=== PATIENT | female | born 1950 | race Hispanic/Latino ===

== ENCOUNTER 2016-08-22 22:38 | Emergency (ER) | payer MEDICAID ==
[2016-08-23] MEDS ORDERED: DILAUDID IM ONE (00:13)
--- NOTE | 2016-08-23 00:14 | Emergency Department Report ---
ED Fall HPI - General Chief Complaint: Fall Stated Complaint: RIGHT SIDE PAIN Time Seen by Provider: 08/23/16 00:08 Source: patient, EMS Mode of arrival: Stretcher - History of Present Illness Initial Comments: This is a 65-year-old female who indicates that she fell on Tuesday while trying to get up from a chair. She states that she tumbled over onto her right side and struck the right side against the arm of the chair quite hard. She did have immediate pain. She was able to get through the day okay. She states throughout Tuesday however her pain is become more on intolerable. She ultimately called ambulance for assistance and further evaluation and pain management. She did take Tylenol at home with minimal improvement of the pain. She she endorses smoking. She does not use oxygen at home. She denies any underlying history of COPD that she is aware of. She denies any other trauma with the fall. No neck pain no headache. No other injuries are reported. Pain in the right chest is worse with movement or deep inspiration or cough. Improved with staying still. - Related Data Home Medications Medication Instructions Recorded Confirmed Last Taken Gabapentin [Neurontin] 100 mg PO TID 04/28/15 04/28/15 Unknown Previous Rx's Medication Instructions Recorded Last Taken Type ALPRAZolam [Xanax TAB] 0.25 mg PO TID PRN #30 tab 05/30/14 Unknown Rx Escitalopram [Lexapro] 20 mg PO DAILY #15 tablet 05/30/14 Unknown Rx Cyclobenzaprine HCl [Flexeril 5 MG 5 mg PO Q6HR #20 tablet 11/27/14 Unknown Rx TAB] traMADol [Ultram 50 MG tab] 50 mg PO Q6HR PRN #20 tablet 11/27/14 Unknown Rx Cefuroxime [Ceftin] 500 mg PO Q12HR #6 tablet 05/01/15 Unknown Rx Albuterol *Only Ed* [Proventil 2.5 mg IH Q3HRT PRN #1 box 09/16/15 Unknown Rx 0.5% NEBS] Amoxicillin/K Clav Tab [Augmentin 1 tab PO Q12HR #20 tab 09/16/15 Unknown Rx 875 mg] Loratadine [Claritin] 10 mg PO DAILY #30 tablet 09/16/15 Unknown Rx Prednisone [predniSONE 10 mg 10 mg PO .TAPER #1 tab.ds.pk 09/16/15 Unknown Rx (6-Day Pack, 21 Tabs)] traMADol [Ultram] 50 mg PO Q6HR PRN #15 tablet 09/16/15 Unknown Rx oxyCODONE /ACETAMINOPHEN [Percocet 1 tab PO Q6HR PRN #30 tablet 08/23/16 Unknown Rx 5/325] Allergies Allergy/AdvReac Type Severity Reaction Status Date / Time codeine Allergy Hives Verified 11/27/14 12:23 prednisone Allergy Rash Verified 08/22/16 22:50 ED Review of Systems ROS: Stated complaint: RIGHT SIDE PAIN Other details as noted in HPI Comment: All other systems reviewed and negative Constitutional: denies: chills, fever Eyes: denies: eye pain, eye discharge, vision change ENT: denies: ear pain, throat pain Respiratory: denies: cough, shortness of breath, wheezing Cardiovascular: denies: chest pain, palpitations Endocrine: no symptoms reported Gastrointestinal: denies: abdominal pain, nausea, diarrhea Genitourinary: denies: urgency, dysuria, discharge Musculoskeletal: other. denies: back pain, joint swelling, arthralgia Skin: denies: rash, lesions Neurological: denies: headache, weakness, paresthesias Psychiatric: denies: anxiety, depression Hematological/Lymphatic: denies: easy bleeding, easy bruising ED Past Medical Hx - Past Medical History Previous Medical History?: Yes Hx Hypertension: Yes (lasix) Hx Congestive Heart Failure: No Hx Diabetes: No Hx Pulmonary Embolism: No Hx Renal Disease: No Hx Arthritis: No Hx Kidney Stones: No Hx Psychiatric Treatment: Yes (Apparently has previous overdose; on Lexapro and Xanax) Hx Asthma: No Hx COPD: Yes Hx Tuberculosis: No Hx HIV: No Additional medical history: a-fib, home O2. CARPAL TUNNEL. Back pain - Surgical History Past Surgical History?: Yes Hx Cholecystectomy: No Hx Appendectomy: No Hx Breast Surgery: No Additional Surgical History: BILATERAL CATARACTS REMOVED; LENS SURGERY. BALLOON IN BACK - Social History Smoking Status: Current Every Day Smoker Substance Use Type: None - Medications Home Medications: Home Medications Medication Instructions Recorded Confirmed Last Taken Type ALPRAZolam [Xanax TAB] 0.25 mg PO TID PRN #30 tab 05/30/14 04/28/15 Unknown Rx Escitalopram [Lexapro] 20 mg PO DAILY #15 tablet 05/30/14 04/28/15 Unknown Rx Cyclobenzaprine HCl [Flexeril 5 MG 5 mg PO Q6HR #20 tablet 11/27/14 04/28/15 Unknown Rx TAB] traMADol [Ultram 50 MG tab] 50 mg PO Q6HR PRN #20 tablet 11/27/14 04/28/15 Unknown Rx Gabapentin [Neurontin] 100 mg PO TID 04/28/15 04/28/15 Unknown History Cefuroxime [Ceftin] 500 mg PO Q12HR #6 tablet 05/01/15 Unknown Rx Albuterol *Only Ed* [Proventil 2.5 mg IH Q3HRT PRN #1 box 09/16/15 Unknown Rx 0.5% NEBS] Amoxicillin/K Clav Tab [Augmentin 1 tab PO Q12HR #20 tab 09/16/15 Unknown Rx 875 mg] Loratadine [Claritin] 10 mg PO DAILY #30 tablet 09/16/15 Unknown Rx Prednisone [predniSONE 10 mg 10 mg PO .TAPER #1 tab.ds.pk 09/16/15 Unknown Rx (6-Day Pack, 21 Tabs)] traMADol [Ultram] 50 mg PO Q6HR PRN #15 tablet 09/16/15 Unknown Rx oxyCODONE /ACETAMINOPHEN [Percocet 1 tab PO Q6HR PRN #30 tablet 08/23/16 Unknown Rx 5/325] ED Physical Exam - General Limitations: Physical Limitation General appearance: alert, in distress (due to pain) - Head Head exam: Present: atraumatic, normocephalic - Eye Eye exam: Present: normal appearance, EOMI. Absent: scleral icterus - ENT ENT exam: Present: normal exam, normal orophraynx - Neck Neck exam: Present: normal inspection, full ROM. Absent: lymphadenopathy - Respiratory Respiratory exam: Present: normal lung sounds bilaterally, other (shallow breathing. Chest wall examination with right side mid portion and anterior axillary line with ecchymoses and some edema. No crepitance or bony step-off is appreciated.). Absent: wheezes, rales, rhonchi - Cardiovascular Cardiovascular Exam: Present: regular rate, normal rhythm, normal heart sounds. Absent: systolic murmur, diastolic murmur - GI/Abdominal GI/Abdominal exam: Present: soft. Absent: tenderness, guarding, rebound - Extremities Exam Extremities exam: Present: normal inspection. Absent: tenderness, pedal edema, calf tenderness - Back Exam Back exam: Absent: CVA tenderness (R), CVA tenderness (L), vertebral tenderness - Neurological Exam Neurological exam: Present: alert, oriented X3, other (moving all 4 extremities spontaneously.) - Psychiatric Psychiatric exam: Present: normal affect, depressed - Skin Skin exam: Present: warm, dry, intact ED Course Vital Signs 08/22/16 08/22/16 08/22/16 22:56 22:57 23:00 Temperature 97.6 F Pulse Rate 72 73 Respiratory 22 22 Rate Blood Pressure Blood Pressure 121/72 [Left] O2 Sat by Pulse 99 93 100 Oximetry 08/22/16 08/22/16 08/22/16 23:11 23:21 23:30 Temperature Pulse Rate 71 83 71 Respiratory 23 40 H 24 Rate Blood Pressure 141/86 134/77 128/79 Blood Pressure [Left] O2 Sat by Pulse 100 99 Oximetry 08/22/16 08/22/16 08/23/16 23:41 23:50 00:00 Temperature Pulse Rate 72 71 73 Respiratory 17 22 22 Rate Blood Pressure 128/79 125/77 Blood Pressure [Left] O2 Sat by Pulse 100 100 100 Oximetry 08/23/16 08/23/16 08/23/16 00:11 00:21 00:30 Temperature Pulse Rate 71 Respiratory 21 30 H 43 H Rate Blood Pressure 125/77 112/63 112/63 Blood Pressure [Left] O2 Sat by Pulse 100 96 98 Oximetry 08/23/16 08/23/16 08/23/16 02:02 02:11 02:21 Temperature Pulse Rate Respiratory Rate Blood Pressure 92/52 92/52 90/66 Blood Pressure [Left] O2 Sat by Pulse 93 94 96 Oximetry 08/23/16 08/23/16 08/23/16 02:30 02:41 02:51 Temperature Pulse Rate Respiratory Rate Blood Pressure 99/59 112/63 81/59 Blood Pressure [Left] O2 Sat by Pulse 96 97 97 Oximetry 08/23/16 08/23/16 08/23/16 03:00 03:11 03:21 Temperature Pulse Rate Respiratory Rate Blood Pressure 94/64 94/64 100/59 Blood Pressure [Left] O2 Sat by Pulse 96 97 97 Oximetry 08/23/16 08/23/1617 03:30 03:41 03:51 Temperature Pulse Rate Respiratory Rate Blood Pressure 104/62 104/62 104/50 Blood Pressure [Left] O2 Sat by Pulse 96 97 96 Oximetry 08/23/16 04:00 Temperature Pulse Rate Respiratory Rate Blood Pressure 101/59 Blood Pressure [Left] O2 Sat by Pulse 96 Oximetry - Reevaluation(s) Reevaluation #1: 08/23/16 05:54 Patient given IM injection of Dilaudid here. This was a bit much for her. She was quite somnolent after this. She was observed here for approximately 90 minutes after the injection and did become much more appropriate. She did feel more comfortable with supplemental oxygen on but did have an appropriate O2 saturation without oxygen as well. She is breathing more comfortably after I Dilaudid. Chest x-ray does demonstrate what appears to be a nondisplaced fracture of one of her ribs. This is very consistent with her exam findings as well. I did give her routine instructions regarding rib fracture. She does agree to return if any acute worsening. She does have some concerns as she is at home alone. I did encourage her to talk to family and friends to check on her. I did caution her regarding the possibility of constipation with pain medications as well. She is not narcotic cristiana but clearly was hit pretty hard with the Dilaudid. I did caution her with the Percocet to cut them in half. She agrees to be responsible with these. ED Medical Decision Making - Radiology Data interpreted by me: Right-sided nondisplaced seventh rib fracture. No pneumothorax. Otherwise negative. Critical care attestation.: If time is entered above; I have spent that time in minutes in the direct care of this critically ill patient, excluding procedure time. ED Disposition Clinical Impression: Closed rib fracture Qualifiers: Encounter type: initial encounter Rib fracture type: single rib Laterality: right Qualified Code(s): S22.31XA - Fracture of one rib, right side, initial encounter for closed fracture Disposition: DISCHARGED TO HOME OR SELFCARE Is pt being admited?: No Does the pt Need Aspirin: No Condition: Stable Instructions: Rib Fracture (ED) Additional Instructions: Use a pillow or your arm when deep breathing or switching positions or coughing as a way of splinting the chest. Practice deep breathing exercises several times daily to prevent pneumonia. Stop smoking. Take a stool softener daily as pain medications may be very constipating. Prescriptions: oxyCODONE /ACETAMINOPHEN [Percocet 5/325] 1 tab PO Q6HR PRN #30 tablet PRN Reason: Pain Referrals: PRIMARY CARE, [Primary Care Provider] - 3-5 Days Time of Disposition: 01:29
[2016-08-23 04:17] VITALS: BP 101/59
--- NOTE | 2016-08-23 08:37 | XRay Report ---
CHEST 2 VIEWS INDICATION: Rib pain. Fell 2 days ago. COMPARISON: 05/30/2015 FINDINGS: Frontal and lateral chest radiographs demonstrate stable cardiomediastinal silhouette, azygous lobe, right more than left apical scarring/pleural thickening and some prominent lung markings centrally. No pleural effusions or CHF. Mild left upper lobe scarring may extend from the hilum and may also again demonstrate a Y shaped hilar density/calcification, possibly vascular. Subtle branching vascular type calcifications also noted towards both lung bases on the frontal view. Grossly intact bones with mild thoracic dextroscoliosis apex about T6 and stable lower thoracic vertebroplasties. CONCLUSION: No acute chest process or significant interval change with various incidental findings, as above. Thank you for the opportunity to participate in this patient's care.
== END 2016-08-23 04:25 | disposition home or self-care (01) ==
LOC: ED 22:38
DX: S22.31XA Fracture of one rib, right side, initial encounter for closed fracture (principal); I10 Essential (primary) hypertension; J44.9 Chronic obstructive pulmonary disease, unspecified; I48.91 Unspecified atrial fibrillation; F17.200 Nicotine dependence, unspecified, uncomplicated; Z88.5 Allergy status to narcotic agent; Z88.8 Allergy status to other drugs, medicaments and biological substances; W08.XXXA Fall from other furniture, initial encounter; Y93.89 Activity, other specified; Y99.9 Unspecified external cause status; Y92.89 Other specified places as the place of occurrence of the external cause
CPT/HCPCS: 71020; 96372; 99284; J1170

== ENCOUNTER 2017-05-11 10:08 | Emergency (ER) | payer MEDICAID ==
[2017-05-11 10:42] VITALS: BP 116/68
== END 2017-05-11 10:35 | disposition left against medical advice (07) ==
LOC: ED 10:08
DX: R51 Headache (principal); Z53.21 Procedure and treatment not carried out due to patient leaving prior to being seen by health care provider

== ENCOUNTER 2018-09-30 00:17 | Emergency (ER) | payer MEDICARE ==
[2018-09-30] MEDS ORDERED: TORADOL IM ONE (00:34)
--- NOTE | 2018-09-30 02:50 | XRay Report ---
PROCEDURE: XR SHOULDER 2+V RT TECHNIQUE: Right shoulder radiographs, three views. HISTORY: pain after a fall COMPARISONS: None . FINDINGS: Fracture (s) and/or Dislocation(s): None . Joint space(s): Normal . Soft tissues: Normal . Bone mineralization: Normal . Foreign bodies: None . IMPRESSION: Normal Examination . This document is electronically signed by Rubin Smiley MD., September 30 2018 02:48:16 AM ET
--- NOTE | 2018-09-30 03:02 | XRay Report ---
PROCEDURE: XR RIBS UNI W PA CHEST 3+V LT TECHNIQUE: Left rib radiographs, 3 views of the ribs, including PA chest. HISTORY: pain after fall COMPARISONS: None . FINDINGS: Heart: Normal . Mediastinum/Vessels: Normal . Lungs: Normal . Pleural space: Normal . Pneumothorax: None . Bony thorax/ribs: There is a nondisplaced fracture of left rib #6. IMPRESSION: Fracture of left rib #6. There is no pulmonary contusion, effusion or pneumothorax. This document is electronically signed by Rubin Smiley MD., September 30 2018 03:00:36 AM ET
--- NOTE | 2018-09-30 03:20 | Emergency Department Report ---
ED General Adult HPI - General Chief complaint: Abdominal Pain Stated complaint: LEFT FLANK PAIN Time Seen by Provider: 09/30/18 00:30 Source: patient, EMS Mode of arrival: Stretcher Limitations: Physical Limitation - History of Present Illness Initial comments: Patient is a 67-year-old female who is presenting with left-sided side pain secondary to fall. Patient states that she tripped and fell approximately 24 hours ago and has had pain in her left ribs and right shoulder. Patient states worse with movement. His stay she has some difficulty breathing secondary to pain. Patient is on 2 L of oxygen at home for COPD. She denies any cough. Severity scale (0 -10): 10 - Related Data Home Medications Medication Instructions Recorded Confirmed Last Taken ALPRAZolam [Xanax TAB] 0.5 mg PO TID PRN 07/08/17 07/08/17 Unknown Citalopram [Celexa] 20 mg PO QDAY 07/08/17 07/08/17 Unknown Ipratropium/Albuterol Sulfate 1 ampul IH Q6HR 07/08/17 07/08/17 Unknown [DUONEB *Not for PRN Use*] traMADol [Ultram 50 MG tab] 50 mg PO Q12HR PRN 07/08/17 07/08/17 Unknown Previous Rx's Medication Instructions Recorded Last Taken Type Docusate Sodium [Colace CAP] 100 mg PO BID #60 capsule 07/13/17 Unknown Rx methOCARBAMOL [Robaxin TAB] 500 mg PO Q6H PRN #14 tablet 09/30/18 Unknown Rx traMADol [Ultram] 50 mg PO Q6HR PRN #12 tablet 09/30/18 Unknown Rx Allergies Allergy/AdvReac Type Severity Reaction Status Date / Time codeine Allergy Hives Verified 09/30/18 00:33 prednisone Allergy Rash Verified 09/30/18 00:33 ED Review of Systems ROS: Stated complaint: LEFT FLANK PAIN Other details as noted in HPI Comment: All other systems reviewed and negative ED Past Medical Hx - Past Medical History Previous Medical History?: Yes Hx Hypertension: Yes (lasix) Hx Congestive Heart Failure: No Hx Diabetes: No Hx Pulmonary Embolism: No Hx Liver Disease: Yes (hepatitis A) Hx Renal Disease: No Hx Arthritis: No Hx Kidney Stones: No Hx Psychiatric Treatment: Yes (Apparently has previous overdose; on Lexapro and Xanax) Hx Asthma: No Hx COPD: Yes Hx Tuberculosis: No Hx HIV: No Additional medical history: a-fib. CARPAL TUNNEL. Back pain - Surgical History Past Surgical History?: Yes Hx Cholecystectomy: No Hx Appendectomy: No Hx Breast Surgery: No Additional Surgical History: BILATERAL CATARACTS REMOVED; LENS SURGERY. BALLOON IN BACK - Social History Smoking Status: Current Every Day Smoker Substance Use Type: None - Medications Home Medications: Home Medications Medication Instructions Recorded Confirmed Last Taken Type ALPRAZolam [Xanax TAB] 0.5 mg PO TID PRN 07/08/17 07/08/17 Unknown History Citalopram [Celexa] 20 mg PO QDAY 07/08/17 07/08/17 Unknown History Ipratropium/Albuterol Sulfate 1 ampul IH Q6HR 07/08/17 07/08/17 Unknown History [DUONEB *Not for PRN Use*] traMADol [Ultram 50 MG tab] 50 mg PO Q12HR PRN 07/08/17 07/08/17 Unknown History Docusate Sodium [Colace CAP] 100 mg PO BID #60 capsule 07/13/17 Unknown Rx methOCARBAMOL [Robaxin TAB] 500 mg PO Q6H PRN #14 tablet 09/30/18 Unknown Rx traMADol [Ultram] 50 mg PO Q6HR PRN #12 tablet 09/30/18 Unknown Rx ED Physical Exam - General Limitations: Physical Limitation General appearance: alert, in no apparent distress - Head Head exam: Present: atraumatic, normocephalic - Eye Eye exam: Present: normal appearance, PERRL, EOMI - ENT ENT exam: Present: mucous membranes moist - Neck Neck exam: Present: normal inspection - Respiratory Respiratory exam: Present: normal lung sounds bilaterally, chest wall tenderness. Absent: respiratory distress, wheezes, rales (left sided) - Cardiovascular Cardiovascular Exam: Present: regular rate, normal rhythm. Absent: systolic murmur, diastolic murmur, rubs, gallop - GI/Abdominal GI/Abdominal exam: Present: soft, normal bowel sounds. Absent: distended, tenderness, guarding, rebound - Extremities Exam Extremities exam: Present: normal inspection, tenderness (denies tenderness to the right shoulder there is no deformity she does have full range of motion) - Back Exam Back exam: Present: normal inspection - Neurological Exam Neurological exam: Present: alert, oriented X3 - Psychiatric Psychiatric exam: Present: normal affect, normal mood - Skin Skin exam: Present: warm, dry, intact, normal color. Absent: rash ED Course Vital Signs 09/30/18 09/30/18 00:29 01:37 Temperature 97.7 F Pulse Rate 69 Respiratory 23 16 Rate Blood Pressure 128/66 O2 Sat by Pulse 97 Oximetry ED Medical Decision Making - Radiology Data Rib x-ray with AP chest shows no pneumothorax however the patient does have a sixth rib fracture. X-ray of the right shoulder shows no acute process. - Medical Decision Making Patient is a 67-year-old status post fall. Patient is a sixth rib fracture. Patient given incentive spirometer will be discharged home with pain medications. Critical care attestation.: If time is entered above; I have spent that time in minutes in the direct care of this critically ill patient, excluding procedure time. ED Disposition Clinical Impression: Rib fracture Qualifiers: Encounter type: initial encounter Rib fracture type: single rib Fracture type: closed Laterality: left Qualified Code(s): S22.32XA - Fracture of one rib, left side, initial encounter for closed fracture Shoulder strain Qualifiers: Encounter type: initial encounter Laterality: right Qualified Code(s): S46.911A - Strain of unspecified muscle, fascia and tendon at shoulder and upper arm level, right arm, initial encounter Fall with injury Qualifiers: Encounter type: initial encounter Qualified Code(s): W19.XXXA - Unspecified fall, initial encounter Disposition: - TO HOME OR SELFCARE Is pt being admited?: No Does the pt Need Aspirin: No Condition: Stable Instructions: Rib Fracture (ED), Fall Prevention for Older Adults (ED) Referrals: NELLA ROCA MD [Primary Care Provider] - 3-5 Days Time of Disposition: 03:19
[2018-09-30 05:37] VITALS: BP 122/72
== END 2018-09-30 07:29 | disposition home or self-care (01) ==
LOC: ED 00:17
DX: S22.32XA Fracture of one rib, left side, initial encounter for closed fracture (principal); S46.911A Strain of unspecified muscle, fascia and tendon at shoulder and upper arm level, right arm, initial encounter; I10 Essential (primary) hypertension; J44.9 Chronic obstructive pulmonary disease, unspecified; I48.91 Unspecified atrial fibrillation; F17.200 Nicotine dependence, unspecified, uncomplicated; W01.0XXA Fall on same level from slipping, tripping and stumbling without subsequent striking against object, initial encounter; Y93.89 Activity, other specified; Y92.89 Other specified places as the place of occurrence of the external cause; Y99.8 Other external cause status
CPT/HCPCS: 71101; 73030; 96372; 99283; J1885

== ENCOUNTER 2019-04-08 20:22 | Inpatient (IN) | payer MEDICARE, MEDICAID ==
[2019-04-08] MEDS ORDERED: IPRATROPIUM 0.02% NEBU 2.5 ML IH ONE (20:51)
[2019-04-08] MEDS ORDERED: MAGNESIUM SULFATE 1 GM in SODIUM CHLORIDE 0.9% 50 ML IV ONE (20:51)
[2019-04-08] MEDS ORDERED: ALBUTEROL 2.5 MG/3 ML NEBU IH ONE ×2 (20:51→23:46)
--- NOTE | 2019-04-08 21:18 | XRay Report ---
CHEST 1 VIEW INDICATION: SOB. COMPARISON: 07/09/2017. FINDINGS: Support devices: None. Heart: Within normal limits. Lungs/Pleura: No acute air space or interstitial disease. Additional findings: None. IMPRESSION: No acute abnormality. Signer Name: Rex Calvert MD Signed: 04/08/2019 9:13 PM Workstation Name: [id number]
[2019-04-08] MEDS ORDERED: SODIUM CHLORIDE 0.9% 1000 ML 1,000 ML ONE (21:25)
[2019-04-08 21:29] LABS: Basophils % (Auto) 0.3 % (0.0-1.8); Eosinophils # (Auto) 0.1 K/mm3 (0.0-0.4); Eosinophils % (Auto) 2.2 % (0.0-4.3); Hematocrit 35.4 % (30.3-42.9); Hemoglobin 11.6 gm/dl (10.1-14.3); Lymphocytes # (Auto) 2.4 K/mm3 (1.2-5.4); Lymphocytes % (Auto) 46.7 % (13.4-35.0); Mean Corpuscular HGB Conc 33 % (30-34); Mean Corpuscular Volume 116 fl (79-97); Monocytes # (Auto) 0.3 K/mm3 (0.0-0.8); Monocytes % (Auto) 6.5 % (0.0-7.3); Platelet Count 165 K/mm3 (140-440); Red Blood Count 3.06 M/mm3 (3.65-5.03); Red Cell Distribution Width 13.5 % (13.2-15.2)
[2019-04-08 21:49] LABS: Alanine Aminotransferase 28 units/L (7-56); Albumin 4.2 g/dL (3.9-5); BUN/Creatinine Ratio 14; Blood Urea Nitrogen 17 mg/dL (7-17); Calcium 9.3 mg/dL (8.4-10.2); Hemolysis Index 5
[2019-04-08] MEDS ORDERED: SODIUM CHLORIDE 0.9% 1000 ML IV SOLN IV ONE (21:50)
--- NOTE | 2019-04-08 21:58 | Emergency Department Report ---
HPI - General Chief Complaint: Dyspnea/Respdistress Time Seen by Provider: 04/08/19 20:36 - HPI HPI: 68-year-old female presents to the emergency department via EMS from home with complaint of a three-day history of shortness of breath, coughing, wheezing and the patient feels like her throat is tight. The patient also says that she passed out on her front porch yesterday. I asked why the patient did not call 911 or come in at that time and she says "my PROPULSION GENERATOR REPAIRER happened to be there." She is a tobacco smoker but denies any illicit drug use. She has a past medical history of COPD, hypertension, hepatitis A, proximal atrial fibrillation and chronic back pain. Primary care physician is Dr. Cheek. She does not have a non morse intercept technician. ED Past Medical Hx - Past Medical History Previous Medical History?: Yes Hx Hypertension: Yes (lasix) Hx Congestive Heart Failure: No Hx Diabetes: No Hx Pulmonary Embolism: No Hx Liver Disease: Yes (hepatitis A) Hx Renal Disease: No Hx Arthritis: No Hx Kidney Stones: No Hx Psychiatric Treatment: Yes (Apparently has previous overdose; on Lexapro and Xanax) Hx Asthma: No Hx COPD: Yes Hx Tuberculosis: No Hx HIV: No Additional medical history: a-fib. CARPAL TUNNEL. Back pain - Surgical History Past Surgical History?: Yes Hx Cholecystectomy: No Hx Appendectomy: No Hx Breast Surgery: No Additional Surgical History: BILATERAL CATARACTS REMOVED; LENS SURGERY. BALLOON IN BACK - Social History Smoking Status: Current Every Day Smoker Substance Use Type: None - Medications Home Medications: Home Medications Medication Instructions Recorded Confirmed Last Taken Type ALPRAZolam [Xanax TAB] 0.5 mg PO TID PRN 07/08/17 04/08/19 Unknown History Ipratropium/Albuterol Sulfate 1 ampul IH Q6HR 07/08/17 04/08/19 Unknown History [DUONEB *Not for PRN Use*] ED Review of Systems ROS: Stated complaint: SOB Other details as noted in HPI Comment: All other systems reviewed and negative Constitutional: denies: chills Eyes: denies: eye pain, vision change ENT: throat pain. denies: ear pain Respiratory: cough, shortness of breath, wheezing Cardiovascular: syncope. denies: chest pain, edema Gastrointestinal: denies: abdominal pain, vomiting Genitourinary: denies: dysuria, discharge Musculoskeletal: back pain (chronic). denies: joint swelling Skin: denies: rash, lesions Neurological: denies: headache, weakness Physical Exam - Physical Exam Vital Signs: Vital Signs 04/08/19 20:35 Temperature 98 F Pulse Rate 95 H Respiratory 16 Rate Blood Pressure 107/55 O2 Sat by Pulse 95 Oximetry Physical Exam: GENERAL: The patient is well-developed well-nourished. HEENT: Normocephalic. Atraumatic. Patient has moist mucous membranes. EYES: Extraocular motions are intact. NECK: Supple. Trachea is midline. CHEST/LUNGS: Moderate wheezing throughout the chest. There is some tachypnea but no excessive muscle use. A bronchospastic cough with coughing fits this or during examination. There is no respiratory distress noted. HEART/CARDIOVASCULAR: Regular. There is no tachycardia. There is no gallop rub or murmur. ABDOMEN: Abdomen is soft, nontender. Patient has normal bowel sounds. There is no abdominal distention. SKIN: Skin is warm and dry. NEURO: The patient is awake, alert, and oriented. The patient is cooperative. The patient has normal speech. MUSCULOSKELETAL: There is no tenderness or deformity. There is no evidence of acute injury. ED Course Vital Signs 04/08/19 20:35 Temperature 98 F Pulse Rate 95 H Respiratory 16 Rate Blood Pressure 107/55 O2 Sat by Pulse 95 Oximetry - ABG Interpretation Ph: 7.289 PCO2: 50 PO2: 115 Bicarbonate: 24 Interpretation: respiratory acidosis ED Medical Decision Making - Lab Data Result diagrams: 04/08/19 Unknown 04/08/19 Unknown - EKG Data -: EKG Interpreted by Me EKG shows normal: sinus rhythm (PACs), axis, intervals, QRS complexes (low voltage), ST-T waves Rate: normal - EKG Data When compared to previous EKG there are: previous EKG unavailable Interpretation: other (Sinus, PACs, low voltage, No STEMI) - Radiology Data Radiology results: report reviewed, image reviewed interpreted by me: Chest x-ray shows some hyperinflation of the lungs and flattening of the diaphragms. No pneumonia, pleural effusions, focal consolidation or any other acute process. CT angiography of the chest does not show any pulmonary embolism, dissection, or any other acute process. - Medical Decision Making This patient presents with a few days of shortness breath, wheezing, coughing. She also complained of a syncopal episode from yesterday. The patient is awake and alert but she does have moderate wheezing, some tachypnea and a bronchospastic cough with coughing fits. Chest x-ray does not show any acute process but it does appear consistent with COPD / emphysema. EKG does not show any signs of ST elevation OR, ischemia or dysrhythmia. The patient is allergic to steroids, so she was treated with magnesium and multiple rounds of breathing treatments. Her ABG shows some respiratory acidosis. The rest of her labs are mostly unremarkable except for a slightly elevated at equivocal d-dimer. CT angiography of the chest was done that showed a pulmonary embolism or any other acute process. The patient continues to have some shortness of breath, audible wheezing and bronchospasm, even without any exertion. She will be admitted to the hospital for further evaluation and treatment was accepted for admission by the hospitalist, Dr. Phipps. - Differential Diagnosis COPD, pneumonia, PE, CHF Critical Care Time: No Critical care attestation.: If time is entered above; I have spent that time in minutes in the direct care of this critically ill patient, excluding procedure time. ED Disposition Clinical Impression: COPD exacerbation, Renal insufficiency Disposition: OP ADMIT IP TO THIS HOSP Is pt being admited?: Yes Condition: Fair Time of Disposition: 03:23
[2019-04-08] MEDS ORDERED: BENZONATATE 100 MG CAP PO ONE (22:11)
[2019-04-08] MEDS ORDERED: CYCLOBENZAPRINE 10 MG TAB PO ONE (22:18)
--- NOTE | 2019-04-08 23:42 | Cat Scan Report ---
CTA CHEST WITH IV CONTRAST INDICATION / CLINICAL INFORMATION: SOB, elevated dimer. TECHNIQUE: Axial CT images were obtained through the chest after injection of IV contrast. 3 plane MIP and/or 3D reconstructions were produced. All CT scans at this location are performed using CT dose reduction f or ALARA by means of automated exposure control. COMPARISON: None available. FINDINGS: PULMONARY ARTERIES: No pulmonary emboli. THORACIC AORTA: No significant abnormality. HEART: No significant abnormality. CORONARY ARTERIES: No significant calcification. PLEURA: No pleural effusion. No pneumothorax. LYMPH NODES: No significant adenopathy. LUNGS: No acute air space or interstitial disease. ADDITIONAL FINDINGS: None. UPPER ABDOMEN: No acute findings. SKELETAL STRUCTURES: No significant osseous abnormality. IMPRESSION: 1. No CT evidence for pulmonary embolism. 2. No acute findings. Signer Name: Abner Crane MD Signed: 04/08/2019 11:38 PM Workstation Name: [id number]
[2019-04-09] MEDS ORDERED: LORazepam 2 MG/ML VIAL IV ONE
[2019-04-09] MEDS ORDERED: ALBUTEROL 2.5 MG/3 ML NEBU IH PRN (00:03)
[2019-04-09] MEDS ORDERED: ONDANSETRON 4 MG/2 ML INJ IV PRN (00:03)
--- NOTE | 2019-04-09 00:19 | History and Physical Report ---
<FERNANDA MIN - Last Filed: 04/09/19 00:37> History of Present Illness Date of examination: 04/08/19 Date of admission: 04/08/2019 Chief complaint: SOB History of present illness: 68-year-old female who is an ongoing smoker with history of atrial fibrillation not on anticoagulation, hypertension, hepatitis A, COPD, carpal tu nnel, chronic back pain, prescription drug overdose (Lexapro and Xanax) who presents to [facility] ED via EMS with complaints of worsening shortness of breath, cough with discolored sputum production, and witnessed syncopal episode x1. Patient states that she has been experiencing progressively worsening shortness of breath at rest and with activity, increased cough with green/yellow sputum production for the past 3 days. Patient denies having rescue inhaler more home nebulizer. Patient states that she did not take any medicine to treat her symptoms. Additionally pt c/o witnessed syncopal episode on Tuesday (04/07). She states that she did not call EMS or seek medical treatment, because she JIRA ADMINISTRATOR there and took care of her. She denies loss of consciousness or head injury/trauma. Her PCP is Dr. Cheek. Denies fever, nausea, vomiting, diarrhea, hemoptysis, or hematemesis. Past History Past Medical History: atrial fib, COPD, hypertension, liver disease (Hepatitis A), other (Carpal tunnel, chronic back pain, prescription drug overdose (Lexapro and Xanax)) Past Surgical History: Other (BILATERAL CATARACTS REMOVED; LENS SURGERY. BALLOON IN BACK) Social history: smoking (Current everyday smoker) Family history: no significant family history Medications and Allergies Allergies Allergy/AdvReac Type Severity Reaction Status Date / Time codeine Allergy Hives Verified 09/30/18 00:33 prednisone Allergy Rash Verified 09/30/18 00:33 Home Medications Medication Instructions Recorded Confirmed Last Taken Type ALPRAZolam [Xanax TAB] 0.5 mg PO TID PRN 07/08/17 04/08/19 Unknown History Ipratropium/Albuterol Sulfate 1 ampul IH Q6HR 07/08/17 04/08/19 Unknown History [DUONEB *Not for PRN Use*] Active Meds: Active Medications Acetaminophen (Tylenol) 650 mg PO Q4H PRN PRN Reason: Pain MILD(1-3)/Fever >100.5/ARVIZU Albuterol (Proventil) 2.5 mg IH Q3HRT PRN PRN Reason: Shortness Of Breath Albuterol/Ipratropium (Duoneb *Not For Prn Use*) 1 ampul IH Q6HRT [facility] Alprazolam (Xanax) 0.5 mg PO TID PRN PRN Reason: Anxiety Budesonide (Pulmicort) 0.5 mg IH Q12HRT [facility] Docusate Sodium (Colace) 100 mg PO BID [facility]EL Guaifenesin (Mucinex Er) 600 mg PO BID [facility] Heparin Sodium (Porcine) (Heparin) 5,000 unit SUB-Q Q12HR [facility] Methylprednisolone Sodium Succinate (Solu-Medrol) 80 mg IV Q8HR [facility]HAEL Nicotine (Habitrol) 14 mg TD QDAY [facility] Ondansetron HCl (Zofran) 4 mg IV Q8H PRN PRN Reason: Nausea And Vomiting Sodium Chloride (Sodium Chloride Flush Syringe 10 Ml) 10 ml IV BID MICHAEL Sodium Chloride (Sodium Chloride Flush Syringe 10 Ml) 10 ml IV PRN PRN PRN Reason: LINE FLUSH Review of Systems All systems: negative Cardiovascular: syncope (X1), shortness of breath Respiratory: cough with sputum (Yellow/green), shortness of breath, dyspnea on exertion, wheezing Exam - Physical Exam Narrative exam: Physical exam General appearance: Present: No acute distress, alert and oriented 3, looks older than stated age, adult female - EENT Eyes: Present: PERRL, EOM intact ENT: hearing intact, missing teeth - Neck Neck: Present: supple, normal ROM - Respiratory Respiratory effort: Non-labored Respiratory: Wheezing - Cardiovascular Heart rate: 191 (bpm) Rhythm: Sinus rhythm Heart Sounds: Present: S1 & S2. Absent: rub, click - Extremities Extremities: no ischemia, pulses intact, - Peripheral Assessment Peripheral Pulses: within normal limits - Abdominal General gastrointestinal: soft, non-tender, normal bowel sounds - Integumentary Integumentary: Present: warm, dry - Musculoskeletal Musculoskeletal: Able to move all extremities -Neurological Neurological: CN II-XII intact - Psychiatric Psychiatric: cooperative - Constitutional Vitals: Temp Pulse Resp BP Pulse Ox 98 F 80 16 113/59 99 04/08/19 20:35 04/08/19 22:45 04/08/19 22:45 04/08/19 22:45 04/08/19 22:56 Results - Labs CBC & Chem 7: 04/08/19 Unknown 04/08/19 Unknown Labs: Laboratory Last Values WBC 5.2 K/mm3 (4.5-11.0) 04/08/19 Unknown RBC 3.06 M/mm3 (3.65-5.03) L 04/08/19 Unknown Hgb 11.6 gm/dl (10.1-14.3) 04/08/19 Unknown Hct 35.4 % (30.3-42.9) 04/08/19 Unknown MCV 116 fl (79-97) H 04/08/19 Unknown MCH 38 pg (28-32) H 04/08/19 Unknown MCHC 33 % (30-34) 04/08/19 Unknown RDW 13.5 % (13.2-15.2) 04/08/19 Unknown Plt Count 165 K/mm3 (140-440) 04/08/19 Unknown Lymph % (Auto) 46.7 % (13.4-35.0) H 04/08/19 Unknown Wilcox % (Auto) 6.5 % (0.0-7.3) 04/08/19 Unknown Eos % (Auto) 2.2 % (0.0-4.3) 04/08/19 Unknown Baso % (Auto) 0.3 % (0.0-1.8) 04/08/19 Unknown Lymph # 2.4 K/mm3 (1.2-5.4) 04/08/19 Unknown Wilcox # 0.3 K/mm3 (0.0-0.8) 04/08/19 Unknown Eos # 0.1 K/mm3 (0.0-0.4) 04/08/19 Unknown Baso # 0.0 K/mm3 (0.0-0.1) 04/08/19 Unknown Seg Neutrophils % 44.3 % (40.0-70.0) 04/08/19 Unknown Seg Neutrophils # 2.3 K/mm3 (1.8-7.7) 04/08/19 Unknown D-Dimer 342.88 ng/mlDDU (0-234) H 04/08/19 21:30 POC ABG pH 7.289 (7.35-7.45) L 04/08/19 23:02 POC ABG pCO2 50.3 (35-45) H 04/08/19 23:02 POC ABG pO2 115 (80-105) H 04/08/19 23:02 POC ABG HCO3 24.1 (22-26 mml/L) 04/08/19 23:02 POC ABG Total CO2 26 (23-27mmol/L) 04/08/19 23:02 POC ABG O2 Sat 98 04/08/19 23:02 POC ABG Base Excess -3 ((-2) - (+3)mmol/L) 04/08/19 23:02 FiO2 36 % 04/08/19 23:02 Sodium 142 mmol/L (137-145) 04/08/19 Unknown Potassium 3.8 mmol/L (3.6-5.0) 04/08/19 Unknown Chloride 107.1 mmol/L (98-107) H 04/08/19 Unknown Carbon Dioxide 22 mmol/L (22-30) 04/08/19 Unknown Anion Gap 17 mmol/L 04/08/19 Unknown BUN 17 mg/dL (7-17) 04/08/19 Unknown Creatinine 1.2 mg/dL (0.7-1.2) 04/08/19 Unknown Estimated GFR 45 ml/min 04/08/19 Unknown BUN/Creatinine Ratio 14 % 04/08/19 Unknown Glucose 111 mg/dL (65-100) H 04/08/19 Unknown Calcium 9.3 mg/dL (8.4-10.2) 04/08/19 Unknown Total Bilirubin < 0.20 mg/dL (0.1-1.2) 04/08/19 Unknown AST 34 units/L (5-40) 04/08/19 Unknown ALT 28 units/L (7-56) 04/08/19 Unknown Alkaline Phosphatase 188 units/L (35-129) H 04/08/19 Unknown Troponin T < 0.010 ng/mL (0.00-0.029) 04/08/19 Unknown NT-Pro-B Natriuret Pep 436.2 pg/mL (0-900) 04/08/19 Unknown Total Protein 7.5 g/dL (6.3-8.2) 04/08/19 Unknown Albumin 4.2 g/dL (3.9-5) 04/08/19 Unknown Albumin/Globulin Ratio 1.3 % 04/08/19 Unknown - Imaging and Cardiology Imaging and Cardiology: CXR: Lungs/pleura: No acute airspace or interstitial disease. Impression: No acute abnormality CT Angio Chest: Impressions: 1. No CT evidence for pulmonary embolism. 2. Space no acute findings. Assessment and Plan Assessment and plan: 68-year-old female who is an ongoing smoker with history of atrial fibrillation not on anticoagulation, hypertension, hepatitis A, COPD, carpal tunnel, chronic back pain, prescription drug overdose (Lexapro and Xanax) who presents to [facility] ED via EMS with complaints of worsening shortness of breath, cough with discolored sputum production, and witnessed syncopal episode x1. Patient states that she has been experiencing progressively worsening shortness of breath at rest and with activity, increased cough with green/yellow sputum production for the past 3 days. Patient denies having rescue inhaler more home nebulizer. Patient states that she did not take any medicine to treat her symptoms. Additionally pt c/o witnessed syncopal episode on Tuesday (04/07). She states that she did not call EMS or seek medical treatment, because she JIRA ADMINISTRATOR there and took care of her. She denies loss of consciousness or head injury/trauma. Her PCP is Dr. Cheek. Denies fever, nausea, vomiting, diarrhea, hemoptysis, or hematemesis. Acute exacerbation COPD -CXR unrevealing -Increased shortness of breath -Cough with yellow/green sputum production -Scheduled to DuoNebs and Pulmicort, albuterol when necessary -IV systemic steroids -Start Mucinex -Supplemental O2 prn; wean as tolerated Syncope -witnessed episode x1 -Echo and Bilateral Carotid Doppler pending -Neuro Checks -PT/OT eval pending -Lipid panel pending -Start ASA and Statin -Neurology consulted Elevated D-dimeer -at 342.88 -CT angio negative for PE Hx HTN -Monitor BP -Currently normotensive -Resume home hypertensive meds once medication reconciliation has been updated Hx Atrial fibrillation -Not on anticoagulation -Currently rate controlled -Today EKG shows SR at 91bpm Chronic renal insufficiency -BUN/ Cr 17/1.2 with GFR 45 (on this admission) -GFR >60 (on 07/09/17) -Avoid nephrotoxic agents -Renal dose all meds Tobacco abuse -Current every day smoker -Counseled for cessation -Nicotine patch when necessary DVT PPX -On Heparin Advance Directives: No VTE prophylaxis?: Chemical Plan of care discussed with patient/family: Yes <DOUG HENDERSON - Last Filed: 04/09/19 07:04> History of Present Illness Date of admission: 04/08/19 23:55 Medications and Allergies Active Meds: Active Medications Acetaminophen (Tylenol) 650 mg PO Q4H PRN PRN Reason: Pain MILD(1-3)/Fever >100.5/ARVIZU Albuterol (Proventil) 2.5 mg IH Q3HRT PRN PRN Reason: Shortness Of Breath Albuterol/Ipratropium (Duoneb *Not For Prn Use*) 1 ampul IH Q6HRT [facility] Last Admin: 04/09/19 04:20 Dose: Not Given Documented by: Alprazolam (Xanax) 0.5 mg PO TID PRN PRN Reason: Anxiety Aspirin (Baby Aspirin) 81 mg PO QDAY [facility] Atorvastatin Calcium (Lipitor) 20 mg PO QHS [facility] Budesonide (Pulmicort) 0.5 mg IH Q12HRT [facility] Docusate Sodium (Colace) 100 mg PO BID [facility] Guaifenesin (Mucinex Er) 600 mg PO BID [facility] Heparin Sodium (Porcine) (Heparin) 5,000 unit SUB-Q Q12HR [facility] Levofloxacin/Dextrose (Levaquin 500mg/100ml) 500 mg in 100 mls @ 100 mls/hr IV ONCE ONE; Protocol Stop: 04/09/19 10:59 Levofloxacin/Dextrose (Levaquin 250mg/50ml) 250 mg in 50 mls @ 50 mls/hr IV Q24HR [facility]; Protocol Methylprednisolone Sodium Succinate (Solu-Medrol) 80 mg IV Q8HR [facility] Last Admin: 04/09/19 05:31 Dose: 80 mg Documented by: Nicotine (Habitrol) 14 mg TD QDAY [facility] Ondansetron HCl (Zofran) 4 mg IV Q8H PRN PRN Reason: Nausea And Vomiting Sodium Chloride (Sodium Chloride Flush Syringe 10 Ml) 10 ml IV BID [facility] Sodium Chloride (Sodium Chloride Flush Syringe 10 Ml) 10 ml IV PRN PRN PRN Reason: LINE FLUSH Exam - Constitutional Vitals: Temp Pulse Resp BP Pulse Ox 98.2 F 89 20 101/58 100 04/09/19 03:17 04/09/19 03:17 04/09/19 03:17 04/09/19 03:17 04/09/19 03:17 Results - Labs CBC & Chem 7: 04/08/19 Unknown 04/08/19 Unknown Labs: Laboratory Last Values WBC 5.2 K/mm3 (4.5-11.0) 04/08/19 Unknown RBC 3.06 M/mm3 (3.65-5.03) L 04/08/19 Unknown Hgb 11.6 gm/dl (10.1-14.3) 04/08/19 Unknown Hct 35.4 % (30.3-42.9) 04/08/19 Unknown MCV 116 fl (79-97) H 04/08/19 Unknown MCH 38 pg (28-32) H 04/08/19 Unknown MCHC 33 % (30-34) 04/08/19 Unknown RDW 13.5 % (13.2-15.2) 04/08/19 Unknown Plt Count 165 K/mm3 (140-440) 04/08/19 Unknown Lymph % (Auto) 46.7 % (13.4-35.0) H 04/08/19 Unknown Wilcox % (Auto) 6.5 % (0.0-7.3) 04/08/19 Unknown Eos % (Auto) 2.2 % (0.0-4.3) 04/08/19 Unknown Baso % (Auto) 0.3 % (0.0-1.8) 04/08/19 Unknown Lymph # 2.4 K/mm3 (1.2-5.4) 04/08/19 Unknown Wilcox # 0.3 K/mm3 (0.0-0.8) 04/08/19 Unknown Eos # 0.1 K/mm3 (0.0-0.4) 04/08/19 Unknown Baso # 0.0 K/mm3 (0.0-0.1) 04/08/19 Unknown Seg Neutrophils % 44.3 % (40.0-70.0) 04/08/19 Unknown Seg Neutrophils # 2.3 K/mm3 (1.8-7.7) 04/08/19 Unknown D-Dimer 342.88 ng/mlDDU (0-234) H 04/08/19 21:30 POC ABG pH 7.289 (7.35-7.45) L 04/08/19 23:02 POC ABG pCO2 50.3 (35-45) H 04/08/19 23:02 POC ABG pO2 115 (80-105) H 04/08/19 23:02 POC ABG HCO3 24.1 (22-26 mml/L) 04/08/19 23:02 POC ABG Total CO2 26 (23-27mmol/L) 04/08/19 23:02 POC ABG O2 Sat 98 04/08/19 23:02 POC ABG Base Excess -3 ((-2) - (+3)mmol/L) 04/08/19 23:02 FiO2 36 % 04/08/19 23:02 Sodium 142 mmol/L (137-145) 04/08/19 Unknown Potassium 3.8 mmol/L (3.6-5.0) 04/08/19 Unknown Chloride 107.1 mmol/L (98-107) H 04/08/19 Unknown Carbon Dioxide 22 mmol/L (22-30) 04/08/19 Unknown Anion Gap 17 mmol/L 04/08/19 Unknown BUN 17 mg/dL (7-17) 04/08/19 Unknown Creatinine 1.2 mg/dL (0.7-1.2) 04/08/19 Unknown Estimated GFR 45 ml/min 04/08/19 Unknown BUN/Creatinine Ratio 14 % 04/08/19 Unknown Glucose 111 mg/dL (65-100) H 04/08/19 Unknown Calcium 9.3 mg/dL (8.4-10.2) 04/08/19 Unknown Total Bilirubin < 0.20 mg/dL (0.1-1.2) 04/08/19 Unknown AST 34 units/L (5-40) 04/08/19 Unknown ALT 28 units/L (7-56) 04/08/19 Unknown Alkaline Phosphatase 188 units/L (35-129) H 04/08/19 Unknown Troponin T < 0.010 ng/mL (0.00-0.029) 04/08/19 Unknown NT-Pro-B Natriuret Pep 436.2 pg/mL (0-900) 04/08/19 Unknown Total Protein 7.5 g/dL (6.3-8.2) 04/08/19 Unknown Albumin 4.2 g/dL (3.9-5) 04/08/19 Unknown Albumin/Globulin Ratio 1.3 % 04/08/19 Unknown Assessment and Plan Assessment and plan: Patient seen and examined, discussed with nurse practitioner, agree with plan as stated above
[2019-04-09] MEDS: IPRATROPIUM/ALBUTEROL SULFATE 3 ML AMPUL.NEB IH SCH ×4 (04:20→22:01)
[2019-04-09] MEDS: methylPREDNISolone Sod Succinate 125 MG/2 ML INJ IV SCH ×2 (05:31→16:00)
[2019-04-09] MEDS: ACETAMINOPHEN 325 MG TAB PO PRN ×2 (07:16→22:48)
[2019-04-09] MEDS: ALPRAZolam 0.5 MG TAB PO PRN ×3 (07:16→22:49)
[2019-04-09] MEDS: BUDESONIDE 0.5 MG/2 ML NEBU IH SCH ×2 (08:41→22:01)
[2019-04-09 09:32] LABS: Chol/HDL Ratio 2.28 %
--- NOTE | 2019-04-09 10:21 | Consultation ---
History of Present Illness Consult date: 04/09/19 Requesting physician: FERNANDA MIN Reason for Consult: syncope Chief complaint: i passed out History of present illness: 68 yo F w hx of brian not on anticoag (no clear reason documented, but may be d/t falls) has passed out ' LOC x 3 events over lifetime, first was 3 years ago, 2nd was 2 w ago, 3rd was last tuesday/?tuesday. no provocation or inciting event prior to passing out: 'my knees buckle and i get Light headed' no stiffness noted by witnesses or report between episodes pt denies s/sx of interictal activity or stereotypical movements no mention of sz by witnesses, pt denies ever having a gtc like event or movements to sugg sz no prolonged postictal period per pt, 'i am about for about 4-5 min, then I am right back to myself' no tongue biting, some bladder incont. currently no N/v, ARVIZU, or focal brain complaints +resp distress, cough and SOB O2 sats above 90 at bedside no new spine pain or radic. sx no change of vision or speech no prior strokes no progressive dementia no fever no neck stiff no dv pt feels unsteady on her feet no recent Head imaging pt denies any injury to head or spine at bedside SOB and trouble breathing, vitals stable but show low BP at sitting 108 sys , and with standing 91 sys , w expected HR response pt was unable to marv even 2-3 min of standing, 'feels like i am going to pass out' on asa ans xanax pt denies missing any xanax meds hx of xanax overdose CT chest no PE i pass out when i think about my twin sister, i want to join her' no SI/HI no hallucinations pt denies any new n/t or stroke like deficits sedentary lifestyle pt is going for ECHO fhx: no fhx of neuro dis sh: no etoh drugs, but does 1 pack day tob allergies codeine prednisone ROS: all other systems neg tele: NSR Past History Past Medical History: atrial fib, COPD, hypertension, liver disease (Hepatitis A), other (Carpal tunnel, chronic back pain, prescription drug overdose (Lexapro and Xanax)) Past Surgical History: Other (BILATERAL CATARACTS REMOVED; LENS SURGERY. BALLOON IN BACK) Social history: smoking (Current everyday smoker) Family history: no significant family history Medications and Allergies Allergies Allergy/AdvReac Type Severity Reaction Status Date / Time codeine Allergy Hives Verified 09/30/18 00:33 prednisone Allergy Rash Verified 09/30/18 00:33 Home Medications Medication Instructions Recorded Confirmed Last Taken Type ALPRAZolam [Xanax TAB] 0.5 mg PO TID PRN 07/08/17 04/08/19 Unknown History Ipratropium/Albuterol Sulfate 1 ampul IH Q6HR 07/08/17 04/08/19 Unknown History [DUONEB *Not for PRN Use*] Active Meds: Active Medications Acetaminophen (Tylenol) 650 mg PO Q4H PRN PRN Reason: Pain MILD(1-3)/Fever >100.5/ARVIZU Last Admin: 04/09/19 07:16 Dose: 650 mg Documented by: Albuterol (Proventil) 2.5 mg IH Q3HRT PRN PRN Reason: Shortness Of Breath Albuterol/Ipratropium (Duoneb *Not For Prn Use*) 1 ampul IH Q6HRT [facility] Last Admin: 04/09/19 08:41 Dose: 1 ampul Documented by: Alprazolam (Xanax) 0.5 mg PO TID PRN PRN Reason: Anxiety Last Admin: 04/09/19 07:16 Dose: 0.5 mg Documented by: Aspirin (Baby Aspirin) 81 mg PO QDAY [facility] Atorvastatin Calcium (Lipitor) 20 mg PO QHS [facility] Budesonide (Pulmicort) 0.5 mg IH Q12HRT [facility] Last Admin: 04/09/19 08:41 Dose: 0.5 mg Documented by: Docusate Sodium (Colace) 100 mg PO BID [facility] Guaifenesin (Mucinex Er) 600 mg PO BID [facility] Heparin Sodium (Porcine) (Heparin) 5,000 unit SUB-Q Q12HR [facility] Levofloxacin/Dextrose (Levaquin 500mg/100ml) 500 mg in 100 mls @ 100 mls/hr IV ONCE ONE; Protocol Stop: 04/09/19 10:59 Levofloxacin/Dextrose (Levaquin 250mg/50ml) 250 mg in 50 mls @ 50 mls/hr IV Q2 4HR MICHAEL; Protocol Methylprednisolone Sodium Succinate (Solu-Medrol) 80 mg IV Q8HR [facility] Last Admin: 04/09/19 05:31 Dose: 80 mg Documented by: Nicotine (Habitrol) 14 mg TD QDAY [facility] Ondansetron HCl (Zofran) 4 mg IV Q8H PRN PRN Reason: Nausea And Vomiting Sodium Chloride (Sodium Chloride Flush Syringe 10 Ml) 10 ml IV BID [facility] Sodium Chloride (Sodium Chloride Flush Syringe 10 Ml) 10 ml IV PRN PRN PRN Reason: LINE FLUSH Physical Examination - Vital Signs Vital Signs: Vital Signs Temp Pulse Resp BP Pulse Ox 98 F 95 H 16 107/55 95 04/08/19 20:35 04/08/19 20:35 04/08/19 20:35 04/08/19 20:35 04/08/19 20:35 - Physical Exam Narrative exam: aox4 no aphasia CN 2-12 intact eomi perrla no dysarthia 5/5 strength to all limbs sensory intact to all limbs to LT no cerebellar signs decreased bulk to all limbs neck supple no d/c nose ears no asymm edema COPD skin/distal ext. appearance coughing in resp distress wheezing mood appropriate no dv no interictal sz like activity or extra movements light headed w standing Results - Laboratory Findings CBC and BMP: 04/08/19 Unknown 04/08/19 Unknown Abnormal Lab Findings: Abnormal Labs 04/08/19 04/08/19 04/08/19 21:30 23:02 Unknown RBC MCV MCH Lymph % (Auto) D-Dimer 342.88 H POC ABG pH 7.289 L POC ABG pCO2 50.3 H POC ABG pO2 115 H Chloride 107.1 H Glucose 111 H Alkaline Phosphatase 188 H HDL Cholesterol 04/08/19 04/09/19 Unknown 08:25 RBC 3.06 L MCV 116 H MCH 38 H Lymph % (Auto) 46.7 H D-Dimer POC ABG pH POC ABG pCO2 POC ABG pO2 Chloride Glucose Alkaline Phosphatase HDL Cholesterol 69 H Assessment and Plan syncope, multifactorial, unstable hx of a.fib, copd, hypoxia, deconditioning; all could be contributing orthostatic hypotension uncovered today on bedside sit to stand bp, pt couldnt marv. 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
[2019-04-09] MEDS: guaiFENesin ER 600 MG TAB PO SCH ×2 (11:12→22:49)
[2019-04-09] MEDS: NICOTINE 14 MG/24 HR PATCH TD SCH (11:12)
[2019-04-09] MEDS: DOCUSATE SODIUM 100 MG CAP PO SCH ×2 (11:13→22:49)
[2019-04-09] MEDS: HEPARIN 5,000 UNIT/1 ML VIAL SUB-Q SCH ×3 (11:13→22:50)
[2019-04-09] MEDS: ASPIRIN 81 MG TAB CHEW PO SCH (11:13)
--- NOTE | 2019-04-09 14:42 | Electroencephalogram Report ---
Electroencephalogram EEG Date of exam: 04/09/19 History: 68-year-old female arriving with syncope without seizure like activity or post ictal period. Patient arrives without stroke like deficits has a history of A. fib COPD hypoxia Xanax hypertension and orthostatic hypotension. Exam is nonfocal. Patient's is not on any antiepileptic medications during this EEG. 20 min bedside EEG. Impression: This EEG is consistent with mild nonspecific diffuse brain dysfunction Description: This EEG was acquired with electrodes placed according to International 10-20 electrode placement system. EMG artifact was seen throughout this EEG. The waking background shows an appropriate organization with well-defined anterior posterior voltage and frequency gradients. Posteriorly, there is a well- developed alpha rhythm of [ 8] Hz which is symmetrical and bilaterally reactive. Present in the anterior head region is beta activity. Photic stimulation and hyperventilation was not applied. Deeper stages of sleep were not appreciated. Throughout the recording there are no epileptiform abnormalities, focal or lateralizing features, or significant interhemispheric findings. Interpretation: This is a abnormal awake EEG due to mild background slowing EMG artifact was seen throughout this EEG
--- NOTE | 2019-04-09 17:51 | Vascular Lab Report ---
"DUPLEX DOPPLER ULTRASOUND CAROTID, BILATERAL INDICATION: syncope. FINDINGS: RIGHT CAROTID: Small amount of atherosclerotic plaque. Right ICA peak systolic velocity: 108 cm/sec. Right Vertebral Artery: Antegrade flow. LEFT CAROTID: Small amount of atherosclerotic plaque. Left ICA peak systolic velocity: 88 cm/sec. Left Vertebral Artery: Antegrade flow. IMPRESSION: 1. Right Internal Carotid Artery: Less than 50% diameter stenosis. 2. Left Internal Carotid Artery: Less than 50% diameter stenosis. Velocity criteria are extrapolated from diameter data as defined by the Society of Radiologists in Ul trasound Consensus Conference, Radiology 2003; 229;340-346. Degree of Stenosis (%) || ICA PSV (cm/sec) || Plaque estimate (%) || ICA/CCA PSV Ratio Normal <125 None <2.0 <50 <125 <50 <2.0 50-69 125-230 50 2.0-4.0 70 but less than 100 >230 50 >4.0 Near occlusion High, low, or none visible variable Total occlusion None visible; no lumen N/A Signer Name: Benji Ugalde MD Signed: 04/09/2019 5:46 PM Workstation Name: [id number]"
--- NOTE | 2019-04-09 18:46 | Progress Note ---
Assessment and Plan Assessment and plan: --Acute exacerbation of COPD Oxygen titrate O2 sats to more than 90% Nebulizers, IV steroids and supportive care --Syncope: No new episodes of syncope since admission Fall precautions, Syncope workup in progress Neurology evaluation noted and appreciated Physical therapy occupational therapy Possible home with home health if needed --Elevated D dimers; negative for PE Check lower extremity venous Doppler --History of atrial fibrillation/paroxysmal Patient is not on chronic anticoagulation Cardiology consult if needed Continue beta blockers and supportive care --Hypertension; moderate control Continue current antihypertensives and when necessary medications Check orthostatics --Chronic renal insufficiency; Closely monitor renal function and avoid nephrotoxins Nephrology evaluation if needed --Ongoing tobacco use; smoking cessation Nicotine patch as needed --DVT PPX: Heparin Closely monitor the patient and adjust management as needed Conservator and recommendations noted and appreciated Disposition; follow syncope workup Discharge home with home health when medically stable History Interval history: Patient seen and examined this morning medical records reviewed Patient was admitted with syncopal episode No new Episodes of syncope since admission, patient feels slightly better Complaints of mild dizziness Vital signs reviewed Hospitalist Physical - Constitutional Vitals: Temp Pulse Resp BP Pulse Ox 98.8 F 90 18 95/56 98 04/09/19 16:15 04/09/19 16:15 04/09/19 16:15 04/09/19 16:15 04/09/19 16:15 General appearance: Present: no acute distress, well-nourished, obese - EENT Eyes: Present: PERRL, EOM intact - Neck Neck: Present: supple, normal ROM - Respiratory Respiratory effort: normal Respiratory: bilateral: diminished, negative: rales, rhonchi, wheezing - Cardiovascular Rhythm: regular Heart Sounds: Present: S1 & S2 - Extremities Extremities: no ischemia, No edema - Abdominal General gastrointestinal: soft, non-tender, non-distended, normal bowel sounds - Integumentary Integumentary: Present: clear, warm - Psychiatric Psychiatric: appropriate mood/affect, cooperative - Neurologic Neurologic: CNII-XII intact, moves all extremities Results - Labs CBC & Chem 7: 04/08/19 Unknown 04/08/19 Unknown Labs: Laboratory Last Values WBC 5.2 K/mm3 (4.5-11.0) 04/08/19 Unknown RBC 3.06 M/mm3 (3.65-5.03) L 04/08/19 Unknown Hgb 11.6 gm/dl (10.1-14.3) 04/08/19 Unknown Hct 35.4 % (30.3-42.9) 04/08/19 Unknown MCV 116 fl (79-97) H 04/08/19 Unknown MCH 38 pg (28-32) H 04/08/19 Unknown MCHC 33 % (30-34) 04/08/19 Unknown RDW 13.5 % (13.2-15.2) 04/08/19 Unknown Plt Count 165 K/mm3 (140-440) 04/08/19 Unknown Lymph % (Auto) 46.7 % (13.4-35.0) H 04/08/19 Unknown [place] % (Auto) 6.5 % (0.0-7.3) 04/08/19 Unknown Eos % (Auto) 2.2 % (0.0-4.3) 04/08/19 Unknown Baso % (Auto) 0.3 % (0.0-1.8) 04/08/19 Unknown Lymph # 2.4 K/mm3 (1.2-5.4) 04/08/19 Unknown [place] # 0.3 K/mm3 (0.0-0.8) 04/08/19 Unknown Eos # 0.1 K/mm3 (0.0-0.4) 04/08/19 Unknown Baso # 0.0 K/mm3 (0.0-0.1) 04/08/19 Unknown Seg Neutrophils % 44.3 % (40.0-70.0) 04/08/19 Unknown Seg Neutrophils # 2.3 K/mm3 (1.8-7.7) 04/08/19 Unknown D-Dimer 342.88 ng/mlDDU (0-234) H 04/08/19 21:30 POC ABG pH 7.289 (7.35-7.45) L 04/08/19 23:02 POC ABG pCO2 50.3 (35-45) H 04/08/19 23:02 POC ABG pO2 115 (80-105) H 04/08/19 23:02 POC ABG HCO3 24.1 (22-26 mml/L) 04/08/19 23:02 POC ABG Total CO2 26 (23-27mmol/L) 04/08/19 23:02 POC ABG O2 Sat 98 04/08/19 23:02 POC ABG Base Excess -3 ((-2) - (+3)mmol/L) 04/08/19 23:02 FiO2 36 % 04/08/19 23:02 Sodium 142 mmol/L (137-145) 04/08/19 Unknown Potassium 3.8 mmol/L (3.6-5.0) 04/08/19 Unknown Chloride 107.1 mmol/L (98-107) H 04/08/19 Unknown Carbon Dioxide 22 mmol/L (22-30) 04/08/19 Unknown Anion Gap 17 mmol/L 04/08/19 Unknown BUN 17 mg/dL (7-17) 04/08/19 Unknown Creatinine 1.2 mg/dL (0.7-1.2) 04/08/19 Unknown Estimated GFR 45 ml/min 04/08/19 Unknown BUN/Creatinine Ratio 14 % 04/08/19 Unknown Glucose 111 mg/dL (65-100) H 04/08/19 Unknown Calcium 9.3 mg/dL (8.4-10.2) 04/08/19 Unknown Total Bilirubin < 0.20 mg/dL (0.1-1.2) 04/08/19 Unknown AST 34 units/L (5-40) 04/08/19 Unknown ALT 28 units/L (7-56) 04/08/19 Unknown Alkaline Phosphatase 188 units/L (35-129) H 04/08/19 Unknown Troponin T < 0.010 ng/mL (0.00-0.029) 04/08/19 Unknown NT-Pro-B Natriuret Pep 436.2 pg/mL (0-900) 04/08/19 Unknown Total Protein 7.5 g/dL (6.3-8.2) 04/08/19 Unknown Albumin 4.2 g/dL (3.9-5) 04/08/19 Unknown Albumin/Globulin Ratio 1.3 % 04/08/19 Unknown Triglycerides 50 mg/dL (2-149) 04/09/19 08:25 Cholesterol 158 mg/dL (50-199) 04/09/19 08:25 LDL Cholesterol Direct 78 mg/dL (50-130) 04/09/19 08:25 HDL Cholesterol 69 mg/dL (40-59) H 04/09/19 08:25 Cholesterol/HDL Ratio 2.28 % 04/09/19 08:25 Active Medications - Current Medications Current Medications: Generic Name Dose Route Start Last Admin Trade Name Freq PRN Reason Stop Dose Admin Acetaminophen 650 mg 04/09/19 00:03 04/09/19 07:16 Tylenol PO 650 mg Q4H PRN Administration Pain MILD(1-3)/Fever >100.5/ARVIZU Albuterol 2.5 mg 04/09/19 00:03 Proventil IH Q3HRT PRN Shortness Of Breath Albuterol/Ipratropium 1 ampul 04/09/19 02:00 04/09/19 14:18 Duoneb *Not For Prn Use* IH 1 ampul Q6HRT MICHAEL Administration Alprazolam 0.5 mg 04/09/19 00:10 04/09/19 16:02 Xanax PO 0.5 mg TID PRN Administration Anxiety Aspirin 81 mg 04/09/19 10:00 04/09/19 11:13 Baby Aspirin PO 81 mg QDAY [facility] Administration Atorvastatin Calcium 20 mg 04/09/19 22:00 Lipitor PO QHS MICHAEL Budesonide 0.5 mg 04/09/19 08:00 04/09/19 08:41 Pulmicort IH 0.5 mg Q12HRT [facility] Administration Docusate Sodium 100 mg 04/09/19 10:00 04/09/19 11:13 Colace PO 100 mg BID MICHAEL Administration Guaifenesin 600 mg 04/09/19 10:00 04/09/19 11:12 Mucinex Er PO 600 mg BID [facility] Administration Heparin Sodium (Porcine) 5,000 unit 04/09/19 10:00 04/09/19 11:26 Heparin SUB-Q Not Given Q12HR [facility] Levofloxacin/Dextrose 250 mg in 50 mls @ 50 mls/hr 04/10/19 10:00 Levaquin 250mg/50ml IV Q24HR [facility] Protocol Methylprednisolone Sodium Succinate 80 mg 04/09/19 06:00 04/09/19 16:00 Solu-Medrol IV 80 mg Q8HR [facility] Administration Nicotine 14 mg 04/09/19 10:00 04/09/19 11:12 Habitrol TD 14 mg QDAY [facility] Administration Ondansetron HCl 4 mg 04/09/19 00:03 Zofran IV Q8H PRN Nausea And Vomiting Sodium Chloride 10 ml 04/09/19 10:00 04/09/19 11:14 Sodium Chloride Flush Syringe 10 Ml IV 10 ml BID [facility] Administration Sodium Chloride 10 ml 04/09/19 00:03 Sodium Chloride Flush Syringe 10 Ml IV PRN PRN LINE FLUSH
--- NOTE | 2019-04-09 20:03 | Cat Scan Report ---
. CT head/brain wo con INDICATION: syncope. TECHNIQUE: All CT scans at this location are performed using CT dose reduction for ALARA by means of automated e xposure control. COMPARISON: None available. FINDINGS: Visualized paranasal and mastoid sinuses are clear. Minimal, age-appropriate cortical atrophy and chr onic white matter ischemic change. No mass, hemorrhage or other acute abnormality. IMPRESSION: 1. No acute abnormality. Signer Name: Duane Root MD Signed: 04/09/2019 7:58 PM Workstation Name: [id number]
--- NOTE | 2019-04-09 20:24 | Cat Scan Report ---
CT angio neck INDICATION / CLINICAL INFORMATION: 68 years Female; extra cranial stenosis syncope. TECHNIQUE: Thin cut axial images obtained through the head during IV bolus contrast administration. S agittal, coronal, and 3 plane MIP reconstructions performed by the technologist. NASCET type criteria used evaluate stenoses. All CT scans at this location are performed using CT dose reduction for ALAR A by means of automated exposure control. COMPARISON: None available. FINDINGS: ARCH: Bovine arch configuration noted. CAROTID ARTERIES: The visualized common and internal carotid arteries are widely patent. VERTEBRAL ARTERIES: Codominant vertebral system seen. No significant stenosis appreciated. ADDITIONAL FINDINGS: Small nodule seen in the thyroid lobes bilaterally. Small, well-circumscribed cyst seen in the left tonsillar region, measuring 9 mm in maximum dimension . Parapharyngeal space is grossly normal and the wall of the cyst is very thin-this may be remnant fr om previous abscess. Azygous lobe fissure seen on the right-normal variant. Degenerative changes seen in the cervical spine. Osseous foraminal narrowing seen on the right at C4- 5, C5-6, C6-7 from uncinate and facet hypertrophy. Similar findings seen on the left at C5-6. Stippled appearance seen in the parotid glands bilaterally-Sjogren's syndrome might be consideration. IMPRESSION: No significant stenosis appreciated on this CTA of the neck. Signer Name: Trung Meza MD, III Signed: 04/09/2019 8:19 PM Workstation Name: [id number]
--- NOTE | 2019-04-09 22:28 | Cat Scan Report ---
CTA HEAD WITH CONTRAST HISTORY: Stroke COMPARISON: None. TECHNIQUE: Routine non-contrast CT Head, CTA of the head and post-contrast CT Head are performed. 3-D /MIP reformats postprocessed. All CT scans at this location are performed using CT dose reduction for ALARA by means of automated exposure control CONTRAST: 100 ml of Omnipaque 350 FINDINGS: CTA Head: Intracranial vertebral arteries: No significant abnormality. Basilar artery: No significant abnormality. Origins of both PICA are normal. Posterior cerebral arteries: No significant abnormality. Right posterior communicating artery contrib uting to right posterior cerebral artery. Intracranial internal carotid arteries: No significant abnormality. Anterior cerebral arteries: No significant abnormality. Middle cerebral arteries: No significant abnormality. Dural venous sinuses:Not optimally opacified. No significant abnormality. Additional findings: None. IMPRESSION: 1. Normal CTA of the brain Signer Name: Kathleen Carter MD Signed: 04/09/2019 10:23 PM Workstation Name: [id number]
[2019-04-09] MEDS: methylPREDNISolone Sod Succinate 40 MG/1 ML INJ IV SCH (22:50)
[2019-04-10] MEDS: IPRATROPIUM/ALBUTEROL SULFATE 3 ML AMPUL.NEB IH SCH ×5 (02:00→21:22)
[2019-04-10 05:19] LABS: Basophils % (Auto) 0.1 % (0.0-1.8); Hematocrit 33.1 % (30.3-42.9); Lymphocytes # (Auto) 0.9 K/mm3 (1.2-5.4); Lymphocytes % (Auto) 13.6 % (13.4-35.0); Mean Corpuscular HGB Conc 33 % (30-34); Mean Corpuscular Volume 116 fl (79-97); Monocytes # (Auto) 0.1 K/mm3 (0.0-0.8); Monocytes % (Auto) 1.7 % (0.0-7.3); Platelet Count 166 K/mm3 (140-440); Red Blood Count 2.87 M/mm3 (3.65-5.03); Red Cell Distribution Width 13.2 % (13.2-15.2)
[2019-04-10 05:39] LABS: Calcium 9.3 mg/dL (8.4-10.2)
[2019-04-10] MEDS: methylPREDNISolone Sod Succinate 40 MG/1 ML INJ IV SCH ×3 (06:17→21:35)
[2019-04-10] MEDS: ALPRAZolam 0.5 MG TAB PO PRN ×3 (06:17→21:35)
[2019-04-10] MEDS: ACETAMINOPHEN 325 MG TAB PO PRN ×2 (06:20→14:48)
[2019-04-10] MEDS: BUDESONIDE 0.5 MG/2 ML NEBU IH SCH ×2 (08:25→21:21)
--- NOTE | 2019-04-10 08:33 | Progress Note ---
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 insuff. hosp course reassuring asa statin tele: NSR cardiology to address a.fib and a/c smoking cessation fall risk PT for gait stability avoid rapid position change, dehydration and hypotension (BP meds) ARVIZU: frontal , likely 2nd to sys illness, vs rebound , no migraine features, or trigeminal features pt is requesting pain meds stronger than tylenol for ARVIZU pt is requesting xanax limit over use of NSAIDs - Patient Problems (1) Syncope and collapse Current Visit: Yes Status: Acute Subjective Date of service: 04/10/19 Principal diagnosis: syncope Interval history: no further LOC or syncope still gets Light H. w standing still c/o mild sob and mild diff w strength of breathing, today breathing non labored CTA h/n both reviewed, no evid of large vessel stenosis EEG was neg for sz no new neuro complaints no focal brain complaints cardiology to weigh in on a/c for a.fib sinus on Tele ARVIZU global non migraine this am, no new features, 09/25, analgesic given, frontal non radiating, constant no n/v vertigo dv no new n/t no change of vision or speech elevated alk phos Objective - Exam Narrative Exam: aox4 no aphasia or dysarthria Cn 2-12 intact no d/c nose ears 5/5 strength to all limbs sensory intact to LT to all limbs no cerebellar signs LH w sitting up tone symm throughout neck supple eomi perrl - Vital Sign Vital Signs - 12hr 04/09/19 04/09/19 04/10/19 22:01 22:32 01:00 Temperature 98.8 F Pulse Rate 88 Pulse Rate [ 87 Anterior Throughout] Respiratory 20 Rate Respiratory 16 Rate [Anterior Throughout] Blood Pressure 94/50 O2 Sat by Pulse 95 100 Oximetry 04/10/19 04/10/19 04/10/19 02:50 03:35 08:26 Temperature 98.2 F Pulse Rate 85 Pulse Rate [ 96 H 98 H Anterior Throughout] Respiratory 19 Rate Respiratory 20 16 Rate [Anterior Throughout] Blood Pressure 101/59 O2 Sat by Pulse 99 Oximetry - Laboratory Findings CBC and BMP: 04/10/19 04:10 04/10/19 04:10 Abnormal Lab Findings: Abnormal Labs 04/08/19 04/08/19 04/08/19 21:30 23:02 Unknown RBC MCV MCH Lymph % (Auto) Lymph # Seg Neutrophils % D-Dimer 342.88 H POC ABG pH 7.289 L POC ABG pCO2 50.3 H POC ABG pO2 115 H Chloride 107.1 H Carbon Dioxide BUN Glucose 111 H Alkaline Phosphatase 188 H HDL Cholesterol 04/08/19 04/09/19 04/10/19 Unknown 08:25 04:10 RBC 3.06 L 2.87 L MCV 116 H 116 H MCH 38 H 38 H Lymph % (Auto) 46.7 H Lymph # 0.9 L Seg Neutrophils % 84.6 H D-Dimer POC ABG pH POC ABG pCO2 POC ABG pO2 Chloride Carbon Dioxide BUN Glucose Alkaline Phosphatase HDL Cholesterol 69 H 04/10/19 04:10 RBC MCV MCH Lymph % (Auto) Lymph # Seg Neutrophils % D-Dimer POC ABG pH POC ABG pCO2 POC ABG pO2 Chloride Carbon Dioxide 21 L BUN 23 H Glucose 149 H Alkaline Phosphatase HDL Cholesterol
[2019-04-10] MEDS: NICOTINE 14 MG/24 HR PATCH TD SCH (10:36)
[2019-04-10] MEDS: ASPIRIN 81 MG TAB CHEW PO SCH (10:36)
[2019-04-10] MEDS: guaiFENesin ER 600 MG TAB PO SCH ×2 (10:36→21:34)
[2019-04-10] MEDS: DOCUSATE SODIUM 100 MG CAP PO SCH ×2 (10:36→21:45)
[2019-04-10] MEDS: HEPARIN 5,000 UNIT/1 ML VIAL SUB-Q SCH ×2 (10:37→21:35)
--- NOTE | 2019-04-10 12:49 | Vascular Lab Report ---
DUPLEX DOPPLER LOWER EXTREMITY VEINS, BILATERAL INDICATION: elevated D dimers to rule out DVT. TECHNIQUE: Duplex doppler imaging was performed through the veins of both lower extremities using venous sukhi bibi and other maneuvers. COMPARISON: None available. FINDINGS: Right Common femoral vein: Negative. Right Superficial femoral vein: Negative. Right Popliteal vein: Negative. Right Calf veins: Negative. Left Common femoral vein: Negative. Left Superficial femoral vein: Negative. Left Popliteal vein: Negative. Left Calf veins: Negative. Additional findings: None. IMPRESSION: Negative for DVT. Signer Name: Rex Calvert MD Signed: 04/10/2019 12:44 PM Workstation Name: [id number]
--- NOTE | 2019-04-10 14:55 | Progress Note ---
Assessment and Plan /-Acute exacerbation of COPD cont Oxygen titrate O2 sats to more than 90% Nebulizers, IV steroids and supportive care will assess for home O2 evaluation before discharge /-Syncope: No new episodes of syncope since admission Fall precautions, Syncope workup negative so far Neurology evaluation noted and appreciated Physical therapy occupational therapy ordered Possible home with home health /-Elevated D dimers; negative for PE Check lower extremity venous Doppler - negative /-History of atrial fibrillation/paroxysmal Patient is not on chronic anticoagulation, with h/o fall Continue beta blockers and supportive care /-Hypertension; moderate control Continue current antihypertensives and when necessary medications Check orthostatics /-Chronic renal insufficiency; Closely monitor renal function and avoid nephrotoxins Nephrology evaluation if needed /-Ongoing tobacco use; smoking cessation Nicotine patch as needed /-DVT PPX: Heparin Closely monitor the patient and adjust management as needed Disposition; Discharge home with home health when medically stable Subjective Date of service: 04/10/19 Principal diagnosis: syncope Interval history: Patient seen and examined. Medical records and medication list reviewed. No acute event overnight noted by the RN. Patient has significant difficulty breathing even on resting. Patient is tolerating diet. She is having difficulty even to go to the restroom Discussed plan of care at bedside with patient. Objective - Exam Narrative Exam: General appearance: Present: mild distress, obese - EENT Eyes: Present: PERRL, EOM intact - Neck Neck: Present: supple, normal ROM - Respiratory Respiratory effort: normal Respiratory: bilateral: diminished, + diffuse wheezing - Cardiovascular Rhythm: regular Heart Sounds: Present: S1 & S2 - Extremities Extremities: no ischemia, No edema - Abdominal General gastrointestinal: soft, non-tender, non-distended, normal bowel sounds - Integumentary Integumentary: Present: clear, warm - Psychiatric Psychiatric: appropriate mood/affect, cooperative - Neurologic Neurologic: CNII-XII intact, moves all extremities - Constitutional Vitals: Vital Signs - 12hr 04/10/19 04/10/19 04/10/19 03:35 08:26 08:28 Pulse Rate [ 96 H 98 H Anterior Throughout] Respiratory 20 16 Rate [Anterior Throughout] O2 Sat by Pulse 99 Oximetry - Labs CBC & Chem 7: 04/10/19 04:10 04/10/19 04:10 Labs: Abnormal lab results 04/10/19 04/10/19 Range/Units 04:10 04:10 RBC 2.87 L (3.65-5.03) M/mm3 MCV 116 H (79-97) fl MCH 38 H (28-32) pg Lymph # 0.9 L (1.2-5.4) K/mm3 Seg Neutrophils % 84.6 H (40.0-70.0) % Carbon Dioxide 21 L (22-30) mmol/L BUN 23 H (7-17) mg/dL Glucose 149 H (65-100) mg/dL
[2019-04-11] MEDS: IPRATROPIUM/ALBUTEROL SULFATE 3 ML AMPUL.NEB IH SCH ×4 (02:15→21:11)
[2019-04-11] MEDS: methylPREDNISolone Sod Succinate 40 MG/1 ML INJ IV SCH ×3 (05:17→22:19)
[2019-04-11] MEDS: BUDESONIDE 0.5 MG/2 ML NEBU IH SCH ×2 (07:23→21:11)
[2019-04-11] MEDS: guaiFENesin ER 600 MG TAB PO SCH ×2 (09:24→22:12)
[2019-04-11] MEDS: ALPRAZolam 0.5 MG TAB PO PRN ×2 (09:24→18:54)
[2019-04-11] MEDS: NICOTINE 14 MG/24 HR PATCH TD SCH (09:25)
[2019-04-11] MEDS: HEPARIN 5,000 UNIT/1 ML VIAL SUB-Q SCH ×2 (09:25→22:13)
[2019-04-11] MEDS: ASPIRIN 81 MG TAB CHEW PO SCH (09:26)
[2019-04-11] MEDS: DOCUSATE SODIUM 100 MG CAP PO SCH ×2 (09:27→22:12)
--- NOTE | 2019-04-11 16:08 | Progress Note ---
Assessment and Plan /-Acute exacerbation of COPD with acute hypoxic respiratory failure, POA cont Oxygen titrate O2 sats to more than 90% Nebulizers, IV steroids and supportive care will assess for home O2 evaluation before discharge /-Syncope: No new episodes of syncope since admission Fall precautions, Syncope workup negative so far Neurology evaluation noted and appreciated Physical therapy occupational therapy ordered Possible home with home health /-Elevated D dimers; negative for PE Check lower extremity venous Doppler - negative /-History of atrial fibrillation/paroxysmal Patient is not on chronic anticoagulation, with h/o fall Continue beta blockers and supportive care /-Hypertension; moderate control Continue current antihypertensives and when necessary medications Check orthostatics /-Chronic renal insufficiency; Closely monitor renal function and avoid nephrotoxins Nephrology evaluation if needed /-Ongoing tobacco use; smoking cessation Nicotine patch as needed /-DVT PPX: Heparin Closely monitor the patient and adjust management as needed Disposition; Discharge home with home health when medically stable Subjective Date of service: 04/11/19 Principal diagnosis: syncope Interval history: Patient seen and examined. Medical records and medication list reviewed. No acute event overnight noted by the RN. Patient has significant difficulty breathing on minimal exertion. Patient is tolerating diet. Discussed plan of care at bedside with patient. Objective - Exam Narrative Exam: General appearance: Present: mild distress, obese - EENT Eyes: Present: PERRL, EOM intact - Neck Neck: Present: supple, normal ROM - Respiratory Respiratory effort: normal Respiratory: bilateral: diminished, + diffuse wheezing - Cardiovascular Rhythm: regular Heart Sounds: Present: S1 & S2 - Extremities Extremities: no ischemia, No edema - Abdominal General gastrointestinal: soft, non-tender, non-distended, normal bowel sounds - Integumentary Integumentary: Present: clear, warm - Psychiatric Psychiatric: appropriate mood/affect, cooperative - Neurologic Neurologic: CNII-XII intact, moves all extremities - Constitutional Vitals: Vital Signs - 12hr 04/11/19 04/11/19 04/11/19 04:38 07:24 07:25 Temperature 98.7 F Pulse Rate 100 H Pulse Rate [ 94 H Anterior Throughout] Respiratory 18 Rate Respiratory 20 Rate [Anterior Throughout] Blood Pressure 103/55 O2 Sat by Pulse 99 99 Oximetry 04/11/19 04/11/19 04/11/19 07:55 10:31 11:00 Temperature 97.9 F Pulse Rate 106 H 106 H Pulse Rate [ Anterior Throughout] Respiratory 18 18 Rate Respiratory Rate [Anterior Throughout] Blood Pressure 125/46 O2 Sat by Pulse 95 97 Oximetry 04/11/19 04/11/19 12:42 13:06 Temperature 99.2 F Pulse Rate 102 H Pulse Rate [ 94 H Anterior Throughout] Respiratory 18 Rate Respiratory 20 Rate [Anterior Throughout] Blood Pressure 136/68 O2 Sat by Pulse 96 Oximetry - Labs CBC & Chem 7: 04/10/19 04:10 04/10/19 04:10 Labs: Abnormal lab results 04/10/19 Range/Units 20:44 POC Glucose 149 H (70-105)
[2019-04-11] MEDS: oxyCODONE /ACETAMINOPHEN 5-325MG TAB PO PRN ×2 (16:28→22:13)
[2019-04-12] MEDS: IPRATROPIUM/ALBUTEROL SULFATE 3 ML AMPUL.NEB IH SCH ×4 (02:10→21:00)
[2019-04-12] MEDS: ALPRAZolam 0.5 MG TAB PO PRN ×3 (05:25→20:43)
[2019-04-12] MEDS: oxyCODONE /ACETAMINOPHEN 5-325MG TAB PO PRN ×3 (05:25→20:43)
[2019-04-12] MEDS: methylPREDNISolone Sod Succinate 40 MG/1 ML INJ IV SCH ×3 (05:25→22:47)
[2019-04-12] MEDS: BUDESONIDE 0.5 MG/2 ML NEBU IH SCH ×2 (07:44→21:00)
[2019-04-12] MEDS: guaiFENesin ER 600 MG TAB PO SCH ×2 (09:41→22:47)
[2019-04-12] MEDS: NICOTINE 14 MG/24 HR PATCH TD SCH (09:41)
[2019-04-12] MEDS: HEPARIN 5,000 UNIT/1 ML VIAL SUB-Q SCH ×2 (09:41→22:48)
[2019-04-12] MEDS: DOCUSATE SODIUM 100 MG CAP PO SCH ×2 (09:42→22:47)
[2019-04-12] MEDS: ASPIRIN 81 MG TAB CHEW PO SCH (09:42)
[2019-04-12] MEDS: levoFLOXacin 750 MG TAB PO SCH (09:47)
--- NOTE | 2019-04-12 16:17 | Progress Note ---
Assessment and Plan /-Acute exacerbation of COPD with acute hypoxic respiratory failure, POA cont Oxygen titrate O2 sats to more than 90% Nebulizers, IV steroids and supportive care will assess for home O2 evaluation before discharge /-Syncope: No new episodes of syncope since admission Fall precautions, Syncope workup negative so far Neurology evaluation noted and appreciated Physical therapy occupational therapy ordered Possible home with home health /-Elevated D dimers; negative for PE Check lower extremity venous Doppler - negative /-History of atrial fibrillation/paroxysmal Patient is not on chronic anticoagulation, with h/o fall Continue beta blockers and supportive care /-Hypertension; moderate control Continue current antihypertensives and when necessary medications Check orthostatics /-Chronic renal insufficiency; Closely monitor renal function and avoid nephrotoxins Nephrology evaluation if needed /-Ongoing tobacco use; smoking cessation counseled Nicotine patch as needed /-DVT PPX: Heparin Closely monitor the patient and adjust management as needed Disposition; Discharge home with home health when medically stable Subjective Date of service: 04/12/19 Principal diagnosis: syncope Interval history: Patient seen and examined. Medical records and medication list reviewed. No acute event overnight noted by the RN. Patient states that difficulty breathing has improved but still not her baseline. Patient is tolerating diet. was able to get up from bed to restroom w/o much difficulty Discussed plan of care at bedside with patient. Objective - Exam Narrative Exam: General appearance: Present: no distress, obese, looks older than her age - EENT Eyes: Present: PERRL, EOM intact - Neck Neck: Present: supple, normal ROM - Respiratory Respiratory effort: normal Respiratory: bilateral: diminished, + diffuse wheezing - Cardiovascular Rhythm: regular Heart Sounds: Present: S1 & S2 - Extremities Extremities: no ischemia, No edema - Abdominal General gastrointestinal: soft, non-tender, non-distended, normal bowel sounds - Integumentary Integumentary: Present: clear, warm - Psychiatric Psychiatric: appropriate mood/affect, cooperative - Neurologic Neurologic: CNII-XII intact, moves all extremities - Constitutional Vitals: Vital Signs - 12hr 04/12/19 04/12/19 04/12/19 05:25 07:45 08:03 Temperature Pulse Rate Respiratory 18 18 Rate Blood Pressure O2 Sat by Pulse 97 95 Oximetry 04/12/19 04/12/19 08:50 11:00 Temperature 98.3 F Pulse Rate 99 H 83 Respiratory 18 Rate Blood Pressure 124/64 O2 Sat by Pulse 94 Oximetry - Labs CBC & Chem 7: 04/10/19 04:10 04/10/19 04:10 Labs: Abnormal lab results 04/11/19 Range/Units 21:04 POC Glucose 120 H (70-105)
[2019-04-12] MEDS: FLUTICASONE PROPIONATE NASAL SPRAY 16 GM NS SCH (22:50)
[2019-04-13] MEDS: IPRATROPIUM/ALBUTEROL SULFATE 3 ML AMPUL.NEB IH SCH ×4 (03:11→16:51)
[2019-04-13] MEDS: oxyCODONE /ACETAMINOPHEN 5-325MG TAB PO PRN ×2 (04:33→12:27)
[2019-04-13] MEDS: ALPRAZolam 0.5 MG TAB PO PRN ×2 (04:34→12:38)
[2019-04-13] MEDS: methylPREDNISolone Sod Succinate 40 MG/1 ML INJ IV SCH ×2 (06:14→15:24)
[2019-04-13] MEDS: ASPIRIN 81 MG TAB CHEW PO SCH (09:28)
[2019-04-13] MEDS: HEPARIN 5,000 UNIT/1 ML VIAL SUB-Q SCH (09:28)
[2019-04-13] MEDS: levoFLOXacin 750 MG TAB PO SCH (09:28)
[2019-04-13] MEDS: guaiFENesin ER 600 MG TAB PO SCH (09:28)
[2019-04-13] MEDS: FLUTICASONE PROPIONATE NASAL SPRAY 16 GM NS SCH (09:29)
[2019-04-13] MEDS: DOCUSATE SODIUM 100 MG CAP PO SCH (09:29)
[2019-04-13] MEDS: NICOTINE 14 MG/24 HR PATCH TD SCH (09:29)
[2019-04-13] MEDS: BUDESONIDE 0.5 MG/2 ML NEBU IH SCH (10:45)
[2019-04-13 12:52] VITALS: BP 107/53
--- NOTE | 2019-04-13 15:49 | Discharge Summary ---
Providers - Providers Date of Admission: 04/09/19 13:49 Date of discharge: 04/13/19 Attending physician: BLAKE MOHAMUD 04/09/19 00:10 Occupational Therapy Evaluate and Treat [CONS] Routine Comment: Reason For Exam: neuro deficits Physical Therapy Evaluation and Treat [CONS] Routine Comment: Reason For Exam: neuro deficits 04/09/19 00:12 Consult to Physician [CONS] Routine Comment: Consulting Provider: STEVE PATRICK Physician Instructions: Reason For Exam: steve 04/13/19 12:24 Consult to Case Management [CONS] Routine Services Needed at Discharge: Home O2 Notified:: 02 at 3 lpm stationary concentrator/portable via nasal cannula continuous Phone number called:: COPD-[id number]- 3 liters of oxygen Primary care physician: THEATRICAL TROUPER Hospitalization Condition: Fair Hospital course: Discharge diagnosis and mx: /-Acute exacerbation of COPD with acute hypoxic respiratory failure, POA cont Oxygen titrate O2 sats to more than 90% Nebulizers, IV steroids and supportive care Assessed for home O2 evaluation before discharge /-Syncope: likley vasovagal No new episodes of syncope since admission Fall precautions, Syncope workup negative so far Neurology evaluation noted and appreciated Physical therapy occupational therapy ordered Possible home with home health /-Elevated D dimers; negative for PE Check lower extremity venous Doppler - negative /-History of atrial fibrillation/paroxysmal Patient is not on chronic anticoagulation, with h/o fall Continue beta blockers and supportive care /-Hypertension; moderate control Continue current antihypertensives and when necessary medications Check orthostatics /-Chronic renal insufficiency; Closely monitor renal function and avoid nephrotoxins Nephrology evaluation if needed /-Ongoing tobacco use; smoking cessation counseled Nicotine patch as needed /-DVT PPX: Heparin Closely monitor the patient and adjust management as needed Disposition; Discharge home with home health when medically stable Physical exam General appearance: Present: no distress, obese, looks older than her age - EENT Eyes: Present: PERRL, EOM intact - Neck Neck: Present: supple, normal ROM - Respiratory Respiratory effort: normal Respiratory: bilateral: diminished, + diffuse wheezing - Cardiovascular Rhythm: regular Heart Sounds: Present: S1 & S2 - Extremities Extremities: no ischemia, No edema - Abdominal General gastrointestinal: soft, non-tender, non-distended, normal bowel sounds - Integumentary Integumentary: Present: clear, warm - Psychiatric Psychiatric: appropriate mood/affect, cooperative - Neurologic Neurologic: CNII-XII intact, moves all extremities Disposition: DC-01 TO HOME OR SELFCARE Time spent for discharge: 34 minutes Core Measure Documentation - Palliative Care Palliative Care/ Comfort Measures: Not Applicable - Core Measures Any of the following diagnoses?: none Exam - Physical Exam Narrative exam: General appearance: Present: no distress, obese, looks older than her age - EENT Eyes: Present: PERRL, EOM intact - Neck Neck: Present: supple, normal ROM - Respiratory Respiratory effort: normal Respiratory: bilateral: diminished, + diffuse wheezing - Cardiovascular Rhythm: regular Heart Sounds: Present: S1 & S2 - Extremities Extremities: no ischemia, No edema - Abdominal General gastrointestinal: soft, non-tender, non-distended, normal bowel sounds - Integumentary Integumentary: Present: clear, warm - Psychiatric Psychiatric: appropriate mood/affect, cooperative - Neurologic Neurologic: CNII-XII intact, moves all extremities - Constitutional Vitals: Temp Pulse Resp BP Pulse Ox 100.1 F H 94 H 22 107/53 85 04/13/19 12:51 04/13/19 12:51 04/13/19 12:51 04/13/19 12:51 04/13/19 12:51 Plan Activity: fall precautions Weight Bearing Status: Non-Weight Bearing Diet: low fat Special Instructions: smoking cessation, home oxygen via (n/c ), home health RN Follow up with: PRIMARY CARE, [Primary Care Provider] - 3-5 Days CONCEPCION CARPENTER MD [Staff Physician] - 7 Days Prescriptions: AtorvaSTATin [Lipitor] 20 mg PO QHS #30 tablet Aspirin [Aspirin BABY CHEW TAB] 81 mg PO QDAY #30 tab.chew Ipratropium/Albuterol Sulfate [DUONEB *Not for PRN Use*] 1 ampul IH Q6HR #30 Fluticasone [Flonase] 100 mcg NS BID #1 bottle guaiFENesin ER [Mucinex ER] 600 mg PO BID #60 tablet oxyCODONE /ACETAMINOPHEN [Percocet 5/325 mg] 1 tab PO Q6H PRN #7 tablet PRN Reason: Pain, Moderate (4-6) Budesonide/Formoterol Fumarate [Symbicort 160-4.5 Mcg Inhaler] 10.2 gm IH BID #1 [email or web address]
== END 2019-04-13 19:56 | disposition home health service (06) | DRG 189 ==
LOC: ED 20:22 → 4A 23:55 → OBSVTOIN 04-09 13:49
PROVIDERS: ADMIT Internal Medicine; ATTEND Internal Medicine
PROC: 4A033R1 Measurement of Arterial Saturation, Peripheral, Percutaneous Approach (ICD-10-PCS; principal; 2019-04-08)
DX: J96.01 Acute respiratory failure with hypoxia (principal); J44.1 Chronic obstructive pulmonary disease with (acute) exacerbation; R55 Syncope and collapse; I48.91 Unspecified atrial fibrillation; B19.20 Unspecified viral hepatitis C without hepatic coma; G89.29 Other chronic pain; N18.9 Chronic kidney disease, unspecified; I12.9 Hypertensive chronic kidney disease with stage 1 through stage 4 chronic kidney disease, or unspecified chronic kidney disease; M54.9 Dorsalgia, unspecified; F17.200 Nicotine dependence, unspecified, uncomplicated; Z88.5 Allergy status to narcotic agent; Z79.899 Other long term (current) drug therapy; Z71.6 Tobacco abuse counseling
CPT/HCPCS: 36415; 70450; 70496; 70498; 71045; 71275; 80048; 80053; 80061; 82803; 82962; 83880; 84484; 85025; 85379; 93005; 93010; 93306; 93880; 93970; 94640; 94760; 95819; 96374; 96375; G0378; A9270-GY; J1644; J1956; J2060; J2920; J2930; J3475; J7030; Q9967

== ENCOUNTER 2019-04-26 00:26 | Inpatient (IN) | payer MEDICAID, MEDICARE ==
--- NOTE | 2019-04-26 00:47 | Emergency Department Report ---
ED Shortness of Breath HPI - General Chief Complaint: Dyspnea/Respdistress Stated Complaint: JING Time Seen by Provider: 04/26/19 00:40 Source: patient, EMS Mode of arrival: Stretcher Limitations: No Limitations - History of Present Illness Initial Comments: Patient is a 68-year-old female that presents emergency room with complaints of shortness of breath, cough and difficulty breathing. Patient states her symptoms started today at noon. Patient states that she is breathing faster than normal. Patient states she is on hormone 2 L. Patient states her symptoms are worsening. Patient states her symptoms are better with rest and worse with exertion. Patient states she is taking multiple nebulizer treatments today. Patient states she has a history of COPD. Patient denies chest pain. Patient denies fever and chills. Patient states she has a recent URI. Patient denies a history of CHF. Patient states she has chronic back pain and needs something for her back pain. MD Complaint: shortness of breath, cough -: Sudden Severity: severe Consistency: constant Improves With: rest Worsens With: exertion Known History Of: COPD Context: recent URI Associated Symptoms: cough, sputum production Treatments Prior to Arrival: oxygen, bronchodilator - Related Data Home Oxygen Therapy: Yes Home Oxygen Amount: 2 Liters Home Medications Medication Instructions Recorded Confirmed Last Taken ALPRAZolam [Xanax TAB] 0.5 mg PO TID PRN 07/08/17 04/08/19 Unknown Previous Rx's Medication Instructions Recorded Last Taken Type Aspirin [Aspirin BABY CHEW TAB] 81 mg PO QDAY #30 tab.chew 04/13/19 Unknown Rx AtorvaSTATin [Lipitor] 20 mg PO QHS #30 tablet 04/13/19 Unknown Rx Budesonide/Formoterol Fumarate 10.2 gm IH BID #1 [email or web address] 04/13/19 Unknown Rx [Symbicort 160-4.5 Mcg Inhaler] Fluticasone [Flonase] 100 mcg NS BID #1 bottle 04/13/19 Unknown Rx Ipratropium/Albuterol Sulfate 1 ampul IH Q6HR #30 04/13/19 Unknown Rx [DUONEB *Not for PRN Use*] guaiFENesin ER [Mucinex ER] 600 mg PO BID #60 tablet 04/13/19 Unknown Rx oxyCODONE /ACETAMINOPHEN [Percocet 1 tab PO Q6H PRN #7 tablet 04/13/19 Unknown Rx 5/325 mg] Allergies Allergy/AdvReac Type Severity Reaction Status Date / Time codeine Allergy Hives Verified 09/30/18 00:33 prednisone Allergy Rash Verified 09/30/18 00:33 ED Review of Systems ROS: Stated complaint: JING Other details as noted in HPI Constitutional: denies: chills, fever Eyes: denies: eye pain, eye discharge, vision change ENT: denies: ear pain, throat pain Respiratory: cough, shortness of breath, SOB with exertion, SOB at rest, wheezing Cardiovascular: denies: chest pain, palpitations Endocrine: no symptoms reported Gastrointestinal: denies: abdominal pain, nausea, diarrhea Genitourinary: denies: urgency, dysuria, discharge Musculoskeletal: denies: back pain, joint swelling, arthralgia Skin: denies: rash, lesions Neurological: denies: headache, weakness, paresthesias Psychiatric: denies: anxiety, depression Hematological/Lymphatic: denies: easy bleeding, easy bruising ED Past Medical Hx - Past Medical History Previous Medical History?: Yes Hx Hypertension: Yes (lasix) Hx Congestive Heart Failure: No Hx Diabetes: No Hx Pulmonary Embolism: No Hx Liver Disease: Yes (hepatitis A) Hx Renal Disease: No Hx Arthritis: No Hx Kidney Stones: No Hx Psychiatric Treatment: Yes (Apparently has previous overdose; on Lexapro and Xanax) Hx Asthma: No Hx COPD: Yes Hx Tuberculosis: No Hx HIV: No Additional medical history: a-fib. CARPAL TUNNEL. Back pain - Surgical History Past Surgical History?: Yes Hx Cholecystectomy: No Hx Appendectomy: No Hx Breast Surgery: No Additional Surgical History: BILATERAL CATARACTS REMOVED; LENS SURGERY. BALLOON IN BACK - Family History Family history: no significant - Social History Smoking Status: Current Every Day Smoker Substance Use Type: None - Medications Home Medications: Home Medications Medication Instructions Recorded Confirmed Last Taken Type ALPRAZolam [Xanax TAB] 0.5 mg PO TID PRN 07/08/17 04/08/19 Unknown History Aspirin [Aspirin BABY CHEW TAB] 81 mg PO QDAY #30 tab.chew 04/13/19 Unknown Rx AtorvaSTATin [Lipitor] 20 mg PO QHS #30 tablet 04/13/19 Unknown Rx Budesonide/Formoterol Fumarate 10.2 gm IH BID #1 [email or web address] 04/13/19 Unknown Rx [Symbicort 160-4.5 Mcg Inhaler] Fluticasone [Flonase] 100 mcg NS BID #1 bottle 04/13/19 Unknown Rx Ipratropium/Albuterol Sulfate 1 ampul IH Q6HR #30 04/13/19 Unknown Rx [DUONEB *Not for PRN Use*] guaiFENesin ER [Mucinex ER] 600 mg PO BID #60 tablet 04/13/19 Unknown Rx oxyCODONE /ACETAMINOPHEN [Percocet 1 tab PO Q6H PRN #7 tablet 04/13/19 Unknown Rx 5/325 mg] ED Physical Exam - General Limitations: No Limitations General appearance: alert, in distress - Head Head exam: Present: atraumatic, normocephalic - Eye Eye exam: Present: normal appearance, PERRL Pupils: Present: normal accommodation - ENT ENT exam: Present: mucous membranes dry - Neck Neck exam: Present: normal inspection - Respiratory Respiratory exam: Present: respiratory distress, wheezes, accessory muscle use, decreased breath sounds, prolonged expiratory - Cardiovascular Cardiovascular Exam: Present: regular rate, normal rhythm. Absent: systolic murmur, diastolic murmur, rubs, gallop - GI/Abdominal GI/Abdominal exam: Present: soft, normal bowel sounds. Absent: distended, tenderness, guarding - Rectal Rectal exam: Present: deferred - Extremities Exam Extremities exam: Present: normal inspection - Back Exam Back exam: Present: normal inspection - Neurological Exam Neurological exam: Present: alert, oriented X3 - Psychiatric Psychiatric exam: Present: normal affect, normal mood - Skin Skin exam: Present: warm, dry, intact, normal color. Absent: rash ED Course Vital Signs 04/26/19 02:17 Pulse Rate [ 90 Posterior] Respiratory 22 Rate [Posterior ] - Reevaluation(s) Reevaluation #1: Initial evaluation done. Face consistent with a COPD exacerbation. Patient has prednisone on her allergy list but the patient states she is able to take Solu- Medrol. Patient also has codeine on her allergy list but is able to tolerate Dilaudid. Patient will be given magnesium, DuoNeb, Solu-Medrol, Dilaudid. And patient will be placed on oxygen 04/26/19 00:40 Reevaluation #2: Patient's of increased work to breathe. 04/26/19 02:21 Reevaluation #3: I discussed all results of patient. Discussed plan of care outpatient. Patient agrees with plan of care and admission. Patient will be admitted to the hospitalist service. Patient's symptoms have improved. Patient's oxygen has improved. Patient still having slight increased work of breathing. 04/26/19 02:46 - Consultations Consultation #1: Hospitalist consult for admission. Hospitalist admit patient. 04/26/19 02:38 ED Medical Decision Making - Lab Data Result diagrams: 04/26/19 01:12 04/26/19 01:12 - EKG Data -: EKG Interpreted by Me EKG shows normal: sinus rhythm, axis, intervals, QRS complexes, ST-T waves Rate: normal - Radiology Data Radiology results: image reviewed interpreted by me: No acute findings on chest x-ray. - Medical Decision Making Patient is a 68-year-old female with known history of COPD presents emergency room complaints shortness of breath. Patient has history of home O2. Patient found to be hypoxic. Patient found to be in COPD exacerbation. Patient admitted to the hospitalist service for further evaluation treatment. Patient's labs unremarkable. Patient's x-rays negative for acute findings. Patient given multiple medications in the ER and her symptoms and signs did improve. Patient's worked breathing improved. Patient's oxygenation improved. - Differential Diagnosis COPD exacerbation, hypoxia, shortness of breath, dyspnea. JING Critical Care Time: Yes Critical care time in (mins) excluding proc time.: 35 Critical care attestation.: If time is entered above; I have spent that time in minutes in the direct care of this critically ill patient, excluding procedure time. Critical Care Time: 35 minutes ED Disposition Clinical Impression: COPD exacerbation, Hypoxia, SOB (shortness of breath) COPD (chronic obstructive pulmonary disease) Qualifiers: COPD type: unspecified COPD Qualified Code(s): J44.9 - Chronic obstructive pulmonary disease, unspecified Disposition: 09 OP ADMIT IP TO THIS HOSP Is pt being admited?: Yes Does the pt Need Aspirin: No Condition: Critical Time of Disposition: 02:38
[2019-04-26] MEDS ORDERED: MAGNESIUM SULFATE 2 GM/50 ML BAG IV ONE (01:03)
[2019-04-26] MEDS ORDERED: methylPREDNISolone Sod Succinate 125 MG/2 ML INJ IV ONE (01:03)
[2019-04-26] MEDS ORDERED: IPRATROPIUM/ALBUTEROL SULFATE 3 ML AMPUL.NEB IH ONE ×2 (01:05→10:04)
[2019-04-26] MEDS ORDERED: CEFEPIME/NS 2 GM/100 ML 2 GM/100 ML BAG IV ONE (01:05)
[2019-04-26] MEDS ORDERED: HYDROmorphone 1 MG/1 ML INJ IV ONE (01:09)
[2019-04-26 01:25] LABS: Basophils % (Auto) 0.4 % (0.0-1.8); Eosinophils % (Auto) 0.4 % (0.0-4.3); Hematocrit 31.1 % (30.3-42.9); Hemoglobin 10.1 gm/dl (10.1-14.3); Lymphocytes # (Auto) 0.6 K/mm3 (1.2-5.4); Lymphocytes % (Auto) 12.7 % (13.4-35.0); Mean Corpuscular HGB Conc 33 % (30-34); Mean Corpuscular Volume 115 fl (79-97); Monocytes # (Auto) 0.3 K/mm3 (0.0-0.8); Monocytes % (Auto) 5.4 % (0.0-7.3); Platelet Count 175 K/mm3 (140-440); Red Blood Count 2.71 M/mm3 (3.65-5.03); Red Cell Distribution Width 13.1 % (13.2-15.2)
--- NOTE | 2019-04-26 01:37 | XRay Report ---
CHEST 1 VIEW, 04/26/2019 1:01 AM CLINICAL INFORMATION/INDICATION: Shortness of breath COMPARISON: Chest radiograph, 04/08/2019 FINDINGS: SUPPORT DEVICES: None. HEART: Cardiac silhouette is normal in size. LUNGS/PLEURA: The lungs are clear of focal airspace disease or significant pleural effusion. ADDITIONAL FINDINGS: No additional acute findings. IMPRESSION: 1. No evidence of acute cardiopulmonary process. Signer Name: Elizabeth Peoples MD Signed: 04/26/2019 1:32 AM Workstation Name: [email or web address]
[2019-04-26 02:08] LABS: Creatine Kinase MB 10.7 ng/mL (0.0-4.0)
[2019-04-26 02:09] LABS: Alanine Aminotransferase 13 units/L (7-56); Albumin 3.9 g/dL (3.9-5); BUN/Creatinine Ratio 12; Blood Urea Nitrogen 15 mg/dL (7-17); Calcium 8.6 mg/dL (8.4-10.2); Hemolysis Index 14
--- NOTE | 2019-04-26 04:27 | History and Physical Report ---
History of Present Illness Date of examination: 04/26/19 Date of admission: 04/26/19 02:39 Chief complaint: Shortness of breath History of present illness: [place] -year-old female with known history of COPD presenting to the emergency room today complaining of shortness of breath. Shortness of breath is said to be worse on exertion. She denies any chest pain. She has had some cough which has been productive of some yellowish sputum. She also admits that she had an upper respiratory infection recently. She denies any sick contacts and denies any recent travel. Patient has had multiple rounds of nebulizing treatments today at home without any significant improvement. Upon arrival in the emergency room patient was hypoxic. She was given nebulizing treatment, IV steroids with some improvement. She is a current everyday smoker. Past History Past Medical History: atrial fib, COPD, hypertension, other (History of hepatitis A) Past Surgical History: cataract removal, Other (History of carpal tunnel surgery) Social history: smoking (Smokes less than a pack of cigarette daily) Family history: no significant family history Medications and Allergies Allergies Allergy/AdvReac Type Severity Reaction Status Date / Time codeine Allergy Hives Verified 09/30/18 00:33 prednisone Allergy Rash Verified 09/30/18 00:33 Home Medications Medication Instructions Recorded Confirmed Last Taken Type ALPRAZolam [Xanax TAB] 0.5 mg PO TID PRN 07/08/17 04/08/19 Unknown History Aspirin [Aspirin BABY CHEW TAB] 81 mg PO QDAY #30 tab.chew 04/13/19 Unknown Rx AtorvaSTATin [Lipitor] 20 mg PO QHS #30 tablet 04/13/19 Unknown Rx Budesonide/Formoterol Fumarate 10.2 gm IH BID #1 hfa.aer.ad 04/13/19 Unknown Rx [Symbicort 160-4.5 Mcg Inhaler] Fluticasone [Flonase] 100 mcg NS BID #1 bottle 04/13/19 Unknown Rx Ipratropium/Albuterol Sulfate 1 ampul IH Q6HR #30 04/13/19 Unknown Rx [DUONEB *Not for PRN Use*] guaiFENesin ER [Mucinex ER] 600 mg PO BID #60 tablet 04/13/19 Unknown Rx oxyCODONE /ACETAMINOPHEN [Percocet 1 tab PO Q6H PRN #7 tablet 04/13/19 Unknown Rx 5/325 mg] Active Meds: Active Medications Acetaminophen (Tylenol) 650 mg PO Q4H PRN PRN Reason: Pain MILD(1-3)/Fever >100.5/ARVIZU Albuterol/Ipratropium (Duoneb *Not For Prn Use*) 1 ampul IH Q6HRT MICHAEL Magnesium Hydroxide (Milk Of Magnesia) 30 ml PO Q4H PRN PRN Reason: Constipation Methylprednisolone Sodium Succinate (Solu-Medrol) 40 mg IV Q8H MICHAEL Ondansetron HCl (Zofran) 4 mg IV Q8H PRN PRN Reason: Nausea And Vomiting Sodium Chloride (Sodium Chloride Flush Syringe 10 Ml) 10 ml IV BID MICHAEL Sodium Chloride (Sodium Chloride Flush Syringe 10 Ml) 10 ml IV PRN PRN PRN Reason: LINE FLUSH Review of Systems Respiratory: cough with sputum, shortness of breath Exam - Constitutional Vitals: Temp Pulse Resp BP Pulse Ox 90 22 04/26/19 02:17 04/26/19 02:17 General appearance: Present: no acute distress, well-nourished - EENT Eyes: Present: PERRL, EOM intact ENT: hearing intact, clear oral mucosa - Neck Neck: Present: supple, normal ROM - Respiratory Respiratory effort: normal Respiratory: bilateral: wheezing - Cardiovascular Rhythm: regular Heart Sounds: Present: S1 & S2 - Extremities Extremities: no ischemia, pulses intact, No edema, Full ROM Peripheral Pulses: within normal limits - Abdominal General gastrointestinal: Present: soft, non-tender, non-distended - Integumentary Integumentary: Present: clear, warm, dry - Musculoskeletal Musculoskeletal: strength equal bilaterally - Psychiatric Psychiatric: appropriate mood/affect, intact judgment & insight, cooperative - Neurologic Neurologic: CNII-XII intact, moves all extremities Results - Labs CBC & Chem 7: 04/26/19 01:12 04/26/19 01:12 Labs: Abnormal lab results 04/26/19 04/26/19 Range/Units 01:12 01:12 RBC 2.71 L (3.65-5.03) M/mm3 MCV 115 H (79-97) fl MCH 37 H (28-32) pg RDW 13.1 L (13.2-15.2) % Lymph % (Auto) 12.7 L (13.4-35.0) % Lymph # 0.6 L (1.2-5.4) K/mm3 Seg Neutrophils % 81.1 H (40.0-70.0) % Creatinine 1.3 H (0.7-1.2) mg/dL Glucose 101 H (65-100) mg/dL Total Creatine Kinase 235 H (30-135) units/L CK-MB (CK-2) 10.7 H (0.0-4.0) ng/mL CK-MB (CK-2) Rel Index 4.5 H (0-4) Total Protein 6.2 L (6.3-8.2) g/dL Assessment and Plan - Patient Problems (1) COPD exacerbation Current Visit: Yes Status: Acute Plan to address problem: Patient placed on nebulizer treatments and IV steroids. Is also placed empirically on IV antibiotics for possible underlying bronchitis. (2) Paroxysmal atrial fibrillation Current Visit: No Status: Acute Plan to address problem: Rate is currently controlled . (3) Hypoxia Current Visit: Yes Status: Acute Plan to address problem: Patient placed on oxygen and will keep O2 saturation greater or equal to 92%. (4) Tobacco use disorder Current Visit: No Status: Acute Plan to address problem: Patient counseled on quitting tobacco use. Will offer nicotine patch as needed. (5) DVT prophylaxis Current Visit: No Status: Acute Plan to address problem: Patient placed on Heparin subcutaneously. (6) Full code status Current Visit: Yes Status: Acute
[2019-04-26] MEDS: HEPARIN 5,000 UNIT/1 ML VIAL SUB-Q SCH ×3 (06:00→22:43)
[2019-04-26] MEDS ORDERED: IPRATROPIUM/ALBUTEROL SULFATE 3 ML AMPUL.NEB IH SCH (08:00)
[2019-04-26] MEDS: methylPREDNISolone Sod Succinate 40 MG/1 ML INJ IV SCH ×2 (10:35→17:51)
[2019-04-26] MEDS ORDERED: ALPRAZolam 0.5 MG TAB PO PRN (10:42)
[2019-04-26] MEDS: ALPRAZolam 0.5 MG TAB PO PRN ×2 (10:50→15:11)
[2019-04-26] MEDS ORDERED: methylPREDNISolone Sod Succinate 40 MG/1 ML INJ ONE (11:06)
[2019-04-26] MEDS ORDERED: ALBUTEROL 2.5 MG/3 ML NEBU IH PRN (11:25)
[2019-04-26] MEDS ORDERED: oxyCODONE /ACETAMINOPHEN 5-325MG TAB ONE (11:44)
[2019-04-26] MEDS: oxyCODONE /ACETAMINOPHEN 5-325MG TAB PO PRN ×2 (11:50→22:41)
[2019-04-26] MEDS: ASPIRIN 81 MG TAB CHEW PO SCH (15:07)
[2019-04-26] MEDS: IPRATROPIUM/ALBUTEROL SULFATE 3 ML AMPUL.NEB IH SCH ×2 (15:10→21:09)
[2019-04-26] MEDS: BUDESONIDE 0.5 MG/2 ML NEBU IH SCH (21:09)
[2019-04-26] MEDS ORDERED: NON-FORMULARY EACH (Budesonide/Formoterol Fumarate [Symbicort 160-4.5 Mcg Inhaler] 10.2 GM IH SCH (22:00)
[2019-04-26] MEDS: guaiFENesin ER 600 MG TAB PO SCH (22:43)
[2019-04-26] MEDS: FLUTICASONE PROPIONATE NASAL SPRAY 16 GM NS SCH (22:44)
[2019-04-27] MEDS: ALPRAZolam 0.5 MG TAB PO PRN ×3 (01:44→15:09)
[2019-04-27] MEDS: IPRATROPIUM/ALBUTEROL SULFATE 3 ML AMPUL.NEB IH SCH ×4 (02:48→20:25)
[2019-04-27 04:37] LABS: Basophils % (Auto) 0.1 % (0.0-1.8); Hematocrit 29.8 % (30.3-42.9); Hemoglobin 9.6 gm/dl (10.1-14.3); Lymphocytes # (Auto) 0.7 K/mm3 (1.2-5.4); Mean Corpuscular HGB Conc 32 % (30-34); Mean Corpuscular Volume 115 fl (79-97); Monocytes # (Auto) 0.2 K/mm3 (0.0-0.8); Monocytes % (Auto) 5.1 % (0.0-7.3); Platelet Count 170 K/mm3 (140-440); Red Blood Count 2.58 M/mm3 (3.65-5.03); Red Cell Distribution Width 13.1 % (13.2-15.2)
[2019-04-27 04:47] LABS: INR 0.96 (0.87-1.13)
[2019-04-27 04:48] LABS: Partial Thromboplastin Time 34.3 Sec. (24.2-36.6)
[2019-04-27] MEDS: oxyCODONE /ACETAMINOPHEN 5-325MG TAB PO PRN ×3 (06:11→21:27)
[2019-04-27] MEDS: methylPREDNISolone Sod Succinate 40 MG/1 ML INJ IV SCH ×3 (06:11→17:26)
[2019-04-27] MEDS: BUDESONIDE 0.5 MG/2 ML NEBU IH SCH ×2 (06:59→20:25)
--- NOTE | 2019-04-27 09:30 | Event Note ---
Date: 04/26/19 patient seen and examined placed on Bipap for respiratory acidosis and hypercapnea cont current mx and plan
[2019-04-27] MEDS: HEPARIN 5,000 UNIT/1 ML VIAL SUB-Q SCH ×3 (09:35→21:27)
[2019-04-27] MEDS: FLUTICASONE PROPIONATE NASAL SPRAY 16 GM NS SCH ×2 (09:36→21:26)
[2019-04-27] MEDS: guaiFENesin ER 600 MG TAB PO SCH ×2 (09:40→21:27)
[2019-04-27] MEDS: ASPIRIN 81 MG TAB CHEW PO SCH (10:06)
[2019-04-27] MEDS: ONDANSETRON 4 MG/2 ML INJ IV PRN (10:46)
--- NOTE | 2019-04-27 12:55 | Progress Note ---
Assessment and Plan /-Acute exacerbation of COPD cont Oxygen titrate O2 sats to more than 90% Nebulizers, IV steroids and supportive care Continue BiPAP and wean off as tolerated /-Acute hypercapnic respiratory failure on BiPAP, consult pulmonary /-History of atrial fibrillation/paroxysmal Patient is not on chronic anticoagulation, with h/o fall Continue beta blockers and supportive care /-Hypertension; moderate control Continue current antihypertensives and when necessary medications Check orthostatics /-Chronic renal insufficiency; Closely monitor renal function and avoid nephrotoxins Nephrology evaluation if needed /-Ongoing tobacco use; smoking cessation Nicotine patch as needed /-DVT PPX: Heparin Closely monitor the patient and adjust management as needed Disposition; Discharge home with home health when medically stable Subjective Date of service: 04/27/19 Interval history: Patient seen and examined. Medical records and medication list reviewed. No acute event overnight noted by the RN. Patient continued to have difficulty breathing even with minimal exertion and rest. Patient is tolerating diet. Discussed plan of care at bedside with patient. Objective - Constitutional Vitals: Vital Signs - 12hr 04/27/19 04/27/19 04/27/19 02:49 05:17 07:34 Temperature 98.1 F 97.7 F Pulse Rate 75 89 91 H Respiratory 22 22 22 Rate Blood Pressure 119/74 113/52 O2 Sat by Pulse 96 97 94 Oximetry 04/27/19 10:00 Temperature Pulse Rate Respiratory 22 Rate Blood Pressure O2 Sat by Pulse 94 Oximetry General appearance: Present: mild distress, well-nourished - EENT Eyes: PERRL, EOM intact ENT: hearing intact, clear oral mucosa Ears: bilateral: normal - Neck Neck: supple, normal ROM - Respiratory Respiratory effort: labored Respiratory: bilateral: diminished, rales - Cardiovascular Rhythm: regular Heart Sounds: Present: S1 & S2. Absent: gallop, rub Extremities: pulses intact, No edema, normal color, Full ROM - Gastrointestinal General gastrointestinal: Present: soft, non-tender, non-distended, normal bowel sounds - Integumentary Integumentary: clear, warm, dry - Musculoskeletal Musculoskeletal: 1, strength equal bilaterally - Neurologic Neurologic: moves all extremities - Psychiatric Psychiatric: intact judgment & insight, memory intact - Labs CBC & Chem 7: 04/27/19 03:46 04/28/19 16:04 Labs: Abnormal lab results 04/27/19 04/27/19 Range/Units 03:46 03:46 RBC 2.58 L (3.65-5.03) M/mm3 Hgb 9.6 L (10.1-14.3) gm/dl Hct 29.8 L (30.3-42.9) % MCV 115 H (79-97) fl MCH 37 H (28-32) pg RDW 13.1 L (13.2-15.2) % Lymph # 0.7 L (1.2-5.4) K/mm3 Seg Neutrophils % 78.8 H (40.0-70.0) % Potassium 5.5 H (3.6-5.0) mmol/L BUN 37 H (7-17) mg/dL Glucose 106 H (65-100) mg/dL - Imaging and cardiology Chest x-ray: report reviewed
[2019-04-28] MEDS: ALPRAZolam 0.5 MG TAB PO PRN ×3 (00:37→20:11)
[2019-04-28] MEDS: methylPREDNISolone Sod Succinate 40 MG/1 ML INJ IV SCH ×3 (01:05→17:17)
[2019-04-28] MEDS: IPRATROPIUM/ALBUTEROL SULFATE 3 ML AMPUL.NEB IH SCH ×4 (03:18→21:44)
[2019-04-28] MEDS: HEPARIN 5,000 UNIT/1 ML VIAL SUB-Q SCH ×4 (05:53→22:20)
[2019-04-28] MEDS: oxyCODONE /ACETAMINOPHEN 5-325MG TAB PO PRN ×3 (05:53→20:18)
[2019-04-28] MEDS: NICOTINE 21 MG/24 HR PATCH TD SCH ×2 (05:54→09:06)
[2019-04-28] MEDS: ONDANSETRON 4 MG/2 ML INJ IV PRN (06:49)
[2019-04-28] MEDS: ASPIRIN 81 MG TAB CHEW PO SCH (09:00)
[2019-04-28] MEDS: guaiFENesin ER 600 MG TAB PO SCH ×3 (09:00→22:21)
[2019-04-28] MEDS: FLUTICASONE PROPIONATE NASAL SPRAY 16 GM NS SCH ×3 (09:00→22:20)
[2019-04-28] MEDS: BUDESONIDE 0.5 MG/2 ML NEBU IH SCH ×2 (09:11→21:45)
[2019-04-28] MEDS ORDERED: NICOTINE 21 MG/24 HR PATCH TD SCH (10:00)
--- NOTE | 2019-04-28 11:13 | Consultation ---
History of Present Illness Consult date: 04/28/19 Requesting physician: BLAKE MOHAMUD Reason for consult: COPD, other (acute hypercapnic respiratory failure) History of present illness: A 68 year-old woman with known history of COPD presented to the emerg ency room today complaining of shortness of breath. Shortness of breath is said to be worse on exertion. She denied any chest pain. She has had some cough which has been productive of some yellowish sputum. She also admits that she had an upper respiratory infection recently. She denies any sick contacts and denies any recent travel. Patient has had multiple rounds of nebulizing treatments today at home without any significant improvement. Upon arrival in the emergency room patient was hypoxic. She was given nebulizing treatment, IV steroids with some improvement. She is a current everyday smoker. ABG was significant for hypoxia and hypercapnia. She was placed on BIPAP and I was consulted for acute and chronic hypoxic- hypercapnic respiratory failure; AE-COPD Patient was seen and examined. She is currently on 3L NC. Vitals, labs, medications, chart and imaging were reviewed. She states her shortness of breath is improving, asking for "pain medicine" for her chronic back pain. ROS: Stated complaint: JING Other details as noted in HPI Constitutional: denies: chills, fever Eyes: denies: eye pain, eye discharge, vision change ENT: denies: ear pain, throat pain Respiratory: cough, shortness of breath, SOB with exertion, SOB at rest, wheezing Cardiovascular: denies: chest pain, palpitations Endocrine: no symptoms reported Gastrointestinal: denies: abdominal pain, nausea, diarrhea Genitourinary: denies: urgency, dysuria, discharge Musculoskeletal:back pain, no joint swelling, no arthralgia Skin: denies: rash, lesions Neurological: denies: headache, weakness, paresthesias Psychiatric: denies: anxiety, depression Hematological/Lymphatic: denies: easy bleeding, easy bruising - Past Medical History Previous Medical History?: Yes Hx Hypertension: Yes Hx Liver Disease: Yes (hepatitis A) Hx Psychiatric Treatment: Yes (Apparently has previous overdose; on Lexapro and Xanax) Additional medical history: a-fib. CARPAL TUNNEL. Back pain - Surgical History Past Surgical History?: Yes Additional Surgical History: BILATERAL CATARACTS REMOVED; LENS SURGERY. BALLOON IN BACK - Family History Family history: no significant - Social History Smoking Status: Current Every Day Smoker Substance Use Type: None Past History Past Medical History: atrial fib, COPD, hypertension, other (History of hepatitis A) Past Surgical History: cataract removal, Other (History of carpal tunnel surgery) Social history: smoking (Smokes less than a pack of cigarette daily) Family history: no significant family history Medications and Allergies Allergies Allergy/AdvReac Type Severity Reaction Status Date / Time codeine Allergy Hives Verified 09/30/18 00:33 prednisone Allergy Rash Verified 09/30/18 00:33 Home Medications Medication Instructions Recorded Confirmed Last Taken Type ALPRAZolam [Xanax TAB] 0.5 mg PO TID PRN 07/08/17 04/26/19 04/25/19 History Aspirin [Aspirin BABY CHEW TAB] 81 mg PO QDAY #30 tab.chew 04/13/19 04/26/19 04/25/19 Rx AtorvaSTATin [Lipitor] 20 mg PO QHS #30 tablet 04/13/19 04/26/19 04/25/19 Rx Budesonide/Formoterol Fumarate 10.2 gm IH BID #1 hfa.aer.ad 04/13/19 04/26/19 04/25/19 Rx [Symbicort 160-4.5 Mcg Inhaler] Fluticasone [Flonase] 100 mcg NS BID #1 bottle 04/13/19 04/26/19 04/25/19 Rx Ipratropium/Albuterol Sulfate 1 ampul IH Q6HR #30 04/13/19 04/26/19 04/25/19 Rx [DUONEB *Not for PRN Use*] guaiFENesin ER [Mucinex ER] 600 mg PO BID #60 tablet 04/13/19 04/26/19 04/25/19 Rx oxyCODONE /ACETAMINOPHEN [Percocet 1 tab PO Q6H PRN #7 tablet 04/13/19 04/26/19 04/25/19 Rx 5/325 mg] ALPRAZolam [Xanax TAB] 0.5 mg PO TID PRN 04/26/19 04/26/19 04/25/19 History Active Meds: Active Medications Acetaminophen (Tylenol) 650 mg PO Q4H PRN PRN Reason: Pain MILD(1-3)/Fever >100.5/ARVIZU Albuterol (Proventil) 2.5 mg IH Q4HRT PRN PRN Reason: Shortness Of Breath Albuterol/Ipratropium (Duoneb *Not For Prn Use*) 1 ampul IH Q6HRT [facility] Last Admin: 04/28/19 09:11 Dose: 1 ampul Documented by: Alprazolam (Xanax) 0.5 mg PO TID PRN PRN Reason: Anxiety/Agitation Last Admin: 04/28/19 09:00 Dose: 0.5 mg Documented by: Aspirin (Baby Aspirin) 81 mg PO QDAY [facility] Last Admin: 04/28/19 09:00 Dose: 81 mg Documented by: Atorvastatin Calcium (Lipitor) 20 mg PO QHS [facility] Last Admin: 04/27/19 21:27 Dose: 20 mg Documented by: Budesonide (Pulmicort) 0.5 mg IH Q12HRT [facility] Last Admin: 04/28/19 09:11 Dose: 0.5 mg Documented by: Fluticasone Propionate (Flonase) 100 mcg NS BID [facility] Last Admin: 04/28/19 09:00 Dose: 100 mcg Documented by: Guaifenesin (Mucinex Er) 600 mg PO BID [facility] Last Admin: 04/28/19 09:00 Dose: 600 mg Documented by: Heparin Sodium (Porcine) (Heparin) 5,000 unit SUB-Q Q8HR [facility] Last Admin: 04/28/19 05:53 Dose: 5,000 unit Documented by: Levofloxacin/Dextrose (Levaquin 250mg/50ml) 250 mg in 50 mls @ 50 mls/hr IV Q24HR [facility]; Protocol Stop: 04/30/19 10:59 Last Admin: 04/28/19 09:00 Dose: 50 mls/hr Documented by: Magnesium Hydroxide (Milk Of Magnesia) 30 ml PO Q4H PRN PRN Reason: Constipation Methylprednisolone Sodium Succinate (Solu-Medrol) 40 mg IV Q8H [facility] Last Admin: 04/28/19 09:09 Dose: 40 mg Documented by: Nicotine (Habitrol) 21 mg TD QDAY [facility] Last Admin: 04/28/19 09:06 Dose: Not Given Documented by: Ondansetron HCl (Zofran) 4 mg IV Q8H PRN PRN Reason: Nausea And Vomiting Last Admin: 04/28/19 06:49 Dose: 4 mg Documented by: Oxycodone/Acetaminophen (Percocet 5/325) 1 tab PO Q6H PRN PRN Reason: Pain, Moderate (4-6) Last Admin: 04/28/19 05:53 Dose: 1 tab Documented by: Sodium Chloride (Sodium Chloride Flush Syringe 10 Ml) 10 ml IV BID MICHAEL Last Admin: 04/28/19 09:01 Dose: 10 ml Documented by: Sodium Chloride (Sodium Chloride Flush Syringe 10 Ml) 10 ml IV PRN PRN PRN Reason: LINE FLUSH Physical Examination Vital signs: Vital Signs Pulse Resp 90 22 04/26/19 02:17 04/26/19 02:17 Vitals reviewed General appearance: alert, other (mild respiratory distress) Eyes: non-icteric ENT: oropharynx moist Neck: supple, no lymphadenopathy, no JVD Effort: mildly labored Ascultation: Bilateral: diminished breath sounds, wheezes (RUL expiratory wheeze) Cardiovascular: regular rate and rhythm, other (S1,S2, no murmurs, gallops or rubs) Gastrointestinal: normoactive bowel sounds, soft, non-tender, non-distended Integumentary: normal Extremities: no cyanosis, no edema, pulses normal, no ischemia or petechiae, other (nicotine staining of fingers) normal mental status, non-focal exam, pupils equal and round, motor strength normal and mood appropriate, affect normal Results - Laboratory Findings CBC and BMP: 04/27/19 03:46 04/28/19 16:04 ABG POC ABG pH 7.286 (7.35-7.45) L 04/26/19 09:48 POC ABG pCO2 60.5 (35-45) H 04/26/19 09:48 POC ABG pO2 110 (80-105) H 04/26/19 09:48 POC ABG HCO3 28.8 (22-26 mml/L) 04/26/19 09:48 POC ABG Total CO2 31 (23-27mmol/L) 04/26/19 09:48 POC ABG O2 Sat 97 04/26/19 09:48 PT/INR, D-dimer PT 12.9 Sec. (12.2-14.9) 04/27/19 03:46 INR 0.96 (0.87-1.13) 04/27/19 03:46 Abnormal lab findings: Abnormal Labs 04/26/19 04/26/19 04/26/19 01:12 01:12 09:48 RBC 2.71 L Hgb Hct MCV 115 H MCH 37 H RDW 13.1 L Lymph % (Auto) 12.7 L Lymph # 0.6 L Seg Neutrophils % 81.1 H POC ABG pH 7.286 L POC ABG pCO2 60.5 H POC ABG pO2 110 H Potassium BUN Creatinine 1.3 H Glucose 101 H Total Creatine Kinase 235 H CK-MB (CK-2) 10.7 H CK-MB (CK-2) Rel Index 4.5 H Total Protein 6.2 L 04/27/19 04/27/19 03:46 03:46 RBC 2.58 L Hgb 9.6 L Hct 29.8 L MCV 115 H MCH 37 H RDW 13.1 L Lymph % (Auto) Lymph # 0.7 L Seg Neutrophils % 78.8 H POC ABG pH POC ABG pCO2 POC ABG pO2 Potassium 5.5 H BUN 37 H Creatinine Glucose 106 H Total Creatine Kinase CK-MB (CK-2) CK-MB (CK-2) Rel Index Total Protein - Diagnostic Findings Chest x-ray: image reviewed Additional studies: Echocardiogram 04/09/19 -LVEF 55-60%, RVSP 35mmHg, Moderate AR, trace MR Assessment and Plan Acute and chronic hypoxic-hypercapnic respiratory failure Acute exacerbation of COPD Tobacco use disorder/Nicotine dependence History of atrial fibrillation/paroxysmal Hypertension; moderate control Chronic renal insufficiency; -Supplemental oxygen to keep O2 sats 88-90% -Oxygen restrictive strategies -Steroids with quick taper -Bronchodilators -VTE prophylaxis -Nicotine withdrawal precautions -Smoking cessation counselling done at the bedside for 7 minutes, encouraged to quit -Pain management, limit narcotic analgesia -Stress ulcer prophylaxis while on steroids -Accucheck with glycemic control -Mobility, off loading to prevent pressure ulcers -PT/OT to evaluate and treat -Chronic home medications -Avoid nephrotoxins, dose all medications fro GFR and CRCL -Blood pressure control Thank you for the consult will follow. Discussed care plan with the patient and answered all her questions. Please do not hesitate to call with questions Patient in the event of cardiopulmonary arrest is to be resuscitated.
[2019-04-28] MEDS ORDERED: MAGNESIUM OXIDE 400 MG TAB PO ONE (13:00)
[2019-04-28] MEDS: PANTOPRAZOLE 40 MG TAB PO SCH (13:01)
--- NOTE | 2019-04-28 14:30 | Progress Note ---
Assessment and Plan /-Acute exacerbation of COPD cont Oxygen titrate O2 sats to more than 90% Nebulizers, IV steroids and supportive care Continue BiPAP as needed and bedtime /-Acute hypercapnic respiratory failure on BiPAP as needed, consultED pulmonary /-History of atrial fibrillation/paroxysmal Patient is not on chronic anticoagulation, with h/o fall Continue beta blockers and supportive care /-Hypertension; moderate control Continue current antihypertensives and when necessary medications Check orthostatics /-Chronic renal insufficiency; Closely monitor renal function and avoid nephrotoxins Nephrology evaluation if needed /-Ongoing tobacco use; smoking cessation Nicotine patch as needed /-DVT PPX: Heparin Closely monitor the patient and adjust management as needed Disposition; Discharge home with home health when medically stable Subjective Date of service: 04/28/19 Interval history: Patient seen and examined. Medical records and medication list reviewed. No acute event overnight noted by the RN. Patient continued to have difficulty breathing even with minimal exertion. Patient is tolerating diet. On BiPAP this morning and placed on high flow O2 Discussed plan of care at bedside with patient. Objective - Exam Narrative Exam: General appearance: Present: mild distress, well-nourished - EENT Eyes: PERRL, EOM intact ENT: hearing intact, clear oral mucosa Ears: bilateral: normal - Neck Neck: supple, normal ROM - Respiratory Respiratory effort: labored Respiratory: bilateral: diminished, rales - Cardiovascular Rhythm: regular Heart Sounds: Present: S1 & S2. Absent: gallop, rub Extremities: pulses intact, No edema, normal color, Full ROM - Gastrointestinal General gastrointestinal: Present: soft, non-tender, non-distended, normal bowel sounds - Integumentary Integumentary: clear, warm, dry - Musculoskeletal Musculoskeletal: 1, strength equal bilaterally - Neurologic Neurologic: moves all extremities - Psychiatric Psychiatric: intact judgment & insight, memory intact - Constitutional Vitals: Vital Signs - 12hr 04/28/19 04/28/19 04/28/19 02:31 03:19 06:01 Temperature 97.4 F L Pulse Rate 81 75 84 Pulse Rate [ 75 Anterior Bilateral Throughout] Respiratory 18 18 23 Rate Respiratory 18 Rate [Anterior Bilateral Throughout] Respiratory Rate [Bilateral Leg] Blood Pressure 102/54 Blood Pressure [Right] O2 Sat by Pulse 98 97 98 Oximetry 04/28/19 04/28/19 04/28/19 07:39 09:09 09:11 Temperature 98.2 F Pulse Rate 86 Pulse Rate [ 84 Anterior Bilateral Throughout] Respiratory 20 Rate Respiratory 18 Rate [Anterior Bilateral Throughout] Respiratory Rate [Bilateral Leg] Blood Pressure 102/54 Blood Pressure [Right] O2 Sat by Pulse 97 97 Oximetry 04/28/19 04/28/19 04/28/19 10:00 13:00 13:57 Temperature Pulse Rate Pulse Rate [ 80 Anterior Bilateral Throughout] Respiratory 18 Rate Respiratory 19 Rate [Anterior Bilateral Throughout] Respiratory 20 Rate [Bilateral Leg] Blood Pressure Blood Pressure [Right] O2 Sat by Pulse 97 Oximetry 04/28/19 14:00 Temperature 97.6 F Pulse Rate 78 Pulse Rate [ Anterior Bilateral Throughout] Respiratory 18 Rate Respiratory Rate [Anterior Bilateral Throughout] Respiratory Rate [Bilateral Leg] Blood Pressure Blood Pressure 136/71 [Right] O2 Sat by Pulse Oximetry - Labs CBC & Chem 7: 04/27/19 03:46 04/28/19 16:04
[2019-04-28] MEDS: ALUM-MAG HYDROXIDE-SIMETHICONE 200-200-20MG/5ML ORAL LIQD 30 ML PO PRN ×2 (15:19→20:12)
[2019-04-29] MEDS: ALUM-MAG HYDROXIDE-SIMETHICONE 200-200-20MG/5ML ORAL LIQD 30 ML PO PRN ×2 (01:14→05:15)
[2019-04-29] MEDS: MAGNESIUM HYDROXIDE (MOM) ORAL LIQD UDC PO PRN ×2 (01:14→14:13)
[2019-04-29] MEDS: ONDANSETRON 4 MG/2 ML INJ IV PRN (01:14)
[2019-04-29] MEDS: methylPREDNISolone Sod Succinate 40 MG/1 ML INJ IV SCH ×3 (01:15→17:42)
[2019-04-29] MEDS: ACETAMINOPHEN 325 MG TAB PO PRN ×2 (01:15→20:35)
[2019-04-29] MEDS: ALPRAZolam 0.5 MG TAB PO PRN ×2 (01:19→09:11)
[2019-04-29] MEDS: IPRATROPIUM/ALBUTEROL SULFATE 3 ML AMPUL.NEB IH SCH ×4 (02:37→20:03)
[2019-04-29] MEDS: oxyCODONE /ACETAMINOPHEN 5-325MG TAB PO PRN ×2 (05:14→14:10)
[2019-04-29] MEDS: HEPARIN 5,000 UNIT/1 ML VIAL SUB-Q SCH ×3 (05:15→21:27)
[2019-04-29] MEDS: BUDESONIDE 0.5 MG/2 ML NEBU IH SCH ×2 (07:11→20:03)
[2019-04-29] MEDS: guaiFENesin ER 600 MG TAB PO SCH ×2 (09:11→21:26)
[2019-04-29] MEDS: NICOTINE 21 MG/24 HR PATCH TD SCH (09:11)
[2019-04-29] MEDS: ASPIRIN 81 MG TAB CHEW PO SCH (09:11)
[2019-04-29] MEDS: PANTOPRAZOLE 40 MG TAB PO SCH (09:11)
[2019-04-29] MEDS: FLUTICASONE PROPIONATE NASAL SPRAY 16 GM NS SCH ×2 (09:12→21:25)
--- NOTE | 2019-04-29 09:24 | Progress Note ---
Assessment and Plan Acute and chronic hypoxic-hypercapnic respiratory failure Acute exacerbation of COPD Tobacco use disorder/Nicotine dependence History of atrial fibrillation/paroxysmal Hypertension; moderate control Chronic renal insufficiency; -Supplemental oxygen to keep O2 sats 88-90% -Oxygen restrictive strategies -Steroids with quick taper -Bronchodilators -VTE prophylaxis -Nicotine withdrawal precautions -Smoking cessation counselling done at the bedside for 7 minutes, encouraged to quit -Pain management, limit narcotic analgesia -Stress ulcer prophylaxis while on steroids -Accucheck with glycemic control -Mobility, off loading to prevent pressure ulcers -PT/OT to evaluate and treat -Chronic home medications -Avoid nephrotoxins, dose all medications fro GFR and CRCL -Blood pressure control Thank you for the consult will follow. Discussed care plan with the patient and answered all her questions. Please do not hesitate to call with questions Patient in the event of cardiopulmonary arrest is to be resuscitated. Subjective Date of service: 04/29/19 Interval history: Patient is seen today for: Seen and examined at bedside; 24hour events reviewed; nursing and respiratory care staff consulted; no adverse overnight events reported to me; Objective Vital Signs - 12hr 04/28/19 04/28/19 04/29/19 21:45 22:00 01:15 Temperature Pulse Rate Pulse Rate [ 81 Anterior Bilateral Throughout] Respiratory 20 Rate Respiratory 18 Rate [Anterior Bilateral Throughout] Blood Pressure O2 Sat by Pulse 96 97 Oximetry 04/29/19 04/29/19 04/29/19 02:15 02:33 05:14 Temperature 97.6 F Pulse Rate 79 Pulse Rate [ Anterior Bilateral Throughout] Respiratory 20 18 20 Rate Respiratory Rate [Anterior Bilateral Throughout] Blood Pressure 110/67 O2 Sat by Pulse 98 Oximetry 04/29/19 04/29/19 04/29/19 05:50 06:14 07:10 Temperature Pulse Rate Pulse Rate [ 75 Anterior Bilateral Throughout] Respiratory 20 Rate Respiratory 18 Rate [Anterior Bilateral Throughout] Blood Pressure O2 Sat by Pulse 97 Oximetry 04/29/19 04/29/19 04/29/19 07:12 07:30 08:42 Temperature 98.6 F Pulse Rate 85 Pulse Rate [ 90 Anterior Bilateral Throughout] Respiratory 20 20 Rate Respiratory 18 Rate [Anterior Bilateral Throughout] Blood Pressure 105/53 O2 Sat by Pulse 94 94 Oximetry Constitutional: alert, other (mild respiratory distress) Eyes: non-icteric ENT: oropharynx moist Neck: supple, no lymphadenopathy, no JVD Effort: mildly labored Ascultation: Bilateral: diminished breath sounds, wheezes (RUL expiratory wheeze) Cardiovascular: regular rate and rhythm, other (S1,S2, no murmurs, gallops or rubs) Gastrointestinal: normoactive bowel sounds, soft, non-tender, non-distended Integumentary: normal Extremities: no cyanosis, no edema, pulses normal, no ischemia or petechiae, other (nicotine staining of fingers) Neurologic: normal mental status, non-focal exam, pupils equal and round, motor strength normal and Psychiatric: mood appropriate, affect normal CBC and BMP: 04/27/19 03:46 04/28/19 16:04 ABG, PT/INR, D-dimer: ABG POC ABG pH 7.286 (7.35-7.45) L 04/26/19 09:48 POC ABG pCO2 60.5 (35-45) H 04/26/19 09:48 POC ABG pO2 110 (80-105) H 04/26/19 09:48 POC ABG HCO3 28.8 (22-26 mml/L) 04/26/19 09:48 POC ABG Total CO2 31 (23-27mmol/L) 04/26/19 09:48 POC ABG O2 Sat 97 04/26/19 09:48 PT/INR, D-dimer PT 12.9 Sec. (12.2-14.9) 04/27/19 03:46 INR 0.96 (0.87-1.13) 04/27/19 03:46 Abnormal lab findings: Abnormal Labs 04/26/19 04/26/19 04/26/19 01:12 01:12 09:48 RBC 2.71 L Hgb Hct MCV 115 H MCH 37 H RDW 13.1 L Lymph % (Auto) 12.7 L Lymph # 0.6 L Seg Neutrophils % 81.1 H POC ABG pH 7.286 L POC ABG pCO2 60.5 H POC ABG pO2 110 H Potassium BUN Creatinine 1.3 H Glucose 101 H Total Creatine Kinase 235 H CK-MB (CK-2) 10.7 H CK-MB (CK-2) Rel Index 4.5 H Total Protein 6.2 L 04/27/19 04/27/19 04/28/19 03:46 03:46 16:04 RBC 2.58 L Hgb 9.6 L Hct 29.8 L MCV 115 H MCH 37 H RDW 13.1 L Lymph % (Auto) Lymph # 0.7 L Seg Neutrophils % 78.8 H POC ABG pH POC ABG pCO2 POC ABG pO2 Potassium 5.5 H BUN 37 H 49 H Creatinine Glucose 106 H 153 H Total Creatine Kinase CK-MB (CK-2) CK-MB (CK-2) Rel Index Total Protein
--- NOTE | 2019-04-29 13:41 | Progress Note ---
Assessment and Plan /-Acute exacerbation of COPD cont Oxygen titrate O2 sats to more than 90% Nebulizers, IV steroids and supportive care Continue BiPAP as needed and bedtime /-Acute hypercapnic respiratory failure on BiPAP as needed, consultED pulmonary /-History of atrial fibrillation/paroxysmal Patient is not on chronic anticoagulation, with h/o fall Continue beta blockers and supportive care /-Hypertension; moderate control Continue current antihypertensives and when necessary medications Check orthostatics /Hyperkalemia, continue to monitor potassium level -Kayexalate as needed, K level normal now /AURA, likely vasomotor nephropathy - resolved -We will monitor renal function, gentle IV fluid hydration /-Ongoing tobacco use; smoking cessation Nicotine patch as needed /-DVT PPX: Heparin Closely monitor the patient and adjust management as needed Disposition; Discharge home with home health when medically stable Subjective Date of service: 04/29/19 Interval history: Patient seen and examined. Medical records and medication list reviewed. No acute event overnight noted by the RN. Patient continued to have difficulty breathing with ambulation. Patient is marv erating diet. Off BiPAP this morning and placed on n/c O2 Discussed plan of care at bedside with patient. Objective - Exam Narrative Exam: General appearance: Present: mild distress, well-nourished - EENT Eyes: PERRL, EOM intact ENT: hearing intact, clear oral mucosa Ears: bilateral: normal - Neck Neck: supple, normal ROM - Respiratory Respiratory effort: labored Respiratory: bilateral: diminished, + rales - Cardiovascular Rhythm: regular Heart Sounds: Present: S1 & S2. Absent: gallop, rub Extremities: pulses intact, No edema, normal color, Full ROM - Gastrointestinal General gastrointestinal: Present: soft, non-tender, non-distended, normal bowel sounds - Integumentary Integumentary: clear, warm, dry - Musculoskeletal Musculoskeletal: 1, strength equal bilaterally - Neurologic Neurologic: moves all extremities - Psychiatric Psychiatric: intact judgment & insight, memory intact - Constitutional Vitals: Vital Signs - 12hr 04/29/19 04/29/19 04/29/19 02:15 02:33 05:14 Temperature 97.6 F Pulse Rate 79 Pulse Rate [ Anterior Bilateral Throughout] Respiratory 20 18 20 Rate Respiratory Rate [Anterior Bilateral Throughout] Blood Pressure 110/67 O2 Sat by Pulse 98 Oximetry 04/29/19 04/29/19 04/29/19 05:50 06:14 07:10 Temperature Pulse Rate Pulse Rate [ 75 Anterior Bilateral Throughout] Respiratory 20 Rate Respiratory 18 Rate [Anterior Bilateral Throughout] Blood Pressure O2 Sat by Pulse 97 Oximetry 04/29/19 04/29/19 04/29/19 07:12 07:30 08:42 Temperature 98.6 F Pulse Rate 85 Pulse Rate [ 90 Anterior Bilateral Throughout] Respiratory 20 20 Rate Respiratory 18 Rate [Anterior Bilateral Throughout] Blood Pressure 105/53 O2 Sat by Pulse 94 94 Oximetry - Labs CBC & Chem 7: 04/27/19 03:46 04/28/19 16:04 Labs: Abnormal lab results 04/28/19 04/29/19 Range/Units 16:04 09:46 POC ABG pCO2 61.4 H (35-45) BUN 49 H (7-17) mg/dL Glucose 153 H (65-100) mg/dL
[2019-04-30] MEDS: ACETAMINOPHEN 325 MG TAB PO PRN (00:37)
[2019-04-30] MEDS: IPRATROPIUM/ALBUTEROL SULFATE 3 ML AMPUL.NEB IH SCH ×3 (01:29→13:26)
[2019-04-30] MEDS: methylPREDNISolone Sod Succinate 40 MG/1 ML INJ IV SCH ×2 (02:17→09:16)
[2019-04-30] MEDS: HEPARIN 5,000 UNIT/1 ML VIAL SUB-Q SCH ×2 (05:15→13:35)
[2019-04-30] MEDS: oxyCODONE /ACETAMINOPHEN 5-325MG TAB PO PRN ×2 (05:15→11:13)
[2019-04-30] MEDS: ALPRAZolam 0.5 MG TAB PO PRN ×2 (07:32→13:35)
[2019-04-30] MEDS: ONDANSETRON 4 MG/2 ML INJ IV PRN (07:37)
[2019-04-30] MEDS: BUDESONIDE 0.5 MG/2 ML NEBU IH SCH (09:00)
[2019-04-30] MEDS: NICOTINE 21 MG/24 HR PATCH TD SCH (09:12)
[2019-04-30] MEDS: FLUTICASONE PROPIONATE NASAL SPRAY 16 GM NS SCH (09:15)
[2019-04-30] MEDS: guaiFENesin ER 600 MG TAB PO SCH (09:16)
[2019-04-30] MEDS: PANTOPRAZOLE 40 MG TAB PO SCH (09:16)
[2019-04-30] MEDS: ASPIRIN 81 MG TAB CHEW PO SCH (09:16)
[2019-04-30] MEDS: ALUM-MAG HYDROXIDE-SIMETHICONE 200-200-20MG/5ML ORAL LIQD 30 ML PO PRN (11:16)
--- NOTE | 2019-04-30 13:09 | Discharge Summary ---
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 Hospitalization Condition: Critical Pertinent studies: CXR Hospital course: Discharge diagnosis and Mx: /-Acute exacerbation of COPD cont Oxygen titrate O2 sats to more than 90% Nebulizers, IV steroids and supportive care Continue BiPAP as needed and bedtime /-Acute hypercapnic respiratory failure on BiPAP as needed, consultED pulmonary /-History of atrial fibrillation/paroxysmal Patient is not on chronic anticoagulation, with h/o fall Continue beta blockers and supportive care /-Hypertension; moderate control Continue current antihypertensives and when necessary medications /Hyperkalemia, continue to monitor potassium level -Kayexalate as needed, K level normal now /AURA, likely vasomotor nephropathy - resolved -We will monitor renal function, gentle IV fluid hydration /-Ongoing tobacco use; smoking cessation Nicotine patch as needed /-DVT PPX: Heparin Closely monitor the patient and adjust management as needed Disposition; Discharge home with home health Physical exam General appearance: Present: mild distress, well-nourished - EENT Eyes: PERRL, EOM intact ENT: hearing intact, clear oral mucosa Ears: bilateral: normal - Neck Neck: supple, normal ROM - Respiratory Respiratory effort: labored Respiratory: bilateral: diminished, + rales - Cardiovascular Rhythm: regular Heart Sounds: Present: S1 & S2. Absent: gallop, rub Extremities: pulses intact, No edema, normal color, Full ROM - Gastrointestinal General gastrointestinal: Present: soft, non-tender, non-distended, normal bowel sounds - Integumentary Integumentary: clear, warm, dry - Musculoskeletal Musculoskeletal: 1, strength equal bilaterally - Neurologic Neurologic: moves all extremities - Psychiatric Psychiatric: intact judgment & insight, memory intact Disposition: DC-30 STILL A PATIENT Time spent for discharge: 34 minutes Core Measure Documentation - Palliative Care Palliative Care/ Comfort Measures: Not Applicable - Core Measures Any of the following diagnoses?: history only Exam - Physical Exam Narrative exam: General appearance: Present: mild distress, well-nourished - EENT Eyes: PERRL, EOM intact ENT: hearing intact, clear oral mucosa Ears: bilateral: normal - Neck Neck: supple, normal ROM - Respiratory Respiratory effort: labored Respiratory: bilateral: diminished, no rales - Cardiovascular Rhythm: regular Heart Sounds: Present: S1 & S2. Absent: gallop, rub Extremities: pulses intact, No edema, normal color, Full ROM - Gastrointestinal General gastrointestinal: Present: soft, non-tender, non-distended, normal bowel sounds - Integumentary Integumentary: clear, warm, dry - Musculoskeletal Musculoskeletal: 1, strength equal bilaterally - Neurologic Neurologic: moves all extremities - Psychiatric Psychiatric: intact judgment & insight, memory intact - Constitutional Vitals: Temp Pulse Resp BP Pulse Ox 98.7 F 89 20 103/61 95 04/30/19 07:24 04/30/19 10:00 04/30/19 10:00 04/30/19 07:24 04/30/19 10:00 Plan Activity: advance as tolerated Weight Bearing Status: Non-Weight Bearing Diet: low fat, low salt Special Instructions: home oxygen via Follow up with: PRIMARY CARE,MD [Primary Care Provider] - 3-5 Days Prescriptions: oxyCODONE /ACETAMINOPHEN [Percocet 5/325 mg] 1 tab PO Q6H PRN #7 tablet PRN Reason: Pain, Moderate (4-6) Prednisone [predniSONE 5 mg (6-Day Pack, 21 Tabs)] 5 mg PO .TAPER #1 tab.ds.pk Pantoprazole [Protonix TAB] 40 mg PO QDAY #30 tablet Azithromycin [Zithromax TAB] 500 mg PO QDAY #4 tablet
[2019-04-30] MEDS ORDERED: AZITHROMYCIN 250 MG TAB PO SCH (14:00)
[2019-04-30 14:47] VITALS: BP 103/49
--- NOTE | 2019-04-30 15:09 | Progress Note ---
Assessment and Plan Patient alert, awake. Resting on nasal canula. Patient is on 3 litres O2. O2 saturation 95%. No acute respiratory distress. Patient afebrile. No Leukocytosis. - Patient Problems (1) Acute respiratory failure with hypoxia Status: Acute Plan to address problem: O2 3 litres via nasal canula. Albuterol/atrovent aerosol treatments q 6 hours. Continue I/V Solumedrol. Continue S/C Heparin' Continue Protonix. Continue zithromax. (2) COPD exacerbation Status: Acute Plan to address problem: O2 3 litres via nasal canula. Albuterol/atrovent aerosol treatments q 6 hours. Continue I/V Solumedrol. Continue S/C Heparin' Continue Protonix. Continue zithromax. (3) Acute bronchitis Status: Acute Plan to address problem: Patient is on zithromax and Levaquin. (4) Atrial fibrillation Status: Acute Qualifiers: Atrial fibrillation type: persistent Plan to address problem: Management as per primary care and cardiology. (5) Tobacco use disorder Status: Acute Plan to address problem: Counselled to stop smoking. (6) HTN (hypertension) Status: Chronic Plan to address problem: Management as per primary care. Subjective Date of service: 04/30/19 Interval history: Patient alert, awake. Resting on nasal canula. Patient is on 3 litres O2. O2 saturation 95%. No acute respiratory distress. Patient afebrile. No Leukocyto sis. Objective Vital Signs - 12hr 04/30/19 04/30/19 04/30/19 07:24 09:00 09:49 Temperature 98.7 F Pulse Rate 81 Pulse Rate [ 89 Anterior Bilateral Throughout] Pulse Rate [ From Monitor] Respiratory 20 Rate Respiratory 20 Rate [Anterior Bilateral Throughout] Blood Pressure 103/61 O2 Sat by Pulse 97 95 Oximetry 04/30/19 04/30/19 10:00 13:18 Temperature 98.0 F Pulse Rate 89 Pulse Rate [ Anterior Bilateral Throughout] Pulse Rate [ 89 From Monitor] Respiratory 20 20 Rate Respiratory Rate [Anterior Bilateral Throughout] Blood Pressure 103/49 O2 Sat by Pulse 95 98 Oximetry Constitutional: no acute distress, alert Eyes: non-icteric ENT: oropharynx moist Neck: supple, no lymphadenopathy, no JVD Effort: mildly labored Ascultation: Bilateral: diminished breath sounds, wheezes (RUL expiratory wheeze) Cardiovascular: regular rate and rhythm, other (S1,S2, no murmurs, gallops or rubs) Gastrointestinal: normoactive bowel sounds, soft, non-tender, non-distended Integumentary: normal Extremities: no cyanosis, no edema, pulses normal, no ischemia or petechiae, other (nicotine staining of fingers) Neurologic: normal mental status, non-focal exam, pupils equal and round, motor strength normal and Psychiatric: mood appropriate, affect normal CBC and BMP: 04/27/19 03:46 04/28/19 16:04 ABG, PT/INR, D-dimer: ABG POC ABG pH 7.374 (7.35-7.45) 04/29/19 09:46 POC ABG pCO2 61.4 (35-45) H 04/29/19 09:46 POC ABG pO2 94 (80-105) 04/29/19 09:46 POC ABG HCO3 35.8 (22-26 mml/L) 04/29/19 09:46 POC ABG Total CO2 38 (23-27mmol/L) 04/29/19 09:46 POC ABG O2 Sat 97 04/29/19 09:46 PT/INR, D-dimer PT 12.9 Sec. (12.2-14.9) 04/27/19 03:46 INR 0.96 (0.87-1.13) 04/27/19 03:46 Abnormal lab findings: Abnormal Labs 04/26/19 04/26/19 04/26/19 01:12 01:12 09:48 RBC 2.71 L Hgb Hct MCV 115 H MCH 37 H RDW 13.1 L Lymph % (Auto) 12.7 L Lymph # 0.6 L Seg Neutrophils % 81.1 H POC ABG pH 7.286 L POC ABG pCO2 60.5 H POC ABG pO2 110 H Potassium BUN Creatinine 1.3 H Glucose 101 H Total Creatine Kinase 235 H CK-MB (CK-2) 10.7 H CK-MB (CK-2) Rel Index 4.5 H Total Protein 6.2 L 04/27/19 04/27/19 04/28/19 03:46 03:46 16:04 RBC 2.58 L Hgb 9.6 L Hct 29.8 L MCV 115 H MCH 37 H RDW 13.1 L Lymph % (Auto) Lymph # 0.7 L Seg Neutrophils % 78.8 H POC ABG pH POC ABG pCO2 POC ABG pO2 Potassium 5.5 H BUN 37 H 49 H Creatinine Glucose 106 H 153 H Total Creatine Kinase CK-MB (CK-2) CK-MB (CK-2) Rel Index Total Protein 04/29/19 09:46 RBC Hgb Hct MCV MCH RDW Lymph % (Auto) Lymph # Seg Neutrophils % POC ABG pH POC ABG pCO2 61.4 H POC ABG pO2 Potassium BUN Creatinine Glucose Total Creatine Kinase CK-MB (CK-2) CK-MB (CK-2) Rel Index Total Protein Chest x-ray: report reviewed (Reported no evidence of acute cardiopulmonary process.), image reviewed
== END 2019-04-30 16:20 | disposition home or self-care (01) | DRG 189 ==
LOC: ED 00:26 → 2B-ACE 02:39
PROVIDERS: ADMIT Internal Medicine Geriatric Medicine; ATTEND Internal Medicine
PROC: 4A033R1 Measurement of Arterial Saturation, Peripheral, Percutaneous Approach (ICD-10-PCS; principal; 2019-04-26)
PROC: 5A09357 Assistance with Respiratory Ventilation, Less than 24 Consecutive Hours, Continuous Positive Airway Pressure (ICD-10-PCS; 2019-04-26)
PROC: 5A09357 Assistance with Respiratory Ventilation, Less than 24 Consecutive Hours, Continuous Positive Airway Pressure (ICD-10-PCS; 2019-04-27)
PROC: 5A09357 Assistance with Respiratory Ventilation, Less than 24 Consecutive Hours, Continuous Positive Airway Pressure (ICD-10-PCS; 2019-04-28)
PROC: 5A09357 Assistance with Respiratory Ventilation, Less than 24 Consecutive Hours, Continuous Positive Airway Pressure (ICD-10-PCS; 2019-04-30)
DX: J96.22 Acute and chronic respiratory failure with hypercapnia (principal); J44.1 Chronic obstructive pulmonary disease with (acute) exacerbation; J96.21 Acute and chronic respiratory failure with hypoxia; N17.0 Acute kidney failure with tubular necrosis; I48.0 Paroxysmal atrial fibrillation; N18.9 Chronic kidney disease, unspecified; B15.9 Hepatitis A without hepatic coma; F17.210 Nicotine dependence, cigarettes, uncomplicated; E87.2 Acidosis; E87.5 Hyperkalemia; I12.9 Hypertensive chronic kidney disease with stage 1 through stage 4 chronic kidney disease, or unspecified chronic kidney disease; Z98.41 Cataract extraction status, right eye; Z98.42 Cataract extraction status, left eye; Z79.01 Long term (current) use of anticoagulants; Z79.82 Long term (current) use of aspirin
CPT/HCPCS: 36415; 36600; 71045; 80048; 80053; 82550; 82553; 82803; 84484; 85025; 85610; 85730; 87116; 93005; 93010; 94640; 94644; 94660; 94760; G0378; A9270-GY; J0692; J1170; J1644; J1956; J2405; J2920; J2930; J3475

== ENCOUNTER 2020-03-21 12:15 | Inpatient (IN) | payer MEDICARE, MEDICAID ==
[2020-03-21] MEDS ORDERED: ROCURONIUM 50 MG/5 ML INJ IV ONE ×2 (12:27→12:43)
[2020-03-21] MEDS ORDERED: LIP THERAPY VASELINE TP PRN (12:41)
[2020-03-21] MEDS ORDERED: MINERAL OIL/PETROLATUM, WHITE OPHTH OINT 3.5 GM OU PRN (12:41)
[2020-03-21] MEDS ORDERED: LACTATED RINGERS 2,000 ML IV ONE (12:43)
[2020-03-21] MEDS ORDERED: KETAMINE 500 MG/5 ML VIAL MDV IV ONE (12:43)
--- NOTE | 2020-03-21 12:44 | Emergency Department Report ---
ED General Adult HPI - General Chief complaint: Altered Mental Status Stated complaint: ALTERED MENTAL STATUS PUI?: No Time Seen by Provider: 03/21/20 12:18 Source: EMS (Verbal report received from emergency medical services. EMS documentation not available at time of chart dictation ), RN notes reviewed, old records reviewed Mode of arrival: Stretcher Limitations: Altered Mental Status, Physical Limitation - History of Present Illness Initial comments: The patient was evaluated in the emergency department for symptoms described in the history of present illness. He/she was evaluated in the context of the global COVID-19 pandemic, which necessitated consideration that the patient might be at risk for infection with the virus that causes COVID-19. Institutional protocols and algorithms that pertain to the evaluation of patients at risk for COVID-19 are in a state of rapid change based on information released by regulatory bodies including the CDC and federal and state organizations. These policies and algorithms were followed during the patient's care in the emergency department. Please note that these policies, procedures and recommendations changed on a rapid basis. Patient is a 69-year-old female. Her past medical history includes A. fib, not on anticoagulation, hypertension, COPD, renal insufficiency, and overdose. She is brought to the hospital by emergency medical services with a complaint of overdose and altered mental status. The patient herself is very confused and minimally verbal. History entirely obtained from EMS. They state that the patient was found in bed, and last known well time was approximately 3 days ago. A friend or family called 911 because they were concerned. EMS reports that patient was hypoglycemic in the field, they gave her dextrose, patient normoglycemic here in the ER, and still confused. Upon arrival to this emergency room, the patient was breathing sonographically, with copious secretions in her airway. She was not able to protect her airway. She was intubated for airway protection. She is not accompanied by friends or family at this time for additional information or collateral information. -: unknown Quality: other Consistency: other Improves with: other Worsens with: other Associated Symptoms: other Treatments Prior to Arrival: other - Related Data Home Medications Medication Instructions Recorded Confirmed Last Taken ALPRAZolam [Xanax TAB] 0.5 mg PO TID PRN 07/08/17 04/26/19 04/25/19 ALPRAZolam [Xanax TAB] 0.5 mg PO TID PRN 04/26/19 04/26/19 04/25/19 Previous Rx's Medication Instructions Recorded Last Taken Type Aspirin [Aspirin BABY CHEW TAB] 81 mg PO QDAY #30 tab.chew 04/13/19 04/25/19 Rx AtorvaSTATin [Lipitor] 20 mg PO QHS #30 tablet 04/13/19 04/25/19 Rx Budesonide/Formoterol Fumarate 10.2 gm IH BID #1 hfa.aer.ad 04/13/19 04/25/19 Rx [Symbicort 160-4.5 Mcg Inhaler] Fluticasone [Flonase] 100 mcg NS BID #1 bottle 04/13/19 04/25/19 Rx Ipratropium/Albuterol Sulfate 1 ampul IH Q6HR #30 04/13/19 04/25/19 Rx [DUONEB *Not for PRN Use*] guaiFENesin ER [Mucinex ER] 600 mg PO BID #60 tablet 04/13/19 04/25/19 Rx Azithromycin [Zithromax TAB] 500 mg PO QDAY #4 tablet 04/30/19 Unknown Rx Pantoprazole [Protonix TAB] 40 mg PO QDAY #30 tablet 04/30/19 Unknown Rx Prednisone [predniSONE 5 mg (6-Day 5 mg PO .TAPER #1 tab.ds.pk 04/30/19 Unknown Rx Pack, 21 Tabs)] oxyCODONE /ACETAMINOPHEN [Percocet 1 tab PO Q6H PRN #7 tablet 04/30/19 Unknown Rx 5/325 mg] Allergies Allergy/AdvReac Type Severity Reaction Status Date / Time codeine Allergy Hives Verified 09/30/18 00:33 prednisone Allergy Rash Verified 09/30/18 00:33 ED Review of Systems ROS: Stated complaint: ALTERED MENTAL STATUS Other details as noted in HPI Comment: Unobtainable due to pts medical conditions ED Past Medical Hx - Past Medical History Hx Hypertension: Yes (lasix) Hx Congestive Heart Failure: No Hx Diabetes: No Hx Pulmonary Embolism: No Hx Liver Disease: Yes (hepatitis A) Hx Renal Disease: No Hx Arthritis: No Hx Kidney Stones: No Hx Psychiatric Treatment: Yes (Apparently has previous overdose; on Lexapro and Xanax) Hx Asthma: No Hx COPD: Yes Hx Tuberculosis: No Hx HIV: No Additional medical history: a-fib. CARPAL TUNNEL. Back pain - Surgical History Hx Cholecystectomy: No Hx Appendectomy: No Hx Breast Surgery: No Additional Surgical History: BILATERAL CATARACTS REMOVED; LENS SURGERY. BALLOON IN BACK - Social History Smoking Status: Former Smoker - Medications Home Medications: Home Medications Medication Instructions Recorded Confirmed Last Taken Type ALPRAZolam [Xanax TAB] 0.5 mg PO TID PRN 07/08/17 04/26/19 04/25/19 History Aspirin [Aspirin BABY CHEW TAB] 81 mg PO QDAY #30 tab.chew 04/13/19 04/26/19 04/25/19 Rx AtorvaSTATin [Lipitor] 20 mg PO QHS #30 tablet 04/13/19 04/26/19 04/25/19 Rx Budesonide/Formoterol Fumarate 10.2 gm IH BID #1 hfa.aer.ad 04/13/19 04/26/19 04/25/19 Rx [Symbicort 160-4.5 Mcg Inhaler] Fluticasone [Flonase] 100 mcg NS BID #1 bottle 04/13/19 04/26/19 04/25/19 Rx Ipratropium/Albuterol Sulfate 1 ampul IH Q6HR #30 04/13/19 04/26/19 04/25/19 Rx [DUONEB *Not for PRN Use*] guaiFENesin ER [Mucinex ER] 600 mg PO BID #60 tablet 04/13/19 04/26/19 04/25/19 Rx ALPRAZolam [Xanax TAB] 0.5 mg PO TID PRN 04/26/19 04/26/19 04/25/19 History Azithromycin [Zithromax TAB] 500 mg PO QDAY #4 tablet 04/30/19 Unknown Rx Pantoprazole [Protonix TAB] 40 mg PO QDAY #30 tablet 04/30/19 Unknown Rx Prednisone [predniSONE 5 mg (6-Day 5 mg PO .TAPER #1 tab.ds.pk 04/30/19 Unknown Rx Pack, 21 Tabs)] oxyCODONE /ACETAMINOPHEN [Percocet 1 tab PO Q6H PRN #7 tablet 04/30/19 Unknown Rx 5/325 mg] ED Physical Exam - General Limitations: Altered Mental Status General appearance: obtunded - Head Head exam: Present: atraumatic, normocephalic - Eye Eye exam: Present: normal appearance, PERRL - ENT ENT exam: Present: normal orophraynx, mucous membranes moist, normal external ear exam, other (Copious secretions noted in the oropharynx) - Neck Neck exam: Present: normal inspection. Absent: tenderness, meningismus - Respiratory Respiratory exam: Present: respiratory distress, accessory muscle use, other (Coarse rhonchorous breath sounds noted). Absent: wheezes, rales, rhonchi, stridor - Cardiovascular Cardiovascular Exam: Present: regular rate, normal rhythm, normal heart sounds. Absent: bradycardia, tachycardia, irregular rhythm, systolic murmur, diastolic murmur, rubs, gallop - GI/Abdominal GI/Abdominal exam: Present: soft. Absent: distended, tenderness, guarding, rebound, rigid, pulsatile mass - Rectal Rectal exam: Present: normal inspection - External exam: Present: normal external exam - Extremities Exam Extremities exam: Present: normal inspection, other (2+ pulses noted in the bilateral upper and lower extremities. There is no palpable cord. negative Homans sign. Muscular compartments are soft. The pelvis is stable.) - Back Exam Back exam: Present: normal inspection. Absent: tenderness, CVA tenderness (R), CVA tenderness (L), paraspinal tenderness, vertebral tenderness - Neurological Exam Neurological exam: Present: altered, other (Prior to induction and paralysis, moving 4 extremities. Breathing sonorously) - Skin Skin exam: Present: warm, dry, intact, normal color. Absent: rash ED Course Vital Signs 03/21/20 03/21/20 03/21/20 12:15 12:43 12:57 Temperature 97.8 F Pulse Rate 74 74 80 Respiratory 16 Rate Blood Pressure 84/43 Blood Pressure 76/52 [Left] O2 Sat by Pulse 97 100 Oximetry 03/21/20 03/21/20 03/21/20 13:00 13:15 14:15 Temperature 97.8 F Pulse Rate 60 76 82 Respiratory 16 18 18 Rate Blood Pressure 80/50 Blood Pressure 86/72 104/68 [Left] O2 Sat by Pulse 92 100 100 Oximetry 03/21/20 03/21/20 03/21/20 15:15 16:30 16:45 Temperature Pulse Rate 80 75 74 Respiratory 18 20 20 Rate Blood Pressure 101/51 96/46 Blood Pressure 86/70 [Left] O2 Sat by Pulse 100 100 100 Oximetry 03/21/20 03/21/20 03/21/20 16:56 17:00 17:15 Temperature Pulse Rate 85 71 71 Respiratory 20 20 Rate Blood Pressure 138/61 104/53 108/54 Blood Pressure [Left] O2 Sat by Pulse 100 100 100 Oximetry 03/21/20 03/21/20 03/21/20 17:30 17:45 18:00 Temperature Pulse Rate 72 72 72 Respiratory 20 19 20 Rate Blood Pressure 105/56 100/47 97/61 Blood Pressure [Left] O2 Sat by Pulse 100 100 100 Oximetry 03/21/20 03/21/20 03/21/20 18:15 18:30 18:45 Temperature Pulse Rate 86 78 77 Respiratory 20 21 19 Rate Blood Pressure 138/61 112/63 115/54 Blood Pressure [Left] O2 Sat by Pulse 100 100 100 Oximetry 03/21/20 03/21/20 03/21/20 19:00 19:15 19:30 Temperature Pulse Rate 78 79 82 Respiratory 17 19 20 Rate Blood Pressure 114/53 118/54 126/49 Blood Pressure [Left] O2 Sat by Pulse 100 100 100 Oximetry 03/21/20 03/21/20 03/21/20 19:45 20:00 20:15 Temperature Pulse Rate 78 79 79 Respiratory 19 20 19 Rate Blood Pressure 103/40 113/57 113/40 Blood Pressure [Left] O2 Sat by Pulse 100 100 100 Oximetry 03/21/20 03/21/20 03/21/20 20:30 20:45 21:00 Temperature Pulse Rate 77 77 79 Respiratory 20 19 20 Rate Blood Pressure 101/51 112/44 108/40 Blood Pressure [Left] O2 Sat by Pulse 100 100 100 Oximetry 03/21/20 03/21/20 03/21/20 21:15 21:31 21:45 Temperature Pulse Rate 79 85 78 Respiratory 18 19 19 Rate Blood Pressure 106/52 135/47 98/43 Blood Pressure [Left] O2 Sat by Pulse 100 100 100 Oximetry 03/21/20 22:00 Temperature Pulse Rate 79 Respiratory 20 Rate Blood Pressure 103/46 Blood Pressure [Left] O2 Sat by Pulse 100 Oximetry - Reevaluation(s) Reevaluation #1: 03/21/20 14:40 Differential diagnosis, including but not limited to: Toxic encephalopathy, metabolic encephalopathy, hypercapnic encephalopathy, respiratory failure, overdose Assessment and plan: 69-year-old female last known well time is over 3 days ago as per EMS, presenting with altered mental status, inability to protect airway and control secretions, requires intubation for airway protection. Not accompanied by friends or family at this time for additional information/collateral information. Obtain appropriate laboratory studies, lung protective ventilation strategy, CT scan of the brain to exclude intracranial hemorrhage. Contacted critical care physician on-call, Dr. Duque, discussed existing history, physical, and available data. His group will follow in consultation in the intensive care unit. He is amenable to as needed fentanyl pushes, but request that we withhold drip. 03/21/20 14:52 Laboratory studies suggest lactic acidosis, chronic anemia, and metabolic acidosis. No obvious blood from on rectum. Antibiotics, blood cultures ordered. Additional IV fluids ordered. Suspect that lactic acidosis is secondary to respiratory distress. 03/21/20 14:56 Patient found to have renal insufficiency. Elevated troponin is likely secondary to renal insufficiency. Metabolic acidosis likely secondary to renal insufficiency, as well as dehydration. Lactic acidosis likely secondary to both. Hospital physician is paged to arrange admission. 03/21/20 15:12 Laboratory studies show transaminitis. Patient also found to have elevated acetaminophen level. Concern for Tylenol overdose. We do not know where patient is on the Tylenol ingestion nomogram. I will therefore initiate an acetylcysteine therapy empirically. I have also contacted [facility], who agrees with the aforementioned. I am waiting for their bulk truck driver to call me back. They recommend INR less than 1.5, AST/ALT less than 100, and undetectable Tylenol level as part of their goals of care. We will defer to the inpatient team to further follow this up. 03/21/20 16:28 Discussed with medical bulk truck driver, Dr. Ybarra He agrees with the plan of care as outlined above, however, he does recommend that we discussed with a liver transplant center, as patient may be a candidate for transplant consideration. I have placed a page out to [facility] to discuss with their greenhouse transplanter. Blood pressure in the 80s after 3 L of crystalloid. Patient critically ill, we will initiate vasopressor therapy. Patient is emergently and administratively consented by myself for sterile central line placement. Using maximum barrier precautions, a triple-lumen central line is placed in the right sided internal jugular vein, with ultrasound guidance. No obvious complications are noted. Norepinephrine is initiated. We are waiting to hear back from [facility]. 03/21/20 16:54 Discussed case with medical nurse healthcare manager at [facility], Dr. Rodas We discussed the patient's history, physical, pertinent laboratory studies and imaging findings. She advises that they would typically accept this patient as a transfer, however, they do not have available beds. They do advise that they would place the patient on a waiting list. She also advises that we discussed with [facility] to discuss if they have bed availability. After the aforementioned hospitals, she advises that nearest transplant center is 2-1/2 hours away. Patient hemodynamically unstable, and requires vasopressors, not stable for transport/transfer at this time She also advises that if no ICU beds available at [facility], it would be acceptable to admit the patient to this hospital, continue treatment and resuscitation, and transfer to [facility] once a bed becomes available. We have called out to [facility], and they advised that their ICU beds are completely full, they have multiple holes when to go to their ICUs, and they cannot accept any critically ill patients or transfers at this time. I have placed additional laboratory orders for CBC, comprehensive metabolic panel, PT/INR. This plan of care will also be discussed exhaustively with the admitting hospital physician, and the supervisor sewer maintenance Dr. Duque recommends laboratory studies to be obtained every 6 hours. I have relayed this to the hospital physician. In addition, the case was discussed with [facility], Dr. Piña, patient is excepted pending ICU availability. In addition, patient found to have hyperammonemia, we will order lactulose to be given through the feeding tube. 03/21/20 17:12 03/21/20 17:14 X-ray the chest is reviewed and appreciated. Respiratory therapy to retract endotracheal tube 2 cm - Central Line Placement Right IJ Consent Obtained: emergent situation Time Out Performed: Yes Patient Placed on Monitor/Pulse Ox: Yes MD Prep: mask, gown, gloves Central Line Prep: Chlorhexidine scrub Local Anesthesia Used: Lidocaine 1% Amount of Anesthesia Used (mls): 5 Ultrasound Used for Placement: Yes Central Line Lumen Inserted: triple Bloods Obtained for Lab: No Central Line Position: good blood return, all ports aspirated, flus, sutured in place with 2-0 Dressing Applied: Tegaderm Post Procedure X-Ray: tip of catheter in good p Patient Tolerated Procedure: well Complications: none - Intubation Time Out Performed: No (Emergency situation) Sedative: Ketamine Mg Given: 150 Paralytic: Rocuronium Mg Given: 100 Laryngoscope: fiberoptic video scope Size: 3 Assist Device Used: Bougie ET Tube Size: 7.5 Tube Secured Depth (cm): 23 Tube Secured Location: teeth Tube Placement Confirmation: visualized tube passing t, equal breath sounds bilat, no breath sounds over epi, confirmation by capnometr Patient Tolerated Procedure: well Intubation Complications: difficult intubation ED Medical Decision Making - Lab Data Result diagrams: 03/21/20 18:50 03/21/20 18:50 Vital Signs 03/21/20 12:43 Pulse Rate 74 Blood Pressure 84/43 O2 Sat by Pulse 100 Oximetry - EKG Data -: EKG Interpreted by [facility] EKG shows normal: sinus rhythm Rate: normal - EKG Data 03/21/20 16:26 Sinus rhythm, 77 bpm, normal axis, QTC prolonged, low voltage, and motion artifact. The EKG is abnormal. The EKG is not a STEMI. - Radiology Data Radiology results: report reviewed, image reviewed Print Report Referring Physician: MARY AMAYA Patient Name: MAHESH TURNER Date of : 1950 Sex: Female Report Date: 2020-03-21 Report Status: Finalized Findings [facility] [address] [place] [address] XRay Report Signed Patient: MAHESH TURNER MR#: [id number] : 1950 Acct:[id number] Age/Sex: 69 / F ADM Date: 03/21/20 Loc: ED Attending Dr: Ordering Physician: MARY AMAYA MD Date of Service: 03/21/20 Procedure(s): XR chest 1V ap Accession Number(s): [id number] cc: MARY AMAYA MD Fluoro Time In Minutes: CHEST 1 VIEW INDICATION / CLINICAL INFORMATION: Altered Mental Status. COMPARISON: 04/26/2019 FINDINGS: SUPPORT DEVICES: Endotracheal tube, n asogastric tube HEART / MEDIASTINUM: No significant abnormality. LUNGS / PLEURA: No significant pulmonary or pleural abnormality. No pneumothorax. ADDITIONAL FINDINGS: No significant additional findings. IMPRESSION: Endotracheal tube has been placed and appears to be in good position. Signer Name: Dk Miller MD FACR Signed: 03/21/2020 1:10 PM Workstation Name: [id number] Transcribed By: MS Dictated By: Dk Miller MD Electronically Authenticated By: Dk Miller MD Signed Date/Time: 03/21/20 1310 DD/ 1309 TD/TT: Print Report Referring Physician: MARY AMAYA Patient Name: MAHESH TURNER Date of : 1950 Sex: Female Report Date: 2020-03-21 Report Status: Finalized Findings [address] [address] XRay Report Signed Patient: MAHESH TURNER MR#: [id number] : 1950 Acct:[id number] Age/Sex: 69 / F ADM Date: 03/21/20 Loc: CC1 [id number]: CONCEPCION CARPENTER MD Ordering Physician: MARY AMAYA MD Date of Service: 03/21/20 Procedure(s): XR chest 1V ap Accession Number(s): [id number] cc: MARY AMAYA MD Fluoro Time In Minutes: CHEST 1 VIEW INDICATION / CLINICAL INFORMATION: s/p central line placement. COMPARISON: 03/21/2020 FINDINGS: SUPPORT DEVICES: Interval placement of right internal jugular venous catheter with tip in the proximal SVC. Endotracheal tube tip is approximately 2 cm from the rafael. Satisfactory positioning of the gastric tube. HEART / MEDIASTINUM: Stable. LUNGS / PLEURA: No significant pleural or parenchymal abnormality. No pneumothorax. ADDITIONAL FINDINGS: No significant additional findings. IMPRESSION: 1. Endotracheal tube tip is approximately 2 cm from the rafael. Consider retracting 2-3 cm. Right-sided internal jugular venous catheter with tip at the proximal SVC. Signer Name: Magui Morataya MD Signed: 03/21/2020 4:52 PM Workstation Name: [id number] Transcribed By: Dictated By: MAGUI MORATAYA III Electronically Authenticated By: MAGUI MORATAYA III Signed Date/Time: 03/21/20 1652 DD/ 1648 TD/TT: Print Report Referring Physician: MARY AMAYA Patient Name: MAHESH TURNER Date of : 1950 Sex: Female Report Date: 2020-03-21 Report Status: Finalized Findings [facility] [address] [id number] Cat Scan Report Signed Patient: MAHESH TURNER MR#: [id number] : 1950 Acct:[id number] Age/Sex: 69 / F ADM Date: 03/21/20 Loc: ED Attending Dr: Ordering Physician: MARY AMAYA MD Date of Service: 03/21/20 Procedure(s): CT head/brain wo con Accession Number(s): [id number] cc: MARY AMAYA MD CT HEAD WITHOUT CONTRAST INDICATION / CLINICAL INFORMATION: Altered mental status. Respiratory failure requiring orotracheal intubation. TECHNIQUE: All CT scans at this location are performed using CT dose reduction for ALARA by means of automated exposure control. COMPARISON: Head CT 04/09/2019 FINDINGS: Limitations: Beam hardening artifact from external wires is a limiting factor on this examination. HEMORRHAGE: No evidence of intracranial hemorrhage or extra- axial fluid collection. EXTRA-AXIAL SPACES: Cortical sulci, sylvian fissures and basilar cisterns have an unremarkable appearance. VENTRICULAR SYSTEM: The third and lateral ventricles are of normal size and configuration. CEREBRAL PARENCHYMA: No areas of abnormal brain parenchymal attenuation are identified. There is no indication of recent infarction. MIDLINE SHIFT OR HERNIATION: There is no mass effect. CEREBELLUM / BRAINSTEM: Brainstem and cerebellum have an unremarkable appearance. MIDLINE STRUCTURES:No abnormalities of the pituitary gland or pineal region are identified. INTRACRANIAL VESSELS: Calcified atherosclerotic plaque is seen along the course of the cavernous segments of both internal carotid arteries. ORBITS: visualized portions of the orbits have an unremarkable appearance. SOFT TISSUES of HEAD: No significant abnormality. CALVARIUM: Evaluation of bone windows reveals no abnormalities. PARANASAL SI NUSES / MASTOID AIR CELLS: Visualized portions of the paranasal sinuses are free from inflammatory mucosal disease. Mastoid air cells are normally pneumatized. IMPRESSION: 1. Negative head CT without contrast. No significant interval change comparison to head CT 04/09/2019. Signer Name: Matias Cantrell MD Signed: 03/21/2020 2:57 PM Workstation Name: [id number] Transcribed By: Dictated By: Matias Cantrell MD Electronically Authenticated By: Matias Cantrell MD Signed Date/Time: 03/21/201456 DD/ 54 TD/TT: Critical Care Time: Yes Critical care time in (mins) excluding proc time.: 180 Critical care attestation.: If time is entered above; I have spent that time in minutes in the direct care of this critically ill patient, excluding procedure time. ED Disposition Clinical Impression: Acute respiratory failure, Acute encephalopathy, Overdose, Lactic acidosis, Metabolic acidosis, Elevated INR, Renal insufficiency, Transaminitis, Acetaminophen overdose, Hyperammonemia Disposition: DC/TX-70 ANOTHER TYPE HLTHCARE Is pt being admited?: Yes Does the pt Need Aspirin: No Condition: Critical
[2020-03-21] MEDS ORDERED: fentaNYL DRIP Premix 2,000 MCG/100 ML BAG IV SCH (13:00)
--- NOTE | 2020-03-21 13:14 | XRay Report ---
CHEST 1 VIEW INDICATION / CLINICAL INFORMATION: Altered Mental Status. COMPARISON: 04/26/2019 FINDINGS: SUPPORT DEVICES: Endotracheal tube, nasogastric tube HEART / MEDIASTINUM: No significant abnormality. LUNGS / PLEURA: No significant pulmonary or pleural abnormality. No pneumothorax. ADDITIONAL FINDINGS: No significant additional findings. IMPRESSION: Endotracheal tube has been placed and appears to be in good position. Signer Name: Dk Miller MD FACCrystal Signed: 03/21/2020 1:10 PM Workstation Name: [id number]
[2020-03-21 13:15] LABS: Amphetamine Screen,Urine Negative; Cannabinoid Screen,Urine Negative; Cocaine Screen,Urine Negative; Methadone Screen,Urine Negative; Opiate Screen,Urine Negative
[2020-03-21] MEDS: fentaNYL 100 MCG/2 ML INJ IV PRN ×3 (13:20→14:48)
[2020-03-21 13:38] LABS: Bilirubin,Urine NEG (Negative); Blood,Urine NEG (Negative); Color,Urine Amber (Yellow); Mucus,Urine FEW /HPF
[2020-03-21] MEDS ORDERED: SODIUM CHLORIDE 0.9% 1000 ML 1,000 ML ONE ×3 (13:59→19:49)
[2020-03-21 14:26] LABS: INR 3.75 (0.87-1.13)
[2020-03-21 14:37] LABS: Albumin 3.1 g/dL (3.9-5); Calcium 7.8 mg/dL (8.4-10.2)
[2020-03-21 14:39] LABS: Basophils % (Auto) 0.2 % (0.0-1.8); Eosinophils # (Auto) 0.1 K/mm3 (0.0-0.4); Eosinophils % (Auto) 1.3 % (0.0-4.3); Hematocrit 27.6 % (30.3-42.9); Hemoglobin 9.2 gm/dl (10.1-14.3); Lymphocytes # (Auto) 0.5 K/mm3 (1.2-5.4); Lymphocytes % (Auto) 8.6 % (13.4-35.0); Mean Corpuscular HGB Conc 33 % (30-34); Mean Corpuscular Volume 101 fl (79-97); Monocytes # (Auto) 0.2 K/mm3 (0.0-0.8); Monocytes % (Auto) 3.4 % (0.0-7.3); Platelet Count 159 K/mm3 (140-440); Red Blood Count 2.75 M/mm3 (3.65-5.03); Red Cell Distribution Width 17.3 % (13.2-15.2)
[2020-03-21] MEDS ORDERED: cefTRIAXone/NS 2 GM/100 ML 2 GM/100 ML BAG IV ONE ×2 (14:51→16:45)
[2020-03-21] MEDS ORDERED: SODIUM CHLORIDE 0.9% 500 ML 500 ML IV ONE (14:53)
[2020-03-21] MEDS ORDERED: DEXTROSE 50% IN WATER (25GM) 50 ML SYRINGE IV ONE ×2 (14:57→16:54)
[2020-03-21] MEDS ORDERED: SODIUM BICARB 8.4% 50 MEQ/50 ML SYRINGE IV ONE ×2 (14:57→16:44)
[2020-03-21] MEDS ORDERED: CALCIUM GLUCONATE 2,000 MG in SODIUM CHLORIDE 0.9% 100 ML IV ONE (14:57)
[2020-03-21] MEDS ORDERED: SODIUM POLYSTYRENE 15 GM/60 ML ORAL LIQD PO ONE (14:57)
[2020-03-21] MEDS ORDERED: INSULIN REGULAR, HUMAN 100 UNIT/ML 3ML VIAL IV ONE (14:57)
--- NOTE | 2020-03-21 15:02 | Cat Scan Report ---
CT HEAD WITHOUT CONTRAST INDICATION / CLINICAL INFORMATION: Altered mental status. Respiratory failure requiring orotracheal intubation. TECHNIQUE: All CT scans at this location are performed using CT dose reduction for ALARA by means of automated e xposure control. COMPARISON: Head CT 04/09/2019 FINDINGS: Limitations: Beam hardening artifact from external wires is a limiting factor on this examination. HEMORRHAGE: No evidence of intracranial hemorrhage or extra-axial fluid collection. EXTRA-AXIAL SPACES: Cortical sulci, sylvian fissures and basilar cisterns have an unremarkable appear ance. VENTRICULAR SYSTEM: The third and lateral ventricles are of normal size and configuration. CEREBRAL PARENCHYMA: No areas of abnormal brain parenchymal attenuation are identified. There is no i ndication of recent infarction. MIDLINE SHIFT OR HERNIATION: There is no mass effect. CEREBELLUM / BRAINSTEM: Brainstem and cerebellum have an unremarkable appearance. MIDLINE STRUCTURES:No abnormalities of the pituitary gland or pineal region are identified. INTRACRANIAL VESSELS: Calcified atherosclerotic plaque is seen along the course of the cavernous segm ents of both internal carotid arteries. ORBITS: visualized portions of the orbits have an unremarkable appearance. SOFT TISSUES of HEAD: No significant abnormality. CALVARIUM: Evaluation of bone windows reveals no abnormalities. PARANASAL SINUSES / MASTOID AIR CELLS: Visualized portions of the paranasal sinuses are free from inf lammatory mucosal disease. Mastoid air cells are normally pneumatized. IMPRESSION: 1. Negative head CT without contrast. No significant interval change comparison to head CT 04/09/2019 . Signer Name: Matias Cantrell MD Signed: 03/21/2020 2:57 PM Workstation Name: [id number]
[2020-03-21] MEDS ORDERED: WATER IV ONE ×3 (15:30→21:00)
[2020-03-21] MEDS ORDERED: DEXTROSE 5% IV ONE ×3 (15:30→21:00)
[2020-03-21] MEDS ORDERED: ACETADOTE IV ONE ×3 (15:30→21:00)
[2020-03-21 15:32] LABS: Benzodiazepines Screen,Urine Positive
[2020-03-21 16:51] LABS: Chol/HDL Ratio 1.76 %
--- NOTE | 2020-03-21 16:56 | XRay Report ---
CHEST 1 VIEW INDICATION / CLINICAL INFORMATION: s/p central line placement. COMPARISON: 03/21/2020 FINDINGS: SUPPORT DEVICES: Interval placement of right internal jugular venous catheter with tip in the proxima l SVC. Endotracheal tube tip is approximately 2 cm from the rafael. Satisfactory positioning of the g astric tube. HEART / MEDIASTINUM: Stable. LUNGS / PLEURA: No significant pleural or parenchymal abnormality. No pneumothorax. ADDITIONAL FINDINGS: No significant additional findings. IMPRESSION: 1. Endotracheal tube tip is approximately 2 cm from the rafael. Consider retracting 2-3 cm. Right-eduard ed internal jugular venous catheter with tip at the proximal SVC. Signer Name: Malik Morataya MD Signed: 03/21/2020 4:52 PM Workstation Name: [id number]
[2020-03-21] MEDS ORDERED: NORepinephrine/NS 4 MG-250 ML 4 MG/250 ML BAG IV SCH (17:00)
[2020-03-21] MEDS ORDERED: LACTULOSE 20 GM/30 ML ORAL LIQD FEEDTUBE STA (17:11)
[2020-03-21 19:02] LABS: Hematocrit 24.3 % (30.3-42.9); Hemoglobin 7.8 gm/dl (10.1-14.3); Mean Corpuscular HGB Conc 32 % (30-34); Mean Corpuscular Volume 103 fl (79-97); Platelet Count 117 K/mm3 (140-440); Red Blood Count 2.37 M/mm3 (3.65-5.03); Red Cell Distribution Width 17.5 % (13.2-15.2)
[2020-03-21 19:16] LABS: INR 4.33 (0.87-1.13)
[2020-03-21 19:17] LABS: Partial Thromboplastin Time 39.9 Sec. (24.2-36.6)
[2020-03-21 19:26] LABS: Albumin 2.3 g/dL (3.9-5)
[2020-03-21] MEDS ORDERED: fentaNYL 100 MCG/2 ML INJ ONE (20:09)
--- NOTE | 2020-03-21 21:12 | History and Physical Report ---
History of Present Illness Date of examination: 03/21/20 Date of admission: 03/21/20 14:58 History of present illness: Patient is a 69-year-old female. Her past medical history includes A. fib, not on anticoagulation, hypertension, COPD, renal insufficiency, and overdose. She is brought to the hospital by emergency medical services with a complaint of overdose and altered mental status. The patient herself is very confused and minimally verbal. History entirely obtained from EMS. They state that the patient was found in bed, and last known well time was approximately 3 days ago. A friend or family called 911 because they were concerned. EMS reports that patient was hypoglycemic in the field, they gave her dextrose, patient normoglycemic here in the ER, and still confused. Upon arrival to this emergency room, the patient was breathing sonographically, with copious secretions in her airway. She was not able to protect her airway. She was intubated for airway protection. She is not accompanied by friends or family at this time for additional information or collateral information. -: unknown Quality: other Consistency: other Improves with: other Worsens with: other Associated Symptoms: other Treatments Prior to Arrival: other - Related Data Home Medications Medication Instructions Recorded Confirmed Last Taken ALPRAZolam [Xanax TAB] 0.5 mg PO TID PRN 07/08/17 04/26/19 04/25/19 ALPRAZolam [Xanax TAB] 0.5 mg PO TID PRN 04/26/19 04/26/19 04/25/19 Previous Rx's Medication Instructions Recorded Last Taken Type Aspirin [Aspirin BABY CHEW TAB] 81 mg PO QDAY #30 tab.chew 04/13/19 04/25/19 Rx AtorvaSTATin [Lipitor] 20 mg PO QHS #30 tablet 04/13/19 04/25/19 Rx Budesonide/Formoterol Fumarate 10.2 gm IH BID #1 hfa.aer.ad 04/13/19 04/25/19 Rx [Symbicort 160-4.5 Mcg Inhaler] Fluticasone [Flonase] 100 mcg NS BID #1 bottle 04/13/19 04/25/19 Rx Ipratropium/Albuterol Sulfate 1 ampul IH Q6HR #30 04/13/19 04/25/19 Rx [DUONEB *Not for PRN Use*] guaiFENesin ER [Mucinex ER] 600 mg PO BID #60 tablet 04/13/19 04/25/19 Rx Azithromycin [Zithromax TAB] 500 mg PO QDAY #4 tablet 04/30/19 Unknown Rx Pantoprazole [Protonix TAB] 40 mg PO QDAY #30 tablet 04/30/19 Unknown Rx Prednisone [predniSONE 5 mg (6-Day 5 mg PO .TAPER #1 tab.ds.pk 04/30/19 Unknown Rx Pack, 21 Tabs)] oxyCODONE /ACETAMINOPHEN [Percocet 1 tab PO Q6H PRN #7 tablet 04/30/19 Unknown Rx 5/325 mg] Allergies Allergy/AdvReac Type Severity Reaction Status Date / Time codeine Allergy Hives Verified 09/30/18 00:33 prednisone Allergy Rash Verified 09/30/18 00:33 - Past Medical History --Hypertension: Yes (lasix) --Liver Disease: Yes (hepatitis A) --Psychiatric Treatment: Yes (Apparently has previous overdose; on Lexapro and Xanax) --COPD: Yes Additional medical history: a-fib. CARPAL TUNNEL. Back pain - Surgical History -- BILATERAL CATARACTS REMOVED; LENS SURGERY. BALLOON IN BACK - Social History Smoking Status: Former Smoker - Medications Home Medications: Home Medications Medication Instructions Recorded Confirmed Last Taken Type ALPRAZolam [Xanax TAB] 0.5 mg PO TID PRN 07/08/17 04/26/19 04/25/19 History Aspirin [Aspirin BABY CHEW TAB] 81 mg PO QDAY #30 tab.chew 04/13/19 04/26/19 04/25/19 Rx AtorvaSTATin [Lipitor] 20 mg PO QHS #30 tablet 04/13/19 04/26/19 04/25/19 Rx Budesonide/Formoterol Fumarate 10.2 gm IH BID #1 hfa.aer.ad 04/13/19 04/26/19 04/25/19 Rx [Symbicort 160-4.5 Mcg Inhaler] Fluticasone [Flonase] 100 mcg NS BID #1 bottle 04/13/19 04/26/19 04/25/19 Rx Ipratropium/Albuterol Sulfate 1 ampul IH Q6HR #30 04/13/19 04/26/19 04/25/19 Rx [DUONEB *Not for PRN Use*] guaiFENesin ER [Mucinex ER] 600 mg PO BID #60 tablet 04/13/19 04/26/19 04/25/19 Rx ALPRAZolam [Xanax TAB] 0.5 mg PO TID PRN 04/26/19 04/26/19 04/25/19 History Azithromycin [Zithromax TAB] 500 mg PO QDAY #4 tablet 04/30/19 Unknown Rx Pantoprazole [Protonix TAB] 40 mg PO QDAY #30 tablet 04/30/19 Unknown Rx Prednisone [predniSONE 5 mg (6-Day 5 mg PO .TAPER #1 tab.ds.pk 04/30/19 Unknown Rx Pack, 21 Tabs)] oxyCODONE /ACETAMINOPHEN [Percocet 1 tab PO Q6H PRN #7 tablet 04/30/19 Unknown Rx 5/325 mg] Review of Systems ROS: Stated complaint: ALTERED MENTAL STATUS Other details as noted in HPI Comment: Unobtainable due to pts medical conditions Medications and Allergies Allergies Allergy/AdvReac Type Severity Reaction Status Date / Time codeine Allergy Hives Verified 09/30/18 00:33 prednisone Allergy Rash Verified 09/30/18 00:33 Home Medications Medication Instructions Recorded Confirmed Last Taken Type ALPRAZolam [Xanax TAB] 0.5 mg PO TID PRN 07/08/17 04/26/19 04/25/19 History Aspirin [Aspirin BABY CHEW TAB] 81 mg PO QDAY #30 tab.chew 04/13/19 04/26/19 04/25/19 Rx AtorvaSTATin [Lipitor] 20 mg PO QHS #30 tablet 04/13/19 04/26/19 04/25/19 Rx Budesonide/Formoterol Fumarate 10.2 gm IH BID #1 hfa.aer.ad 04/13/19 04/26/19 04/25/19 Rx [Symbicort 160-4.5 Mcg Inhaler] Fluticasone [Flonase] 100 mcg NS BID #1 bottle 04/13/19 04/26/19 04/25/19 Rx Ipratropium/Albuterol Sulfate 1 ampul IH Q6HR #30 04/13/19 04/26/19 04/25/19 Rx [DUONEB *Not for PRN Use*] guaiFENesin ER [Mucinex ER] 600 mg PO BID #60 tablet 04/13/19 04/26/19 04/25/19 Rx ALPRAZolam [Xanax TAB] 0.5 mg PO TID PRN 04/26/19 04/26/19 04/25/19 History Azithromycin [Zithromax TAB] 500 mg PO QDAY #4 tablet 04/30/19 Unknown Rx Pantoprazole [Protonix TAB] 40 mg PO QDAY #30 tablet 04/30/19 Unknown Rx Prednisone [predniSONE 5 mg (6-Day 5 mg PO .TAPER #1 tab.ds.pk 04/30/19 Unknown Rx Pack, 21 Tabs)] oxyCODONE /ACETAMINOPHEN [Percocet 1 tab PO Q6H PRN #7 tablet 04/30/19 Unknown Rx 5/325 mg] Active Meds: Active Medications Fentanyl (Sublimaze) 50 mcg IV Q10MIN PRN PRN Reason: ANALGESIA Last Admin: 03/21/20 13:20 Dose: 50 mcg Documented by: Hydrophilic Ointment (Vaseline Lip Therapy) 1 applic TP Q2HR PRN PRN Reason: Dry Lips Acetylcysteine 3,600 mg/ (Dextrose) 518 mls @ 125 mls/hr IV ONCE ONE Stop: 03/21/20 21:38 Last Admin: 03/21/20 18:33 Dose: 125 mls/hr Documented by: Acetylcysteine 7,200 mg/ (Dextrose) 1,036 mls @ 62.5 mls/hr IV ONCE ONE Stop: 03/22/20 13:34 Norepinephrine (Levophed Drip 4 Mg/Ns 250 Ml) 4 mg in 250 mls @ 7.5 mls/hr IV T ITR MICHAEL; Protocol Multi-Ingred Cream/Lotion/Oil/Oint (Artificial Tears Ophth Oint) 1 applic OU Q4HR PRN PRN Reason: Dry Eye(s) Exam - Constitutional Vitals: Temp Pulse Resp BP Pulse Ox 97.8 F 77 20 101/51 100 03/21/20 13:00 03/21/20 20:30 03/21/20 20:30 03/21/20 20:30 03/21/20 20:30 HEART Score - HEART Score Troponin: Troponin T 0.454 ng/mL (0.00-0.029) H* 03/21/20 13:55 Results - Labs CBC & Chem 7: 03/21/20 18:50 03/21/20 18:50 Labs: Laboratory Last Values WBC 4.4 K/mm3 (4.5-11.0) L 03/21/20 18:50 RBC 2.37 M/mm3 (3.65-5.03) L 03/21/20 18:50 Hgb 7.8 gm/dl (10.1-14.3) L 03/21/20 18:50 Hct 24.3 % (30.3-42.9) L 03/21/20 18:50 MCV 103 fl (79-97) H 03/21/20 18:50 MCH 33 pg (28-32) H 03/21/20 18:50 MCHC 32 % (30-34) 03/21/20 18:50 RDW 17.5 % (13.2-15.2) H 03/21/20 18:50 Plt Count 117 K/mm3 (140-440) L 03/21/20 18:50 Lymph % (Auto) 8.6 % (13.4-35.0) L 03/21/20 13:55 [place] % (Auto) 3.4 % (0.0-7.3) 03/21/20 13:55 Eos % (Auto) 1.3 % (0.0-4.3) 03/21/20 13:55 Baso % (Auto) 0.2 % (0.0-1.8) 03/21/20 13:55 Lymph # (Auto) 0.5 K/mm3 (1.2-5.4) L 03/21/20 13:55 [place] # (Auto) 0.2 K/mm3 (0.0-0.8) 03/21/20 13:55 Eos # (Auto) 0.1 K/mm3 (0.0-0.4) 03/21/20 13:55 Baso # (Auto) 0.0 K/mm3 (0.0-0.1) 03/21/20 13:55 Seg Neutrophils % 86.5 % (40.0-70.0) H 03/21/20 13:55 Seg Neutrophils # 4.7 K/mm3 (1.8-7.7) 03/21/20 13:55 PT 42.3 Sec. (12.2-14.9) H 03/21/20 18:50 INR 4.33 (0.87-1.13) H 03/21/20 18:50 APTT 39.9 Sec. (24.2-36.6) H 03/21/20 18:50 ABG pH 7.259 (7.320-7.450) L 03/21/20 13:30 POC ABG pCO2 45.3 mmHg (32.0-48.0) 03/21/20 13:30 POC ABG pO2 133.1 mmHg (83-108) H 03/21/20 13:30 POC ABG HCO3 19.8 03/21/20 13:30 POC ABG Base Excess -7.0 03/21/20 13:30 ABG Hemoglobin 11.0 (12.0-17.5) L 03/21/20 13:30 ABG Oxyhemoglobin 97.2 (94-98) 03/21/20 13:30 ABG Methemoglobin 0.3 (0.0-1.5) 03/21/20 13:30 ABG Sodium 133.9 mmol/L (136.0-145.0) L 03/21/20 13:30 ABG Potassium 4.1 mmol/L (3.40-4.50) 03/21/20 13:30 ABG Chloride 98.0 mmol/L (98-107) 03/21/20 13:30 ABG Glucose 145 mg/dL (65-95) H 03/21/20 13:30 Carboxyhemoglobin 1.1 (0.5-1.5) 03/21/20 13:30 FiO2 100.0 03/21/20 13:30 Sodium 138 mmol/L (137-145) 03/21/20 18:50 Potassium 3.4 mmol/L (3.6-5.0) L D 03/21/20 18:50 Chloride 105.2 mmol/L (98-107) 03/21/20 18:50 Carbon Dioxide 16 mmol/L (22-30) L 03/21/20 18:50 Anion Gap 20 mmol/L 03/21/20 18:50 BUN 48 mg/dL (7-17) H 03/21/20 18:50 Creatinine 3.3 mg/dL (0.6-1.2) H 03/21/20 18:50 Estimated GFR 14 ml/min 03/21/20 18:50 BUN/Creatinine Ratio 15 % 03/21/20 18:50 Glucose 235 mg/dL (65-100) H 03/21/20 18:50 POC Glucose 154 mg/dL (70-105) H 03/21/20 12:25 Lactic Acid 3.30 mmol/L (0.7-2.0) H* 03/21/20 18:50 Calcium 6.0 mg/dL (8.4-10.2) L D 03/21/20 18:50 Phosphorus 6.00 mg/dL (2.5-4.5) H 03/21/20 18:50 Magnesium 2.40 mg/dL (1.7-2.3) H 03/21/20 13:55 Total Bilirubin 2.20 mg/dL (0.1-1.2) H 03/21/20 18:50 AST 2069 units/L (5-40) H 03/21/20 18:50 ALT 2011 units/L (7-56) H 03/21/20 18:50 Alkaline Phosphatase 179 units/L (35-129) H 03/21/20 18:50 Ammonia 103.0 umol/L (25-60) H 03/21/20 16:25 Total Creatine Kinase 736 units/L (30-135) H 03/21/20 13:55 Troponin T 0.454 ng/mL (0.00-0.029) H* 03/21/20 13:55 Total Protein 4.8 g/dL (6.3-8.2) L D 03/21/20 18:50 Albumin 2.3 g/dL (3.9-5) L 03/21/20 18:50 Albumin/Globulin Ratio 0.9 % 03/21/20 18:50 Triglycerides 71 mg/dL (2-149) 03/21/20 13:55 Cholesterol 104 mg/dL (50-199) 03/21/20 13:55 LDL Cholesterol Direct 35 mg/dL (50-130) L 03/21/20 13:55 HDL Cholesterol 59 mg/dL (40-59) 03/21/20 13:55 Cholesterol/HDL Ratio 1.76 % 03/21/20 13:55 TSH 0.724 mlU/mL (0.270-4.200) 03/21/20 13:55 Arterial Blood Glucose 145 mg/dL (65-95) H 03/21/20 13:30 Arterial Blood Ionized Calcium 3.5 mg/dL (4.6-5.3) L 03/21/20 13:30 Urine Color [place] (Yellow) 03/21/20 Unknown Urine Turbidity Clear (Clear) 03/21/20 Unknown Urine pH 5.0 (5.0-7.0) 03/21/20 Unknown Ur Specific [place] 1.019 (1.003-1.030) 03/21/20 Unknown Urine Protein 30 mg/dl mg/dL (Negative) 03/21/20 Unknown Urine Glucose (UA) Neg mg/dL (Negative) 03/21/20 Unknown Urine Ketones Neg mg/dL (Negative) 03/21/20 Unknown Urine Blood Neg (Negative) 03/21/20 Unknown Urine Nitrite Neg (Negative) 03/21/20 Unknown Urine Bilirubin Neg (Negative) 03/21/20 Unknown Urine Urobilinogen 4.0 mg/dL (<2.0) 03/21/20 Unknown Ur Leukocyte Esterase Neg (Negative) 03/21/20 Unknown Urine WBC (Auto) 2.0 /HPF (0.0-6.0) 03/21/20 Unknown Urine RBC (Auto) 3.0 /HPF (0.0-6.0) 03/21/20 Unknown U Epithel Cells (Auto) < 1.0 /HPF (0-13.0) 03/21/20 Unknown Urine Mucus Few /HPF 03/21/20 Unknown Salicylates < 0.3 mg/dL (2.8-20.0) L 03/21/20 13:55 Urine Opiates Screen Negative 03/21/20 Unknown Urine Methadone Screen Negative 03/21/20 Unknown Acetaminophen 13.8 ug/mL (10.0-30.0) 03/21/20 13:55 Ur Barbiturates Screen Negative 03/21/20 Unknown Ur Phencyclidine Scrn Negative 03/21/20 Unknown Ur Amphetamines Screen Negative 03/21/20 Unknown U Benzodiazepines Scrn Positive 03/21/20 Unknown Urine Cocaine Screen Negative 03/21/20 Unknown U Marijuana (THC) Screen Negative 03/21/20 Unknown Drugs of Abuse Note Disclamer 03/21/20 Unknown Plasma/Serum Alcohol < 0.01 % (0-0.07) 03/21/20 13:55 Blood Type O POSITIVE 03/21/20 13:55 Antibody Screen Negative 03/21/20 13:55 Microbiology: Microbiology 03/21/20 15:15 Peripheral/Venous Blood Culture - Preliminary Culture in Progress 03/21/20 15:15 Peripheral/Venous Blood Culture - Preliminary Culture in Progress Richardson/IV: IV Catheter Type [Left INT / Saline Lock External Jugular] Assessment and Plan Advance Directives: Yes (Full code) Plan of care discussed with patient/family: Yes - Patient Problems (1) Acetaminophen overdose Current Visit: Yes Status: Acute (2) Acute encephalopathy Current Visit: Yes Status: Acute (3) Acute respiratory failure Current Visit: Yes Status: Acute Qualifiers: (4) Elevated INR Current Visit: Yes Status: Acute (5) Hyperammonemia Current Visit: Yes Status: Acute (6) Lactic acidosis Current Visit: Yes Status: Acute (7) Metabolic acidosis Current Visit: Yes Status: Acute
[2020-03-21] MEDS ORDERED: ONDANSETRON 4 MG/2 ML INJ IV PRN ×2 (21:17→21:29)
[2020-03-21] MEDS ORDERED: HYDROmorphone 1 MG/1 ML INJ IV PRN (21:17)
[2020-03-21] MEDS ORDERED: MORPHINE 2 MG/1 ML INJ IV PRN (21:17)
[2020-03-21] MEDS ORDERED: ACETAMINOPHEN 325 MG TAB PO PRN ×2 (21:17→21:29)
[2020-03-21] MEDS ORDERED: SODIUM BICARBONATE 325 MG TAB FEEDTUBE PRN (21:26)
[2020-03-21] MEDS ORDERED: SIMPLE SYRUP 15 ML FEEDTUBE PRN ×2 (21:26)
[2020-03-21] MEDS ORDERED: LIPASE 10,500/PROTEASE 25,000/AMYLASE 43,750 (UNITS) DR CAP FEEDTUBE PRN (21:26)
[2020-03-21] MEDS ORDERED: SODIUM CHLORIDE 0.9% 1000 ML 1,000 ML IV SCH (21:30)
[2020-03-21 22:09] VITALS: BP 103/46
== END 2020-03-21 22:09 | disposition short-term general hospital (02) | DRG 917 ==
LOC: ED 12:15 → CC1 14:58
PROVIDERS: ADMIT Internal Medicine; ATTEND Internal Medicine
PROC: 5A1935Z Respiratory Ventilation, Less than 24 Consecutive Hours (ICD-10-PCS; principal; 2020-03-21)
PROC: 0BH17EZ Insertion of Endotracheal Airway into Trachea, Via Natural or Artificial Opening (ICD-10-PCS; 2020-03-21)
PROC: 02HV33Z Insertion of Infusion Device into Superior Vena Cava, Percutaneous Approach (ICD-10-PCS; 2020-03-21)
PROC: B548ZZA Ultrasonography of Superior Vena Cava, Guidance (ICD-10-PCS; 2020-03-21)
DX: T39.1X1A Poisoning by 4-Aminophenol derivatives, accidental (unintentional), initial encounter (principal); J96.00 Acute respiratory failure, unspecified whether with hypoxia or hypercapnia; G93.40 Encephalopathy, unspecified; E87.2 Acidosis; E72.20 Disorder of urea cycle metabolism, unspecified; N28.9 Disorder of kidney and ureter, unspecified; I48.91 Unspecified atrial fibrillation; I10 Essential (primary) hypertension; J44.9 Chronic obstructive pulmonary disease, unspecified; Z88.5 Allergy status to narcotic agent; Z88.8 Allergy status to other drugs, medicaments and biological substances; Z98.42 Cataract extraction status, left eye; Z98.41 Cataract extraction status, right eye; Z87.891 Personal history of nicotine dependence; Y92.89 Other specified places as the place of occurrence of the external cause
CPT/HCPCS: 36415; 70450; 71045; 80053; 80061; 80307; 80320; 81001; 82140; 82550; 82805; 82962; 83735; 84100; 84443; 84484; 85025; 85027; 85610; 85730; 86850; 86900; 86901; 87040; 94002; 96365; 96367; 96375; 99292; G0378; G0480; J0132; J0610; J0696; J3010; J7030; J7040; J7060; J7070; J7120

== ENCOUNTER 2020-05-03 18:53 | Emergency (ER) | payer MEDICARE ==
--- NOTE | 2020-05-03 19:51 | Event Note ---
ED Screening Note Date of service: 05/03/20 Time: 19:49 ED Screening Note: 69-year-old female with a past medical history of COPD, paroxysmal A. fib on no anticoagulant and SVT. Patient was seen here on 04/29/2020 and admitted to the hospitalist with cardiology consult. Patient was on a Cardizem drip as well as labetalol drip. Patient was discharged on 05/02/2020. Patient comes in today stating she is having chest pain that started about 5 PM. Patient denies any nausea no vomiting no shortness of breath but is currently on 3 L nasal cannula at home. She denies any fever chills. This initial assessment/diagnostic orders/clinical plan/treatment(s) is/are subject to change based on patients health status, clinical progression and re- assessment by fellow clinical providers in the ED. Further treatment and workup at subsequent clinical providers discretion. Patient/guardian urged not to elope from the ED as their condition may be serious if not clinically assessed and managed. Initial orders include:
--- NOTE | 2020-05-03 20:17 | Emergency Department Report ---
ED General Adult HPI - General Chief complaint: Chest Pain Stated complaint: CHEST PAIN PUI?: No Time Seen by Provider: 05/03/20 20:07 Source: patient, EMS ( EMS documentation not available at time of chart dictation ), RN notes reviewed, old records reviewed Mode of arrival: Wheelchair Limitations: No Limitations - History of Present Illness Initial comments: The patient was evaluated in the emergency department for symptoms described in the history of present illness. He/she was evaluated in the context of the global COVID-19 pandemic, which necessitated consideration that the patient might be at risk for infection with the virus that causes COVID-19. Institutional protocols and algorithms that pertain to the evaluation of patients at risk for COVID-19 are in a state of rapid change based on information released by regulatory bodies including the CDC and federal and state organizations. These policies and algorithms were followed during the patient's care in the emergency department. Please note that these policies, procedures and recommendations changed on a rapid basis. This is a 69-year-old female. I have evaluated her in the past. The patient was recently admitted to this hospital for history of SVT, and complaint of chest pain. She has a history of chronic respiratory failure and is on chronic oxygen therapy. She also reportedly has a history of paroxysmal A. fib, and is currently on Eliquis, in addition to chronic anemia. She also has a history of hepatitis. The patient was discharged from the hospital yesterday. She was very closely followed by our local cardiology team. They recommended discharge with conservative cardiac management and outpatient follow-up. Recent objective diagnostic testing at this facility: CT angiogram chest for pulmonary embolism, 2019, Negative for pulmonary embolism. Nuclear medicine study 2018, this month. Low probability for pulmonary embolism The patient presents to the ER today with complaint of epigastric chest wall pain, which has been present since March, and was does not radiate anywhere. The chest wall pain increases with palpation. She denies vomiting diaphoresis. She has chronic shortness of breath. She denies vomiting, and hematemesis. She is not homicidal or suicidal. She has not tried to overdose on anything. She denies urinary symptoms. She lives at home with other friends/people. She has on chronic home oxygen. Of note, she was discharged home yesterday, without articulation of any acute complaint. She was evaluated multiple times by her hospitalist team, and cardiology team. She was also discharged with prescriptions yesterday, and she states that she still has these prescriptions and she does not need a refill. She also states that she does have home oxygen at home. -: Gradual, month(s) Location: chest Radiation: non-radiation Quality: aching Consistency: constant Improves with: rest Worsens with: other (Palpation) - Related Data Home Medications Medication Instructions Recorded Confirmed Last Taken ALPRAZolam [Xanax TAB] 0.5 mg PO TID PRN 04/26/19 05/01/20 04/25/19 Previous Rx's Medication Instructions Recorded Last Taken Type Aspirin [Aspirin BABY CHEW TAB] 81 mg PO QDAY #30 tab.chew 04/13/19 04/25/19 Rx AtorvaSTATin [Lipitor] 20 mg PO QHS #30 tablet 04/13/19 04/25/19 Rx Budesonide/Formoterol Fumarate 10.2 gm IH BID #1 hfa.aer.ad 04/13/19 04/25/19 Rx [Symbicort 160-4.5 Mcg Inhaler] Fluticasone [Flonase] 100 mcg NS BID #1 bottle 04/13/19 04/25/19 Rx Ipratropium/Albuterol Sulfate 1 ampul IH Q6HR #30 04/13/19 04/25/19 Rx [DUONEB *Not for PRN Use*] guaiFENesin ER [Mucinex ER] 600 mg PO BID #60 tablet 04/13/19 04/25/19 Rx Pantoprazole [Protonix TAB] 40 mg PO QDAY #30 tablet 04/30/19 Unknown Rx oxyCODONE /ACETAMINOPHEN [Percocet 1 tab PO Q6H PRN #7 tablet 04/30/19 Unknown Rx 5/325 mg] Apixaban [Eliquis] 2.5 mg PO Q12HR #60 tablet 05/02/20 Unknown Rx Metoprolol [Lopressor TAB] 25 mg PO Q8HR #90 tablet 05/02/20 Unknown Rx lisinopriL [Zestril TAB] 5 mg PO QDAY #30 tablet 05/02/20 Unknown Rx predniSONE [Deltasone] 40 mg PO QDAY #8 tablet 05/02/20 Unknown Rx sotaloL [Betapace] 80 mg PO Q12HR #60 tablet 05/02/20 Unknown Rx Allergies Allergy/AdvReac Type Severity Reaction Status Date / Time codeine Allergy Hives Verified 09/30/18 00:33 prednisone Allergy Rash Verified 09/30/18 00:33 ED Review of Systems ROS: Stated complaint: CHEST PAIN Other details as noted in HPI Constitutional: denies: fever Eyes: denies: eye discharge ENT: congestion (Chronic) Respiratory: shortness of breath (Chronic) Cardiovascular: chest pain (Chronic) Gastrointestinal: denies: abdominal pain, nausea, vomiting, hematemesis, melena, hematochezia Musculoskeletal: myalgia Neurological: weakness (Chronic) Psychiatric: denies: homicidal thoughts, suicidal thoughts Hematological/Lymphatic: denies: easy bleeding ED Past Medical Hx - Past Medical History Previous Medical History?: Yes Hx Hypertension: Yes (lasix) Hx Congestive Heart Failure: No Hx Diabetes: No Hx Pulmonary Embolism: No Hx Liver Disease: Yes (hepatitis A) Hx Renal Disease: No Hx Arthritis: No Hx Kidney Stones: No Hx Psychiatric Treatment: Yes (Apparently has previous overdose; on Lexapro and Xanax) Hx Asthma: No Hx COPD: Yes Hx Tuberculosis: No Hx HIV: No Additional medical history: a-fib. CARPAL TUNNEL. Back pain - Surgical History Hx Cholecystectomy: No Hx Appendectomy: No Hx Breast Surgery: No Additional Surgical History: BILATERAL CATARACTS REMOVED; LENS SURGERY. BALLOON IN BACK - Social History Smoking Status: Current Every Day Smoker - Medications Home Medications: Home Medications Medication Instructions Recorded Confirmed Last Taken Type Aspirin [Aspirin BABY CHEW TAB] 81 mg PO QDAY #30 tab.chew 04/13/19 05/01/20 04/25/19 Rx AtorvaSTATin [Lipitor] 20 mg PO QHS #30 tablet 04/13/19 05/01/20 04/25/19 Rx Budesonide/Formoterol Fumarate 10.2 gm IH BID #1 hfa.aer.ad 04/13/19 05/01/20 04/25/19 Rx [Symbicort 160-4.5 Mcg Inhaler] Fluticasone [Flonase] 100 mcg NS BID #1 bottle 04/13/19 05/01/20 04/25/19 Rx Ipratropium/Albuterol Sulfate 1 ampul IH Q6HR #30 04/13/19 05/01/20 04/25/19 Rx [DUONEB *Not for PRN Use*] guaiFENesin ER [Mucinex ER] 600 mg PO BID #60 tablet 04/13/19 05/01/20 04/25/19 Rx ALPRAZolam [Xanax TAB] 0.5 mg PO TID PRN 04/26/19 05/01/20 04/25/19 History Pantoprazole [Protonix TAB] 40 mg PO QDAY #30 tablet 04/30/19 05/01/20 Unknown Rx oxyCODONE /ACETAMINOPHEN [Percocet 1 tab PO Q6H PRN #7 tablet 04/30/19 05/01/20 Unknown Rx 5/325 mg] Apixaban [Eliquis] 2.5 mg PO Q12HR #60 tablet 05/02/20 Unknown Rx Metoprolol [Lopressor TAB] 25 mg PO Q8HR #90 tablet 05/02/20 Unknown Rx lisinopriL [Zestril TAB] 5 mg PO QDAY #30 tablet 05/02/20 Unknown Rx predniSONE [Deltasone] 40 mg PO QDAY #8 tablet 05/02/20 Unknown Rx sotaloL [Betapace] 80 mg PO Q12HR #60 tablet 05/02/20 Unknown Rx ED Physical Exam - General Limitations: No Limitations General appearance: alert, in no apparent distress - Head Head exam: Present: atraumatic, normocephalic - Eye Eye exam: Present: normal appearance, EOMI. Absent: nystagmus - ENT ENT exam: Present: normal exam, normal orophraynx, mucous membranes moist, norm al external ear exam - Neck Neck exam: Present: normal inspection, full ROM. Absent: tenderness, meningismus - Respiratory Respiratory exam: Present: normal lung sounds bilaterally, chest wall tenderness. Absent: respiratory distress, wheezes, rales, rhonchi, stridor - Cardiovascular Cardiovascular Exam: Present: regular rate, normal rhythm, normal heart sounds. Absent: bradycardia, tachycardia, irregular rhythm, systolic murmur, diastolic murmur, rubs, gallop - GI/Abdominal GI/Abdominal exam: Present: soft, normal bowel sounds. Absent: distended, tenderness, guarding, rebound, rigid, pulsatile mass - Extremities Exam Extremities exam: Present: normal inspection, full ROM, pedal edema (1+ edema in the bilateral lower extremity), other (2+ pulses noted in the bilateral upper and lower extremities. There is no palpable cord. negative Homans sign. Muscular compartments are soft. The pelvis is stable.). Absent: calf tenderness - Back Exam Back exam: Present: normal inspection. Absent: tenderness, CVA tenderness (R), CVA tenderness (L), paraspinal tenderness, vertebral tenderness - Neurological Exam Neurological exam: Present: alert, oriented X3, other (No facial droop. Tongue midline. Extraocular movements intact bilaterally. Facial sensation intact to light touch in V1, V2, V3 distribution bilaterally. 5 and a 5 strength in 4 extremities. Sensation intact to light touch in 4 extremities.). Absent: motor sensory deficit - Psychiatric Psychiatric exam: Present: normal affect, normal mood. Absent: homicidal ideation, suicidal ideation - Skin Skin exam: Present: warm, dry, intact, normal color. Absent: rash ED Course Vital Signs 05/03/20 05/03/20 05/03/20 19:26 20:36 20:46 Temperature 99.2 F Pulse Rate 61 121 H 63 Respiratory 18 22 18 Rate Blood Pressure 166/58 170/66 O2 Sat by Pulse 90 100 100 Oximetry 05/03/20 21:00 Temperature Pulse Rate 59 L Respiratory 21 Rate Blood Pressure 170/66 O2 Sat by Pulse 100 Oximetry - Pulse Oximetry Interpretation Digit-Finger Initial Pulse Oximetry Readin O2 Sat by Pulse Oximetry: 97 Actions Taken: none Additional Comments: patient on 3l 0xygen chronically ED Medical Decision Making - Lab Data Result diagrams: 05/03/20 19:55 05/03/20 19:55 Vital Signs 05/03/20 19:26 Temperature 99.2 F Pulse Rate 61 Respiratory 18 Rate Blood Pressure 166/58 O2 Sat by Pulse 90 Oximetry Lab Results 05/03/20 05/03/20 05/03/20 Range/Units 19:55 19:55 20:27 WBC 6.9 (4.5-11.0) K/mm3 RBC 2.79 L (3.65-5.03) M/mm3 Hgb 9.6 L (10.1-14.3) gm/dl Hct 29.9 L (30.3-42.9) % MCV 107 H (79-97) fl MCH 34 H (28-32) pg MCHC 32 (30-34) % RDW 17.5 H (13.2-15.2) % Plt Count 176 (140-440) K/mm3 Lymph % (Auto) 15.6 (13.4-35.0) % Gordon % (Auto) 2.3 (0.0-7.3) % Eos % (Auto) 0.0 (0.0-4.3) % Baso % (Auto) 0.1 (0.0-1.8) % Lymph # (Auto) 1.1 L (1.2-5.4) K/mm3 Gordon # (Auto) 0.2 (0.0-0.8) K/mm3 Eos # (Auto) 0.0 (0.0-0.4) K/mm3 Baso # (Auto) 0.0 (0.0-0.1) K/mm3 Seg Neutrophils % 82.0 H (40.0-70.0) % Seg Neutrophils # 5.7 (1.8-7.7) K/mm3 Estimated GFR 50 ml/min BUN/Creatinine Ratio 35 % Magnesium 2.30 (1.7-2.3) mg/dL Total Creatine Kinase 51 (30-135) units/L Troponin T < 0.010 (0.00-0.029) ng/mL Albumin/Globulin Ratio 1.2 % Plasma/Serum Alcohol (0-0.07) % 05/03/20 Range/Units 20:27 WBC (4.5-11.0) K/mm3 RBC (3.65-5.03) M/mm3 Hgb (10.1-14.3) gm/dl Hct (30.3-42.9) % MCV (79-97) fl MCH (28-32) pg MCHC (30-34) % RDW (13.2-15.2) % Plt Count (140-440) K/mm3 Lymph % (Auto) (13.4-35.0) % Gordon % (Auto) (0.0-7.3) % Eos % (Auto) (0.0-4.3) % Baso % (Auto) (0.0-1.8) % Lymph # (Auto) (1.2-5.4) K/mm3 Gordon # (Auto) (0.0-0.8) K/mm3 Eos # (Auto) (0.0-0.4) K/mm3 Baso # (Auto) (0.0-0.1) K/mm3 Seg Neutrophils % (40.0-70.0) % Seg Neutrophils # (1.8-7.7) K/mm3 Estimated GFR ml/min BUN/Creatinine Ratio % Magnesium (1.7-2.3) mg/dL Total Creatine Kinase (30-135) units/L Troponin T (0.00-0.029) ng/mL Albumin/Globulin Ratio % Plasma/Serum Alcohol < 0.01 (0-0.07) % - EKG Data -: EKG Interpreted by Ak EKG shows normal: sinus rhythm Rate: normal - EKG Data 05/03/20 21:18 EKG today shows a sinus rhythm, 65 bpm, normal axis, QTC 561 ms, motion artifact, abnormal EKG, not a STEMI. - Radiology Data Radiology results: pending, report reviewed, image reviewed Print Report Referring Physician: NORA OSWALD Patient Name: MAHESH TURNER Date of : 1950 Sex: Female Report Date: 2020-05-03 Report Status: Finalized Findings [facility] [address] [place] [address] XRay Report Signed Patient: MAHESH TURNER MR#: [id number] : 1950 Acct:[id number] Age/Sex: 69 / F ADM Date: 05/03/20 Loc: ED Attending Dr: Ordering Physician: LEAH LEMA Date of Service: 05/03/20 Procedure(s): XR chest 1V ap Accession Number(s): [id number] cc: LEAH LEMA Fluoro Time In Minutes: CHEST 1 VIEW INDICATION: Chest pain and back pain. COMPARISON: 2 days prior FINDINGS: Support devices: None. Heart: Stable. Lungs/Pleura: There are persistent mild diffuse interstitial opacities. These may be chronic given their persistence. No consolidation or effusion. IMPRESSION: 1. No acute findings. Signer Name: Johnie Darnell MD Signed: 05/03/2020 8:23 PM Workstation Name: [id number] Transcribed By: ASHLEY Dictated By: Johnie Darnell MD Electronically Authenticated By: Johnie Darnell MD Signed Date/Time: 05/03/202022 DD/ 21 TD/TT: Print Report Referring Physician: SHANA MCKEE Patient Name: MAHESH TURNER Date of : 1950 Sex: Female Report Date: 2020-05-01 Report Status: Finalized Findings [facility] [address] [place] [address] XRay Report Signed Patient: MAHESH TURNER MR#: [id number] : 1950 Acct:[id number] Age/Sex: 69 / F ADM Date: 04/29/20 Loc: CC1 [id number]: SHANA MCKEE Ordering Physician: SHANA MCKEE Date of Service: 05/01/20 Procedure(s): XR chest 1V ap Accession Number(s): [id number] cc: SHANA MCKEE Fluoro Time In Minutes: CHEST 1 VIEW 05/01/2020 8:55 AM INDICATION / CLINICAL INFORMATION: Hypoxia. COMPARISON: Chest one view from 04/28/2020. FINDINGS: The patient is rotated to the left. SUPPORT DEVICES: None. HEART / MEDIASTINUM: No significant abnormality. LUNGS / PLEURA: General is bilateral interstitial opacities have increased in the interval. No dense area of consolidation. No significant pleural effusion. No pneumothorax. ADDITIONAL FINDINGS: No significant additional findings. IMPRESSION: Slightly increased bilateral interstitial opacities may represent evolving edema superimposed on chronic changes. Signer Name: Madhu Gilliam MD Signed: 05/01/2020 9:14 AM Workstation Name: [id number] Transcribed By: MN Dictated By: Madhu Gilliam MD Electronically Authenticated By: Madhu Gilliam MD Signed Date /Time: 05/01/20913 DD/ 2 TD/TT: Print Report Referring Physician: WILL ROBERSON Patient Name: MAHESH TURNER Date of : 1950 Sex: Female Report Date: 2020-04-28 Report Status: Finalized Findings [facility] [address] [place] [address] Nuclear Medicine Report Signed Patient: MAHESH TURNER MR#: [id number] : 1950 Acct:[id number] Age/Sex: 69 / F ADM Date: 04/28/20 Loc: ED Attending Dr: Ordering Physician: WILL ROBERSON DO Date of Service: 04/28/20 Procedure(s): NM perfusion only lung scan Accession Number(s): [id number] cc: WILL ROBERSON DO NUCLEAR MEDICINE PERFUSION LUNG SCAN INDICATION / CLINICAL INFORMATION: CP, elevated dimer. TECHNIQUE: 5.0 mCi of Tc-99m MAA were given by IV. COMPARISON: Chest radiograph dated 04/28/2020. FINDINGS: PERFUSION: No sign ificant perfusion defects. ADDITIONAL FINDINGS: None. IMPRESSION: 1. Very low probability for pulmonary embolism. Signer Name: Lisha Souza MD Signed: 04/28/2020 10:29 PM Workstation Name: [email or web address] Transcribed By: JR Dictated By: Lisha Souza MD Electronically Authenticated By: Lisha Souza MD Signed Date/Time: 04/28/202228 DD/ 26 TD/TT: CTA CHEST WITH IV CONTRAST INDICATION / CLINICAL INFORMATION: SOB, elevated dimer. TECHNIQUE: Axial CT images were obtained through the chest after injection of IV contrast. 3 plane MIP and/or 3D reconstructions were produced. All CT scans at this location are performed using CT dose reduction for ALARA by means of automated exposure control. COMPARISON: None available. FINDINGS: PULMONARY ARTERIES: No pulmonary emboli. THORACIC AORTA: No significant abnormality. HEART: No significant abnormality. CORONARY ARTERIES: No significant calcification. PLEURA: No pleural effusion. No pneumothorax. LYMPH NODES: No significant adenopathy. LUNGS: No acute air space or interstitial disease. ADDITIONAL FINDINGS: None. UPPER ABDOMEN: No acute findings. SKELETAL STRUCTURES: No significant osseous abnormality. IMPRESSION: 1. No CT evidence for pulmonary embolism. 2. No acute findings. Signer Name: Abner Crane MD Signed: 04/08/2019 10:38 PM Workstation Name: [email or web address] - Medical Decision Making Differential diagnosis, including but not limited to: Costochondritis, chest wall pain Assessment and plan: 69-year-old female who was discharged yesterday, with a complaint of chest wall pain for over a month. She was discharged with Eliquis, and had a low probability nuclear medicine study a few days ago. She was also given prophylactic anticoagulation while here in the emergency room. Currently, she is saturating 99% on chronic supplemental oxygen, initial hypoxia reviewed and appreciated, this may be from patient's underlying COPD, instrument error, or variation. I evaluated this patient in March, where I intubated her, placed a central line, and she was transferred to a tertiary care center, out of concern for acetaminophen overdose, and transaminitis/shock liver/liver failure. Therefore, I sent serum toxicology studies which were negative for acute findings. In addition, the patient is alert and oriented to name, place and location, she is not homicidal, she is not suicidal, she is not having hallucinations, and she is able to tell me who she lives with. She was also discharged with prescriptions yesterday. Her laboratory studies appear to be at chronic baseline. She was also seen by cardiology yesterday, who recommended conservative cardiac management. They specifically did not recommend repeat cardiac risk ratification, we do appreciate the patient's age, and cardiovascular risk factor cohort, however, given duration of symptoms, objective unremarkable diagnostic testing, recent consultation by expert cardiology, it is my pain that the patient does not require hospitalization today, and she can follow-up with the outpatient cardiology team that saw her. Do not suspect acute pneumonia. X-ray of the chest today similar to prior x-rays of the chest. Suspect x-ray chest findings are likely secondary to chronic underlying lung disease. Troponin negative x1, chest pain present for weeks and months. Therefore, as per the [employer] clinical policy, acute myocardial infarction may be ruled out with 1 set of troponins/cardiac enzymes. Critical care attestation.: If time is entered above; I have spent that time in minutes in the direct care of this critically ill patient, excluding procedure time. ED Disposition Clinical Impression: COPD (chronic obstructive pulmonary disease), Paroxysmal atrial fibrillation, Chest wall pain, General medical exam Disposition: TO HOME OR SELFCARE Is pt being admited?: No Does the pt Need Aspirin: No Condition: Stable Instructions: Chronic Obstructive Pulmonary Disease (ED), Chest Pain (ED), COPD and Physical Activity, Chest Wall Pain Additional Instructions: Please continue home oxygen. Please continue home prescription medications which were prescribed for the patient yesterday. Please follow-up with your telecom field technician, Dr. Wesley, within the next week. Please follow-up with a primary care doctor within the next 2 weeks (Dr Jorge is a primary care doctor) . Please follow-up with a mine boss, such as Dr. Duque, within the next month. Please return to the emergency room right away with new pain, worsened pain, migration of pain, projectile vomiting, change in mental status, confusion, inability to tolerate liquid feeds, new, worsened or different symptoms not present on the initial emergency room evaluation. Patient may take [id number] ibuprofen, 200 mg by mouth, with food, as needed for chest wall pain, alternating with Tylenol, 325 mg by mouth, every 4-6 hours as needed for pain. Referrals: CAMILLE WESLEY MD [Staff Physician] - 7-10 days PATRICIA DUQUE MD [Staff Physician] - 3-5 Days NELLA JORGE MD [Staff Physician] - as needed (primary care)
--- NOTE | 2020-05-03 20:28 | XRay Report ---
CHEST 1 VIEW INDICATION: Chest pain and back pain. COMPARISON: 2 days prior FINDINGS: Support devices: None. Heart: Stable. Lungs/Pleura: There are persistent mild diffuse interstitial opacities. These may be chronic given th eir persistence. No consolidation or effusion. IMPRESSION: 1. No acute findings. Signer Name: Johnie Darnell MD Signed: 05/03/2020 8:23 PM Workstation Name: [email or web address]
[2020-05-03 20:30] LABS: Basophils % (Auto) 0.1 % (0.0-1.8); Hematocrit 29.9 % (30.3-42.9); Hemoglobin 9.6 gm/dl (10.1-14.3); Lymphocytes # (Auto) 1.1 K/mm3 (1.2-5.4); Lymphocytes % (Auto) 15.6 % (13.4-35.0); Mean Corpuscular HGB Conc 32 % (30-34); Mean Corpuscular Volume 107 fl (79-97); Monocytes # (Auto) 0.2 K/mm3 (0.0-0.8); Monocytes % (Auto) 2.3 % (0.0-7.3); Platelet Count 176 K/mm3 (140-440); Red Blood Count 2.79 M/mm3 (3.65-5.03); Red Cell Distribution Width 17.5 % (13.2-15.2)
[2020-05-03 20:48] LABS: Alanine Aminotransferase 13 units/L (7-56); Albumin 3.6 g/dL (3.9-5); BUN/Creatinine Ratio 35; Blood Urea Nitrogen 39 mg/dL (7-17); Calcium 8.6 mg/dL (8.4-10.2); Hemolysis Index 9
[2020-05-03 21:15] VITALS: BP 170/66
[2020-05-03 21:16] LABS: INR 1.19 (0.87-1.13)
[2020-05-03] MEDS ORDERED: FAMOTIDINE 20 MG TAB PO ONE (21:21)
[2020-05-03] MEDS ORDERED: ACETAMINOPHEN 325 MG TAB PO ONE (21:21)
== END 2020-05-04 02:11 | disposition home or self-care (01) ==
LOC: ED 18:53
DX: J44.9 Chronic obstructive pulmonary disease, unspecified (principal); I48.0 Paroxysmal atrial fibrillation; R07.89 Other chest pain; Z00.00 Encounter for general adult medical examination without abnormal findings; I10 Essential (primary) hypertension; Z98.890 Other specified postprocedural states; Z88.8 Allergy status to other drugs, medicaments and biological substances
CPT/HCPCS: 36415; 71045; 80053; 80320; 82550; 83735; 84484; 85025; 85610; 93005; G0480

== ENCOUNTER 2020-06-02 14:51 | Emergency (ER) | payer MEDICARE ==
[2020-06-02 15:13] VITALS: BP 131/54
[2020-06-02] MEDS ORDERED: IPRATROPIUM 0.02% NEBU 2.5 ML IH ONE (15:21)
[2020-06-02] MEDS ORDERED: ALBUTEROL 2.5 MG/3 ML NEBU IH ONE (15:21)
[2020-06-02] MEDS ORDERED: predniSONE 20 MG TAB PO ONE (15:21)
--- NOTE | 2020-06-02 15:23 | Emergency Department Report ---
ED General Adult HPI - General Chief complaint: Dyspnea/Respdistress Stated complaint: DIFFICULTY BREATHING PUI?: No Time Seen by Provider: 06/02/20 15:07 Source: patient, EMS ( EMS documentation not available at time of chart dictation ), RN notes reviewed, old records reviewed Mode of arrival: Ambulatory Limitations: Physical Limitation - History of Present Illness Initial comments: The patient was evaluated in the emergency department for symptoms described in the history of present illness. He/she was evaluated in the context of the global COVID-19 pandemic, which necessitated consideration that the patient might be at risk for infection with the virus that causes COVID-19. Institutional protocols and algorithms that pertain to the evaluation of patients at risk for COVID-19 are in a state of rapid change based on information released by regulatory bodies including the CDC and federal and state organizations. These policies and algorithms were followed during the patient's care in the emergency department. Please note that these policies, procedures and recommendations changed on a rapid basis. This is a 69-year-old female. I have evaluated this patient in the past. She has a history of COPD, chronic respiratory failure, on home oxygen, history of overdose. She presents to the ER today via EMS with complaints of shortness of breath, cough and wheezing. Symptoms present for the past 3 days. There is associated trapezius and muscular back pain. No fever. No loss of taste or smell. No vomiting. No diarrhea. No complaint of central chest pain. No urinary symptoms. Patient specifically denies intentional overdose. Patient states that she lives in a facility/home with at least one other individual who is there to help her out. She also reports that she typically gets around with a walker. She reports that her oxygen tanks are not empty. She denies travel, surgery, posterior leg pain or leg swelling. -: Gradual, days(s) Severity scale (0 -10): 2 Consistency: constant Improves with: rest Worsens with: movement - Related Data Home Medications Medication Instructions Recorded Confirmed Last Taken ALPRAZolam [Xanax TAB] 0.5 mg PO TID PRN 04/26/19 05/01/20 04/25/19 Previous Rx's Medication Instructions Recorded Last Taken Type Aspirin [Aspirin BABY CHEW TAB] 81 mg PO QDAY #30 tab.chew 04/13/19 04/25/19 Rx AtorvaSTATin [Lipitor] 20 mg PO QHS #30 tablet 04/13/19 04/25/19 Rx Budesonide/Formoterol Fumarate 10.2 gm IH BID #1 hfa.aer.ad 04/13/19 04/25/19 Rx [Symbicort 160-4.5 Mcg Inhaler] Fluticasone [Flonase] 100 mcg NS BID #1 bottle 04/13/19 04/25/19 Rx Ipratropium/Albuterol Sulfate 1 ampul IH Q6HR #30 04/13/19 04/25/19 Rx [DUONEB *Not for PRN Use*] guaiFENesin ER [Mucinex ER] 600 mg PO BID #60 tablet 04/13/19 04/25/19 Rx Pantoprazole [Protonix TAB] 40 mg PO QDAY #30 tablet 04/30/19 Unknown Rx Apixaban [Eliquis] 2.5 mg PO Q12HR #60 tablet 05/02/20 Unknown Rx Metoprolol [Lopressor TAB] 25 mg PO Q8HR #90 tablet 05/02/20 Unknown Rx lisinopriL [Zestril TAB] 5 mg PO QDAY #30 tablet 05/02/20 Unknown Rx predniSONE [Deltasone] 40 mg PO QDAY #8 tablet 05/02/20 Unknown Rx sotaloL [Betapace] 80 mg PO Q12HR #60 tablet 05/02/20 Unknown Rx Albuterol Sulfate [Proair 90 mcg IH Q4HR PRN #2 aer.pow.ba 06/02/20 Unknown Rx Respiclick] DOXYCYCLINE Hyclate [Vibramycin] 100 mg PO Q12HR #10 capsule 06/02/20 Unknown Rx Fluticasone [Flonase] 1 spray NS QDAY #1 bottle 06/02/20 Unknown Rx Ipratropium (Nf) [Atrovent] 2 puff IH Q6HR PRN #1 inha 06/02/20 Unknown Rx predniSONE [Deltasone] 40 mg PO QDAY #8 tab 06/02/20 Unknown Rx Allergies Allergy/AdvReac Type Severity Reaction Status Date / Time codeine Allergy Hives Verified 09/30/18 00:33 prednisone Allergy Rash Verified 09/30/18 00:33 ED Review of Systems ROS: Stated complaint: DIFFICULTY BREATHING Other details as noted in HPI Constitutional: denies: malaise ENT: congestion Respiratory: cough, shortness of breath, SOB with exertion, SOB at rest, wheezing Cardiovascular: denies: chest pain, syncope Gastrointestinal: denies: abdominal pain Genitourinary: denies: dysuria Musculoskeletal: myalgia Neurological: weakness (Chronic global weakness) Psychiatric: denies: homicidal thoughts, suicidal thoughts ED Past Medical Hx - Past Medical History Previous Medical History?: Yes Hx Hypertension: Yes (lasix) Hx Congestive Heart Failure: No Hx Diabetes: No Hx Pulmonary Embolism: No Hx Liver Disease: Yes (hepatitis A) Hx Renal Disease: No Hx Arthritis: No Hx Kidney Stones: No Hx Psychiatric Treatment: Yes (Apparently has previous overdose; on Lexapro and Xanax) Hx Asthma: No Hx COPD: Yes Hx Tuberculosis: No Hx HIV: No Additional medical history: a-fib. CARPAL TUNNEL. Back pain - Surgical History Past Surgical History?: Yes Hx Cholecystectomy: No Hx Appendectomy: No Hx Breast Surgery: No Additional Surgical History: BILATERAL CATARACTS REMOVED; LENS SURGERY. BALLOON IN BACK - Social History Smoking Status: Former Smoker - Medications Home Medications: Home Medications Medication Instructions Recorded Confirmed Last Taken Type Aspirin [Aspirin BABY CHEW TAB] 81 mg PO QDAY #30 tab.chew 04/13/19 05/01/20 04/25/19 Rx AtorvaSTATin [Lipitor] 20 mg PO QHS #30 tablet 04/13/19 05/01/20 04/25/19 Rx Budesonide/Formoterol Fumarate 10.2 gm IH BID #1 hfa.aer.ad 04/13/19 05/01/20 04/25/19 Rx [Symbicort 160-4.5 Mcg Inhaler] Fluticasone [Flonase] 100 mcg NS BID #1 bottle 04/13/19 05/01/20 04/25/19 Rx Ipratropium/Albuterol Sulfate 1 ampul IH Q6HR #30 04/13/19 05/01/20 04/25/19 Rx [DUONEB *Not for PRN Use*] guaiFENesin ER [Mucinex ER] 600 mg PO BID #60 tablet 04/13/19 05/01/20 04/25/19 Rx ALPRAZolam [Xanax TAB] 0.5 mg PO TID PRN 04/26/19 05/01/20 04/25/19 History Pantoprazole [Protonix TAB] 40 mg PO QDAY #30 tablet 04/30/19 05/01/20 Unknown Rx Apixaban [Eliquis] 2.5 mg PO Q12HR #60 tablet 05/02/20 Unknown Rx Metoprolol [Lopressor TAB] 25 mg PO Q8HR #90 tablet 05/02/20 Unknown Rx lisinopriL [Zestril TAB] 5 mg PO QDAY #30 tablet 05/02/20 Unknown Rx predniSONE [Deltasone] 40 mg PO QDAY #8 tablet 05/02/20 Unknown Rx sotaloL [Betapace] 80 mg PO Q12HR #60 tablet 05/02/20 Unknown Rx Albuterol Sulfate [Proair 90 mcg IH Q4HR PRN #2 aer.pow.ba 06/02/20 Unknown Rx Respiclick] DOXYCYCLINE Hyclate [Vibramycin] 100 mg PO Q12HR #10 capsule 06/02/20 Unknown Rx Fluticasone [Flonase] 1 spray NS QDAY #1 bottle 06/02/20 Unknown Rx Ipratropium (Nf) [Atrovent] 2 puff IH Q6HR PRN #1 inha 06/02/20 Unknown Rx predniSONE [Deltasone] 40 mg PO QDAY #8 tab 06/02/20 Unknown Rx ED Physical Exam - General Limitations: No Limitations General appearance: alert, in no apparent distress - Head Head exam: Present: atraumatic, normocephalic - Eye Eye exam: Present: normal appearance, EOMI. Absent: nystagmus - ENT ENT exam: Present: normal exam, normal orophraynx, mucous membranes moist, normal external ear exam - Neck Neck exam: Present: normal inspection, full ROM. Absent: tenderness, meningismus - Respiratory Respiratory exam: Present: rhonchi. Absent: respiratory distress, wheezes, rales, stridor, decreased breath sounds - Cardiovascular Cardiovascular Exam: Present: regular rate, normal rhythm, normal heart sounds. Absent: bradycardia, tachycardia, irregular rhythm, systolic murmur, diastolic murmur, rubs, gallop - GI/Abdominal GI/Abdominal exam: Present: soft. Absent: distended, tenderness, guarding, rebound, rigid, pulsatile mass - Extremities Exam Extremities exam: Present: normal inspection, full ROM, other (2+ pulses noted in the bilateral upper and lower extremities. There is no palpable cord. negative Homans sign. Muscular compartments are soft. The pelvis is stable.). Absent: pedal edema, calf tenderness - Back Exam Back exam: Present: normal inspection, full ROM. Absent: tenderness, CVA tenderness (L), paraspinal tenderness, vertebral tenderness - Neurological Exam Neurological exam: Present: alert, other (No facial droop. Tongue midline. Ex traocular movements intact bilaterally. Facial sensation intact to light touch in V1, V2, V3 distribution bilaterally. 5 and a 5 strength in 4 extremities. Sensation intact to light touch in 4 extremities.) - Psychiatric Psychiatric exam: Absent: homicidal ideation, suicidal ideation - Skin Skin exam: Present: warm, dry, intact, normal color. Absent: rash ED Course Vital Signs 06/02/20 06/02/20 06/02/20 15:07 15:26 15:51 Temperature 98.5 F Pulse Rate 97 H Pulse Rate [ 97 H Anterior Bilateral Throughout] Respiratory 18 18 Rate Respiratory 18 Rate [Anterior Bilateral Throughout] Blood Pressure 131/54 Blood Pressure 138/54 [Right] O2 Sat by Pulse 100 100 Oximetry ED Medical Decision Making - Lab Data Result diagrams: 06/02/20 16:14 06/02/20 16:14 Vital Signs 06/02/20 06/02/20 06/02/20 15:07 15:26 15:51 Temperature 98.5 F Pulse Rate 97 H Pulse Rate [ 97 H Anterior Bilateral Throughout] Respiratory 18 18 Rate Respiratory 18 Rate [Anterior Bilateral Throughout] Blood Pressure 131/54 Blood Pressure 138/54 [Right] O2 Sat by Pulse 100 100 Oximetry Lab Results 06/02/20 06/02/20 06/02/20 Range/Units 16:14 16:14 16:14 Hgb 8.9 L (10.1-14.3) gm/dl Hct 27.4 L (30.3-42.9) % Plt Count 151 (140-440) K/mm3 PT 13.9 (12.2-14.9) Sec. INR 1.09 (0.87-1.13) Sodium 142 (137-145) mmol/L Potassium 3.8 (3.6-5.0) mmol/L Chloride 104.3 (98-107) mmol/L Carbon Dioxide 33 H (22-30) mmol/L Anion Gap 9 mmol/L BUN 12 (7-17) mg/dL Creatinine 1.2 (0.6-1.2) mg/dL Estimated GFR 45 ml/min BUN/Creatinine Ratio 10 % Glucose 77 (65-100) mg/dL Calcium 9.2 (8.4-10.2) mg/dL Magnesium 2.10 (1.7-2.3) mg/dL Total Creatine Kinase (30-135) units/L Troponin T < 0.010 (0.00-0.029) ng/mL Salicylates (2.8-20.0) mg/dL Acetaminophen (10.0-30.0) ug/mL 06/02/20 06/02/20 06/02/20 Range/Units 16:14 16:14 16:14 Hgb (10.1-14.3) gm/dl Hct (30.3-42.9) % Plt Count (140-440) K/mm3 PT (12.2-14.9) Sec. INR (0.87-1.13) Sodium (137-145) mmol/L Potassium (3.6-5.0) mmol/L Chloride (98-107) mmol/L Carbon Dioxide (22-30) mmol/L Anion Gap mmol/L BUN (7-17) mg/dL Creatinine (0.6-1.2) mg/dL Estimated GFR ml/min BUN/Creatinine Ratio % Glucose (65-100) mg/dL Calcium (8.4-10.2) mg/dL Magnesium (1.7-2.3) mg/dL Total Creatine Kinase 34 (30-135) units/L Troponin T (0.00-0.029) ng/mL Salicylates < 0.3 L (2.8-20.0) mg/dL Acetaminophen 5.0 L (10.0-30.0) ug/mL - EKG Data -: EKG Interpreted by De EKG shows normal: sinus rhythm Rate: normal - EKG Data When compared to previous EKG there are: no significant change 06/02/20 17:18 Sinus rhythm, tachycardia, 103 bpm. Normal axis, QTC 465 ms, motion artifact. This EKG is not a STEMI. The EKG today appears to be unchanged when compared to prior EKG from March 2020. - Radiology Data Radiology results: pending, report reviewed, image reviewed CHEST 1 VIEW 06/02/2020 3:05 PM INDICATION / CLINICAL INFORMATION: Dyspnea. COMPARISON: 05/03/2020 FINDINGS: SUPPORT DEVICES: None. HEART / MEDIASTINUM: No significant abnormality. LUNGS / PLEURA: Chronic interstitial change in bilateral lungs, unchanged No pneumothorax. Signer Name: Oni Jimenez MD Signed: 06/02/2020 3:09 PM Workstation Name: [id number] - Medical Decision Making Differential diagnosis, including but not limited to: COPD, bronchitis Chronic respiratory failure Assessment and plan: 69-year-old female, whom I evaluated in the past, with resolved tachycardia, who is saturating at 99/100% on chronic supplemental oxygen, who does not appear to be in significant respiratory distress, speaking on a cell phone in complete sentences. Not homicidal, not suicidal, exhibits decision-making capacity at this time. Laboratory studies appear to be at baseline. X-ray of the chest appears to be at baseline. Suspect underlying COPD as primary etiologic component to patient's presentation. She declined an ABG. She felt improved and work of breathing improved after conservative therapy. Suitable for trial of outpatient management. Given this patient's history of overdose, I sent a serum toxicology study for both aspirin and Tylenol, which were unremarkable. Patient is not homicidal, not suicidal, calm and cooperative, pleasant, does not meet criteria for 1013, involuntary hold at this time. Critical care attestation.: If time is entered above; I have spent that time in minutes in the direct care of this critically ill patient, excluding procedure time. ED Disposition Clinical Impression: COPD (chronic obstructive pulmonary disease) Qualifiers: COPD type: unspecified COPD Qualified Code(s): J44.9 - Chronic obstructive pulmonary disease, unspecified Disposition: DC-01 TO HOME OR SELFCARE Is pt being admited?: No Does the pt Need Aspirin: No Condition: Good Instructions: Chronic Obstructive Pulmonary Disease (ED), Chronic Bronchitis, Adult Additional Instructions: Patient most likely experiencing natural history of underlying COPD. Continue home medications, as directed, use the albuterol, Atrovent, steroids and an tibiotics as directed. Continue home oxygen. Avoid consumption of alcohol, tobacco, smoke products. Follow-up with a primary care doctor or lung specialist/animal anatomist within the next 5 to 7 days. Please return to the emergency room right away with new pain, worsened pain, migration of pain, projectile vomiting, change in mental status, confusion, inability to tolerate liquid feeds, new, worsening or different symptoms not present on the initial emergency room evaluation. Referrals: NELLA ROCA MD [Staff Physician] - 3-5 Days PATRICIA HANNA MD [Staff Physician] - 3-5 Days
--- NOTE | 2020-06-02 16:14 | XRay Report ---
CHEST 1 VIEW 06/02/2020 3:05 PM INDICATION / CLINICAL INFORMATION: Dyspnea. COMPARISON: 05/03/2020 FINDINGS: SUPPORT DEVICES: None. HEART / MEDIASTINUM: No significant abnormality. LUNGS / PLEURA: Chronic interstitial change in bilateral lungs, unchanged No pneumothorax. Signer Name: Oni Jimenez MD Signed: 06/02/2020 4:09 PM Workstation Name: [id number]
[2020-06-02 16:33] LABS: Hematocrit 27.4 % (30.3-42.9); Hemoglobin 8.9 gm/dl (10.1-14.3)
[2020-06-02 16:45] LABS: INR 1.09 (0.87-1.13)
[2020-06-02 16:56] LABS: BUN/Creatinine Ratio 10; Blood Urea Nitrogen 12 mg/dL (7-17); Calcium 9.2 mg/dL (8.4-10.2); Hemolysis Index 4
== END 2020-06-02 21:54 | disposition home or self-care (01) ==
LOC: ED 14:51
DX: J44.9 Chronic obstructive pulmonary disease, unspecified (principal); I10 Essential (primary) hypertension; Z98.890 Other specified postprocedural states; Z79.82 Long term (current) use of aspirin; Z79.899 Other long term (current) drug therapy; Z88.6 Allergy status to analgesic agent; Z88.8 Allergy status to other drugs, medicaments and biological substances
CPT/HCPCS: 36415; 71045; 80048; 82550; 83735; 84484; 85014; 85018; 85049; 85610; 93005; 94640; 99284; J7512; 80320; 94644; G0480

== ENCOUNTER 2020-06-10 21:10 | Emergency (ER) | payer MEDICARE ==
[2020-06-10] MEDS ORDERED: ALBUTEROL 2.5 MG/3 ML NEBU IH ONE (21:41)
[2020-06-10] MEDS ORDERED: IPRATROPIUM 0.02% NEBU 2.5 ML IH ONE (21:41)
--- NOTE | 2020-06-10 21:43 | Emergency Department Report ---
ED General Adult HPI - General Chief complaint: Dyspnea/Respdistress Stated complaint: SOB PUI?: No Time Seen by Provider: 06/10/20 21:28 Source: patient, EMS ( EMS documentation not available at time of chart dictation ), RN notes reviewed, old records reviewed Mode of arrival: Stretcher Limitations: No Limitations - History of Present Illness Initial comments: The patient was evaluated in the emergency department for symptoms described in the history of present illness. He/she was evaluated in the context of the global COVID-19 pandemic, which necessitated consideration that the patient might be at risk for infection with the virus that causes COVID-19. Institutional protocols and algorithms that pertain to the evaluation of patients at risk for COVID-19 are in a state of rapid change based on information released by regulatory bodies including the CDC and federal and state organizations. These policies and algorithms were followed during the patient's care in the emergency department. Please note that these policies, procedures and recommendations changed on a rapid basis. This is a 69-year-old female. I am familiar with this patient. She is a frequent user and utilizer of this emergency room. Please see my most recent chart and documentation on this patient. The patient lives at home with a caregiver. She has a CPAP which she sporadically uses, and home oxygen which is working. She presents to the ER with a complaint of feeling like the tubing or wiring in her CPAP is not working, and her caregiver therefore called 911. The patient states that her home oxygen is working. The patient has chronic cough and chronic shortness of breath. The patient has chronic abdominal cramping. On review systems, positive for cough, chronic mucus production, chronic abdominal cramping, negative for fever, loss of taste or smell. Patient states she is not homicidal or suicidal. Patient states she is not attempted to overdose. The patient denies urinary symptoms. Patient endorses compliance with medications. -: This afternoon Consistency: constant Improves with: none Worsens with: none - Related Data Home Medications Medication Instructions Recorded Confirmed Last Taken ALPRAZolam [Xanax TAB] 0.5 mg PO TID PRN 04/26/19 05/01/20 04/25/19 Previous Rx's Medication Instructions Recorded Last Taken Type Aspirin [Aspirin BABY CHEW TAB] 81 mg PO QDAY #30 tab.chew 12/27/19 01/08/20 Rx AtorvaSTATin [Lipitor] 20 mg PO QHS #30 tablet 04/13/19 04/25/19 Rx Budesonide/Formoterol Fumarate 10.2 gm IH BID #1 hfa.aer.ad 04/13/19 04/25/19 Rx [Symbicort 160-4.5 Mcg Inhaler] Fluticasone [Flonase] 100 mcg NS BID #1 bottle 04/13/19 04/25/19 Rx Ipratropium/Albuterol Sulfate 1 ampul IH Q6HR #30 04/13/19 04/25/19 Rx [DUONEB *Not for PRN Use*] guaiFENesin ER [Mucinex ER] 600 mg PO BID #60 tablet 04/13/19 04/25/19 Rx Pantoprazole [Protonix TAB] 40 mg PO QDAY #30 tablet 04/30/19 Unknown Rx Apixaban [Eliquis] 2.5 mg PO Q12HR #60 tablet 05/02/20 Unknown Rx Metoprolol [Lopressor TAB] 25 mg PO Q8HR #90 tablet 05/02/20 Unknown Rx lisinopriL [Zestril TAB] 5 mg PO QDAY #30 tablet 05/02/20 Unknown Rx predniSONE [Deltasone] 40 mg PO QDAY #8 tablet 05/02/20 Unknown Rx sotaloL [Betapace] 80 mg PO Q12HR #60 tablet 05/02/20 Unknown Rx Albuterol Sulfate [Proair 90 mcg IH Q4HR PRN #2 aer.pow.ba 06/02/20 Unknown Rx Respiclick] DOXYCYCLINE Hyclate [Vibramycin] 100 mg PO Q12HR #10 capsule 06/02/20 Unknown Rx Fluticasone [Flonase] 1 spray NS QDAY #1 bottle 06/02/20 Unknown Rx Ipratropium (Nf) [Atrovent] 2 puff IH Q6HR PRN #1 inha 06/02/20 Unknown Rx predniSONE [Deltasone] 40 mg PO QDAY #8 tab 06/02/20 Unknown Rx Furosemide [Lasix] 20 mg PO QDAY #7 tablet 06/10/20 Unknown Rx Allergies Allergy/AdvReac Type Severity Reaction Status Date / Time codeine Allergy Hives Verified 09/30/18 00:33 prednisone Allergy Rash Verified 09/30/18 00:33 ED Review of Systems ROS: Stated complaint: SOB Other details as noted in HPI Constitutional: denies: fever Eyes: denies: eye discharge ENT: congestion Respiratory: cough (Chronic), shortness of breath (Chronic) Cardiovascular: edema (Chronic) Gastrointestinal: abdominal pain, other (Brown stool with red blood, 2 days ago, now resolved). denies: hematemesis, melena Genitourinary: denies: dysuria Neurological: weakness (Chronic level weakness) Psychiatric: denies: homicidal thoughts, suicidal thoughts ED Past Medical Hx - Past Medical History Previous Medical History?: Yes Hx Hypertension: Yes (lasix) Hx Congestive Heart Failure: No Hx Diabetes: No Hx Pulmonary Embolism: No Hx Liver Disease: Yes (hepatitis A) Hx Renal Disease: No Hx Arthritis: No Hx Kidney Stones: No Hx Psychiatric Treatment: Yes (Apparently has previous overdose; on Lexapro and Xanax) Hx Asthma: No Hx COPD: Yes Hx Tuberculosis: No Hx HIV: No Additional medical history: a-fib. CARPAL TUNNEL. Back pain - Surgical History Past Surgical History?: Yes Hx Cholecystectomy: No Hx Appendectomy: No Hx Breast Surgery: No Additional Surgical History: BILATERAL CATARACTS REMOVED; LENS SURGERY. BALLOON IN BACK - Social History Smoking Status: Former Smoker Substance Use Type: None - Medications Home Medications: Home Medications Medication Instructions Recorded Confirmed Last Taken Type Aspirin [Aspirin BABY CHEW TAB] 81 mg PO QDAY #30 tab.chew 04/13/19 05/01/20 04/25/19 Rx AtorvaSTATin [Lipitor] 20 mg PO QHS #30 tablet 04/13/19 05/01/20 04/25/19 Rx Budesonide/Formoterol Fumarate 10.2 gm IH BID #1 hfa.aer.ad 04/13/19 05/01/20 04/25/19 Rx [Symbicort 160-4.5 Mcg Inhaler] Fluticasone [Flonase] 100 mcg NS BID #1 bottle 04/13/19 05/01/20 04/25/19 Rx Ipratropium/Albuterol Sulfate 1 ampul IH Q6HR #30 04/13/19 05/01/20 04/25/19 Rx [DUONEB *Not for PRN Use*] guaiFENesin ER [Mucinex ER] 600 mg PO BID #60 tablet 04/13/19 05/01/20 04/25/19 Rx ALPRAZolam [Xanax TAB] 0.5 mg PO TID PRN 04/26/19 05/01/20 04/25/19 History Pantoprazole [Protonix TAB] 40 mg PO QDAY #30 tablet 04/30/19 05/01/20 Unknown Rx Apixaban [Eliquis] 2.5 mg PO Q12HR #60 tablet 05/02/20 Unknown Rx Metoprolol [Lopressor TAB] 25 mg PO Q8HR #90 tablet 05/02/20 Unknown Rx lisinopriL [Zestril TAB] 5 mg PO QDAY #30 tablet 05/02/20 Unknown Rx predniSONE [Deltasone] 40 mg PO QDAY #8 tablet 05/02/20 Unknown Rx sotaloL [Betapace] 80 mg PO Q12HR #60 tablet 05/02/20 Unknown Rx Albuterol Sulfate [Proair 90 mcg IH Q4HR PRN #2 aer.pow.ba 06/02/20 Unknown Rx Respiclick] DOXYCYCLINE Hyclate [Vibramycin] 100 mg PO Q12HR #10 capsule 06/02/20 Unknown Rx Fluticasone [Flonase] 1 spray NS QDAY #1 bottle 06/02/20 Unknown Rx Ipratropium (Nf) [Atrovent] 2 puff IH Q6HR PRN #1 inha 06/02/20 Unknown Rx predniSONE [Deltasone] 40 mg PO QDAY #8 tab 06/02/20 Unknown Rx Furosemide [Lasix] 20 mg PO QDAY #7 tablet 06/10/20 Unknown Rx ED Physical Exam - General Limitations: No Limitations General appearance: alert, in no apparent distress, obese - Head Head exam: Present: atraumatic, normocephalic - Eye Eye exam: Present: normal appearance, EOMI. Absent: nystagmus - ENT ENT exam: Present: normal exam, normal orophraynx, mucous membranes moist, normal external ear exam - Neck Neck exam: Present: normal inspection, full ROM. Absent: tenderness, meningismus - Respiratory Respiratory exam: Present: rhonchi (Faint rhonchi noted). Absent: respiratory distress, wheezes, rales, stridor, decreased breath sounds - Cardiovascular Cardiovascular Exam: Present: regular rate, normal rhythm, normal heart sounds. Absent: bradycardia, tachycardia, irregular rhythm, systolic murmur, diastolic murmur, rubs, gallop - GI/Abdominal GI/Abdominal exam: Present: soft, normal bowel sounds. Absent: distended, tenderness, guarding, rebound, rigid, pulsatile mass - Rectal Rectal exam: Present: normal inspection, normal rectal tone, heme (-) stool, other (Chaperoned by nurse Olivia Carrillo). Absent: heme (+) stool, black stool, bloody stool, tenderness - Extremities Exam Extremities exam: Present: normal inspection, full ROM, pedal edema (1+ edema in the bilateral lower extremity), other (2+ pulses noted in the bilateral upper and lower extremities. There is no palpable cord. negative Homans sign. Muscular compartments are soft. The pelvis is stable.). Absent: calf tenderness - Back Exam Back exam: Present: normal inspection, full ROM. Absent: tenderness, CVA tenderness (R), CVA tenderness (L), paraspinal tenderness, vertebral tenderness - Neurological Exam Neurological exam: Present: alert, other (No facial droop. Tongue midline. Extraocular movements intact bilaterally. Facial sensation intact to light touch in V1, V2, V3 distribution bilaterally. 5 and a 5 strength in 4 extremities. Sensation intact to light touch in 4 extremities.). Absent: motor sensory deficit - Psychiatric Psychiatric exam: Absent: homicidal ideation, suicidal ideation - Skin Skin exam: Present: warm, dry, intact, normal color. Absent: rash ED Course Vital Signs 06/10/20 06/10/20 06/10/20 21:25 21:30 21:46 Temperature 98.1 F Pulse Rate 97 H 93 H 89 Pulse Rate [ Bilateral] Respiratory 14 29 H 27 H Rate Respiratory Rate [Bilateral ] Blood Pressure 134/86 123/48 Blood Pressure 139/82 [Left] O2 Sat by Pulse 100 100 100 Oximetry 06/10/20 06/10/20 06/10/20 21:54 22:00 22:16 Temperature Pulse Rate 97 H 104 H Pulse Rate [ 75 Bilateral] Respiratory 25 H 16 Rate Respiratory 20 Rate [Bilateral ] Blood Pressure 138/76 125/62 Blood Pressure [Left] O2 Sat by Pulse 100 100 Oximetry 06/10/20 06/10/20 06/10/20 22:30 22:46 23:00 Temperature Pulse Rate 101 H 94 H 88 Pulse Rate [ Bilateral] Respiratory 15 23 22 Rate Respiratory Rate [Bilateral ] Blood Pressure 132/57 122/56 114/59 Blood Pressure [Left] O2 Sat by Pulse 100 100 100 Oximetry - Reevaluation(s) Reevaluation #1: 06/10/20 22:22 Differential diagnosis, including but not limited to: Case management patient, chronic COPD, general medical evaluation Assessment and plan: 69-year-old female, essentially presenting with chronic COPD which does not appear to be acutely decompensated, concerned that her CPAP at home is not working well, with chronic abdominal cramping. Her exam today appears to be consistent with prior examinations. She is afebrile with reassuring vital signs. Belly soft on my exam, with no peritoneal signs, brown stool, guaiac negative. She is alert and oriented, sober, not homicidal or suicidal. Check appropriate laboratory studies, serum toxicology study, x-ray the chest, urinalysis, give albuterol/Atrovent, as patient has chronic rhonchi, and reassess. Of note, I am sending a serum toxicology study on this patient, be cause she presented a few months ago and was cared for by myself, with an acetaminophen overdose of uncertain intent. However, at this point time, does not meet criteria for 1013 or involuntary hold. Reevaluation #2: 06/10/20 23:13 Patient reassessed. She is in no acute distress. Laboratory studies appear to be at baseline. proBNP likely secondary to underlying chronic COPD. She does not have crackles or rales. She does have lower extremity edema. Low-dose Lasix ordered. However, patient does not meet criteria for admission or hospitalization at this time. Patient reports that she is chronically maintained on Xanax, which I have identified and verified by looking at her medical record. We do not want to precipitate benzodiazepine withdrawal, therefore, she will be given her maintenance dose. Anemia appears to be chronic. No evidence of delivered toxicologic overdose at this time ED Medical Decision Making - Lab Data Result diagrams: 06/10/20 21:47 06/10/20 21:47 Vital Signs 06/10/20 06/10/20 21:25 21:54 Temperature 98.1 F Pulse Rate 97 H Pulse Rate [ 75 Bilateral] Respiratory 14 Rate Respiratory 20 Rate [Bilateral ] Blood Pressure 139/82 [Left] O2 Sat by Pulse 100 Oximetry Lab Results 06/10/20 06/10/20 06/10/20 Range/Units 21:47 21:47 21:47 Hgb 8.3 L (10.1-14.3) gm/dl Hct 25.2 L (30.3-42.9) % Plt Count 146 (140-440) K/mm3 Sodium 138 (137-145) mmol/L Potassium 4.0 (3.6-5.0) mmol/L Chloride 101.0 (98-107) mmol/L Carbon Dioxide 34 H (22-30) mmol/L Anion Gap 7 mmol/L BUN 21 H (7-17) mg/dL Creatinine 1.1 (0.6-1.2) mg/dL Estimated GFR 50 ml/min BUN/Creatinine Ratio 19 % Glucose 104 H (65-100) mg/dL Calcium 9.1 (8.4-10.2) mg/dL Magnesium 2.20 (1.7-2.3) mg/dL Total Creatine Kinase 47 (30-135) units/L Troponin T < 0.010 (0.00-0.029) ng/mL NT-Pro-B Natriuret Pep 2045 H (0-900) pg/mL Urine Color (Yellow) Urine Turbidity (Clear) Urine pH (5.0-7.0) Ur Specific [place] (1.003-1.030) Urine Protein (Negative) mg/dL Urine Glucose (UA) (Negative) mg/dL Urine Ketones (Negative) mg/dL Urine Blood (Negative) Urine Nitrite (Negative) Urine Bilirubin (Negative) Urine Urobilinogen (<2.0) mg/dL Ur Leukocyte Esterase (Negative) Urine WBC (Auto) (0.0-6.0) /HPF Urine RBC (Auto) (0.0-6.0) /HPF U Epithel Cells (Auto) (0-13.0) /HPF Salicylates < 0.3 L (2.8-20.0) mg/dL Acetaminophen (10.0-30.0) ug/mL 06/10/20 06/10/20 Range/Units 21:47 Unknown Hgb (10.1-14.3) gm/dl Hct (30.3-42.9) % Plt Count (140-440) K/mm3 Sodium (137-145) mmol/L Potassium (3.6-5.0) mmol/L Chloride (98-107) mmol/L Carbon Dioxide (22-30) mmol/L Anion Gap mmol/L BUN (7-17) mg/dL Creatinine (0.6-1.2) mg/dL Estimated GFR ml/min BUN/Creatinine Ratio % Glucose (65-100) mg/dL Calcium (8.4-10.2) mg/dL Magnesium (1.7-2.3) mg/dL Total Creatine Kinase (30-135) units/L Troponin T (0.00-0.029) ng/mL NT-Pro-B Natriuret Pep (0-900) pg/mL Urine Color Straw (Yellow) Urine Turbidity Clear (Clear) Urine pH 6.0 (5.0-7.0) Ur Specific [place] 1.006 (1.003-1.030) Urine Protein <15 mg/dl (Negative) mg/dL Urine Glucose (UA) Neg (Negative) mg/dL Urine Ketones Neg (Negative) mg/dL Urine Blood Neg (Negative) Urine Nitrite Neg (Negative) Urine Bilirubin Neg (Negative) Urine Urobilinogen < 2.0 (<2.0) mg/dL Ur Leukocyte Esterase Neg (Negative) Urine WBC (Auto) < 1.0 (0.0-6.0) /HPF Urine RBC (Auto) 1.0 (0.0-6.0) /HPF U Epithel Cells (Auto) 1.0 (0-13.0) /HPF Salicylates (2.8-20.0) mg/dL Acetaminophen 5.0 L (10.0-30.0) ug/mL Vital Signs 06/10/20 06/10/20 06/10/20 21:25 21:30 21:46 Temperature 98.1 F Pulse Rate 97 H 93 H 89 Pulse Rate [ Bilateral] Respiratory 14 29 H 27 H Rate Respiratory Rate [Bilateral ] Blood Pressure 134/86 123/48 Blood Pressure 139/82 [Left] O2 Sat by Pulse 100 100 100 Oximetry 06/10/20 06/10/20 06/10/20 21:54 22:00 22:16 Temperature Pulse Rate 97 H 104 H Pulse Rate [ 75 Bilateral] Respiratory 25 H 16 Rate Respiratory 20 Rate [Bilateral ] Blood Pressure 138/76 125/62 Blood Pressure [Left] O2 Sat by Pulse 100 100 Oximetry 06/10/20 06/10/20 06/10/20 22:30 22:46 23:00 Temperature Pulse Rate 101 H 94 H 88 Pulse Rate [ Bilateral] Respiratory 15 23 22 Rate Respiratory Rate [Bilateral ] Blood Pressure 132/57 122/56 114/59 Blood Pressure [Left] O2 Sat by Pulse 100 100 100 Oximetry - EKG Data -: EKG Interpreted by Pa EKG shows normal: sinus rhythm Rate: normal - EKG Data Interpretation: unchanged when compared t (May 2020) 06/10/20 22:21 Sinus rhythm, 97 bpm. Normal axis, QTC 464 ms. Motion artifact. Abnormal EKG. PACs. Not a STEMI. - Radiology Data Radiology results: pending, report reviewed, image reviewed ABDOMEN 3 VIEW(S) INDICATION / CLINICAL INFORMATION: dyspnea, abd pain. COMPARISON: Chest radiograph dated 06/02/2020. FINDINGS: TUBES / LINES: None. BOWEL GAS PATTERN: No significant abnormality. FREE AIR / EXTRALUMINAL GAS: None seen. ADDITIONAL FINDINGS: No significant additional findings. CHEST: Visualized chest shows no significant abnormality. Chronic interstitial changes are stable. IMPRESSION: 1. No significant abnormality. Signer Name: Rajat Miller MD Signed: 06/10/2020 9:05 PM Workstation Name: [id number] Critical care attestation.: If time is entered above; I have spent that time in minutes in the direct care of this critically ill patient, excluding procedure time. ED Disposition Clinical Impression: Lower extremity edema, History of abdominal pain, General medical exam, Anemia COPD (chronic obstructive pulmonary disease) Qualifiers: COPD type: emphysema Emphysema type: unspecified Qualified Code(s): J43.9 - Emphysema, unspecified Disposition: DC-01 TO HOME OR SELFCARE Is pt being admited?: No Does the pt Need Aspirin: No Condition: Good Instructions: Chronic Obstructive Pulmonary Disease (ED), Edema, Chronic Bronchitis, Adult Additional Instructions: Please continue current outpatient medications. Take the Lasix, water pill as directed. Purchase [id number] compression stockings to assist with lower extremity edema. Participate with physical activities as tolerated. Please follow-up with your primary care doctor, such as Dr. Jorge, Within the next week. Please follow-up with your lay out drafter, such as Dr. Melvin, Within the next 2 weeks. Case management consultation was ordered and placed to assist the patient with her home CPAP device. Please return to the emergency room right away with new pain, worsened pain, migration of pain, projectile vomiting, change in mental status, confusion, inability to tolerate liquid feeds, new, worsened or different symptoms not present on the initial emergency room evaluation. Referrals: NELLA JORGE MD [Staff Physician] - 3-5 Days PURA MELVIN MD [Staff Physician] - 3-5 Days
--- NOTE | 2020-06-10 22:09 | XRay Report ---
ABDOMEN 3 VIEW(S) INDICATION / CLINICAL INFORMATION: dyspnea, abd pain. COMPARISON: Chest radiograph dated 06/02/2020. FINDINGS: TUBES / LINES: None. BOWEL GAS PATTERN: No significant abnormality. FREE AIR / EXTRALUMINAL GAS: None seen. ADDITIONAL FINDINGS: No significant additional findings. CHEST: Visualized chest shows no significant abnormality. Chronic interstitial changes are stable. IMPRESSION: 1. No significant abnormality. Signer Name: Rajat Miller MD Signed: 06/10/2020 10:05 PM Workstation Name: [id number]
[2020-06-10 22:20] LABS: Bilirubin,Urine NEG (Negative); Blood,Urine NEG (Negative); Color,Urine Straw (Yellow); Protein,Urine <15 mg/dL mg/dL (Negative); Urobilinogen,Urine < 2.0 mg/dL (<2.0)
[2020-06-10 22:25] LABS: WBC,Urine < 1.0 /HPF (0.0-6.0)
[2020-06-10 22:29] LABS: Hematocrit 25.2 % (30.3-42.9); Hemoglobin 8.3 gm/dl (10.1-14.3)
[2020-06-10 22:43] LABS: BUN/Creatinine Ratio 19; Blood Urea Nitrogen 21 mg/dL (7-17); Calcium 9.1 mg/dL (8.4-10.2); Hemolysis Index 23
[2020-06-10] MEDS ORDERED: FUROSEMIDE 20 MG TAB PO ONE (23:13)
[2020-06-10] MEDS ORDERED: ALPRAZolam 0.25 MG TAB PO ONE (23:42)
[2020-06-10] MEDS ORDERED: ACETAMINOPHEN 325 MG TAB PO ONE (23:56)
[2020-06-11 08:00] VITALS: BP 111/50
== END 2020-06-11 08:43 | disposition home or self-care (01) ==
LOC: ED 21:10
DX: R60.0 Localized edema (principal); R10.9 Unspecified abdominal pain; D64.9 Anemia, unspecified; J44.9 Chronic obstructive pulmonary disease, unspecified; Z00.00 Encounter for general adult medical examination without abnormal findings; I10 Essential (primary) hypertension; Z87.891 Personal history of nicotine dependence; Z79.899 Other long term (current) drug therapy; Z88.8 Allergy status to other drugs, medicaments and biological substances
CPT/HCPCS: 36415; 74022; 80048; 80320; 81001; 82550; 83735; 83880; 84484; 85014; 85018; 85049; 93005; 94640; 94644; G0480

== ENCOUNTER 2020-06-11 15:42 | Observation (INO) | payer MEDICARE ==
[2020-06-11] MEDS ORDERED: LORazepam 1 MG TAB PO ONE (16:39)
[2020-06-11] MEDS ORDERED: ASPIRIN 325 MG TAB PO ONE (16:39)
--- NOTE | 2020-06-11 16:57 | Emergency Department Report ---
HPI - General Chief Complaint: Dyspnea/Respdistress Time Seen by Provider: 06/11/20 16:17 - HPI HPI: Room 38 The patient is a six 9-year-old female present with a chief complaint of chest pain. The patient states today she developed substernal chest pain that has been sharp and intermittent in nature. Patient states she has shortness of breath and diaphoresis associated with her pain. Patient denies nausea or vomiting. The patient was seen here yesterday for shortness of breath that was attributed to a nonfunctioning CPAP machine. The patient states she is uncertain if she has ever had a cardiac catheterization. Patient currently gives her chest pain a score of 8/10 ED Past Medical Hx - Past Medical History Hx Hypertension: Yes (lasix) Hx Liver Disease: Yes (hepatitis A) Hx Psychiatric Treatment: Yes (Apparently has previous overdose; on Lexapro and Xanax) Hx COPD: Yes Additional medical history: a-fib. CARPAL TUNNEL. Back pain - Surgical History Additional Surgical History: BILATERAL CATARACTS REMOVED; LENS SURGERY. BALLOON IN BACK - Family History Family history: no significant - Social History Smoking Status: Former Smoker Substance Use Type: None - Medications Home Medications: Home Medications Medication Instructions Recorded Confirmed Last Taken Type Aspirin [Aspirin BABY CHEW TAB] 81 mg PO QDAY #30 tab.chew 04/13/19 05/01/20 04/25/19 Rx AtorvaSTATin [Lipitor] 20 mg PO QHS #30 tablet 04/13/19 05/01/20 04/25/19 Rx Budesonide/Formoterol Fumarate 10.2 gm IH BID #1 hfa.aer.ad 04/13/19 05/01/20 04/25/19 Rx [Symbicort 160-4.5 Mcg Inhaler] Fluticasone [Flonase] 100 mcg NS BID #1 bottle 04/13/19 05/01/20 04/25/19 Rx Ipratropium/Albuterol Sulfate 1 ampul IH Q6HR #30 04/13/19 05/01/20 04/25/19 Rx [DUONEB *Not for PRN Use*] guaiFENesin ER [Mucinex ER] 600 mg PO BID #60 tablet 04/13/19 05/01/20 04/25/19 Rx ALPRAZolam [Xanax TAB] 0.5 mg PO TID PRN 04/26/19 05/01/20 04/25/19 History Pantoprazole [Protonix TAB] 40 mg PO QDAY #30 tablet 04/30/19 05/01/20 Unknown Rx Apixaban [Eliquis] 2.5 mg PO Q12HR #60 tablet 05/02/20 Unknown Rx Metoprolol [Lopressor TAB] 25 mg PO Q8HR #90 tablet 05/02/20 Unknown Rx lisinopriL [Zestril TAB] 5 mg PO QDAY #30 tablet 05/02/20 Unknown Rx predniSONE [Deltasone] 40 mg PO QDAY #8 tablet 05/02/20 Unknown Rx sotaloL [Betapace] 80 mg PO Q12HR #60 tablet 05/02/20 Unknown Rx Albuterol Sulfate [Proair 90 mcg IH Q4HR PRN #2 aer.pow.ba 06/02/20 Unknown Rx Respiclick] DOXYCYCLINE Hyclate [Vibramycin] 100 mg PO Q12HR #10 capsule 06/02/20 Unknown Rx Fluticasone [Flonase] 1 spray NS QDAY #1 bottle 06/02/20 Unknown Rx Ipratropium (Nf) [Atrovent] 2 puff IH Q6HR PRN #1 inha 06/02/20 Unknown Rx predniSONE [Deltasone] 40 mg PO QDAY #8 tab 06/02/20 Unknown Rx Furosemide [Lasix] 20 mg PO QDAY #7 tablet 06/10/20 Unknown Rx ED Review of Systems ROS: Stated complaint: JING Other details as noted in HPI Constitutional: diaphoresis Eyes: denies: eye pain ENT: denies: throat pain Respiratory: shortness of breath Cardiovascular: chest pain Endocrine: no symptoms reported Gastrointestinal: denies: nausea, vomiting Genitourinary: denies: dysuria Musculoskeletal: denies: back pain Neurological: denies: headache Physical Exam - Physical Exam Vital Signs: Vital Signs 06/11/20 06/11/20 16:11 16:15 Temperature 98.2 F Pulse Rate 101 H 93 H Respiratory 22 22 Rate Blood Pressure 127/55 O2 Sat by Pulse 100 Oximetry Physical Exam: GENERAL: The patient is well-developed well-nourished female lying on stretcher not appearing to be in acute distress. [] HEENT: Normocephalic. Atraumatic. Extraocular motions are intact. Patient has moist mucous membranes. NECK: Supple. Trachea midline CHEST/LUNGS: Clear to auscultation. There is no respiratory distress noted. HEART/CARDIOVASCULAR: Regular. There is no tachycardia. There is no gallop rub or murmur. ABDOMEN: Abdomen is soft, nontender. Patient has normal bowel sounds. There is no abdominal distention. SKIN: There is no rash. There is no diaphoresis. NEURO: The patient is awake, alert, and oriented. The patient is cooperative. The patient has normal speech MUSCULOSKELETAL: There is no evidence of acute injury. ED Course Vital Signs 06/11/20 06/11/20 16:11 16:15 Temperature 98.2 F Pulse Rate 101 H 93 H Respiratory 22 22 Rate Blood Pressure 127/55 O2 Sat by Pulse 100 Oximetry ED Medical Decision Making - Lab Data Result diagrams: 06/11/20 16:49 06/11/20 16:49 Laboratory Tests 06/11/20 06/11/20 16:49 16:49 WBC 5.2 RBC 2.49 L Hgb 8.2 L Hct 25.6 L MCV 103 H MCH 33 H MCHC 32 RDW 14.5 Plt Count 137 L Lymph % (Auto) 10.4 L [place] % (Auto) 5.2 Eos % (Auto) 0.2 Baso % (Auto) 0.1 Lymph # (Auto) 0.5 L [place] # (Auto) 0.3 Eos # (Auto) 0.0 Baso # (Auto) 0.0 Seg Neutrophils % 84.1 H Seg Neutrophils # 4.4 Sodium 139 Potassium 3.9 Chloride 101.2 Carbon Dioxide 37 H Anion Gap 5 BUN 19 H Creatinine 0.9 Estimated GFR > 60 BUN/Creatinine Ratio 21 Glucose 134 H Calcium 8.6 Total Creatine Kinase 50 CK-MB (CK-2) 3.3 CK-MB (CK-2) Rel Index 6.6 H Troponin T < 0.010 NT-Pro-B Natriuret Pep 2654 H - EKG Data -: EKG Interpreted by Me EKG shows normal: sinus rhythm Rate: normal - EKG Data When compared to previous EKG there are: previous EKG unavailable Interpretation: other (PACs. No ischemic changes seen) - Radiology Data Radiology results: report reviewed (Chest x-ray), image reviewed (Chest x-ray) interpreted by me: Chest x-ray-no definite focal infiltrate, no pneumothorax. No foreign body seen [facility] [address] [place] [address] XRay Report Signed Patient: MAHESH TURNER MR#: [id number] : 1950 Acct:[id number] Age/Sex: 69 / F ADM Date: 06/11/20 Loc: ED Attending Dr: Ordering Physician: AYLA CARR MD Date of Service: 06/11/20 Procedure(s): XR chest 1V ap Accession Number(s): [id number] cc: AYLA CARR MD Fluoro Time In Minutes: CHEST 1 VIEW INDICATION / CLINICAL INFORMATION: chest pain. COMPARISON: 06/02/2020 FINDINGS: SUPPORT DEVICES: None. HEART / MEDIASTINUM: No significant abnormality. LUNGS / PLEURA: Diffuse interstitial change No pneumothorax. ADDITIONAL FINDINGS: No significant additional findings. IMPRESSION: Diffuse interstitial change again seen. No interval change from prior examination dated 06/02/2020 Signer Name: Dk Miller MD FACR Signed: 06/11/2020 5:05 PM Workstation Name: [id number] Transcribed By: MS Dictated By: Dk Miller MD Electronically Authenticated By: Dk Miller MD Signed Date/Time: 06/11/201704 DD/ 03 TD/TT: - Differential Diagnosis ACS, pericarditis, GERD Critical care attestation.: If time is entered above; I have spent that time in minutes in the direct care of this critically ill patient, excluding procedure time. ED Disposition Clinical Impression: Chest pain Disposition: OP ADMIT IP TO THIS HOSP Is pt being admited?: Yes Does the pt Need Aspirin: Yes Condition: Fair Instructions: Chest Pain (ED) Referrals: PRIMARY CARE, [Primary Care Provider] - 3-5 Days Time of Disposition: 17:53 (Hospitalist paged (Dr. Pritchard)) Heart Score - HEART Score History: Moderately suspicious EKG: Normal Age: > 65 Risk factors: 1-2 risk factors Troponin: < normal limit HEART Score: 4
[2020-06-11 17:06] LABS: Basophils % (Auto) 0.1 % (0.0-1.8); Eosinophils % (Auto) 0.2 % (0.0-4.3); Hematocrit 25.6 % (30.3-42.9); Hemoglobin 8.2 gm/dl (10.1-14.3); Lymphocytes # (Auto) 0.5 K/mm3 (1.2-5.4); Lymphocytes % (Auto) 10.4 % (13.4-35.0); Mean Corpuscular HGB Conc 32 % (30-34); Mean Corpuscular Volume 103 fl (79-97); Monocytes # (Auto) 0.3 K/mm3 (0.0-0.8); Monocytes % (Auto) 5.2 % (0.0-7.3); Platelet Count 137 K/mm3 (140-440); Red Blood Count 2.49 M/mm3 (3.65-5.03); Red Cell Distribution Width 14.5 % (13.2-15.2)
--- NOTE | 2020-06-11 17:09 | XRay Report ---
CHEST 1 VIEW INDICATION / CLINICAL INFORMATION: chest pain. COMPARISON: 06/02/2020 FINDINGS: SUPPORT DEVICES: None. HEART / MEDIASTINUM: No significant abnormality. LUNGS / PLEURA: Diffuse interstitial change No pneumothorax. ADDITIONAL FINDINGS: No significant additional findings. IMPRESSION: Diffuse interstitial change again seen. No interval change from prior examination dated 06/02/2020 Signer Name: Dk Miller MD FACR Signed: 06/11/2020 5:05 PM Workstation Name: [id number]
[2020-06-11 17:44] LABS: BUN/Creatinine Ratio 21; Blood Urea Nitrogen 19 mg/dL (7-17); Calcium 8.6 mg/dL (8.4-10.2); Creatine Kinase MB 3.3 ng/mL (0.0-4.0); Hemolysis Index 5
[2020-06-11] MEDS ORDERED: SODIUM CHLORIDE 0.9% 1000 ML 1,000 ML IV ONE (19:20)
[2020-06-11] MEDS ORDERED: NON-FORMULARY EACH (Albuterol Sulfate [Proair Respiclick] 90 MCG Aer.Pow.Ba) IH PRN (22:12)
--- NOTE | 2020-06-11 22:17 | History and Physical Report ---
History of Present Illness Date of examination: 06/11/20 Date of admission: 06/11/20 17:54 Chief complaint: Chest pain since last night History of present illness: 69-year-old female with history of COPD mild CHF and hypertension comes in for chest pain since last night which has been sharp and intermittent in nature. Patient also has a shortness of breath and diaphoresis. No radiation. No nausea or vomiting. Patient was seen yesterday in the emergency room for shortness of breath and was activated. Nonfunctioning CPAP machine and was discharged. Patient did not have any cardiac cath in the past. Patient states he may have a stress test last couple of years. No exposure to coronavirus. No anosmia or loss of taste. No fevers or chills. - Past Medical History --Hypertension: Yes (lasix) --Liver Disease: Yes (hepatitis A) --Psychiatric Treatment: Yes (Apparently has previous overdose; on Lexapro and Xanax) --COPD: Yes Additional medical history: a-fib. CARPAL TUNNEL. Back pain - Surgical History Additional Surgical History: BILATERAL CATARACTS REMOVED; LENS SURGERY. BALLOON IN BACK - Family History Family history: no significant - Social History Smoking Status: Former Smoker Substance Use Type: None - Medications Home Medications: Home Medications Medication Instructions Recorded Confirmed Last Taken Type Aspirin [Aspirin BABY CHEW TAB] 81 mg PO QDAY #30 tab.chew 04/13/19 05/01/20 04/25/19 Rx AtorvaSTATin [Lipitor] 20 mg PO QHS #30 tablet 04/13/19 05/01/20 04/25/19 Rx Budesonide/Formoterol Fumarate 10.2 gm IH BID #1 hfa.aer.ad 04/13/19 05/01/20 04/25/19 Rx [Symbicort 160-4.5 Mcg Inhaler] Fluticasone [Flonase] 100 mcg NS BID #1 bottle 04/13/19 05/01/20 04/25/19 Rx Ipratropium/Albuterol Sulfate 1 ampul IH Q6HR #30 04/13/19 05/01/20 04/25/19 Rx [DUONEB *Not for PRN Use*] guaiFENesin ER [Mucinex ER] 600 mg PO BID #60 tablet 04/13/19 05/01/20 04/25/19 Rx ALPRAZolam [Xanax TAB] 0.5 mg PO TID PRN 04/26/19 05/01/20 04/25/19 History Pantoprazole [Protonix TAB] 40 mg PO QDAY #30 tablet 04/30/19 05/01/20 Unknown Rx Apixaban [Eliquis] 2.5 mg PO Q12HR #60 tablet 05/02/20 Unknown Rx Metoprolol [Lopressor TAB] 25 mg PO Q8HR #90 tablet 05/02/20 Unknown Rx lisinopriL [Zestril TAB] 5 mg PO QDAY #30 tablet 05/02/20 Unknown Rx predniSONE [Deltasone] 40 mg PO QDAY #8 tablet 05/02/20 Unknown Rx sotaloL [Betapace] 80 mg PO Q12HR #60 tablet 05/02/20 Unknown Rx Albuterol Sulfate [Proair 90 mcg IH Q4HR PRN #2 aer.pow.ba 06/02/20 Unknown Rx Respiclick] DOXYCYCLINE Hyclate [Vibramycin] 100 mg PO Q12HR #10 capsule 06/02/20 Unknown Rx Fluticasone [Flonase] 1 spray NS QDAY #1 bottle 06/02/20 Unknown Rx Ipratropium (Nf) [Atrovent] 2 puff IH Q6HR PRN #1 inha 06/02/20 Unknown Rx predniSONE [Deltasone] 40 mg PO QDAY #8 tab 06/02/20 Unknown Rx Furosemide [Lasix] 20 mg PO QDAY #7 tablet 06/10/20 Unknown Rx Review of Systems ROS: Stated complaint: JING Other details as noted in HPI Constitutional: diaphoresis Eyes: denies: eye pain ENT: denies: throat pain Respiratory: shortness of breath Cardiovascular: chest pain Endocrine: no symptoms reported Gastrointestinal: denies: nausea, vomiting Genitourinary: denies: dysuria Musculoskeletal: denies: back pain Neurological: denies: headache Medications and Allergies Allergies Allergy/AdvReac Type Severity Reaction Status Date / Time codeine Allergy Hives Verified 09/30/18 00:33 prednisone Allergy Rash Verified 09/30/18 00:33 Home Medications Medication Instructions Recorded Confirmed Last Taken Type Aspirin [Aspirin BABY CHEW TAB] 81 mg PO QDAY #30 tab.chew 04/13/19 06/11/20 04/25/19 Rx Ipratropium/Albuterol Sulfate 1 ampul IH Q6HR #30 04/13/19 06/11/20 04/25/19 Rx [DUONEB *Not for PRN Use*] guaiFENesin ER [Mucinex ER] 600 mg PO BID #60 tablet 04/13/19 06/11/20 04/25/19 Rx ALPRAZolam [Xanax TAB] 0.5 mg PO TID PRN 04/26/19 06/11/20 04/25/19 History Pantoprazole [Protonix TAB] 40 mg PO QDAY #30 tablet 04/30/19 06/11/20 Unknown Rx lisinopriL [Zestril TAB] 5 mg PO QDAY #30 tablet 05/02/20 06/11/20 Unknown Rx Albuterol Sulfate [Proair 90 mcg IH Q4HR PRN #2 aer.pow.ba 06/02/20 06/11/20 Unknown Rx Respiclick] Fluticasone [Flonase] 1 spray NS QDAY #1 bottle 06/02/20 06/11/20 Unknown Rx predniSONE [Deltasone] 40 mg PO QDAY #8 tab 06/02/20 06/11/20 Unknown Rx Exam - Constitutional Vitals: Temp Pulse Resp BP Pulse Ox 98.7 F 95 H 19 133/59 99 06/11/20 21:07 06/11/20 21:07 06/11/20 21:07 06/11/20 21:07 06/11/20 21:07 General appearance: Present: no acute distress, well-nourished - EENT Eyes: Present: PERRL ENT: hearing intact, clear oral mucosa - Neck Neck: Present: supple, normal ROM - Respiratory Respiratory effort: normal Respiratory: bilateral: CTA, rhonchi (Scattered) - Cardiovascular Heart rate: 86 Rhythm: regular Heart Sounds: Present: S1 & S2. Absent: rub, click - Extremities Extremities: no ischemia, pulses symmetrical, No edema Peripheral Pulses: within normal limits - Abdominal General gastrointestinal: Present: soft, non-tender, non-distended, normal bowel sounds Female genitourinary: Present: normal - Integumentary Integumentary: Present: clear, warm, dry - Musculoskeletal Musculoskeletal: gait normal, strength equal bilaterally - Psychiatric Psychiatric: appropriate mood/affect, intact judgment & insight - Neurologic Neurologic: CNII-XII intact, moves all extremities HEART Score - HEART Score History: Moderately suspicious EKG: Normal Age: > 65 Risk factors: 1-2 risk factors Troponin: Troponin T < 0.010 ng/mL (0.00-0.029) 06/11/20 16:49 Troponin: < normal limit HEART Score: 4 - Critical Actions Critical Actions: 4-6 pts:12-16.6% risk of adverse cardiac event. Should be admitted Results - Labs CBC & Chem 7: 06/12/20 04:41 06/12/20 04:41 Labs: Laboratory Last Values WBC 5.2 K/mm3 (4.5-11.0) 06/11/20 16:49 RBC 2.49 M/mm3 (3.65-5.03) L 06/11/20 16:49 Hgb 8.2 gm/dl (10.1-14.3) L 06/11/20 16:49 Hct 25.6 % (30.3-42.9) L 06/11/20 16:49 MCV 103 fl (79-97) H 06/11/20 16:49 MCH 33 pg (28-32) H 06/11/20 16:49 MCHC 32 % (30-34) 06/11/20 16:49 RDW 14.5 % (13.2-15.2) 06/11/20 16:49 Plt Count 137 K/mm3 (140-440) L 06/11/20 16:49 Lymph % (Auto) 10.4 % (13.4-35.0) L 06/11/20 16:49 [place] % (Auto) 5.2 % (0.0-7.3) 06/11/20 16:49 Eos % (Auto) 0.2 % (0.0-4.3) 06/11/20 16:49 Baso % (Auto) 0.1 % (0.0-1.8) 06/11/20 16:49 Lymph # (Auto) 0.5 K/mm3 (1.2-5.4) L 06/11/20 16:49 [place] # (Auto) 0.3 K/mm3 (0.0-0.8) 06/11/20 16:49 Eos # (Auto) 0.0 K/mm3 (0.0-0.4) 06/11/20 16:49 Baso # (Auto) 0.0 K/mm3 (0.0-0.1) 06/11/20 16:49 Seg Neutrophils % 84.1 % (40.0-70.0) H 06/11/20 16:49 Seg Neutrophils # 4.4 K/mm3 (1.8-7.7) 06/11/20 16:49 Sodium 139 mmol/L (137-145) 06/11/20 16:49 Potassium 3.9 mmol/L (3.6-5.0) 06/11/20 16:49 Chloride 101.2 mmol/L (98-107) 06/11/20 16:49 Carbon Dioxide 37 mmol/L (22-30) H 06/11/20 16:49 Anion Gap 5 mmol/L 06/11/20 16:49 BUN 19 mg/dL (7-17) H 06/11/20 16:49 Creatinine 0.9 mg/dL (0.6-1.2) 06/11/20 16:49 Estimated GFR > 60 ml/min 06/11/20 16:49 BUN/Creatinine Ratio 21 % 06/11/20 16:49 Glucose 134 mg/dL (65-100) H 06/11/20 16:49 Calcium 8.6 mg/dL (8.4-10.2) 06/11/20 16:49 Total Creatine Kinase 50 units/L (30-135) 06/11/20 16:49 CK-MB (CK-2) 3.3 ng/mL (0.0-4.0) 06/11/20 16:49 CK-MB (CK-2) Rel Index 6.6 (0-4) H 06/11/20 16:49 Troponin T < 0.010 ng/mL (0.00-0.029) 06/11/20 16:49 NT-Pro-B Natriuret Pep 2654 pg/mL (0-900) H 06/11/20 16:49 Short CBC 06/11/20 Range/Units 16:49 WBC 5.2 (4.5-11.0) K/mm3 Hgb 8.2 L (10.1-14.3) gm/dl Hct 25.6 L (30.3-42.9) % Plt Count 137 L (140-440) K/mm3 [facility] 06/11/20 16:49 Sodium 139 Potassium 3.9 Chloride 101.2 Carbon Dioxide 37 H BUN 19 H Creatinine 0.9 Glucose 134 H Calcium 8.6 Cardiac Enzymes 06/11/20 Range/Units 16:49 Total Creatine Kinase 50 (30-135) units/L CK-MB (CK-2) 3.3 (0.0-4.0) ng/mL Troponin T < 0.010 (0.00-0.029) ng/mL Short CBC 06/11/20 06/12/20 Range/Units 16:49 04:41 WBC 5.2 4.7 (4.5-11.0) K/mm3 Hgb 8.2 L 7.8 L (10.1-14.3) gm/dl Hct 25.6 L 24.4 L (30.3-42.9) % Plt Count 137 L 126 L (140-440) K/mm3 [facility] 06/11/20 06/12/20 16:49 04:41 Sodium 139 143 Potassium 3.9 3.8 Chloride 101.2 105.4 Carbon Dioxide 37 H 39 H BUN 19 H 17 Creatinine 0.9 0.9 Glucose 134 H 83 Calcium 8.6 8.8 Cardiac Enzymes 06/11/20 06/11/20 06/11/20 Range/Units 16:49 23:41 23:41 Total Creatine Kinase 50 30 (30-135) units/L CK-MB (CK-2) 3.3 2.8 (0.0-4.0) ng/mL Troponin T < 0.010 < 0.010 (0.00-0.029) ng/mL 06/12/20 06/12/20 Range/Units 04:41 04:41 Total Creatine Kinase 28 L (30-135) units/L CK-MB (CK-2) 2.5 (0.0-4.0) ng/mL Troponin T < 0.010 (0.00-0.029) ng/mL Liver Function 06/12/20 Range/Units 04:41 Total Bilirubin 0.20 (0.1-1.2) mg/dL AST 22 (5-40) units/L ALT 16 (7-56) units/L Alkaline Phosphatase 110 (35-129) units/L Albumin 3.2 L (3.9-5) g/dL - Imaging and Cardiology EKG: report reviewed (Normal sinus rhythm, no acute ST-T wave changes) Assessment and Plan Advance Directives: Yes (Full code) VTE prophylaxis?: Chemical Plan of care discussed with patient/family: Yes - Patient Problems (1) Acute coronary syndrome Current Visit: Yes Status: Acute Plan to address problem: Serial troponins and Lexiscan in the morning (2) Acute exacerbation of CHF (congestive heart failure) Current Visit: Yes Status: Acute Qualifiers: Heart failure type: combined systolic and diastolic Qualified Code(s): I50.43 - Acute on chronic combined systolic (congestive) and diastolic (congestive) heart failure Plan to address problem: Low-dose Lasix Echocardiogram for ejection fraction BNP is high (3) Symptomatic anemia Current Visit: Yes Status: Acute Plan to address problem: Anemia work-up initiated (4) COPD (chronic obstructive pulmonary disease) Current Visit: Yes Status: Chronic Qualifiers: COPD type: unspecified COPD Qualified Code(s): J44.9 - Chronic obstructive pulmonary disease, unspecified Plan to address problem: DuoNebs as needed (5) Hypertension Current Visit: Yes Status: Chronic Qualifiers: Hypertension type: essential hypertension Qualified Code(s): I10 - Essential (primary) hypertension Plan to address problem: Continue antihypertensives (6) LYNDA (generalized anxiety disorder) Current Visit: Yes Status: Chronic Plan to address problem: Xanax was initiated (7) GERD (gastroesophageal reflux disease) Current Visit: Yes Status: Chronic Qualifiers: Esophagitis presence: without esophagitis Qualified Code(s): K21.9 - Gastro-esophageal reflux disease without esophagitis Plan to address problem: On PPIs (8) DVT prophylaxis Current Visit: Yes Status: Acute Plan to address problem: On anticoagulation and GI prophylaxis
[2020-06-11] MEDS ORDERED: ACETAMINOPHEN 325 MG TAB PO PRN (22:21)
[2020-06-11] MEDS ORDERED: oxyCODONE /ACETAMINOPHEN 5-325MG TAB PO PRN (22:21)
[2020-06-11] MEDS ORDERED: HYDROmorphone 1 MG/1 ML INJ IV PRN (22:21)
[2020-06-11] MEDS ORDERED: ONDANSETRON 4 MG/2 ML INJ IV PRN (22:21)
[2020-06-11] MEDS ORDERED: ALBUTEROL 2.5 MG/3 ML NEBU IH PRN (22:26)
[2020-06-11] MEDS: IPRATROPIUM/ALBUTEROL SULFATE 3 ML AMPUL.NEB IH SCH (22:33)
[2020-06-11] MEDS: guaiFENesin ER 600 MG TAB PO SCH (22:37)
[2020-06-11] MEDS: ALPRAZolam 0.5 MG TAB PO SCH (22:38)
[2020-06-11] MEDS: FAMOTIDINE 20 MG TAB PO SCH (22:38)
[2020-06-12 00:49] LABS: Creatine Kinase MB 2.8 ng/mL (0.0-4.0)
[2020-06-12 01:41] LABS: % Iron Saturation 7.89 %
[2020-06-12] MEDS ORDERED: IPRATROPIUM/ALBUTEROL SULFATE 3 ML AMPUL.NEB IH SCH ×2 (02:00)
[2020-06-12] MEDS: IPRATROPIUM/ALBUTEROL SULFATE 3 ML AMPUL.NEB IH SCH ×3 (03:47→13:15)
[2020-06-12 05:09] LABS: Basophils % (Auto) 0.1 % (0.0-1.8); Eosinophils # (Auto) 0.1 K/mm3 (0.0-0.4); Eosinophils % (Auto) 1.3 % (0.0-4.3); Hematocrit 24.4 % (30.3-42.9); Hemoglobin 7.8 gm/dl (10.1-14.3); Lymphocytes # (Auto) 1.5 K/mm3 (1.2-5.4); Lymphocytes % (Auto) 32.9 % (13.4-35.0); Mean Corpuscular HGB Conc 32 % (30-34); Mean Corpuscular Volume 104 fl (79-97); Monocytes # (Auto) 0.5 K/mm3 (0.0-0.8); Monocytes % (Auto) 10.3 % (0.0-7.3); Platelet Count 126 K/mm3 (140-440); Red Blood Count 2.36 M/mm3 (3.65-5.03); Red Cell Distribution Width 14.5 % (13.2-15.2)
[2020-06-12 05:32] LABS: Creatine Kinase MB 2.5 ng/mL (0.0-4.0)
[2020-06-12 05:34] LABS: Alanine Aminotransferase 16 units/L (7-56); Albumin 3.2 g/dL (3.9-5); BUN/Creatinine Ratio 19; Blood Urea Nitrogen 17 mg/dL (7-17); Calcium 8.8 mg/dL (8.4-10.2); Hemolysis Index 1
[2020-06-12] MEDS: ALPRAZolam 0.5 MG TAB PO SCH ×3 (08:00→19:44)
[2020-06-12] MEDS ORDERED: ALPRAZolam 0.5 MG TAB PO SCH (08:00)
[2020-06-12] MEDS ORDERED: FLUTICASONE PROPIONATE NASAL SPRAY 16 GM NS SCH (10:00)
[2020-06-12] MEDS ORDERED: ASPIRIN 81 MG TAB CHEW PO SCH (10:00)
[2020-06-12] MEDS ORDERED: LISINOPRIL 5 MG TAB PO SCH (10:00)
[2020-06-12] MEDS ORDERED: PANTOPRAZOLE 40 MG TAB PO SCH (10:00)
[2020-06-12] MEDS ORDERED: predniSONE 10 MG TAB PO SCH (10:00)
[2020-06-12] MEDS: FAMOTIDINE 20 MG TAB PO SCH (10:12)
[2020-06-12] MEDS: guaiFENesin ER 600 MG TAB PO SCH (10:13)
[2020-06-12] MEDS: HEPARIN 5,000 UNIT/1 ML VIAL SUB-Q SCH ×2 (10:13→10:14)
--- NOTE | 2020-06-12 13:16 | Consultation ---
History of Present Illness Consult date: 06/12/20 Consult reason: chest pain History of present illness: The patient is a 69-year-old woman with severe COPD, on ambulatory oxygen. She also has paroxysmal atrial fibrillation, was previously on Eliquis for oral anticoagulation, suggested for judicious use due to her underlying chronic anemia. She is admitted to the hospital at this time with complaints of shortness of breath and exacerbation of her COPD. While hospitalized, she also complained of some chest pain which prompted a recommendation for cardiac consultation. Her chest pain is atypical, right-sided over the right breast. It is positional and she states the area was also tender to palpation. ECG is sinus rhythm with nonspecific early repolarization changes. Serial troponin levels x3 were negative. Echocardiogram done on this presentation shows normal left ventricular systolic function with ejection fraction 50 to 55%, mild pulmonary hypertension. A Lexiscan thallium stress test done in her doctor's office less than 6 months ago was normal. Past History Past Medical History: atrial fib, COPD, hypertension Medications and Allergies Allergies Allergy/AdvReac Type Severity Reaction Status Date / Time codeine Allergy Hives Verified 09/30/18 00:33 prednisone Allergy Rash Verified 09/30/18 00:33 Home Medications Medication Instructions Recorded Confirmed Last Taken Type Aspirin [Aspirin BABY CHEW TAB] 81 mg PO QDAY #30 tab.chew 04/13/19 06/11/20 04/25/19 Rx Ipratropium/Albuterol Sulfate 1 ampul IH Q6HR #30 04/13/19 06/11/20 04/25/19 Rx [DUONEB *Not for PRN Use*] guaiFENesin ER [Mucinex ER] 600 mg PO BID #60 tablet 04/13/19 06/11/20 04/25/19 Rx ALPRAZolam [Xanax TAB] 0.5 mg PO TID PRN 04/26/19 06/11/20 04/25/19 History Pantoprazole [Protonix TAB] 40 mg PO QDAY #30 tablet 04/30/19 06/11/20 Unknown Rx lisinopriL [Zestril TAB] 5 mg PO QDAY #30 tablet 05/02/20 06/11/20 Unknown Rx Albuterol Sulfate [Proair 90 mcg IH Q4HR PRN #2 aer.pow.ba 06/02/20 06/11/20 Unknown Rx Respiclick] Fluticasone [Flonase] 1 spray NS QDAY #1 bottle 06/02/20 06/11/20 Unknown Rx predniSONE [Deltasone] 40 mg PO QDAY #8 tab 06/02/20 06/11/20 Unknown Rx Active Meds: Active Medications Acetaminophen (Acetaminophen 325 Mg Tab) 650 mg PO Q4H PRN PRN Reason: Pain MILD(1-3)/Fever >100.5/ARVIZU Albuterol (Albuterol 2.5 Mg/3 Ml Nebu) 2.5 mg IH Q4HRT PRN PRN Reason: Shortness Of Breath Albuterol/Ipratropium (Ipratropium/Albuterol Sulfate 3 Ml Ampul.Neb) 1 ampul IH Q6HRT [facility] Last Admin: 06/12/20 13:15 Dose: 1 ampul Documented by: Alprazolam (Alprazolam 0.5 Mg Tab) 0.5 mg PO TID [facility] Last Admin: 06/12/20 08:00 Dose: 0.5 mg Documented by: Aspirin (Aspirin 81 Mg Tab Chew) 81 mg PO QDAY [facility] Last Admin: 06/12/20 10:12 Dose: 81 mg Documented by: Famotidine (Famotidine 20 Mg Tab) 20 mg PO BID [facility] Last Admin: 06/12/20 10:12 Dose: 20 mg Documented by: Fluticasone Propionate (Fluticasone Propionate Nasal [place] 16 Gm) 50 mcg NS QDAY [facility] Guaifenesin (Guaifenesin Er 600 Mg Tab) 600 mg PO BID [facility] Last Admin: 06/12/20 10:13 Dose: 600 mg Documented by: Heparin Sodium (Porcine) (Heparin 5,000 Unit/1 Ml Vial) 5,000 unit SUB-Q Q12HR [facility] Last Admin: 06/12/20 10:14 Dose: 5,000 unit Documented by: Hydromorphone HCl (Hydromorphone 1 Mg/1 Ml Inj) 0.5 mg IV Q3H PRN PRN Reason: Pain , Severe (7-10) Lisinopril (Lisinopril 5 Mg Tab) 5 mg PO QDAY [facility] Last Admin: 06/12/20 10:13 Dose: 5 mg Documented by: Ondansetron HCl (Ondansetron 4 Mg/2 Ml Inj) 4 mg IV Q8H PRN PRN Reason: Nausea And Vomiting Oxycodone/Acetaminophen (Oxycodone /Acetaminophen 5-325mg Tab) 1 tab PO Q6H PRN PRN Reason: Pain, Moderate (4-6) Prednisone (Prednisone 10 Mg Tab) 10 mg PO QDAY [facility] Last Admin: 06/12/20 10:13 Dose: 10 mg Documented by: Sodium Chloride (Sodium Chloride 0.9% 10 Ml Flush Syringe) 10 ml IV BID [facility] Last Admin: 06/12/20 10:25 Dose: 10 ml Documented by: Sodium Chloride (Sodium Chloride 0.9% 10 Ml Flush Syringe) 10 ml IV PRN PRN PRN Reason: LINE FLUSH Physical Examination Vital Signs Temp Pulse Resp BP 98.2 F 101 H 22 127/55 06/11/20 16:11 06/11/20 16:11 06/11/20 16:11 06/11/20 16:11 General appearance: no acute distress HEENT: Positive: PERRL Neck: Positive: neck supple Cardiac: Positive: Reg Rate and Rhythm Lungs: Positive: Decreased Breath Sounds Neuro: Positive: Grossly Intact Abdomen: Positive: Soft Female genitourinary: deferred Skin: Positive: Clear Extremities: Absent: edema Results 06/12/20 04:41 06/12/20 04:41 Cardiac Enzymes 06/11/20 06/11/20 06/12/20 Range/Units 16:49 23:41 04:41 AST 22 (5-40) units/L CK-MB (CK-2) 3.3 2.8 (0.0-4.0) ng/mL 06/12/20 Range/Units 04:41 AST (5-40) units/L CK-MB (CK-2) 2.5 (0.0-4.0) ng/mL CBC 06/11/20 06/12/20 Range/Units 16:49 04:41 WBC 5.2 4.7 (4.5-11.0) K/mm3 RBC 2.49 L 2.36 L (3.65-5.03) M/mm3 Hgb 8.2 L 7.8 L (10.1-14.3) gm/dl Hct 25.6 L 24.4 L (30.3-42.9) % Plt Count 137 L 126 L (140-440) K/mm3 Lymph # (Auto) 0.5 L 1.5 (1.2-5.4) K/mm3 [place] # (Auto) 0.3 0.5 (0.0-0.8) K/mm3 Eos # (Auto) 0.0 0.1 (0.0-0.4) K/mm3 Baso # (Auto) 0.0 0.0 (0.0-0.1) K/mm3 Comprehensive Metabolic Panel 06/11/20 06/12/20 Range/Units 16:49 04:41 Sodium 139 143 (137-145) mmol/L Potassium 3.9 3.8 (3.6-5.0) mmol/L Chloride 101.2 105.4 (98-107) mmol/L Carbon Dioxide 37 H 39 H (22-30) mmol/L BUN 19 H 17 (7-17) mg/dL Creatinine 0.9 0.9 (0.6-1.2) mg/dL Glucose 134 H 83 (65-100) mg/dL Calcium 8.6 8.8 (8.4-10.2) mg/dL AST 22 (5-40) units/L ALT 16 (7-56) units/L Alkaline Phosphatase 110 (35-129) units/L Total Protein 6.0 L (6.3-8.2) g/dL Albumin 3.2 L (3.9-5) g/dL EKG interpretations - Telemetry EKG Rhythm: Sinus Rhythm Assessment and Plan - Patient Problems (1) Atypical chest pain Current Visit: Yes Status: Acute Plan to address problem: Patient's chest pain is atypical, appears musculoskeletal in character, serial ECGs and troponin enzymes negative, and a Lexiscan thallium stress test done less than 6 months ago was normal. No further cardiac chest pain work-up is indicated. (2) Paroxysmal atrial fibrillation Current Visit: Yes Status: Acute Plan to address problem: Patient has a history of paroxysmal atrial fibrillation, was previously on Eliquis. On this presentation, she is no longer on Eliquis but has maintained a stable sinus rhythm. We note that she has persistent, chronic anemia with a hematocrit of 24. Further resumption of anticoagulation in the long-term will be deferred to her outpatient PCP and urology surgeon, with respect to inherent risks and benefits.
--- NOTE | 2020-06-12 14:52 | Discharge Summary ---
Providers - Providers Date of Admission: 06/11/20 17:54 Date of discharge: 06/12/20 Attending physician: BLAKE MOHAMUD 06/12/20 11:26 Consult to Physician [CONS] Routine Comment: Consulting Provider: CAMILLE WESLEY Physician Instructions: Reason For Exam: chest pain Primary care physician: CARMEN ANDERSEN Hospitalization Condition: Fair Hospital course: Discharge diagnosis: (1) Atypical chest pain Patient's chest pain is atypical, appears musculoskeletal in character, serial ECGs and troponin enzymes negative, and a Lexiscan thallium stress test done less than 6 months ago was normal. No further cardiac chest pain work-up is indicated. (2) Paroxysmal atrial fibrillation Patient has a history of paroxysmal atrial fibrillation, was previously on Eliquis. On this presentation, she is no longer on Eliquis but has maintained a stable sinus rhythm. she has persistent, chronic anemia with a hematocrit of 24. Further resumption of anticoagulation in the long-term will be deferred to her outpatient PCP and java development manager, with respect to inherent risks and benefits. Disposition: DC-01 TO HOME OR SELFCARE Time spent for discharge: 34 minutes Core Measure Documentation - Palliative Care Palliative Care/ Comfort Measures: Not Applicable - Core Measures Any of the following diagnoses?: none Exam - Constitutional Vitals: Temp Pulse Resp BP Pulse Ox 99.4 F 79 18 101/64 98 06/12/20 04:25 06/12/20 13:15 06/12/20 13:15 06/12/20 04:25 06/12/20 13:21 Plan Activity: advance as tolerated Weight Bearing Status: Weight Bear as Tolerated Diet: low fat, low salt Additional Instructions: Further resumption of anticoagulation in the long-term will be deferred to your outpatient PCP and java development manager, with respect to inherent risks and benefits. Follow-up with your java development manager in 1 week Follow up with: JAVON JACKSON MD [Referring] - 3-5 Days
[2020-06-12 18:51] VITALS: BP 111/51
== END 2020-06-12 20:09 | disposition home or self-care (01) ==
LOC: ED 15:42 → 4A 17:54
PROVIDERS: ADMIT Internal Medicine; ATTEND Internal Medicine
DX: I24.9 Acute ischemic heart disease, unspecified (principal); I11.0 Hypertensive heart disease with heart failure; I50.9 Heart failure, unspecified; D64.9 Anemia, unspecified; J44.9 Chronic obstructive pulmonary disease, unspecified; I48.0 Paroxysmal atrial fibrillation; K21.9 Gastro-esophageal reflux disease without esophagitis; F41.9 Anxiety disorder, unspecified; Z86.19 Personal history of other infectious and parasitic diseases; Z98.890 Other specified postprocedural states; Z87.891 Personal history of nicotine dependence; Z98.41 Cataract extraction status, right eye; Z98.42 Cataract extraction status, left eye; Z79.82 Long term (current) use of aspirin; Z79.899 Other long term (current) drug therapy
CPT/HCPCS: 36415; 71045; 80048; 80053; 82550; 82553; 82607; 82747; 82962; 83036; 83550; 83880; 84484; 85025; 93005; 93306; 94640; 94760; 96360; 96372; 99285; G0378; J1644; J7030; J7512

== ENCOUNTER 2021-06-22 12:42 | Emergency (ER) | payer MEDICARE ==
[2021-06-22] MEDS ORDERED: predniSONE 20 MG TAB PO ONE (13:00)
[2021-06-22] MEDS ORDERED: IPRATROPIUM/ALBUTEROL SULFATE 3 ML AMPUL.NEB IH ONE (13:00)
[2021-06-22] MEDS ORDERED: SODIUM CHLORIDE 0.9% 1000 ML 1,000 ML IV ONE (13:00)
--- NOTE | 2021-06-22 13:02 | Emergency Department Report ---
ED General Adult HPI - General Chief complaint: Chest Pain Stated complaint: chest pain Time Seen by Provider: 06/22/21 12:55 Source: EMS Mode of arrival: Stretcher Limitations: No Limitations - History of Present Illness Initial comments: Patient presents by EMS secondary to chest pain. She describing a left-sided chest pain that is what she states it feels like bees stinging her. She had told somebody else that it felt like a brick on her chest. She tells me that this feels more like a stinging pain. It is a left chest. Is worse when she takes a deep breath. She states that she feels short of breath as well. She has COPD. She continues to smoke. She has been using her inhalers. Regardless, for the last day or 2 she has been having this burning type of chest pain or stinging type of chest pain. There is no cough or congestion. She has no pain or swelling in the feet or ankles. She states she is never had pain like this before. There is no history of recent travel or trauma. Severity scale (0 -10): 10 - Related Data Home Medications Medication Instructions Recorded Confirmed Last Taken ALPRAZolam [Xanax TAB] 0.5 mg PO TID PRN 04/26/19 06/11/20 04/25/19 Previous Rx's Medication Instructions Recorded Last Taken Type Aspirin [Aspirin BABY CHEW TAB] 81 mg PO QDAY #30 tab.chew 04/13/19 04/25/19 Rx Ipratropium/Albuterol Sulfate 1 ampul IH Q6HR #30 04/13/19 04/25/19 Rx [DUONEB *Not for PRN Use*] guaiFENesin ER [Mucinex ER] 600 mg PO BID #60 tablet 04/13/19 04/25/19 Rx Pantoprazole [Protonix TAB] 40 mg PO QDAY #30 tablet 04/30/19 Unknown Rx lisinopriL [Zestril TAB] 5 mg PO QDAY #30 tablet 05/02/20 Unknown Rx Albuterol Sulfate [Proair 90 mcg IH Q4HR PRN #2 aer.pow.ba 06/02/20 Unknown Rx Respiclick] Fluticasone [Flonase] 1 spray NS QDAY #1 bottle 06/02/20 Unknown Rx predniSONE [Deltasone] 40 mg PO QDAY #8 tab 06/02/20 Unknown Rx oxyCODONE /ACETAMINOPHEN [Percocet 1 tab PO Q6H PRN #4 tablet 06/12/20 Unknown Rx 5/325 mg] Ibuprofen [Motrin] 200 mg PO Q6H PRN #10 tablet 06/22/21 Unknown Rx Allergies Allergy/AdvReac Type Severity Reaction Status Date / Time codeine Allergy Hives Verified 09/30/18 00:33 prednisone Allergy Rash Verified 09/30/18 00:33 ED Review of Systems ROS: Stated complaint: chest pain Other details as noted in HPI Comment: All other systems reviewed and negative Constitutional: denies: fever Eyes: denies: vision change ENT: denies: throat pain Respiratory: see HPI Cardiovascular: as per HPI Endocrine: denies: unexplained weight loss Gastrointestinal: denies: abdominal pain Genitourinary: denies: dysuria Musculoskeletal: denies: back pain Skin: denies: rash Neurological: denies: headache Hematological/Lymphatic: denies: easy bruising ED Past Medical Hx - Past Medical History Hx Hypertension: Yes (lasix) Hx Congestive Heart Failure: No Hx Diabetes: No Hx Pulmonary Embolism: No Hx Liver Disease: Yes (hepatitis A) Hx Renal Disease: No Hx Arthritis: No Hx Kidney Stones: No Hx Psychiatric Treatment: Yes (Apparently has previous overdose; on Lexapro and Xanax) Hx Asthma: No Hx COPD: Yes Hx Tuberculosis: No Hx HIV: No Additional medical history: a-fib. CARPAL TUNNEL. Back pain - Surgical History Hx Cholecystectomy: No Hx Appendectomy: No Hx Breast Surgery: No Additional Surgical History: BILATERAL CATARACTS REMOVED; LENS SURGERY. BALLOON IN BACK - Family History Family history: hypertension - Social History Smoking Status: Current Some Day Smoker (We discussed tobacco cessation x3 minutes) - Medications Home Medications: Home Medications Medication Instructions Recorded Confirmed Last Taken Type Aspirin [Aspirin BABY CHEW TAB] 81 mg PO QDAY #30 tab.chew 04/13/19 06/11/20 04/25/19 Rx Ipratropium/Albuterol Sulfate 1 ampul IH Q6HR #30 04/13/19 06/11/20 04/25/19 Rx [DUONEB *Not for PRN Use*] guaiFENesin ER [Mucinex ER] 600 mg PO BID #60 tablet 04/13/19 06/11/20 04/25/19 Rx ALPRAZolam [Xanax TAB] 0.5 mg PO TID PRN 04/26/19 06/11/20 04/25/19 History Pantoprazole [Protonix TAB] 40 mg PO QDAY #30 tablet 04/30/19 06/11/20 Unknown Rx lisinopriL [Zestril TAB] 5 mg PO QDAY #30 tablet 05/02/20 06/11/20 Unknown Rx Albuterol Sulfate [Proair 90 mcg IH Q4HR PRN #2 aer.pow.ba 06/02/20 06/11/20 Unknown Rx Respiclick] Fluticasone [Flonase] 1 spray NS QDAY #1 bottle 06/02/20 06/11/20 Unknown Rx predniSONE [Deltasone] 40 mg PO QDAY #8 tab 06/02/20 06/11/20 Unknown Rx oxyCODONE /ACETAMINOPHEN [Percocet 1 tab PO Q6H PRN #4 tablet 06/12/20 Unknown Rx 5/325 mg] Ibuprofen [Motrin] 200 mg PO Q6H PRN #10 tablet 06/22/21 Unknown Rx ED Physical Exam - General Limitations: Physical Limitation (Poor historian), Other (Pulse ox noted and normal) General appearance: alert, in distress (Mild), cachectic, other (Frail) - Head Head exam: Present: atraumatic, normocephalic - Eye Eye exam: Present: normal appearance, PERRL, EOMI. Absent: scleral icterus - ENT ENT exam: Present: mucous membranes dry, normal external ear exam - Neck Neck exam: Present: normal inspection. Absent: tenderness, meningismus - Respiratory Respiratory exam: Present: normal lung sounds bilaterally, respiratory distress (Mild), wheezes (Reason), decreased breath sounds, prolonged expiratory - Cardiovascular Cardiovascular Exam: Present: regular rate, normal rhythm - GI/Abdominal GI/Abdominal exam: Present: soft. Absent: tenderness - Extremities Exam Extremities exam: Present: normal capillary refill. Absent: pedal edema, calf tenderness - Back Exam Back exam: Absent: CVA tenderness (R), CVA tenderness (L) - Neurological Exam Neurological exam: Present: alert, oriented X3, CN II-XII intact. Absent: motor sensory deficit - Psychiatric Psychiatric exam: Present: normal affect, normal mood - Skin Skin exam: Present: warm, dry ED Course Vital Signs 06/22/21 06/22/21 06/22/21 12:46 13:06 13:16 Temperature 98.4 F Pulse Rate 73 69 Respiratory 16 18 Rate Blood Pressure 185/156 Blood Pressure 131/96 [Right] O2 Sat by Pulse 98 95 97 Oximetry 06/22/21 06/22/21 06/22/21 13:30 13:46 14:00 Temperature Pulse Rate 70 65 Respiratory 20 16 Rate Blood Pressure 100/56 98/55 104/64 Blood Pressure [Right] O2 Sat by Pulse 100 100 100 Oximetry 06/22/21 06/22/21 06/22/21 14:16 14:23 14:30 Temperature Pulse Rate 81 62 Respiratory 17 17 Rate Blood Pressure 108/67 111/68 Blood Pressure [Right] O2 Sat by Pulse 100 94 95 Oximetry 06/22/21 06/22/21 06/22/21 14:46 15:00 15:06 Temperature Pulse Rate 68 76 Respiratory 21 22 Rate Blood Pressure 103/55 111/66 Blood Pressure [Right] O2 Sat by Pulse 98 89 94 Oximetry - Reevaluation(s) Reevaluation #1: 06/22/21 13:01 Prehospital EKG was noted. IV labs ordered. Records reviewed. Reevaluation #2: 06/22/21 15:35 Work-up was complete. Patient was ultimately discharged. ED Medical Decision Making - Lab Data Result diagrams: 06/22/21 13:19 06/22/21 13:19 Rhythm strip: Normal sinus rhythm without ectopy per monitor observe 10 seconds. - EKG Data -: EKG Interpreted by Me - EKG Data 06/22/21 13:25 1302-EKG shows normal sinus rhythm at 78. Intervals are normal including a QRS of 59 and a QT corrected of 429. Patient has no ST elevation to suggest STEMI. There is no ST depression suggestive of ischemia. Patient has T wave flattening in aVL. Prehospital EKG shows similar findings. There was no ST elevation suggestive of STEMI despite the computer reading of AMI. When compared to old EKG, there does not appear to be any interval change. - Radiology Data Radiology results: report reviewed - Medical Decision Making Patient presented with left-sided chest pain and trouble breathing. She described this as a pins and needle sensation to me despite describing it as a brick to someone else. She is focused on pain medicine. She is asked repeatedly for pain medicine. Patient does not have evidence of STEMI based on EKG. There is no evidence of NSTEMI based on troponin. Based on review of her records she has had numerous visits with cardiac work-up without evidence of STEMI previously. She does not have radiographic evidence of pneumonia or pneumothorax. She does not appear to be septic or toxic. There is no pulse deficit or wide mediastinum to suggest aortic dissection. Patient continues to smoke. She did have some wheezing here consistent with COPD and this is been addressed. We have discussed outpatient evaluation and follow-up. She is asking when she can go home. Patient was referred to her PCP for recheck and invited to return for any problems or concerns. Critical Care Time: No Critical care attestation.: If time is entered above; I have spent that time in minutes in the direct care of this critically ill patient, excluding procedure time. ED Disposition Clinical Impression: Left-sided chest pain, COPD with exacerbation, Tobacco abuse Disposition: 01 HOME / SELF CARE / HOMELESS Is pt being admited?: No Condition: Stable Instructions: Nonspecific Chest Pain, Adult, Chronic Obstructive Pulmonary Disease (ED), Cough, Adult, [id number], Chronic Obstructive Pulmonary Disease, [id number] Additional Instructions: Drink plenty of water. Continue home medication. Stop smoking. Return for problems. Follow-up with your regular doctor for recheck. Prescriptions: Ibuprofen [Motrin] 200 mg PO Q6H PRN #10 tablet PRN Reason: Pain , Severe (7-10)
[2021-06-22 13:39] LABS: Hematocrit 32.1 % (30.3-42.9); Hemoglobin 10.9 gm/dl (10.1-14.3); Mean Corpuscular HGB Conc 34 % (30-34); Mean Corpuscular Volume 106 fl (79-97); Platelet Count 122 K/mm3 (140-440); Red Blood Count 3.02 M/mm3 (3.65-5.03); Red Cell Distribution Width 15.2 % (13.2-15.2)
[2021-06-22 13:55] LABS: BUN/Creatinine Ratio 11; Blood Urea Nitrogen 15 mg/dL (7-17); Calcium 8.8 mg/dL (8.4-10.2); Hemolysis Index 6
--- NOTE | 2021-06-22 13:55 | XRay Report ---
XR chest 1V ap INDICATION / CLINICAL INFORMATION: left cp. COMPARISON: 06/11/2020 FINDINGS: SUPPORT DEVICES: None. HEART /PULMONARY VASCULATURE: No significant abnormality. LUNGS / PLEURA: No acute pulmonary or pleural abnormality. No pneumothorax. IMPRESSION: 1. No acute findings. Signer Name: Isreal Thurman MD Signed: 06/22/2021 1:51 PM Workstation Name: [id number]
[2021-06-22] MEDS ORDERED: ONDANSETRON 4 MG/2 ML INJ ONE (14:26)
[2021-06-22] MEDS ORDERED: HALOPERIDOL LACTATE 5 MG/1 ML INJ IV ONE (15:14)
[2021-06-22 17:13] VITALS: BP 110/62
--- NOTE | 2021-06-23 10:25 | Electrocardiograph Report ---
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
--- NOTE | 2021-06-23 10:26 | Electrocardiograph Report ---
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
== END 2021-06-23 01:30 | disposition home or self-care (01) ==
LOC: ED 12:42
DX: R07.9 Chest pain, unspecified (principal); J44.1 Chronic obstructive pulmonary disease with (acute) exacerbation; Z72.0 Tobacco use; Z88.5 Allergy status to narcotic agent; I10 Essential (primary) hypertension
CPT/HCPCS: 36415; 71045; 80048; 83735; 84484; 85027; 93005; 94640; 96361; 96374; 99284; J1630; J2405; J7030; Q0162

== ENCOUNTER 2021-09-27 05:29 | Inpatient (IN) | payer MEDICAID, MEDICARE ==
[2021-09-27] MEDS ORDERED: ONDANSETRON 4 MG/2 ML INJ IV ONE (07:16)
[2021-09-27] MEDS ORDERED: MORPHINE 4 MG/1 ML INJ IV ONE (07:16)
[2021-09-27] MEDS ORDERED: diphenhydrAMINE 50 MG/ML VIAL IV ONE (07:17)
[2021-09-27] MEDS ORDERED: methylPREDNISolone Sod Succinate 125 MG/2 ML INJ IV ONE (07:17)
[2021-09-27] MEDS ORDERED: MAGNESIUM SULFATE 2 GM/50 ML BAG IV ONE (07:18)
--- NOTE | 2021-09-27 07:24 | Emergency Department Report ---
ED Shortness of Breath HPI - General Chief Complaint: Dyspnea/Respdistress Stated Complaint: JING Time Seen by Provider: 09/27/21 07:05 Source: patient, old records reviewed Mode of arrival: Stretcher Limitations: No Limitations - History of Present Illness Initial Comments: 70-year-old female with past medical history of hypertension, liver disease, COPD currently on 3L home O2, A. fib (not on anticoagulation) presents to the hospital complaining of chest pain and shortness of breath since last night. Patient complains of left-sided sharp chest pain that is worse with coughing and moderate in intensity. No alleviating factors reported. Patient reports increased cough productive of phlegm and wheezing. Patient received albuterol 5 mg in route with EMS with some improvement. She is chronically nonambulatory. Patient was recently here in August for COPD exacerbation requiring BiPAP support and reports that she was admitted 3 weeks ago at [facility] for chest pain work-up. Contrary to medical record review patient states she was vaccinated for COVID. - Related Data Previous Rx's Medication Instructions Recorded Last Taken Type Pantoprazole [Protonix TAB] 40 mg PO QDAY #30 tablet 04/30/19 Unknown Rx Albuterol Sulfate [Proair 90 mcg IH Q4HR PRN #2 aer.pow.ba 06/02/20 Unknown Rx Respiclick] predniSONE [Deltasone] 40 mg PO QDAY #8 tab 06/02/20 Unknown Rx oxyCODONE /ACETAMINOPHEN [Percocet 1 tab PO Q6H PRN #4 tablet 06/12/20 Unknown Rx 5/325 mg] Albuterol Mdi (or & Nicu Only) 2 puff IH QID PRN #8.5 gram 09/04/21 Unknown Rx [ProAir HFA Inhaler] Aspirin [Aspirin BABY CHEW TAB] 81 mg PO QDAY tab.chew 09/04/21 Unknown Rx Budesonide/Formoterol Fumarate 2 puff IH BID 30 Days #1 pump 09/04/21 Unknown Rx [Symbicort 160-4.5 Mcg Inhaler] Melatonin [Melatonin 10MG ER] 10 mg PO QHS 30 Days #30 tab 09/04/21 Unknown Rx Tiotropium [place] [Spiriva] 1 puff IH DAILY 30 Days #1 pump 09/04/21 Unknown Rx dexAMETHasone [Decadron] 4 mg PO DAILY 5 Days #13 tab 09/04/21 Unknown Rx Lactulose [Cephulac] 20 gm PO QDAY 30 Days #1 bottle 09/05/21 Unknown Rx Allergies Allergy/AdvReac Type Severity Reaction Status Date / Time codeine Allergy Hives Verified 09/30/18 00:33 prednisone Allergy Rash Verified 09/30/18 00:33 ED Review of Systems ROS: Stated complaint: JING Other details as noted in HPI Comment: All other systems reviewed and negative ED Past Medical Hx - Past Medical History Previous Medical History?: Yes Hx Hypertension: Yes (lasix) Hx Congestive Heart Failure: No Hx Diabetes: No Hx Pulmonary Embolism: No Hx Liver Disease: Yes (hepatitis A) Hx Renal Disease: No Hx Arthritis: No Hx Kidney Stones: No Hx Psychiatric Treatment: Yes (Apparently has previous overdose; on Lexapro and Xanax) Hx Asthma: No Hx COPD: Yes Hx Tuberculosis: No Hx HIV: No Additional medical history: a-fib. CARPAL TUNNEL. Back pain - Surgical History Past Surgical History?: Yes Hx Cholecystectomy: No Hx Appendectomy: No Hx Breast Surgery: No Additional Surgical History: BILATERAL CATARACTS REMOVED; LENS SURGERY. BALLOON IN BACK - Social History Smoking Status: Never Smoker Substance Use Type: None - Medications Home Medications: Home Medications Medication Instructions Recorded Confirmed Last Taken Type Pantoprazole [Protonix TAB] 40 mg PO QDAY #30 tablet 04/30/19 09/03/21 Unknown Rx Albuterol Sulfate [Proair 90 mcg IH Q4HR PRN #2 aer.pow.ba 06/02/20 09/03/21 Unknown Rx Respiclick] predniSONE [Deltasone] 40 mg PO QDAY #8 tab 06/02/20 09/03/21 Unknown Rx oxyCODONE /ACETAMINOPHEN [Percocet 1 tab PO Q6H PRN #4 tablet 06/12/20 09/03/21 Unknown Rx 5/325 mg] Albuterol Mdi (or & Nicu Only) 2 puff IH QID PRN #8.5 gram 09/04/21 Unknown Rx [ProAir HFA Inhaler] Aspirin [Aspirin BABY CHEW TAB] 81 mg PO QDAY tab.chew 09/04/21 Unknown Rx Budesonide/Formoterol Fumarate 2 puff IH BID 30 Days #1 pump 09/04/21 Unknown Rx [Symbicort 160-4.5 Mcg Inhaler] Melatonin [Melatonin 10MG ER] 10 mg PO QHS 30 Days #30 tab 09/04/21 Unknown Rx Tiotropium [place] [Spiriva] 1 puff IH DAILY 30 Days #1 pump 09/04/21 Unknown Rx dexAMETHasone [Decadron] 4 mg PO DAILY 5 Days #13 tab 09/04/21 Unknown Rx Lactulose [Cephulac] 20 gm PO QDAY 30 Days #1 bottle 09/05/21 Unknown Rx ED Physical Exam - General Limitations: No Limitations - Other Other exam information: General: No acute distress Head: Atraumatic Eyes: normal appearance ENT: Moist mucous membranes Neck: Normal appearance, no midline tenderness Chest: Mild expiratory wheeze bilaterally without tachypnea, or accessory muscle use. Mild reproducible left-sided chest wall tenderness CV: Regular rate and rhythm Abdomen: Soft, normal bowel sounds, nontender, nondistended, no rebound or guarding Back: Normal inspection Extremity: Normal inspection, full range of motion, no calf tenderness or leg edema Neuro: Alert O x 3, no facial asymmetry, speech clear, no gross motor sensory deficit Psych: Appropriate behavior Skin: No rash ED Course Vital Signs 09/27/21 09/27/21 09/27/21 06:14 07:00 08:20 Temperature 98 F Pulse Rate 88 88 Pulse Rate [ 90 Bilateral] Respiratory 18 22 Rate Respiratory 18 Rate [Bilateral ] Blood Pressure 143/90 Blood Pressure 119/58 [Left] O2 Sat by Pulse 96 96 Oximetry - Reevaluation(s) Reevaluation #1: 09/27/21 12:05 Patient still with persistent wheezing. States she already has steroids at home. Will admit for COPD exacerbation. Respiratory therapist attempted ABG but patient refused ED Medical Decision Making - Lab Data Result diagrams: 09/27/21 07:21 09/27/21 07:21 Lab Results 09/27/21 09/27/21 09/27/21 Range/Units 07:21 07:21 07:21 WBC 4.1 L (4.5-11.0) K/mm3 RBC 3.03 L (3.65-5.03) M/mm3 Hgb 9.9 L (10.1-14.3) gm/dl Hct 30.9 (30.3-42.9) % MCV 102 H (79-97) fl MCH 33 H (28-32) pg MCHC 32 (30-34) % RDW 15.1 (13.2-15.2) % Plt Count 101 L (140-440) K/mm3 Lymph % (Auto) 34.9 (13.4-35.0) % [place] % (Auto) 8.2 H (0.0-7.3) % Eos % (Auto) 1.3 (0.0-4.3) % Baso % (Auto) [place] Lymph # (Auto) 1.4 (1.2-5.4) K/mm3 [place] # (Auto) 0.3 (0.0-0.8) K/mm3 Eos # (Auto) 0.1 (0.0-0.4) K/mm3 Baso # (Auto) 0.0 (0.0-0.1) K/mm3 Seg Neutrophils % 55.1 (40.0-70.0) % Seg Neutrophils # 2.3 (1.8-7.7) K/mm3 PT 12.1 L (12.2-14.9) Sec. INR 0.82 L (0.87-1.13) APTT 28.7 (24.2-36.6) Sec. D-Dimer 358.71 H (0-234) ng/mlDDU Sodium 144 (137-145) mmol/L Potassium 4.9 (3.6-5.0) mmol/L Chloride 108.6 H (98-107) mmol/L Carbon Dioxide 30 (22-30) mmol/L Anion Gap 10 mmol/L BUN 15 (7-17) mg/dL Creatinine 1.1 (0.6-1.2) mg/dL Estimated GFR 49 ml/min BUN/Creatinine Ratio 14 % Glucose 93 (65-100) mg/dL Calcium 8.7 (8.4-10.2) mg/dL Total Bilirubin 0.20 (0.1-1.2) mg/dL AST 22 (5-40) units/L ALT 47 (7-56) units/L Alkaline Phosphatase 242 H (35-129) units/L Troponin T < 0.010 (0.00-0.029) ng/mL NT-Pro-B Natriuret Pep (0-900) pg/mL Total Protein 6.5 (6.3-8.2) g/dL Albumin 3.7 L (3.9-5) g/dL Albumin/Globulin Ratio 1.3 % 09/27/21 09/27/21 Range/Units 07:30 09:07 WBC (4.5-11.0) K/mm3 RBC (3.65-5.03) M/mm3 Hgb (10.1-14.3) gm/dl Hct (30.3-42.9) % MCV (79-97) fl MCH (28-32) pg MCHC (30-34) % RDW (13.2-15.2) % Plt Count (140-440) K/mm3 Lymph % (Auto) (13.4-35.0) % [place] % (Auto) (0.0-7.3) % Eos % (Auto) (0.0-4.3) % Baso % (Auto) Lymph # (Auto) (1.2-5.4) K/mm3 [place] # (Auto) (0.0-0.8) K/mm3 Eos # (Auto) (0.0-0.4) K/mm3 Baso # (Auto) (0.0-0.1) K/mm3 Seg Neutrophils % (40.0-70.0) % Seg Neutrophils # (1.8-7.7) K/mm3 PT (12.2-14.9) Sec. INR (0.87-1.13) APTT (24.2-36.6) Sec. D-Dimer (0-234) ng/mlDDU Sodium (137-145) mmol/L Potassium (3.6-5.0) mmol/L Chloride (98-107) mmol/L Carbon Dioxide (22-30) mmol/L Anion Gap mmol/L BUN (7-17) mg/dL Creatinine (0.6-1.2) mg/dL Estimated GFR ml/min BUN/Creatinine Ratio % Glucose (65-100) mg/dL Calcium (8.4-10.2) mg/dL Total Bilirubin (0.1-1.2) mg/dL AST (5-40) units/L ALT (7-56) units/L Alkaline Phosphatase (35-129) units/L Troponin T < 0.010 (0.00-0.029) ng/mL NT-Pro-B Natriuret Pep 497.4 (0-900) pg/mL Total Protein (6.3-8.2) g/dL Albumin (3.9-5) g/dL Albumin/Globulin Ratio % - EKG Data -: EKG Interpreted by Me EKG shows normal: sinus rhythm, ST-T waves (no stemi) Rate: normal - EKG Data When compared to previous EKG there are: no significant change - Radiology Data Radiology results: report reviewed CHEST 1 VIEW INDICATION / CLINICAL INFORMATION: Chest Pain. COMPARISON: Chest x-ray 09/04/2021 FINDINGS: SUPPORT DEVICES: None. HEART / MEDIASTINUM: Stable interval appearance of the cardiomediastinal silhouette. LUNGS / PLEURA: Bilateral lung opacities demonstrate no significant interval change. BONES: No significant osseous abnormality. ADDITIONAL FINDINGS: No significant additional findings. IMPRESSION: 1. No significant change. Nonspecific mild interstitial prominence is stable. CTA CHEST WITH CONTRAST INDICATION / CLINICAL INFORMATION: Pt complains of chest pain with S.O.B.. TECHNIQUE: Axial CT images were obtained through the chest after injection of 100 mL Omnipaque 350 IV contrast. 3 plane MIP and/or 3D reconstructions were produced. All CT scans at this location are performed using CT dose reduction for ALARA by means of automated exposure control. COMPARISON: Images from CT dated 04/08/19 are not available at the current time. Report was reviewed. FINDINGS: PULMONARY EMBOLUS: None. THORACIC AORTA: Mild atherosclerotic calcification without acute abnormality. HEART: Heart is normal size. Mild pericardial calcification along the right heart border. CORONARY ARTERY CALCIFICATION: Absent -- None. MEDIASTINUM / BLAKE: No significant abnormality. PLEURA: No pleural effusion. No pneumothorax. LUNGS: No acute air space or interstitial disease. Mild to moderate upper lobe predominant pulmonary emphysema. Fontenot granuloma in the right middle lobe. ADDITIONAL FINDINGS: None. UPPER ABDOMEN: Tiny calcified gallstones in the gallbladder without acute inflammation. SKELETAL STRUCTURES: No significant osseous abnormality. IMPRESSION: 1. No CT evidence for pulmonary embolism. 2. No acute pulmonary or pleural findings. Mild to moderate pulmonary emphysema. - Medical Decision Making 70-year-old female with COPD presents to the hospital with wheezing, shortness of breath, chest pain. Chest pain is atypical in nature. EKG unremarkable for acute changes and patient has negative troponin x2. She also reports recent work-up at [facility] for chest pain. Patient has a mild elevation in D- dimer with a negative CT angiogram chest for pulmonary embolism or pneumonia. CT significant only for emphysema. Patient treated in the ED with steroids, magnesium, and bronchodilators and have persistent wheezing. Patient has chronic hypoxic respiratory failure with 3 L home O2 dependence and home steroid use. ABG attempted by respiratory therapist but patient subsequently refused. Case discussed with the hospitalist for admission. Critical Care Time: No Critical care attestation.: If time is entered above; I have spent that time in minutes in the direct care of this critically ill patient, excluding procedure time. ED Disposition Clinical Impression: COPD with acute exacerbation, Chronic respiratory failure with hypoxia, Chest pain Disposition: ADMITTED INPATIENT Is pt being admited?: Yes Condition: Stable Instructions: Nonspecific Chest Pain, Adult, Chronic Obstructive Pulmonary Disease (ED) Time of Disposition: 12:07 (DR Ross/hospitalist)
--- NOTE | 2021-09-27 07:46 | XRay Report ---
CHEST 1 VIEW INDICATION / CLINICAL INFORMATION: Chest Pain. COMPARISON: Chest x-ray 09/04/2021 FINDINGS: SUPPORT DEVICES: None. HEART / MEDIASTINUM: Stable interval appearance of the cardiomediastinal silhouette. LUNGS / PLEURA: Bilateral lung opacities demonstrate no significant interval change. BONES: No significant osseous abnormality. ADDITIONAL FINDINGS: No significant additional findings. IMPRESSION: 1. No significant change. Nonspecific mild interstitial prominence is stable. Signer Name: Rustam Duggan II, MD Signed: 09/27/2021 7:41 AM Workstation Name: [id number]
[2021-09-27] MEDS ORDERED: IPRATROPIUM/ALBUTEROL SULFATE 3 ML AMPUL.NEB IH ONE (07:55)
[2021-09-27 08:19] LABS: INR 0.82 (0.87-1.13)
[2021-09-27 08:20] LABS: Partial Thromboplastin Time 28.7 Sec. (24.2-36.6)
[2021-09-27 08:24] LABS: Eosinophils # (Auto) 0.1 K/mm3 (0.0-0.4); Eosinophils % (Auto) 1.3 % (0.0-4.3); Hematocrit 30.9 % (30.3-42.9); Hemoglobin 9.9 gm/dl (10.1-14.3); Lymphocytes # (Auto) 1.4 K/mm3 (1.2-5.4); Lymphocytes % (Auto) 34.9 % (13.4-35.0); Mean Corpuscular HGB Conc 32 % (30-34); Mean Corpuscular Volume 102 fl (79-97); Monocytes # (Auto) 0.3 K/mm3 (0.0-0.8); Monocytes % (Auto) 8.2 % (0.0-7.3); Platelet Count 101 K/mm3 (140-440); Red Blood Count 3.03 M/mm3 (3.65-5.03); Red Cell Distribution Width 15.1 % (13.2-15.2)
[2021-09-27 08:28] LABS: Alanine Aminotransferase 47 units/L (7-56); Albumin 3.7 g/dL (3.9-5); BUN/Creatinine Ratio 14; Blood Urea Nitrogen 15 mg/dL (7-17); Calcium 8.7 mg/dL (8.4-10.2); Hemolysis Index 3
[2021-09-27] MEDS ORDERED: ALBUTEROL 2.5 MG/3 ML NEBU IH ONE ×2 (08:48→12:05)
--- NOTE | 2021-09-27 09:52 | Cat Scan Report ---
CTA CHEST WITH CONTRAST INDICATION / CLINICAL INFORMATION: Pt complains of chest pain with S.O.B.. TECHNIQUE: Axial CT images were obtained through the chest after injection of 100 mL Omnipaque 350 IV contrast. 3 plane MIP and/or 3D reconstructions were produced. All CT scans at this location are per formed using CT dose reduction for ALARA by means of automated exposure control. COMPARISON: Images from CT dated 04/08/19 are not available at the current time. Report was reviewed. FINDINGS: PULMONARY EMBOLUS: None. THORACIC AORTA: Mild atherosclerotic calcification without acute abnormality. HEART: Heart is normal size. Mild pericardial calcification along the right heart border. CORONARY ARTERY CALCIFICATION: Absent -- None. MEDIASTINUM / BLAKE: No significant abnormality. PLEURA: No pleural effusion. No pneumothorax. LUNGS: No acute air space or interstitial disease. Mild to moderate upper lobe predominant pulmonary emphysema. Fontenot granuloma in the right middle lobe. ADDITIONAL FINDINGS: None. UPPER ABDOMEN: Tiny calcified gallstones in the gallbladder without acute inflammation. SKELETAL STRUCTURES: No significant osseous abnormality. IMPRESSION: 1. No CT evidence for pulmonary embolism. 2. No acute pulmonary or pleural findings. Mild to moderate pulmonary emphysema. Signer Name: Jorge Williamson MD Signed: 09/27/2021 9:48 AM Workstation Name: [id number]
--- NOTE | 2021-09-27 12:09 | History and Physical Report ---
History of Present Illness Chief complaint: My chest feels tight and I cannot breathe History of present illness: 70 YO Female with End Stage COPD, Chronic Respiratory Failure on 3L Home Oxygen via [place], Nicotine Dependence, HTN, HAV, GERD, Paroxysmal Atrial Fib not currently on therapeutic Anticoagulation presents to ED for evaluation. Patient reports "my chest feels tight and I cannot breathe". Pt states that over the past week she has experienced increased shortness of breath, productive cough with increased production of yellow/brown sputum over the with worsening symptoms over the past 2 days. Pt also complains of chest discomfort which is associated with coughing episodes. Patient has treated symptoms with increased nebulizer therapy without relief. EMS was notified and upon arrival the patient was found to be in distress and subsequent transported to [facility] for further care and evaluation of the aforementioned symptoms. Pt seen and evaluated in ED. All lab and imaging studies reviewed. The patient was found to have a pulse oximetry of 84% on room air which is consistent with acute hypoxemic respiratory failure with symptoms suspected secondary to acute COPD exacerbation. Patient treated with supplemental oxygen with no significant improvement in symptoms. Pt treated with NIPPV and admitted to medical floor due to increased risk of worsening symptoms and for medical stabilization. Pt denies fever, chills, CP, Palpitations, NVD, Syncope, BRBPR, unintentional weight loss, night sweats, or known exposure to COVID-19. Prior admission on 09/03/2021 reviewed. All medication listed at time of admission has been reconciled. Advanced care planning conducted in ED. Past History Past Medical History: atrial fib, COPD, hypertension, other (See HPI) Past Surgical History: cataract removal, Other (Spine surgery) Social history: single, smoking Family history: hypertension Medications and Allergies Allergies Allergy/AdvReac Type Severity Reaction Status Date / Time codeine Allergy Hives Verified 09/30/18 00:33 prednisone Allergy Rash Verified 09/30/18 00:33 Home Medications Medication Instructions Recorded Confirmed Last Taken Type Pantoprazole [Protonix TAB] 40 mg PO QDAY #30 tablet 04/30/19 09/03/21 Unknown Rx Albuterol Sulfate [Proair 90 mcg IH Q4HR PRN #2 aer.pow.ba 06/02/20 09/03/21 Unknown Rx Respiclick] predniSONE [Deltasone] 40 mg PO QDAY #8 tab 06/02/20 09/03/21 Unknown Rx oxyCODONE /ACETAMINOPHEN [Percocet 1 tab PO Q6H PRN #4 tablet 06/12/20 09/03/21 Unknown Rx 5/325 mg] Albuterol Mdi (or & Nicu Only) 2 puff IH QID PRN #8.5 gram 09/04/21 Unknown Rx [ProAir HFA Inhaler] Aspirin [Aspirin BABY CHEW TAB] 81 mg PO QDAY tab.chew 09/04/21 Unknown Rx Budesonide/Formoterol Fumarate 2 puff IH BID 30 Days #1 pump 09/04/21 Unknown Rx [Symbicort 160-4.5 Mcg Inhaler] Melatonin [Melatonin 10MG ER] 10 mg PO QHS 30 Days #30 tab 09/04/21 Unknown Rx Tiotropium [place] [Spiriva] 1 puff IH DAILY 30 Days #1 pump 09/04/21 Unknown Rx dexAMETHasone [Decadron] 4 mg PO DAILY 5 Days #13 tab 09/04/21 Unknown Rx Lactulose [Cephulac] 20 gm PO QDAY 30 Days #1 bottle 09/05/21 Unknown Rx Review of Systems Constitutional: no weight loss, no weight gain, no fever, no chills Ears, nose, mouth and throat: no ear pain, no tinnitis, no nasal congestion Breasts: no change in shape, no swelling, no mass Cardiovascular: no chest pain, no palpitations Respiratory: cough, cough with sputum, excessive sputum, shortness of breath Gastrointestinal: no abdominal pain, no nausea, no diarrhea, no constipation, no change in bowel habits Genitourinary Female: no pelvic pain, no flank pain, no dysuria, no urinary frequency, no urgency Rectal: no pain, no incontinence, no bleeding Musculoskeletal: no neck stiffness, no neck pain, no arm numbness/tingling, no low back pain, no shooting leg pain Integumentary: no rash, no redness, no wounds, no jaundice, no boils, no bli sters Neurological: no head injury (Hospitalist), no weakness, no tingling, no seizures, no syncope (231 meantime I began) Exam - Constitutional Vitals: Temp Pulse Resp BP Pulse Ox 98 F 90 18 119/58 96 09/27/21 06:14 09/27/21 08:20 09/27/21 08:20 09/27/21 07:00 09/27/21 07:00 General appearance: Present: mild distress - EENT Eyes: Present: PERRL ENT: hearing intact, clear oral mucosa - Neck Neck: Present: supple - Respiratory Respiratory effort: labored, pursed lips, accessory muscle use Respiratory: bilateral: diminished, rhonchi - Cardiovascular Rhythm: irregularly irregular - Extremities Extremities: pulses symmetrical, No edema Peripheral Pulses: within normal limits - Abdominal General gastrointestinal: Present: soft, non-tender, non-distended, normal bowel sounds Female genitourinary: Present: normal - Integumentary Integumentary: Present: clear, dry - Musculoskeletal Musculoskeletal: generalized weakness - Psychiatric Psychiatric: cooperative - Neurologic Neurologic: CNII-XII intact, moves all extremities HEART Score - HEART Score Troponin: Troponin T < 0.010 ng/mL (0.00-0.029) 09/27/21 09:07 Results - Labs CBC & Chem 7: 09/27/21 07:21 09/27/21 07:21 Labs: Abnormal lab results 09/27/21 09/27/21 09/27/21 Range/Units 07:21 07:21 07:21 WBC 4.1 L (4.5-11.0) K/mm3 RBC 3.03 L (3.65-5.03) M/mm3 Hgb 9.9 L (10.1-14.3) gm/dl MCV 102 H (79-97) fl MCH 33 H (28-32) pg Plt Count 101 L (140-440) K/mm3 [place] % (Auto) 8.2 H (0.0-7.3) % PT 12.1 L (12.2-14.9) Sec. INR 0.82 L (0.87-1.13) D-Dimer 358.71 H (0-234) ng/mlDDU Chloride 108.6 H (98-107) mmol/L Alkaline Phosphatase 242 H (35-129) units/L Albumin 3.7 L (3.9-5) g/dL Assessment and Plan - Patient Problems (1) Acute respiratory failure with hypoxia Current Visit: No Status: Acute Plan to address problem: Chest x-ray, CT angio chest, supplemental oxygen, pulse oximetry, nebulizer therapy, noninvasive positive pressure ventilation, pulmonary toilet. (2) COPD with acute exacerbation Current Visit: No Status: Acute Plan to address problem: Supplemental oxygen, pulse oximetry, nebulizer therapy, IV steroid therapy, supportive care. (3) Paroxysmal atrial fibrillation Current Visit: No Status: Acute Plan to address problem: Supportive care, rate control, continue medical management. Risk benefits discussed. Patient elects to continue aspirin therapy and declines therapeutic anticoagulation. Patient knowledges understanding risks and benefits and elects to continue current care. Patient acknowledges understanding instructions. (4) LYNDA (generalized anxiety disorder) Current Visit: No Status: Chronic Plan to address problem: Benzodiazepine therapy as clinically indicated. (5) HTN (hypertension) Current Visit: No Status: Chronic Qualifiers: Hypertension type: primary hypertension Qualified Code(s): I10 - Essential (primary) hypertension Plan to address problem: Monitor blood pressure every shift, continue medical management. (6) GERD (gastroesophageal reflux disease) Current Visit: No Status: Chronic Qualifiers: Esophagitis presence: without esophagitis Plan to address problem: PPI therapy, supportive care. (7) DVT prophylaxis Current Visit: No Status: Acute Plan to address problem: SCD to bilateral extremities while in bed (8) Advance care planning Current Visit: Yes Status: Acute Plan to address problem: Disease education conducted, care plan discussed, diagnoses discussed, prognosis discussed, patient is full code. Patient knowledges understanding and agreement with care plan, +30 minutes. (9) Preventative health care Current Visit: Yes Status: Acute Plan to address problem: Patient counseled regarding medication compliance, risk factor reduction, home safety precautions. Patient instructed to follow-up with primary care physician for all age and risk factor appropriate screening tests. +30 minutes.
[2021-09-27] MEDS ORDERED: ACETAMINOPHEN 325 MG TAB PO PRN (12:11)
[2021-09-27] MEDS ORDERED: ALBUTEROL 2.5 MG/3 ML NEBU IH PRN (12:11)
[2021-09-27] MEDS ORDERED: HYDROmorphone 0.5 MG/0.5 ML INJ IV PRN (12:11)
[2021-09-27] MEDS ORDERED: HYDROmorphone 1 MG/1 ML INJ ONE (14:36)
[2021-09-27] MEDS: methylPREDNISolone Sod Succinate 40 MG/1 ML INJ IV SCH ×2 (17:49→21:40)
[2021-09-27] MEDS: ALPRAZolam 0.5 MG TAB PO PRN (17:56)
[2021-09-27] MEDS: oxyCODONE /ACETAMINOPHEN 5-325MG TAB PO PRN (20:10)
[2021-09-27] MEDS: HEPARIN 5,000 UNIT/1 ML VIAL SUB-Q SCH (21:40)
[2021-09-27] MEDS: MELATONIN 5 MG TAB PO PRN (21:42)
--- NOTE | 2021-09-27 21:43 | Electrocardiograph Report ---
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
[2021-09-27] MEDS: ONDANSETRON 4 MG/2 ML INJ IV PRN (21:59)
[2021-09-27] MEDS ORDERED: MELATONIN 5 MG TAB PO SCH (22:00)
[2021-09-27] MEDS ORDERED: MELATONIN 10 MG PO SCH (22:00)
[2021-09-28] MEDS: methylPREDNISolone Sod Succinate 40 MG/1 ML INJ IV SCH ×3 (05:57→22:33)
[2021-09-28] MEDS: oxyCODONE /ACETAMINOPHEN 5-325MG TAB PO PRN ×2 (06:13→22:30)
[2021-09-28] MEDS: ALPRAZolam 0.5 MG TAB PO PRN ×2 (06:13→17:23)
[2021-09-28 06:26] LABS: Calcium 8.7 mg/dL (8.4-10.2)
[2021-09-28] MEDS: ASPIRIN 81 MG TAB CHEW PO SCH (09:07)
[2021-09-28] MEDS: HEPARIN 5,000 UNIT/1 ML VIAL SUB-Q SCH ×2 (09:07→22:33)
[2021-09-28] MEDS: PANTOPRAZOLE 40 MG TAB PO SCH (09:07)
[2021-09-28] MEDS: LACTULOSE 20 GM/30 ML ORAL LIQD PO SCH (09:07)
[2021-09-28] MEDS: TIOTROPIUM 18 MCG CAP INHALATION IH SCH (10:05)
[2021-09-28] MEDS: ONDANSETRON 4 MG/2 ML INJ IV PRN (13:37)
--- NOTE | 2021-09-28 16:42 | Progress Note ---
Assessment and Plan 70 YO Female with End Stage COPD, Chronic Respiratory Failure on 3L Home Oxygen via NC, Nicotine Dependence, HTN, HAV, GERD, Paroxysmal Atrial Fib not currently on therapeutic Anticoagulation presents to ED for evaluation of worsening akilah rtness of breath. 09/28: Continue supportive care, supplemental O2, nebulizer breathing treatment, empiric steroid, antibiotics. Possible DC in 1 to 2 days if clinically stable. CTA chest without any PE and showed moderate emphysema. Assessment and plan: -- Acute respiratory failure with hypoxia Current Visit: No Status: Acute Plan to address problem: Likely due to underlying COPD exacerbation chest x-ray, CT angio chest, supplemental oxygen, pulse oximetry, nebulizer therapy, noninvasive positive pressure ventilation, pulmonary toilet. --COPD with acute exacerbation Current Visit: No Status: Acute Plan to address problem: Supplemental oxygen, pulse oximetry, nebulizer therapy, IV steroid therapy, supportive care. -- Paroxysmal atrial fibrillation Current Visit: No Status: Acute Plan to address problem: Supportive care, rate control, continue medical management. Risk benefits discussed. Patient elects to continue aspirin therapy and declines therapeutic anticoagulation. Patient knowledges understanding risks and benefits and elects to continue current care. Patient acknowledges understanding instructions. -- LYNDA (generalized anxiety disorder) Current Visit: No Status: Chronic Plan to address problem: Benzodiazepine therapy as clinically indicated. -- HTN (hypertension) Current Visit: No Status: Chronic Qualifiers: Hypertension type: primary hypertension Qualified Code(s): I10 - Essential (primary) hypertension Plan to address problem: Monitor blood pressure every shift, continue medical management. -- GERD (gastroesophageal reflux disease) Current Visit: No Status: Chronic Qualifiers: Esophagitis presence: without esophagitis Plan to address problem: PPI therapy, supportive care. -- Hyperkalemia, will repeat BMP -- DVT prophylaxis Current Visit: No Status: Acute Plan to address problem: SCD to bilateral extremities while in bed -- Advance care planning Current Visit: Yes Status: Acute Plan to address problem: Disease education conducted, care plan discussed, diagnoses discussed, prognosis discussed, patient is full code. Patient knowledges understanding and agreement with care plan, +30 minutes. -- Preventative health care Current Visit: Yes Status: Acute Plan to address problem: Patient counseled regarding medication compliance, risk factor reduction, home safety precautions. Patient instructed to follow-up with primary care physician for all age and risk factor appropriate screening tests. +30 minutes. Subjective Date of service: 09/28/21 Interval history: Patient seen and examined. Medical records and medication list reviewed. No acute event overnight noted by the RN. Patient continues to complains of difficulty breathing even on resting. Patient is tolerating diet. Discussed plan of care at bedside with patient. Objective - Exam Narrative Exam: GENERAL: Elderly white female lying on bed appeared to be in no discomfort. HEENT: Normocephalic. Atraumatic. No conjunctival congestion or icterus. Patient has moist mucous membranes. NECK: Supple. Trachea midline. CHEST/LUNGS: Diminished breath sound auscultated bilaterally, breathing n onlabored. No wheezes crackles or rhonchi. HEART/CARDIOVASCULAR: Regular in rate and rhythm. S1 and S2 positive. ABDOMEN: Abdomen is soft, nontender. Patient has normal bowel sounds. SKIN: There is no rash. Warm and dry. NEURO: No focal motor deficit. Follows command. MUSCULOSKELETAL: No joint effusion or tenderness. EXTRIMITY: No edema, no cyanosis or clubbing. PSYCH: Cooperative. - Constitutional Vitals: Vital Signs - 12hr 09/28/21 09/28/21 09/28/21 06:18 08:27 10:06 Temperature 97.3 F L 98.3 F Pulse Rate 75 80 Respiratory 16 Rate Blood Pressure 113/56 115/49 O2 Sat by Pulse 96 96 97 Oximetry 09/28/21 09/28/21 14:00 15:55 Temperature 98.3 F Pulse Rate 81 Respiratory 20 Rate Blood Pressure 130/52 O2 Sat by Pulse 94 97 Oximetry - Labs CBC & Chem 7: 09/27/21 07:21 09/28/21 05:45 Labs: Abnormal lab results 09/28/21 Range/Units 05:45 Potassium 5.3 H (3.6-5.0) mmol/L BUN 26 H (7-17) mg/dL Glucose 153 H (65-100) mg/dL HEART Score - HEART Score Troponin: Troponin T < 0.010 ng/mL (0.00-0.029) 09/27/21 13:00
[2021-09-28] MEDS: AZITHROMYCIN 250 MG TAB PO SCH (17:23)
[2021-09-28] MEDS: ALUM-MAG HYDROXIDE-SIMETHICONE 200-200-20MG/5ML ORAL LIQD 30 ML PO PRN (20:48)
[2021-09-28] MEDS: MELATONIN 5 MG TAB PO PRN (20:50)
[2021-09-28] MEDS: ALBUTEROL 2.5 MG/3 ML NEBU IH PRN (22:46)
[2021-09-29] MEDS: ALPRAZolam 0.5 MG TAB PO PRN ×3 (02:15→22:14)
[2021-09-29] MEDS: methylPREDNISolone Sod Succinate 40 MG/1 ML INJ IV SCH ×3 (05:03→22:15)
[2021-09-29 05:05] LABS: Calcium 8.3 mg/dL (8.4-10.2)
[2021-09-29] MEDS: ALBUTEROL 2.5 MG/3 ML NEBU IH PRN ×2 (08:09→20:16)
[2021-09-29] MEDS: ALUM-MAG HYDROXIDE-SIMETHICONE 200-200-20MG/5ML ORAL LIQD 30 ML PO PRN ×3 (08:30→17:56)
[2021-09-29] MEDS: TIOTROPIUM 18 MCG CAP INHALATION IH SCH (09:10)
[2021-09-29] MEDS: PANTOPRAZOLE 40 MG TAB PO SCH (09:35)
[2021-09-29] MEDS: HEPARIN 5,000 UNIT/1 ML VIAL SUB-Q SCH ×2 (09:35→22:16)
[2021-09-29] MEDS: AZITHROMYCIN 250 MG TAB PO SCH (09:35)
[2021-09-29] MEDS: ASPIRIN 81 MG TAB CHEW PO SCH (09:35)
[2021-09-29] MEDS: LACTULOSE 20 GM/30 ML ORAL LIQD PO SCH (09:36)
--- NOTE | 2021-09-29 09:58 | Progress Note ---
Assessment and Plan Assessment and plan: 70 YO Female with End Stage COPD, Chronic Respiratory Failure on 3L Home Oxygen via NC, Nicotine Dependence, HTN, HAV, GERD, Paroxysmal Atrial Fib not currently on therapeutic Anticoagulation presents to ED for evaluation of worsening shortness of breath. 09/28: Continue supportive care, supplemental O2, nebulizer breathing treatment, empiric steroid, antibiotics. Possible DC in 1 to 2 days if clinically stable. CTA chest without any PE and showed moderate emphysema. Assessment and plan: -- Acute respiratory failure with hypoxia Likely due to underlying COPD exacerbation chest x-ray, CT angio chest, supplemental oxygen, pulse oximetry, nebulizer therapy, noninvasive positive pressure ventilation, pulmonary toilet. --COPD with acute exacerbation Supplemental oxygen, pulse oximetry, nebulizer therapy, IV steroid therapy, supportive care. -- Paroxysmal atrial fibrillation Supportive care, rate control, continue medical management. Risk benefits discussed. Patient elects to continue aspirin therapy and declines therapeutic anticoagulation. Patient knowledges understanding risks and benefits and elects to continue current care. Patient acknowledges understanding instructions. -- LYNDA (generalized anxiety disorder) Benzodiazepine therapy as clinically indicated. -- HTN (hypertension) Monitor blood pressure every shift, continue medical management. -- GERD (gastroesophageal reflux disease) PPI therapy, supportive care. --hypokalemia ; K5.4 Kayexalate ,follow electrolytes -- DVT prophylaxis SCD to bilateral extremities while in bed -- Advance care planning Disease education conducted, care plan discussed, diagnoses discussed, prognosis discussed, patient is full code. Patient knowledges understanding and agreement with care plan, +30 minutes. -- Preventive health care Patient counseled regarding medication compliance, risk factor reduction, home safety precautions. Patient instructed to follow-up with primary care physician for all age and risk factor appropriate screening tests. +30 minutes. DC planning per case management Follow-up PT OT History Interval history: I have seen and examined the patient at the bedside Patient's chart and medications reviewed Vital signs noted No new complaints No new overnight events reported by nursing Hospitalist Physical - Constitutional Vitals: Temp Pulse Resp BP Pulse Ox 99.1 F 81 18 110/54 97 09/29/21 08:44 09/29/21 08:33 09/29/21 08:33 09/29/21 08:33 09/29/21 08:33 General appearance: Present: mild distress, well-nourished, cachectic - EENT Eyes: Present: PERRL, EOM intact - Neck Neck: Present: supple, normal ROM - Respiratory Respiratory effort: normal Respiratory: bilateral: diminished, negative: rales, rhonchi, wheezing - Cardiovascular Rhythm: regular Heart Sounds: Present: S1 & S2 - Extremities Extremities: no ischemia, No edema - Abdominal General gastrointestinal: soft, non-tender, non-distended, normal bowel sounds - Integumentary Integumentary: Present: clear, warm - Psychiatric Psychiatric: appropriate mood/affect, cooperative - Neurologic Neurologic: CNII-XII intact, moves all extremities HEART Score - HEART Score Troponin: Troponin T < 0.010 ng/mL (0.00-0.029) 09/27/21 13:00 Results - Labs CBC & Chem 7: 09/27/21 07:21 09/29/21 04:23 Labs: Laboratory Last Values WBC 4.1 K/mm3 (4.5-11.0) L 09/27/21 07:21 RBC 3.03 M/mm3 (3.65-5.03) L 09/27/21 07:21 Hgb 9.9 gm/dl (10.1-14.3) L 09/27/21 07:21 Hct 30.9 % (30.3-42.9) 09/27/21 07:21 MCV 102 fl (79-97) H 09/27/21 07:21 MCH 33 pg (28-32) H 09/27/21 07:21 MCHC 32 % (30-34) 09/27/21 07:21 RDW 15.1 % (13.2-15.2) 09/27/21 07:21 Plt Count 101 K/mm3 (140-440) L 09/27/21 07:21 Lymph % (Auto) 34.9 % (13.4-35.0) 09/27/21 07:21 [place] % (Auto) 8.2 % (0.0-7.3) H 09/27/21 07:21 Eos % (Auto) 1.3 % (0.0-4.3) 09/27/21 07:21 Baso % (Auto) [employer] 09/27/21 07:21 Lymph # (Auto) 1.4 K/mm3 (1.2-5.4) 09/27/21 07:21 [place] # (Auto) 0.3 K/mm3 (0.0-0.8) 09/27/21 07:21 Eos # (Auto) 0.1 K/mm3 (0.0-0.4) 09/27/21 07:21 Baso # (Auto) 0.0 K/mm3 (0.0-0.1) 09/27/21 07:21 Seg Neutrophils % 55.1 % (40.0-70.0) 09/27/21 07:21 Seg Neutrophils # 2.3 K/mm3 (1.8-7.7) 09/27/21 07:21 PT 12.1 Sec. (12.2-14.9) L 09/27/21 07:21 INR 0.82 (0.87-1.13) L 09/27/21 07:21 APTT 28.7 Sec. (24.2-36.6) 09/27/21 07:21 D-Dimer 358.71 ng/mlDDU (0-234) H 09/27/21 07:21 Sodium 140 mmol/L (137-145) 09/29/21 04:23 Potassium 5.4 mmol/L (3.6-5.0) H 09/29/21 04:23 Chloride 103.7 mmol/L (98-107) 09/29/21 04:23 Carbon Dioxide 26 mmol/L (22-30) 09/29/21 04:23 Anion Gap 16 mmol/L 09/29/21 04:23 BUN 34 mg/dL (7-17) H 09/29/21 04:23 Creatinine 1.2 mg/dL (0.6-1.2) 09/29/21 04:23 Estimated GFR 45 ml/min 09/29/21 04:23 BUN/Creatinine Ratio 28 % 09/29/21 04:23 Glucose 144 mg/dL (65-100) H 09/29/21 04:23 Calcium 8.3 mg/dL (8.4-10.2) L 09/29/21 04:23 Total Bilirubin 0.20 mg/dL (0.1-1.2) 09/27/21 07:21 AST 22 units/L (5-40) 09/27/21 07:21 ALT 47 units/L (7-56) 09/27/21 07:21 Alkaline Phosphatase 242 units/L (35-129) H 09/27/21 07:21 Troponin T < 0.010 ng/mL (0.00-0.029) 09/27/21 13:00 NT-Pro-B Natriuret Pep 497.4 pg/mL (0-900) 09/27/21 07:30 Total Protein 6.5 g/dL (6.3-8.2) 09/27/21 07:21 Albumin 3.7 g/dL (3.9-5) L 09/27/21 07:21 Albumin/Globulin Ratio 1.3 % 09/27/21 07:21 Richardson/IV: Voiding Method Toilet Active Medications - Current Medications Current Medications: Generic Name Dose Route Start Last Admin Trade Name Freq PRN Reason Stop Dose Admin Acetaminophen 650 mg 09/27/21 12:11 Acetaminophen 325 Mg Tab PO Q4H PRN Pain MILD(1-3)/Fever >100.5/ARVIZU Al Hydrox/Mg Hydrox/Simethicone 30 ml 09/28/21 19:58 09/29/21 08:30 Alum-Mag Hydroxide-Simethicone [phone]/5ml Oral Liqd 30 Ml PO 30 ml Q4H PRN Administration Indigestion Albuterol 2.5 mg 09/28/21 00:02 09/29/21 08:09 Albuterol 2.5 Mg/3 Ml Nebu IH 2.5 mg Q6HRT PRN Administration Shortness Of Breath Alprazolam 0.5 mg 09/27/21 17:24 09/29/21 02:15 Alprazolam 0.5 Mg Tab PO 0.5 mg Q8H PRN Administration Anxiety Aspirin 81 mg 09/28/21 10:00 09/29/21 09:35 Aspirin 81 Mg Tab Chew PO 81 mg QDAY MICHAEL Administration Azithromycin 500 mg 09/28/21 17:00 09/29/21 09:35 Azithromycin 250 Mg Tab PO 500 mg QDAY MICHAEL Administration Protocol Heparin Sodium (Porcine) 5,000 unit 09/27/21 22:00 09/29/21 09:35 Heparin 5,000 Unit/1 Ml Vial SUB-Q 5,000 unit Q12HR MICHAEL Administration Hydromorphone HCl 0.5 mg 09/27/21 12:11 09/27/21 14:53 Hydromorphone 0.5 Mg/0.5 Ml Inj IV 0.5 mg Q23H PRN Administration Pain , Severe (7-10) Lactulose 20 gm 09/28/21 10:00 09/29/21 09:36 Lactulose 20 Gm/30 Ml Oral Liqd PO 20 gm QDAY MICHAEL Administration Melatonin 10 mg 09/27/21 17:25 09/28/21 20:50 Melatonin 5 Mg Tab PO 10 mg QHS PRN Administration Sleep Methylprednisolone Sodium Succinate 40 mg 09/27/21 14:00 09/29/21 05:03 Methylprednisolone Sod Succinate 40 Mg/1 Ml Inj IV 40 mg Q8HR MICHAEL Administration Ondansetron HCl 4 mg 09/27/21 12:11 09/28/21 13:37 Ondansetron 4 Mg/2 Ml Inj IV 4 mg Q8H PRN Administration Nausea And Vomiting Oxycodone/Acetaminophen 1 tab 09/27/21 12:11 09/28/21 22:30 Oxycodone /Acetaminophen 5-325mg Tab PO 1 tab Q16H PRN Administration Pain, Moderate (4-6) Pantoprazole Sodium 40 mg 09/28/21 10:00 09/29/21 09:35 Pantoprazole 40 Mg Tab PO 40 mg QDAY MICHAEL Administration Sodium Chloride 10 ml 09/27/21 22:00 09/29/21 09:36 Sodium Chloride 0.9% 10 Ml Flush Syringe IV 10 ml BID MICHAEL Administration Sodium Chloride 10 ml 09/27/21 12:11 Sodium Chloride 0.9% 10 Ml Flush Syringe IV PRN PRN LINE FLUSH Sodium Polystyrene Sulfonate 15 gm 09/29/21 10:00 Sodium Polystyrene 15 Gm/60 Ml Oral Liqd PO 09/29/21 14:00 ONCE@1000 MICHAEL Tiotropium [place] 1 puff 09/28/21 10:00 09/29/21 09:10 Tiotropium 18 Mcg Cap Inhalation IH Not Given DAILY MICHAEL
[2021-09-29] MEDS ORDERED: SODIUM POLYSTYRENE 15 GM/60 ML ORAL LIQD PO SCH (10:00)
--- NOTE | 2021-09-29 10:02 | Electrocardiograph Report ---
[facility] Test Date: 2021-09-28 Test Time: 07:05:50 Pat Name: MAHESH TURNER Department: Room: A481 1 Gender: F Internal Medicine Specialist: SERENA : 1950 Requested By: LUCILA MCNALLY Order Number: [id number] Reading MD: Balbir Leahy Measurements Intervals [place] Rate: 71 P: 47 VT: 151 QRS: 23 QRSD: 61 T: 47 QT: 388 QTc: 423 Interpretive Statements Sinus rhythm Low voltage, precordial leads Compared to ECG 09/27/2021 08:22:10 Low QRS voltage now present Electronically Signed On 09-29-2021 10:01:52 EDT by Balbir Leahy
[2021-09-29] MEDS: oxyCODONE /ACETAMINOPHEN 5-325MG TAB PO PRN (16:38)
[2021-09-29] MEDS: MELATONIN 5 MG TAB PO PRN (22:23)
[2021-09-29] MEDS: ONDANSETRON 4 MG/2 ML INJ IV PRN (23:08)
[2021-09-30] MEDS: methylPREDNISolone Sod Succinate 40 MG/1 ML INJ IV SCH ×3 (05:46→21:35)
[2021-09-30] MEDS: ALBUTEROL 2.5 MG/3 ML NEBU IH PRN (08:55)
[2021-09-30] MEDS: ASPIRIN 81 MG TAB CHEW PO SCH (09:46)
[2021-09-30] MEDS: HEPARIN 5,000 UNIT/1 ML VIAL SUB-Q SCH ×2 (09:46→21:34)
[2021-09-30] MEDS: PANTOPRAZOLE 40 MG TAB PO SCH (09:46)
[2021-09-30] MEDS: TIOTROPIUM 18 MCG CAP INHALATION IH SCH (09:47)
[2021-09-30] MEDS: ALUM-MAG HYDROXIDE-SIMETHICONE 200-200-20MG/5ML ORAL LIQD 30 ML PO PRN ×2 (09:47→21:35)
[2021-09-30] MEDS: AZITHROMYCIN 250 MG TAB PO SCH (09:47)
[2021-09-30] MEDS: oxyCODONE /ACETAMINOPHEN 5-325MG TAB PO PRN (09:47)
[2021-09-30] MEDS: ALPRAZolam 0.5 MG TAB PO PRN ×3 (09:48→23:44)
[2021-09-30] MEDS ORDERED: MORPHINE 2 MG/1 ML INJ IV ONE (17:45)
[2021-09-30] MEDS ORDERED: DOCUSATE SODIUM 100 MG CAP PO PRN (17:49)
--- NOTE | 2021-09-30 17:55 | Progress Note ---
Assessment and Plan Assessment and plan: 70 YO Female with End Stage COPD, Chronic Respiratory Failure on 3L Home Oxygen via [place], Nicotine Dependence, HTN, HAV, GERD, Paroxysmal Atrial Fib not currently on therapeutic Anticoagulation presents to ED for evaluation of worsening shortness of breath. 09/28: Continue supportive care, supplemental O2, nebulizer breathing treatment, empiric steroid, antibiotics. Possible DC in 1 to 2 days if clinically stable. CTA chest without any PE and showed moderate emphysema. Assessment and plan: -- Acute respiratory failure with hypoxia Likely due to underlying COPD exacerbation chest x-ray, CT angio chest, supplemental oxygen, pulse oximetry, nebulizer therapy, noninvasive positive pressure ventilation, pulmonary toilet. --COPD with acute exacerbation Supplemental oxygen, pulse oximetry, nebulizer therapy, IV steroid therapy, supportive care. -- Paroxysmal atrial fibrillation Supportive care, rate control, continue medical management. Risk benefits discussed. Patient elects to continue aspirin therapy and declines therapeutic anticoagulation. Patient knowledges understanding risks and benefits and elects to continue current care. Patient acknowledges understanding instructions. -- LYNDA (generalized anxiety disorder) Benzodiazepine therapy as clinically indicated. -- HTN (hypertension) Monitor blood pressure every shift, continue medical management. -- GERD (gastroesophageal reflux disease) PPI therapy, supportive care. --hypokalemia ; K5.4 Kayexalate ,follow electrolytes -- DVT prophylaxis SCD to bilateral extremities while in bed -- Advance care planning Disease education conducted, care plan discussed, diagnoses discussed, prognosis discussed, patient is full code. Patient knowledges understanding and agreement with care plan, +30 minutes. -- Preventive health care Patient counseled regarding medication compliance, risk factor reduction, home safety precautions. Patient instructed to follow-up with primary care physician for all age and risk factor appropriate screening tests. +30 minutes. Patient's symptoms significantly improved still has intermittent pain and mild shortness of breath Patient has home oxygen 2 to 3 L Follow-up PT evaluation and recommendation Discharge home tomorrow with home health stable Plan patient was History Interval history: Seen and examined the patient at the bedside Patient's chart and medications reviewed No new complaints except for severe pain in the back Mild shortness of breath on oxygen Vital signs reviewed Hospitalist Physical - Constitutional Vitals: Temp Pulse Resp BP Pulse Ox 97.4 F L 86 20 105/65 96 09/30/21 04:48 09/30/21 08:57 09/30/21 08:57 09/30/21 04:48 09/30/21 14:00 General appearance: Present: mild distress, well-nourished, cachectic - EENT Eyes: Present: PERRL, EOM intact - Neck Neck: Present: supple, normal ROM - Respiratory Respiratory effort: normal Respiratory: bilateral: diminished, negative: rales, rhonchi, wheezing - Cardiovascular Rhythm: regular Heart Sounds: Present: S1 & S2 - Extremities Extremities: no ischemia, No edema - Abdominal General gastrointestinal: soft, non-tender, non-distended, normal bowel sounds - Integumentary Integumentary: Present: clear, warm - Psychiatric Psychiatric: appropriate mood/affect, cooperative - Neurologic Neurologic: CNII-XII intact, moves all extremities HEART Score - HEART Score Troponin: Troponin T < 0.010 ng/mL (0.00-0.029) 09/27/21 13:00 Results - Labs CBC & Chem 7: 09/27/21 07:21 09/29/21 04:23 Labs: Laboratory Last Values WBC 4.1 K/mm3 (4.5-11.0) L 09/27/21 07:21 RBC 3.03 M/mm3 (3.65-5.03) L 09/27/21 07:21 Hgb 9.9 gm/dl (10.1-14.3) L 09/27/21 07:21 Hct 30.9 % (30.3-42.9) 09/27/21 07:21 MCV 102 fl (79-97) H 09/27/21 07:21 MCH 33 pg (28-32) H 09/27/21 07:21 MCHC 32 % (30-34) 09/27/21 07:21 RDW 15.1 % (13.2-15.2) 09/27/21 07:21 Plt Count 101 K/mm3 (140-440) L 09/27/21 07:21 Lymph % (Auto) 34.9 % (13.4-35.0) 09/27/21 07:21 [place] % (Auto) 8.2 % (0.0-7.3) H 09/27/21 07:21 Eos % (Auto) 1.3 % (0.0-4.3) 09/27/21 07:21 Baso % (Auto) Tree Farmer 09/27/21 07:21 Lymph # (Auto) 1.4 K/mm3 (1.2-5.4) 09/27/21 07:21 [place] # (Auto) 0.3 K/mm3 (0.0-0.8) 09/27/21 07:21 Eos # (Auto) 0.1 K/mm3 (0.0-0.4) 09/27/21 07:21 Baso # (Auto) 0.0 K/mm3 (0.0-0.1) 09/27/21 07:21 Seg Neutrophils % 55.1 % (40.0-70.0) 09/27/21 07:21 Seg Neutrophils # 2.3 K/mm3 (1.8-7.7) 09/27/21 07:21 PT 12.1 Sec. (12.2-14.9) L 09/27/21 07:21 INR 0.82 (0.87-1.13) L 09/27/21 07:21 APTT 28.7 Sec. (24.2-36.6) 09/27/21 07:21 D-Dimer 358.71 ng/mlDDU (0-234) H 09/27/21 07:21 Sodium 140 mmol/L (137-145) 09/29/21 04:23 Potassium 5.4 mmol/L (3.6-5.0) H 09/29/21 04:23 Chloride 103.7 mmol/L (98-107) 09/29/21 04:23 Carbon Dioxide 26 mmol/L (22-30) 09/29/21 04:23 Anion Gap 16 mmol/L 09/29/21 04:23 BUN 34 mg/dL (7-17) H 09/29/21 04:23 Creatinine 1.2 mg/dL (0.6-1.2) 09/29/21 04:23 Estimated GFR 45 ml/min 09/29/21 04:23 BUN/Creatinine Ratio 28 % 09/29/21 04:23 Glucose 144 mg/dL (65-100) H 09/29/21 04:23 Calcium 8.3 mg/dL (8.4-10.2) L 09/29/21 04:23 Total Bilirubin 0.20 mg/dL (0.1-1.2) 09/27/21 07:21 AST 22 units/L (5-40) 09/27/21 07:21 ALT 47 units/L (7-56) 09/27/21 07:21 Alkaline Phosphatase 242 units/L (35-129) H 09/27/21 07:21 Troponin T < 0.010 ng/mL (0.00-0.029) 09/27/21 13:00 NT-Pro-B Natriuret Pep 497.4 pg/mL (0-900) 09/27/21 07:30 Total Protein 6.5 g/dL (6.3-8.2) 09/27/21 07:21 Albumin 3.7 g/dL (3.9-5) L 09/27/21 07:21 Albumin/Globulin Ratio 1.3 % 09/27/21 07:21 Richardson/IV: Voiding Method Bedpan Active Medications - Current Medications Current Medications: Generic Name Dose Route Start Last Admin Trade Name Freq PRN Reason Stop Dose Admin Acetaminophen 650 mg 09/27/21 12:11 09/30/21 02:58 Acetaminophen 325 Mg Tab PO 650 mg Q4H PRN Administration Pain MILD(1-3)/Fever >100.5/ARVIZU Al Hydrox/Mg Hydrox/Simethicone 30 ml 09/28/21 19:58 09/30/21 09:47 Alum-Mag Hydroxide-Simethicone [id number]/5ml Oral Liqd 30 Ml PO 30 ml Q4H PRN Administration Indigestion Albuterol 2.5 mg 09/28/21 00:02 09/30/21 08:55 Albuterol 2.5 Mg/3 Ml Nebu IH 2.5 mg Q6HRT PRN Administration Shortness Of Breath Alprazolam 0.5 mg 09/27/21 17:24 09/30/21 15:44 Alprazolam 0.5 Mg Tab PO 0.5 mg Q8H PRN Administration Anxiety Amiodarone HCl 200 mg 10/01/21 10:00 Amiodarone 200 Mg Tab PO QDAY MICHAEL Aspirin 81 mg 09/28/21 10:00 09/30/21 09:46 Aspirin 81 Mg Tab Chew PO 81 mg QDAY MICHAEL Administration Azithromycin 500 mg 09/28/21 17:00 09/30/21 09:47 Azithromycin 250 Mg Tab PO 10/02/21 10:01 500 mg QDAY MICHAEL Administration Protocol Docusate Sodium 100 mg 09/30/21 17:49 Docusate Sodium 100 Mg Cap PO QDAY PRN Constipation Fluticasone Propionate 50 mcg 10/01/21 10:00 Fluticasone Propionate Nasal [place] 16 Gm NS QDAY MICHAEL Heparin Sodium (Porcine) 5,000 unit 09/27/21 22:00 09/30/21 09:46 Heparin 5,000 Unit/1 Ml Vial SUB-Q 5,000 unit Q12HR MICHAEL Administration Hydromorphone HCl 0.5 mg 09/27/21 12:11 09/27/21 14:53 Hydromorphone 0.5 Mg/0.5 Ml Inj IV 0.5 mg Q23H PRN Administration Pain , Severe (7-10) Lisinopril 5 mg 10/01/21 10:00 Lisinopril 5 Mg Tab PO QDAY MICHAEL Melatonin 10 mg 09/27/21 17:25 09/29/21 22:23 Melatonin 5 Mg Tab PO 10 mg QHS PRN Administration Sleep Methylprednisolone Sodium Succinate 20 mg 09/30/21 17:49 Methylprednisolone Sod Succinate 40 Mg/1 Ml Inj IV Q8HR [facility] Morphine Sulfate 2 mg 09/30/21 17:45 Morphine 2 Mg/1 Ml Inj IV 09/30/21 17:46 ONCE ONE Morphine Sulfate 2 mg 09/30/21 17:45 Morphine 2 Mg/1 Ml Inj IV Q8H PRN Pain, Moderate (4-6) Ondansetron HCl 4 mg 09/27/21 12:11 09/29/21 23:08 Ondansetron 4 Mg/2 Ml Inj IV 4 mg Q8H PRN Administration Nausea And Vomiting Oxycodone/Acetaminophen 1 tab 09/30/21 17:48 Oxycodone /Acetaminophen 5-325mg Tab PO Q8H PRN Pain, Moderate (4-6) Pantoprazole Sodium 40 mg 09/28/21 10:00 09/30/21 09:46 Pantoprazole 40 Mg Tab PO 40 mg QDAY MICHAEL Administration Sodium Chloride 10 ml 09/27/21 22:00 09/30/21 09:46 Sodium Chloride 0.9% 10 Ml Flush Syringe IV 10 ml BID MICHAEL Administration Sodium Chloride 10 ml 09/27/21 12:11 Sodium Chloride 0.9% 10 Ml Flush Syringe IV PRN PRN LINE FLUSH Tiotropium [place] 1 puff 09/28/21 10:00 09/30/21 09:47 Tiotropium 18 Mcg Cap Inhalation IH 1 puff DAILY MICHAEL Administration
[2021-10-01] MEDS: oxyCODONE /ACETAMINOPHEN 5-325MG TAB PO PRN ×3 (01:16→15:25)
[2021-10-01] MEDS: methylPREDNISolone Sod Succinate 40 MG/1 ML INJ IV SCH ×3 (05:11→21:11)
[2021-10-01] MEDS: ALUM-MAG HYDROXIDE-SIMETHICONE 200-200-20MG/5ML ORAL LIQD 30 ML PO PRN ×2 (05:40→15:25)
[2021-10-01 06:21] LABS: Calcium 8.3 mg/dL (8.4-10.2)
[2021-10-01] MEDS: AMIODARONE 200 MG TAB PO SCH (09:22)
[2021-10-01] MEDS: AZITHROMYCIN 250 MG TAB PO SCH (09:23)
[2021-10-01] MEDS: ASPIRIN 81 MG TAB CHEW PO SCH (09:23)
[2021-10-01] MEDS: FLUTICASONE PROPIONATE NASAL SPRAY 16 GM NS SCH (09:23)
[2021-10-01] MEDS: PANTOPRAZOLE 40 MG TAB PO SCH (09:23)
[2021-10-01] MEDS: ALPRAZolam 0.5 MG TAB PO PRN ×2 (09:24→21:12)
[2021-10-01] MEDS: HEPARIN 5,000 UNIT/1 ML VIAL SUB-Q SCH ×2 (09:24→21:12)
[2021-10-01] MEDS: TIOTROPIUM 18 MCG CAP INHALATION IH SCH (09:43)
[2021-10-01] MEDS ORDERED: LISINOPRIL 5 MG TAB PO SCH (10:00)
[2021-10-01] MEDS ORDERED: CALCIUM GLUCONATE 1,000 MG in SODIUM CHLORIDE 0.9% 100 ML IV ONE (11:00)
--- NOTE | 2021-10-01 19:14 | Progress Note ---
Assessment and Plan Assessment and plan: 70 YO Female with End Stage COPD, Chronic Respiratory Failure on 3L Home Oxygen via NC, Nicotine Dependence, HTN, HAV, GERD, Paroxysmal Atrial Fib not currently on therapeutic Anticoagulation presents to ED for evaluation of worsening shortness of breath. 09/28: Continue supportive care, supplemental O2, nebulizer breathing treatment, empiric steroid, antibiotics. Possible DC in 1 to 2 days if clinically stable. CTA chest without any PE and showed moderate emphysema. 10/01/2021; possible discharge home tomorrow with home health if stable Assessment and plan: -- Acute respiratory failure with hypoxia Likely due to underlying COPD exacerbation chest x-ray, CT angio chest, supplemental oxygen, pulse oximetry, nebulizer therapy, noninvasive positive pressure ventilation, pulmonary toilet. --COPD with acute exacerbation Supplemental oxygen, pulse oximetry, nebulizer therapy, IV steroid therapy, supportive care. -- Paroxysmal atrial fibrillation Supportive care, rate control, continue medical management. Risk benefits discussed. Patient elects to continue aspirin therapy and declines therapeutic anticoagulation. Patient knowledges understanding risks and benefits and elects to continue current care. Patient acknowledges understanding instructions. -- LYNDA (generalized anxiety disorder) Benzodiazepine therapy as clinically indicated. -- HTN (hypertension) Monitor blood pressure every shift, continue medical management. -- GERD (gastroesophageal reflux disease) PPI therapy, supportive care. --hypokalemia ; K5.4 Kayexalate ,follow electrolytes -- DVT prophylaxis SCD to bilateral extremities while in bed -- Advance care planning Disease education conducted, care plan discussed, diagnoses discussed, prognosis discussed, patient is full code. Patient knowledges understanding and agreement with care plan, +30 minutes. -- Preventive health care Patient counseled regarding medication compliance, risk factor reduction, home safety precautions. Patient instructed to follow-up with primary care physician for all age and risk factor appropriate screening tests. +30 minutes. Patient's symptoms significantly improved still has intermittent pain and mild shortness of breath Patient has home oxygen 2 to 3 L Follow-up PT evaluation and recommendation Discharge home tomorrow with home health stable Plan patient was History Interval history: I have seen and examined the patient at the bedside Patient's chart and medications reviewed No new events reported by the nursing staff Patient has persistent mild elevation of potassium Patient complains of generalized body pains Vital signs noted Hospitalist Physical - Constitutional Vitals: Temp Pulse Resp BP Pulse Ox 98.0 F 67 18 100/58 96 06/16/22 15:04 10/01/21 07:34 10/01/21 15:04 10/01/21 15:04 10/01/21 14:00 General appearance: Present: mild distress, well-nourished, cachectic - EENT Eyes: Present: PERRL, EOM intact - Neck Neck: Present: supple, normal ROM - Respiratory Respiratory effort: normal Respiratory: bilateral: diminished, negative: rales, rhonchi, wheezing - Cardiovascular Rhythm: regular Heart Sounds: Present: S1 & S2 - Extremities Extremities: no ischemia, No edema - Abdominal General gastrointestinal: soft, non-tender, non-distended, normal bowel sounds - Integumentary Integumentary: Present: clear, warm - Psychiatric Psychiatric: appropriate mood/affect, cooperative - Neurologic Neurologic: moves all extremities HEART Score - HEART Score Troponin: Troponin T < 0.010 ng/mL (0.00-0.029) 09/27/21 13:00 Results - Labs CBC & Chem 7: 09/27/21 07:21 10/01/21 05:16 Labs: Laboratory Last Values WBC 4.1 K/mm3 (4.5-11.0) L 09/27/21 07:21 RBC 3.03 M/mm3 (3.65-5.03) L 09/27/21 07:21 Hgb 9.9 gm/dl (10.1-14.3) L 09/27/21 07:21 Hct 30.9 % (30.3-42.9) 09/27/21 07:21 MCV 102 fl (79-97) H 09/27/21 07:21 MCH 33 pg (28-32) H 09/27/21 07:21 MCHC 32 % (30-34) 09/27/21 07:21 RDW 15.1 % (13.2-15.2) 09/27/21 07:21 Plt Count 101 K/mm3 (140-440) L 09/27/21 07:21 Lymph % (Auto) 34.9 % (13.4-35.0) 09/27/21 07:21 [place] % (Auto) 8.2 % (0.0-7.3) H 09/27/21 07:21 Eos % (Auto) 1.3 % (0.0-4.3) 09/27/21 07:21 Baso % (Auto) Rheostat Assembler 09/27/21 07:21 Lymph # (Auto) 1.4 K/mm3 (1.2-5.4) 09/27/21 07:21 [place] # (Auto) 0.3 K/mm3 (0.0-0.8) 09/27/21 07:21 Eos # (Auto) 0.1 K/mm3 (0.0-0.4) 09/27/21 07:21 Baso # (Auto) 0.0 K/mm3 (0.0-0.1) 09/27/21 07:21 Seg Neutrophils % 55.1 % (40.0-70.0) 09/27/21 07:21 Seg Neutrophils # 2.3 K/mm3 (1.8-7.7) 09/27/21 07:21 PT 12.1 Sec. (12.2-14.9) L 09/27/21 07:21 INR 0.82 (0.87-1.13) L 09/27/21 07:21 APTT 28.7 Sec. (24.2-36.6) 09/27/21 07:21 D-Dimer 358.71 ng/mlDDU (0-234) H 09/27/21 07:21 Sodium 141 mmol/L (137-145) 10/01/21 05:16 Potassium 5.4 mmol/L (3.6-5.0) H 10/01/21 05:16 Chloride 104.5 mmol/L (98-107) 10/01/21 05:16 Carbon Dioxide 30 mmol/L (22-30) 10/01/21 05:16 Anion Gap 12 mmol/L 10/01/21 05:16 BUN 40 mg/dL (7-17) H 10/01/21 05:16 Creatinine 1.1 mg/dL (0.6-1.2) 10/01/21 05:16 Estimated GFR 49 ml/min 10/01/21 05:16 BUN/Creatinine Ratio 36 % 10/01/21 05:16 Glucose 144 mg/dL (65-100) H 10/01/21 05:16 Calcium 8.3 mg/dL (8.4-10.2) L 10/01/21 05:16 Total Bilirubin 0.20 mg/dL (0.1-1.2) 09/27/21 07:21 AST 22 units/L (5-40) 09/27/21 07:21 ALT 47 units/L (7-56) 09/27/21 07:21 Alkaline Phosphatase 242 units/L (35-129) H 09/27/21 07:21 Troponin T < 0.010 ng/mL (0.00-0.029) 09/27/21 13:00 NT-Pro-B Natriuret Pep 497.4 pg/mL (0-900) 09/27/21 07:30 Total Protein 6.5 g/dL (6.3-8.2) 09/27/21 07:21 Albumin 3.7 g/dL (3.9-5) L 09/27/21 07:21 Albumin/Globulin Ratio 1.3 % 09/27/21 07:21 Richardson/IV: Voiding Method Urinal Active Medications - Current Medications Current Medications: Generic Name Dose Route Start Last Admin Trade Name Freq PRN Reason Stop Dose Admin Acetaminophen 650 mg 09/27/21 12:11 09/30/21 02:58 Acetaminophen 325 Mg Tab PO 650 mg Q4H PRN Administration Pain MILD(1-3)/Fever >100.5/ARVIZU Al Hydrox/Mg Hydrox/Simethicone 30 ml 09/28/21 19:58 10/01/21 15:25 Alum-Mag Hydroxide-Simethicone 210-333-69oq/5ml Oral Liqd 30 Ml PO 30 ml Q4H PRN Administration Indigestion Albuterol 2.5 mg 09/28/21 00:02 09/30/21 08:55 Albuterol 2.5 Mg/3 Ml Nebu IH 2.5 mg Q6HRT PRN Administration Shortness Of Breath Alprazolam 0.5 mg 09/27/21 17:24 10/01/21 09:24 Alprazolam 0.5 Mg Tab PO 0.5 mg Q8H PRN Administration Anxiety Amiodarone HCl 200 mg 10/01/21 10:00 10/01/21 09:22 Amiodarone 200 Mg Tab PO 200 mg QDAY MICHAEL Administration Aspirin 81 mg 09/28/21 10:00 10/01/21 09:23 Aspirin 81 Mg Tab Chew PO 81 mg QDAY MICHAEL Administration Azithromycin 500 mg 09/28/21 17:00 10/01/21 09:23 Azithromycin 250 Mg Tab PO 10/02/21 10:01 500 mg QDAY MICHAEL Administration Protocol Docusate Sodium 100 mg 09/30/21 17:49 Docusate Sodium 100 Mg Cap PO QDAY PRN Constipation Fluticasone Propionate 50 mcg 10/01/21 10:00 10/01/21 09:23 Fluticasone Propionate Nasal [place] 16 Gm NS Not Given QDAY MICHAEL Heparin Sodium (Porcine) 5,000 unit 09/27/21 22:00 10/01/21 09:24 Heparin 5,000 Unit/1 Ml Vial SUB-Q 5,000 unit Q12HR MICHAEL Administration Hydromorphone HCl 0.5 mg 09/27/21 12:11 09/27/21 14:53 Hydromorphone 0.5 Mg/0.5 Ml Inj IV 0.5 mg Q23H PRN Administration Pain , Severe (7-10) Melatonin 10 mg 09/27/21 17:25 09/29/21 22:23 Melatonin 5 Mg Tab PO 10 mg QHS PRN Administration Sleep Methylprednisolone Sodium Succinate 20 mg 09/30/21 17:49 10/01/21 15:25 Methylprednisolone Sod Succinate 40 Mg/1 Ml Inj IV 20 mg Q8HR MICHAEL Administration Morphine Sulfate 2 mg 09/30/21 17:45 Morphine 2 Mg/1 Ml Inj IV Q8H PRN Pain, Moderate (4-6) Ondansetron HCl 4 mg 09/27/21 12:11 09/29/21 23:08 Ondansetron 4 Mg/2 Ml Inj IV 4 mg Q8H PRN Administration Nausea And Vomiting Oxycodone/Acetaminophen 1 tab 10/01/21 14:55 10/01/21 15:25 Oxycodone /Acetaminophen 5-325mg Tab PO 1 tab Q6H PRN Administration Pain, Moderate (4-6) Pantoprazole Sodium 40 mg 09/28/21 10:00 10/01/21 09:23 Pantoprazole 40 Mg Tab PO 40 mg QDAY MICHAEL Administration Sodium Chloride 10 ml 09/27/21 22:00 10/01/21 09:23 Sodium Chloride 0.9% 10 Ml Flush Syringe IV 10 ml BID MICHAEL Administration Sodium Chloride 10 ml 09/27/21 12:11 Sodium Chloride 0.9% 10 Ml Flush Syringe IV PRN PRN LINE FLUSH Tiotropium Hymera 1 puff 09/28/21 10:00 10/01/21 09:43 Tiotropium 18 Mcg Cap Inhalation IH 1 puff DAILY MICHAEL Administration
[2021-10-01] MEDS ORDERED: SODIUM POLYSTYRENE 15 GM/60 ML ORAL LIQD PO ONE (19:15)
[2021-10-01] MEDS: ONDANSETRON 4 MG/2 ML INJ IV PRN (20:17)
[2021-10-01] MEDS: MORPHINE 2 MG/1 ML INJ IV PRN (21:11)
[2021-10-02] MEDS: oxyCODONE /ACETAMINOPHEN 5-325MG TAB PO PRN ×3 (00:44→17:28)
[2021-10-02] MEDS: ALBUTEROL 2.5 MG/3 ML NEBU IH PRN (03:34)
[2021-10-02 03:42] VITALS: BP 111/58
[2021-10-02] MEDS: MORPHINE 2 MG/1 ML INJ IV PRN (04:38)
[2021-10-02] MEDS: methylPREDNISolone Sod Succinate 40 MG/1 ML INJ IV SCH ×2 (05:19→14:45)
[2021-10-02] MEDS: ALPRAZolam 0.5 MG TAB PO PRN ×2 (05:23→10:05)
[2021-10-02] MEDS: ASPIRIN 81 MG TAB CHEW PO SCH (10:03)
[2021-10-02] MEDS: HEPARIN 5,000 UNIT/1 ML VIAL SUB-Q SCH (10:04)
[2021-10-02] MEDS: TIOTROPIUM 18 MCG CAP INHALATION IH SCH (10:04)
[2021-10-02] MEDS: AMIODARONE 200 MG TAB PO SCH (10:04)
[2021-10-02] MEDS: PANTOPRAZOLE 40 MG TAB PO SCH (10:04)
[2021-10-02] MEDS: FLUTICASONE PROPIONATE NASAL SPRAY 16 GM NS SCH (10:04)
[2021-10-02] MEDS: AZITHROMYCIN 250 MG TAB PO SCH (10:05)
[2021-10-02] MEDS ORDERED: CALCIUM CHLORIDE 1,000 MG in SODIUM CHLORIDE 0.9% 100 ML IV SCH (11:13)
[2021-10-02] MEDS ORDERED: SODIUM POLYSTYRENE 15 GM/60 ML ORAL LIQD PO SCH (11:14)
--- NOTE | 2021-10-02 12:44 | Discharge Summary ---
Providers - Providers Date of Admission: 09/27/21 12:11 Date of discharge: 10/02/21 Attending physician: NADIA HESS 09/30/21 17:52 Physical Therapy Evaluation and Treat [CONS] Routine Comment: Reason For Exam: Evaluate and treat DC needs/ Primary care physician: TUGBOAT PILOT Hospitalization Reason for admission: Worsening shortness of breath/acute hypoxic respiratory failure Condition: Stable Pertinent studies: Chest x-ray CTA chest Hospital course: 70 YO Female with End Stage COPD, Chronic Respiratory Failure on 3L Home Oxygen via [place], Nicotine Dependence, HTN, HAV, GERD, Paroxysmal Atrial Fib not currently on therapeutic Anticoagulation presents to ED for evaluation of worsening shortness of breath. 09/28: Continue supportive care, supplemental O2, nebulizer breathing treatment, empiric steroid, antibiotics. Possible DC in 1 to 2 days if clinically stable. CTA chest without any PE and showed moderate emphysema. 10/01/2021; possible discharge home tomorrow with home health if stable Assessment and plan: -- Acute respiratory failure with hypoxia Likely due to underlying COPD exacerbation chest x-ray, CT angio chest, supplemental oxygen, pulse oximetry, nebulizer therapy, noninvasive positive pressure ventilation, pulmonary toilet. --COPD with acute exacerbation Supplemental oxygen, pulse oximetry, nebulizer therapy, IV steroid therapy, supportive care. -- Paroxysmal atrial fibrillation Supportive care, rate control, continue medical management. Risk benefits discussed. Patient elects to continue aspirin therapy and declines therapeutic anticoagulation. Patient knowledges understanding risks and benefits and elects to continue current care. Patient acknowledges understanding instructions. -- LYNDA (generalized anxiety disorder) Benzodiazepine therapy as clinically indicated. -- HTN (hypertension) Monitor blood pressure every shift, continue medical management. -- GERD (gastroesophageal reflux disease) PPI therapy, supportive care. --hyperkalemia ; K5.4 Kayexalate ,follow electrolytes --General debility; Patient is bedbound Supportive care - DVT prophylaxis SCD to bilateral extremities while in bed -- Advance care planning Disease education conducted, care plan discussed, diagnoses discussed, prognosis discussed, patient is full code. Patient knowledges understanding and agreement with care plan, +30 minutes. -- Preventive health care Patient counseled regarding medication compliance, risk factor reduction, home safety precautions. Patient instructed to follow-up with primary care physician for all age and risk factor appropriate screening tests. +30 minutes. Patient's symptoms significantly improved still has intermittent pain and mild shortness of breath Patient has home oxygen 2 to 3 L Follow-up PT evaluation and recommendation Discharge home tomorrow with home health stable Plan patient was Disposition: 01 HOME / SELF CARE / HOMELESS Final Discharge Diagnosis (Prints w/discharge instructions): Acute hypoxic respiratory failure. Acute exacerbation of COPD. Paroxysmal atrial fibrillation. Generalized anxiety disorder. Hypertension. Gastroesophageal reflux disease. Hyperkalemia. General debility Time spent for discharge: 35 min Exam - Constitutional Vitals: Temp Pulse Resp BP Pulse Ox 97.9 F 67 16 111/58 99 10/02/21 03:19 10/02/21 03:19 10/02/21 03:19 10/02/21 03:19 10/02/21 09:37 Plan Additional Instructions: If you have worsening symptoms contact MD or go to nearest emergency room as needed. Fall precautions. Take your insulin only if your blood sugars are high, avoid low blood sugars. Advised to see your primary care physician in 1 week, fire control technician g in 3 days. Check potassium in 3 days Follow up with: JAVON JACKSON MD [Primary Care Provider] - 7 Days BEENA CALLAWAY MD [Staff Physician] - 7 Days Prescriptions: oxyCODONE /ACETAMINOPHEN [Percocet 5/325 mg] 1 tab PO Q6H PRN #10 tablet PRN Reason: Pain, Moderate (4-6)
[2021-10-02] MEDS: ONDANSETRON 4 MG/2 ML INJ IV PRN (14:45)
== END 2021-10-02 20:49 | disposition home health service (06) | DRG 189 ==
LOC: ED 05:29 → 3A 12:11 → 4A 16:59
PROVIDERS: ADMIT Internal Medicine; ATTEND Internal Medicine
DX: J96.21 Acute and chronic respiratory failure with hypoxia (principal); J44.1 Chronic obstructive pulmonary disease with (acute) exacerbation; K21.9 Gastro-esophageal reflux disease without esophagitis; I10 Essential (primary) hypertension; I48.0 Paroxysmal atrial fibrillation; F41.1 Generalized anxiety disorder; E87.6 Hypokalemia; Z82.49 Family history of ischemic heart disease and other diseases of the circulatory system; Z88.5 Allergy status to narcotic agent; Z88.8 Allergy status to other drugs, medicaments and biological substances
CPT/HCPCS: 36415; 71045; 71275; 80048; 80053; 83880; 84132; 84484; 85025; 85379; 85610; 85730; 93005; 94640; 94644; 94760; G0378; J1170; J1200; J1644; J2270; J2405; J2920; J2930; J3475; Q9967

== ENCOUNTER 2021-10-24 07:54 | Inpatient (IN) | payer MEDICAID, MEDICARE ==
[2021-10-24] MEDS ORDERED: IPRATROPIUM/ALBUTEROL SULFATE 3 ML AMPUL.NEB IH ONE (08:50)
[2021-10-24] MEDS ORDERED: BUDESONIDE 0.25 MG/2 ML NEBU IH ONE (08:50)
--- NOTE | 2021-10-24 09:22 | XRay Report ---
CHEST 1 VIEW 10/24/2021 8:50 AM INDICATION / CLINICAL INFORMATION: copd, cough, sob. COMPARISON: One view of the chest and CTA chest from 09/27/2021. FINDINGS: SUPPORT DEVICES: None. HEART / MEDIASTINUM: No significant abnormality. LUNGS / PLEURA: There are similar bilateral emphysematous changes. No new significant pulmonary abnor mality. No significant pleural effusion. No pneumothorax. ADDITIONAL FINDINGS: No significant additional findings. IMPRESSION: 1. No acute abnormality of the chest. No significant interval changes. Signer Name: Madhu Gilliam MD Signed: 10/24/2021 9:18 AM Workstation Name: [id number]
[2021-10-24] MEDS ORDERED: LORazepam 2 MG/ML VIAL IV ONE (09:56)
[2021-10-24 10:07] LABS: Calcium 8.9 mg/dL (8.4-10.2)
[2021-10-24 10:10] LABS: Basophils % (Auto) 0.2 % (0.0-1.8); Eosinophils % (Auto) 0.3 % (0.0-4.3); Lymphocytes # (Auto) 0.9 K/mm3 (1.2-5.4); Lymphocytes % (Auto) 11.7 % (13.4-35.0); Mean Corpuscular HGB Conc 31 % (30-34); Mean Corpuscular Volume 97 fl (79-97); Monocytes # (Auto) 0.3 K/mm3 (0.0-0.8); Monocytes % (Auto) 3.9 % (0.0-7.3); Platelet Count 215 K/mm3 (140-440); Red Blood Count 3.29 M/mm3 (3.65-5.03); Red Cell Distribution Width 17.4 % (13.2-15.2)
[2021-10-24 10:46] LABS: ABG Base Excess 0.4 mmol/L (-2.0-3.0); ABG Methemoglobin 0.4 % (0.0-1.5); ABG Oxygen Saturation 98.8 % (95.0-99.0); ABG PCO2 46.6 mm Hg; ABG PH 7.364 pH Units (7.350-7.450); ABG PO2 151.8 mm Hg (80.0-90.0)
[2021-10-24] MEDS ORDERED: FUROSEMIDE 40 MG/4 ML INJ IV ONE (11:12)
--- NOTE | 2021-10-24 11:25 | Emergency Department Report ---
ED Shortness of Breath HPI - General Chief Complaint: Dyspnea/Respdistress Stated Complaint: JING Time Seen by Provider: 10/24/21 08:28 Source: patient, EMS Mode of arrival: Stretcher Limitations: No Limitations - History of Present Illness Initial Comments: This is a 71-year-old female with multiple medical comorbidities who was brought in by EMS for cough shortness of breath and wheezing. Patient states that her symptoms began 3 days ago. She states she is unvaccinated against COVID. She denies any sick contacts or travel history. She denies any pain or swelling in her lower extremities. Cough is dry, nonproductive. She used 2 of her albute rol nebulizer treatments prior to calling EMS. Per nursing report, the patient was given Solu-Medrol 125 mg IV push and 1 albuterol nebulizer treatment by EMS prior to ED arrival. MD Complaint: shortness of breath - Related Data Home Medications Medication Instructions Recorded Confirmed Last Taken ALPRAZolam [Xanax TAB] 0.5 mg PO TID PRN 09/29/21 09/29/21 Unknown Amiodarone [Cordarone 200 MG TAB] 200 mg PO QDAY 09/29/21 09/29/21 Unknown Citalopram [Celexa] 20 mg PO QDAY 09/29/21 09/29/21 Unknown Docusate Sodium [Colace CAP] 100 mg PO QDAY PRN 09/29/21 09/29/21 Unknown Fluticasone [Flonase] 1 spray NS QDAY 09/29/21 09/29/21 Unknown Fluticasone/Vilanterol [Breo 2 each IH BID 09/29/21 09/29/21 Unknown Ellipta 100-25 Mcg INH] Insulin NPH Hum/Reg Insulin Hm 20 unit SQ BID 09/29/21 09/29/21 Unknown [Novolin 70-30 Flexpen] Meclizine [Antivert] 25 mg PO TID PRN 09/29/21 09/29/21 Unknown Melatonin [Melatonin 3MG TAB] 3 mg PO QDAY 09/29/21 09/29/21 Unknown Naproxen [Naprosyn TAB] 375 mg PO Q12H 09/29/21 09/29/21 Unknown Pantoprazole [Protonix TAB] 20 mg QDAY 09/29/21 09/29/21 Unknown traMADoL [Ultram 50 MG tab] 50 mg PO Q12H PRN 09/29/21 09/29/21 Unknown Previous Rx's Medication Instructions Recorded Last Taken Type Albuterol Mdi (or & Nicu Only) 2 puff IH QID PRN #8.5 gram 09/04/21 Unknown Rx [ProAir HFA Inhaler] Budesonide/Formoterol Fumarate 2 puff IH BID 30 Days #1 pump 09/04/21 Unknown Rx [Symbicort 160-4.5 Mcg Inhaler] Tiotropium Cassatt [Spiriva] 1 puff IH DAILY 30 Days #1 pump 09/04/21 Unknown Rx Sodium Zirconium Cyclosilicate 10 gm PO DAILY #3 10/02/21 Unknown Rx [Lokelma] oxyCODONE /ACETAMINOPHEN [Percocet 1 tab PO Q6H PRN #10 tablet 10/02/21 Unknown Rx 5/325 mg] Allergies Allergy/AdvReac Type Severity Reaction Status Date / Time codeine Allergy Hives Verified 10/24/21 09:06 orange juice Allergy Hives Verified 10/24/21 09:06 prednisone Allergy Rash Verified 10/24/21 09:06 ED Review of Systems ROS: Stated complaint: JING Other details as noted in HPI ED Past Medical Hx - Past Medical History Hx Hypertension: Yes Hx Congestive Heart Failure: No Hx Diabetes: No Hx Pulmonary Embolism: No Hx Liver Disease: Yes (hepatitis A) Hx Renal Disease: No Hx Arthritis: No Hx Kidney Stones: No Hx Psychiatric Treatment: Yes (Apparently has previous overdose; on Lexapro and Xanax) Hx Asthma: No Hx COPD: Yes Hx Tuberculosis: No Hx HIV: No Additional medical history: a-fib. CARPAL TUNNEL. Back pain - Surgical History Hx Cholecystectomy: No Hx Appendectomy: No Hx Breast Surgery: No Additional Surgical History: BILATERAL CATARACTS REMOVED; LENS SURGERY. BALLOON IN BACK - Social History Smoking Status: Current Every Day Smoker - Medications Home Medications: Home Medications Medication Instructions Recorded Confirmed Last Taken Type Albuterol Mdi (or & Nicu Only) 2 puff IH QID PRN #8.5 gram 09/04/21 09/29/21 Unknown Rx [ProAir HFA Inhaler] Budesonide/Formoterol Fumarate 2 puff IH BID 30 Days #1 pump 09/04/21 09/29/21 Unknown Rx [Symbicort 160-4.5 Mcg Inhaler] Tiotropium [place] [Spiriva] 1 puff IH DAILY 30 Days #1 pump 09/04/21 09/29/21 Unknown Rx ALPRAZolam [Xanax TAB] 0.5 mg PO TID PRN 09/29/21 09/29/21 Unknown History Amiodarone [Cordarone 200 MG TAB] 200 mg PO QDAY 09/29/21 09/29/21 Unknown History Citalopram [Celexa] 20 mg PO QDAY 09/29/21 09/29/21 Unknown History Docusate Sodium [Colace CAP] 100 mg PO QDAY PRN 09/29/21 09/29/21 Unknown History Fluticasone [Flonase] 1 spray NS QDAY 09/29/21 09/29/21 Unknown History Fluticasone/Vilanterol [Breo 2 each IH BID 09/29/21 09/29/21 Unknown History Ellipta 100-25 Mcg INH] Insulin NPH Hum/Reg Insulin Hm 20 unit SQ BID 09/29/21 09/29/21 Unknown History [Novolin 70-30 Flexpen] Meclizine [Antivert] 25 mg PO TID PRN 09/29/21 09/29/21 Unknown History Melatonin [Melatonin 3MG TAB] 3 mg PO QDAY 09/29/21 09/29/21 Unknown History Naproxen [Naprosyn TAB] 375 mg PO Q12H 09/29/21 09/29/21 Unknown History Pantoprazole [Protonix TAB] 20 mg QDAY 09/29/21 09/29/21 Unknown History traMADoL [Ultram 50 MG tab] 50 mg PO Q12H PRN 09/29/21 09/29/21 Unknown History Sodium Zirconium Cyclosilicate 10 gm PO DAILY #3 10/02/21 Unknown Rx [Lokelma] oxyCODONE /ACETAMINOPHEN [Percocet 1 tab PO Q6H PRN #10 tablet 10/02/21 Unknown Rx 5/325 mg] ED Physical Exam - General Limitations: No Limitations ED Course Vital Signs 10/24/21 10/24/21 10/24/21 08:01 08:20 08:31 Temperature 97.8 F Pulse Rate 84 82 78 Pulse Rate [ Anterior] Respiratory 18 20 27 H Rate Respiratory Rate [Anterior] Blood Pressure 130/66 Blood Pressure 120/69 [Left] O2 Sat by Pulse 95 87 99 Oximetry 10/24/21 10/24/21 10/24/21 08:42 10:40 10:47 Temperature Pulse Rate 75 Pulse Rate [ 82 Anterior] Respiratory 20 Rate Respiratory 20 Rate [Anterior] Blood Pressure Blood Pressure [Left] O2 Sat by Pulse 98 100 Oximetry - Reevaluation(s) Reevaluation #1: 09: 50 6 AM: I was called to the patient's bedside by the charge nurse. Patient observed to be in severe respiratory distress with an oxygen saturation of approxiseventy 9 to 80% room air. Patient is requesting "anxiety medicine" 10/24/21 11:21 ED Medical Decision Making - Lab Data Result diagrams: 10/24/21 08:44 10/24/21 08:44 - EKG Data -: EKG Interpreted by Me EKG shows normal: sinus rhythm Rate: normal - EKG Data When compared to previous EKG there are: no significant change Interpretation: no acute changes - Medical Decision Making 71-year-old female presents for shortness of breath. Vital signs stable. Patient was mildly dyspneic upon initial examination but was comfortable. Patient however decompensated with a sat of approximately 80% room air and developed severe respiratory distress. She patient was placed on BiPAP by respiratory per my request if she tolerated this without incident. Labs reviewed and shows demonstrated BNP. Chest x-ray although demonstrates no overt effusions per my assessment it demonstrates vascular congestion consistent with CHF. Patient ordered for furosemide, budesonide, and albuterol Atrovent nebulizer treatment. Given patient's hypoxic respiratory failure in the setting of her underlying chronic respiratory and cardiac pathologies, the patient's care has been transferred to the admitting hospitalist, Dr. Ross, for further management and final disposition Critical Care Time: No Critical care attestation.: If time is entered above; I have spent that time in minutes in the direct care of this critically ill patient, excluding procedure time. ED Disposition Clinical Impression: Acute decompensated heart failure COPD (chronic obstructive pulmonary disease) Qualifiers: COPD type: unspecified COPD Qualified Code(s): J44.9 - Chronic obstructive pulmonary disease, unspecified Disposition: 09 ADMITTED INPATIENT Is pt being admited?: Yes Does the pt Need Aspirin: No Condition: Stable Instructions: Chronic Obstructive Pulmonary Disease (ED)
--- NOTE | 2021-10-24 11:27 | History and Physical Report ---
History of Present Illness Chief complaint: I cannot breathe History of present illness: 71 YO Female with End Stage COPD, Chronic Respiratory Failure on 3L Home Oxygen via NC, Nicotine Dependence, HTN, HAV, GERD, Paroxysmal Atrial Fib not currently on therapeutic Anticoagulation presents to ED for evaluation. Patient reports "I cannot breathe". Pt states that over the past week she has experienced increased shortness of breath, productive cough with increased production of yellow/brown sputum over the with worsening symptoms over the past 3 days. Pt also complains of chest discomfort which is associated with coughing episodes. Patient has treated symptoms with increased nebulizer/bronchodilator therapy w [facility]. EMS was notified and upon arrival the patient was found to be in distress and subsequent transported to [facility] for further care and evaluation of the aforementioned symptoms. Pt seen and evaluated in ED. All lab and imaging studies reviewed. The patient was found to be using accessory muscles to breathe, unable to speak in complete sentences. Patient also found to have a pulse oximetry of 86% on room air which is consistent with acute hypoxemic respiratory failure with symptoms suspected secondary to acute COPD exacerbation. Patient treated with supplemental oxygen with no significant improvement in symptoms. Pt treated with NIPPV and admitted to medical floor due to increased risk of worsening symptoms and for medical stabilization. Pt uses head nod to deny fever, chills, CP, Palpitations, NVD, Syncope, BRBPR, unintentional weight loss, night sweats, or known exposure to COVID-19. Prior admission on 09/27/2021 reviewed. All medication listed at time of admission has been reconciled. Advanced care planning conducted in ED. Past History Past Medical History: atrial fib, COPD, hypertension Past Surgical History: cataract removal Social history: single, smoking. denies: alcohol abuse, prescription drug abuse Family history: hypertension Medications and Allergies Allergies Allergy/AdvReac Type Severity Reaction Status Date / Time codeine Allergy Hives Verified 10/24/21 09:06 orange juice Allergy Hives Verified 10/24/21 09:06 prednisone Allergy Rash Verified 10/24/21 09:06 Home Medications Medication Instructions Recorded Confirmed Last Taken Type Albuterol Mdi (or & Nicu Only) 2 puff IH QID PRN #8.5 gram 09/04/21 09/29/21 Unknown Rx [ProAir HFA Inhaler] Budesonide/Formoterol Fumarate 2 puff IH BID 30 Days #1 pump 09/04/21 09/29/21 Unknown Rx [Symbicort 160-4.5 Mcg Inhaler] Tiotropium [place] [Spiriva] 1 puff IH DAILY 30 Days #1 pump 09/04/21 09/29/21 Unknown Rx ALPRAZolam [Xanax TAB] 0.5 mg PO TID PRN 09/29/21 09/29/21 Unknown History Amiodarone [Cordarone 200 MG TAB] 200 mg PO QDAY 09/29/21 09/29/21 Unknown History Citalopram [Celexa] 20 mg PO QDAY 09/29/21 09/29/21 Unknown History Docusate Sodium [Colace CAP] 100 mg PO QDAY PRN 09/29/21 09/29/21 Unknown History Fluticasone [Flonase] 1 spray NS QDAY 09/29/21 09/29/21 Unknown History Fluticasone/Vilanterol [Breo 2 each IH BID 09/29/21 09/29/21 Unknown History Ellipta 100-25 Mcg INH] Insulin NPH Hum/Reg Insulin Hm 20 unit SQ BID 09/29/21 09/29/21 Unknown History [Novolin 70-30 Flexpen] Meclizine [Antivert] 25 mg PO TID PRN 09/29/21 09/29/21 Unknown History Melatonin [Melatonin 3MG TAB] 3 mg PO QDAY 09/29/21 09/29/21 Unknown History Naproxen [Naprosyn TAB] 375 mg PO Q12H 09/29/21 09/29/21 Unknown History Pantoprazole [Protonix TAB] 20 mg QDAY 09/29/21 09/29/21 Unknown History traMADoL [Ultram 50 MG tab] 50 mg PO Q12H PRN 09/29/21 09/29/21 Unknown History Sodium Zirconium Cyclosilicate 10 gm PO DAILY #3 10/02/21 Unknown Rx [Lokelma] oxyCODONE /ACETAMINOPHEN [Percocet 1 tab PO Q6H PRN #10 tablet 10/02/21 Unknown Rx 5/325 mg] Review of Systems Constitutional: no weight loss, no weight gain Ears, nose, mouth and throat: no ear pain, no ear discharge, no nasal congestion, no nasal discharge, no sinus pressure Breasts: no change in shape, no swelling, no mass (Patient is a telemetry type of) Cardiovascular: no chest pain, no orthopnea, no palpitations, no rapid/irregular heart beat, no edema Respiratory: cough, cough with sputum, excessive sputum, shortness of breath, dyspnea on exertion Gastrointestinal: no abdominal pain, no nausea, no vomiting, no constipation, no change in bowel habits Genitourinary Female: no pelvic pain, no flank pain, no dysuria, no urinary frequency, no urgency Rectal: no pain, no incontinence, no bleeding Musculoskeletal: no neck stiffness, no shooting arm pain, no arm numbness/tingling, no low back pain, no shooting leg pain, no leg numbness/tingling Integumentary: no rash, no redness, no sores, no jaundice, no boils Neurological: no head injury, no weakness, no parathesias, no numbness, no tingling, no syncope, no tremors Psychiatric: no anxiety, no memory loss, no change in sleep habits, no insomnia, no change in appetite, no suicidal ideation, no disorientation Endocrine: no cold intolerance, no polyphagia, no excessive thirst, no polydipsia, no polyuria, no excessive sweating, no flushing Hematologic/Lymphatic: no easy bruising, no easy bleeding, no lymphadenopathy Allergic/Immunologic: no allergic rhinitis, no wheezing, no persistent infections, no anaphylaxis Exam - Constitutional Vitals: Temp Pulse Resp BP Pulse Ox 97.8 F 82 20 130/66 100 10/24/21 08:01 10/24/21 10:47 10/24/21 10:47 10/24/21 08:31 10/24/21 10:40 General appearance: Present: mild distress - EENT Eyes: Present: PERRL ENT: hearing intact, clear oral mucosa - Neck Neck: Present: supple, normal ROM - Respiratory Respiratory effort: labored, accessory muscle use, stridor Respiratory: bilateral: diminished, rhonchi - Cardiovascular Heart Sounds: Present: S1 & S2. Absent: rub, click - Extremities Extremities: pulses symmetrical, No edema Peripheral Pulses: within normal limits - Abdominal General gastrointestinal: Present: soft, non-tender, non-distended, normal bowel sounds Female genitourinary: Present: normal - Integumentary Integumentary: Present: clear, warm, dry - Musculoskeletal Musculoskeletal: gait normal, strength equal bilaterally - Psychiatric Psychiatric: appropriate mood/affect, intact judgment & insight, agitated - Neurologic Neurologic: CNII-XII intact, moves all extremities Results - Labs CBC & Chem 7: 10/24/21 08:44 10/24/21 08:44 Labs: Abnormal lab results 10/24/21 10/24/21 10/24/21 Range/Units 08:44 08:44 10:30 RBC 3.29 L (3.65-5.03) M/mm3 Hgb 10.0 L (10.1-14.3) gm/dl RDW 17.4 H (13.2-15.2) % Lymph % (Auto) 11.7 L (13.4-35.0) % Lymph # (Auto) 0.9 L (1.2-5.4) K/mm3 Seg Neutrophils % 83.9 H (40.0-70.0) % ABG pO2 151.8 H (80.0-90.0) mm Hg ABG Hemoglobin 9.7 L (12.0-16.0) gm/dl BUN 22 H (7-17) mg/dL Glucose 109 H (65-100) mg/dL NT-Pro-B Natriuret Pep 1011 H (0-900) pg/mL Assessment and Plan - Patient Problems (1) Acute respiratory failure with hypoxia Current Visit: No Status: Acute Plan to address problem: Chest x-ray, supplemental oxygen, pulse oximetry, nebulizer therapy, noninvasive positive pressure ventilation, pulmonary toilet, (2) COPD (chronic obstructive pulmonary disease) Current Visit: Yes Status: Chronic Qualifiers: COPD type: unspecified COPD Qualified Code(s): J44.9 - Chronic obstructive pulmonary disease, unspecified Plan to address problem: Supplemental oxygen, pulse oximetry, nebulizer therapy, IV steroid therapy, supportive care. (3) Paroxysmal atrial fibrillation Current Visit: No Status: Acute Plan to address problem: Rate control, supportive care. (4) Tobacco use disorder Current Visit: No Status: Acute Plan to address problem: Smoke cessation counseling, supportive care, behavior change counseling, +15 minutes. (5) GERD (gastroesophageal reflux disease) Current Visit: No Status: Chronic Qualifiers: Esophagitis presence: without esophagitis Plan to address problem: PPI therapy, supportive care. (6) HTN (hypertension) Current Visit: No Status: Chronic Qualifiers: Hypertension type: primary hypertension Qualified Code(s): I10 - Essential (primary) hypertension Plan to address problem: Monitor blood pressure every shift, continue medical management. (7) DVT prophylaxis Current Visit: No Status: Acute Plan to address problem: SCDs bilateral lower extremities while in bed (8) Advance care planning Current Visit: No Status: Acute Plan to address problem: Disease education data, care plan discussed, diagnoses discussed, prognosis discussed, patient is full code. Patient acknowledges understanding and agreement with care plan, +30 minutes. (9) Preventative health care Current Visit: No Status: Acute Plan to address problem: Patient counseled regarding avoidance of respiratory triggers, balanced diet, outpatient follow-up with primary care physician regarding all age and risk factor appropriate screening test. +30 minutes.
[2021-10-24] MEDS ORDERED: ACETAMINOPHEN 325 MG TAB PO PRN (12:30)
[2021-10-24] MEDS ORDERED: HYDROmorphone 0.5 MG/0.5 ML INJ IV PRN (12:30)
[2021-10-24] MEDS ORDERED: DOCUSATE SODIUM 100 MG CAP PO PRN (12:33)
[2021-10-24] MEDS ORDERED: MECLIZINE 25 MG TAB PO PRN (12:33)
[2021-10-24] MEDS: ALPRAZolam 0.5 MG TAB PO PRN ×2 (17:35→20:30)
[2021-10-24] MEDS: methylPREDNISolone Sod Succinate 40 MG/1 ML INJ IV SCH ×2 (17:40→21:58)
[2021-10-24] MEDS: NAPROXEN 375 MG TAB PO SCH (17:43)
[2021-10-24] MEDS: oxyCODONE /ACETAMINOPHEN 5-325MG TAB PO PRN (20:30)
[2021-10-25] MEDS: ALBUTEROL 2.5 MG/3 ML NEBU IH PRN ×3 (00:06→17:54)
[2021-10-25] MEDS: NAPROXEN 375 MG TAB PO SCH ×2 (01:00→12:23)
[2021-10-25 05:18] LABS: Basophils % (Auto) 0.1 % (0.0-1.8); Hemoglobin 10.4 gm/dl (10.1-14.3); Lymphocytes # (Auto) 1.1 K/mm3 (1.2-5.4); Lymphocytes % (Auto) 16.3 % (13.4-35.0); Mean Corpuscular HGB Conc 31 % (30-34); Mean Corpuscular Volume 97 fl (79-97); Monocytes # (Auto) 0.2 K/mm3 (0.0-0.8); Monocytes % (Auto) 3.6 % (0.0-7.3); Platelet Count 238 K/mm3 (140-440); Red Cell Distribution Width 17.2 % (13.2-15.2)
[2021-10-25 05:27] LABS: Calcium 9.3 mg/dL (8.4-10.2)
[2021-10-25] MEDS: oxyCODONE /ACETAMINOPHEN 5-325MG TAB PO PRN ×2 (06:14→21:35)
[2021-10-25] MEDS: ALPRAZolam 0.5 MG TAB PO PRN ×2 (06:15→15:49)
[2021-10-25] MEDS: methylPREDNISolone Sod Succinate 40 MG/1 ML INJ IV SCH ×3 (06:16→21:37)
[2021-10-25] MEDS ORDERED: SODIUM ZIRCONIUM CYCLOSILICATE PO SCH (10:00)
[2021-10-25] MEDS ORDERED: MELATONIN 5 MG TAB PO SCH (10:00)
[2021-10-25] MEDS: PANTOPRAZOLE 20 MG TAB PO SCH (10:41)
[2021-10-25] MEDS: AMIODARONE 200 MG TAB PO SCH (10:41)
[2021-10-25] MEDS: CITALOPRAM 20 MG TAB PO SCH (10:41)
[2021-10-25] MEDS: ONDANSETRON 4 MG/2 ML INJ IV PRN (12:23)
--- NOTE | 2021-10-25 12:58 | Progress Note ---
Assessment and Plan (1) Acute on chronic respiratory failure with hypoxia Current Visit: No Status: Acute Plan to address problem: cont supplemental oxygen, pulse oximetry, nebulizer therapy, nocturnal noninvasive positive pressure ventilation, pulmonary toilet, (2) COPD (chronic obstructive pulmonary disease) exacerbation Current Visit: Yes Status: Chronic Qualifiers: COPD type: unspecified COPD Qualified Code(s): J44.9 - Chronic obstructive pulmonary disease, unspecified Plan to address problem: Supplemental oxygen, pulse oximetry, nebulizer therapy, IV steroid therapy, supportive care. (3) Paroxysmal atrial fibrillation Current Visit: No Status: Acute Plan to address problem: Rate control, supportive care. (4) Tobacco use disorder Current Visit: No Status: Acute Plan to address problem: Smoke cessation counseling, supportive care, behavior change counseling, +15 minutes. (5) GERD (gastroesophageal reflux disease) Current Visit: No Status: Chronic Qualifiers: Esophagitis presence: without esophagitis Plan to address problem: PPI therapy, supportive care. (6) HTN (hypertension) Current Visit: No Status: Chronic Qualifiers: Hypertension type: primary hypertension Qualified Code(s): I10 - Essential (primary) hypertension Plan to address problem: Monitor blood pressure every shift, continue medical management. (7) DVT prophylaxis Current Visit: No Status: Acute Plan to address problem: SCDs bilateral lower extremities while in bed (8) Advance care planning Current Visit: No Status: Acute Plan to address problem: Disease education data, care plan discussed, diagnoses discussed, prognosis discussed, patient is full code. Patient acknowledges understanding and agreement with care plan, +30 minutes. (9) Preventative health care Current Visit: No Status: Acute Plan to address problem: Patient counseled regarding avoidance of respiratory triggers, balanced diet, outpatient follow-up with primary care physician regarding all age and risk factor appropriate screening test. +30 minutes. -- Patient states that she has a BiPAP machine delivered at home to use at bedtime, but she does not know how to set up the machine and no one instructed her how to do that. That is the reason she has to come to the hospital because she could not sleep at night because of worsening shortness of breath and requirement of BiPAP machine at night. Continue to follow clinically, will reach out to the case management rn to set up home health or to reach out to the company to set up her BiPAP machine at home. Subjective Date of service: 10/25/21 Interval history: Patient seen and examined. Medical records and medication list reviewed. No acute event overnight noted by the RN. Complains of difficulty breathing even on resting. She states that she has BiPAP at home but she does not know how to set it up and nobody instructed her how to set it up She is very short of breath and unable to even complete a sentence, also having constant coughing patient is tolerating diet. Discussed plan of care at bedside with patient. Objective - Exam Narrative Exam: GENERAL: Elderly malnourished white female lying on bed appeared to be in moderate discomfort. HEENT: Normocephalic. Atraumatic. No conjunctival congestion or icterus. Patient has moist mucous membranes. NECK: Supple. Trachea midline. CHEST/LUNGS: Diminished breath sounds auscultated bilaterally, breathing labored. Positive for cough HEART/CARDIOVASCULAR: Regular in rate and rhythm. S1 and S2 positive. ABDOMEN: Abdomen is soft, nontender. Patient has normal bowel sounds. SKIN: There is no rash. Warm and dry. NEURO: No focal motor deficit. Follows command. MUSCULOSKELETAL: No joint effusion or tenderness. Generalized muscle wasting EXTRIMITY: No edema, no cyanosis or clubbing. PSYCH: Cooperative. - Constitutional Vitals: Vital Signs - 12hr 10/25/21 10/25/21 10/25/21 01:22 06:23 09:58 Pulse Rate [ 82 Anterior] Respiratory 20 Rate [Anterior] O2 Sat by Pulse 95 97 Oximetry - Labs CBC & Chem 7: 10/25/21 02:50 10/26/21 09:48 Labs: Abnormal lab results 10/25/21 10/25/21 Range/Units 02:50 02:50 RBC 3.50 L (3.65-5.03) M/mm3 RDW 17.2 H (13.2-15.2) % Lymph # (Auto) 1.1 L (1.2-5.4) K/mm3 Seg Neutrophils % 80.0 H (40.0-70.0) % BUN 33 H (7-17) mg/dL Creatinine 1.4 H (0.6-1.2) mg/dL Glucose 128 H (65-100) mg/dL
--- NOTE | 2021-10-25 19:43 | Electrocardiograph Report ---
[facility] Test Date: 2021-10-24 Test Time: 09:37:30 Pat Name: MAHESH TURNER Department: Room: A366 Gender: F Peer Financial Counselor: ANNABEL : 1950 Requested By: MONTANA PAREDES Order Number: [id number] Reading MD: Kinjal Jaffe Measurements Intervals [place] Rate: 81 P: 61 HI: 134 QRS: 20 QRSD: 71 T: 42 QT: 382 QTc: 444 Interpretive Statements Sinus rhythm Compared to ECG 09/28/2021 07:05:50 No significant changes Electronically Signed On 10-25-2021 19:43:14 EDT by Kinjal Jaffe
[2021-10-25] MEDS: MELATONIN 5 MG TAB PO SCH (21:37)
[2021-10-26] MEDS: NAPROXEN 375 MG TAB PO SCH ×2 (00:34→13:59)
[2021-10-26] MEDS: methylPREDNISolone Sod Succinate 40 MG/1 ML INJ IV SCH ×3 (06:28→21:51)
[2021-10-26] MEDS: oxyCODONE /ACETAMINOPHEN 5-325MG TAB PO PRN ×2 (06:32→21:58)
--- NOTE | 2021-10-26 09:27 | Progress Note ---
Assessment and Plan (1) Acute respiratory failure with hypoxia Current Visit: No Status: Acute Plan to address problem: Chest x-ray, supplemental oxygen, pulse oximetry, nebulizer therapy, noninvasive positive pressure ventilation, pulmonary toilet, (2) COPD (chronic obstructive pulmonary disease) Current Visit: Yes Status: Chronic Qualifiers: COPD type: unspecified COPD Qualified Code(s): J44.9 - Chronic obstructive pulmonary disease, unspecified Plan to address problem: Supplemental oxygen, pulse oximetry, nebulizer therapy, IV steroid therapy, supportive care. (3) Paroxysmal atrial fibrillation Current Visit: No Status: Acute Plan to address problem: Rate control, supportive care. (4) Tobacco use disorder Current Visit: No Status: Acute Plan to address problem: Smoke cessation counseling, supportive care, behavior change counseling, +15 minutes. (5) GERD (gastroesophageal reflux disease) Current Visit: No Status: Chronic Qualifiers: Esophagitis presence: without esophagitis Plan to address problem: PPI therapy, supportive care. (6) HTN (hypertension) Current Visit: No Status: Chronic Qualifiers: Hypertension type: primary hypertension Qualified Code(s): I10 - Essential (primary) hypertension Plan to address problem: Monitor blood pressure every shift, continue medical management. (7) DVT prophylaxis Current Visit: No Status: Acute Plan to address problem: SCDs bilateral lower extremities while in bed (8) Advance care planning Current Visit: No Status: Acute Plan to address problem: Disease education data, care plan discussed, diagnoses discussed, prognosis discussed, patient is full code. Patient acknowledges understanding and agreement with care plan, +30 minutes. (9) Preventative health care Current Visit: No Status: Acute Plan to address problem: Patient counseled regarding avoidance of respiratory triggers, balanced diet, outpatient follow-up with primary care physician regarding all age and risk factor appropriate screening test. +30 minutes. Subjective Date of service: 10/26/21 Objective - Constitutional Vitals: Vital Signs - 12hr 10/25/21 10/26/21 22:09 03:19 Temperature 96.5 F L Pulse Rate 74 62 Respiratory 18 18 Rate Blood Pressure 123/64 O2 Sat by Pulse 98 97 Oximetry - Labs CBC & Chem 7: 10/25/21 02:50 10/25/21 02:50
[2021-10-26] MEDS: PANTOPRAZOLE 20 MG TAB PO SCH (09:42)
[2021-10-26] MEDS: AMIODARONE 200 MG TAB PO SCH (09:42)
[2021-10-26] MEDS: CITALOPRAM 20 MG TAB PO SCH (09:42)
[2021-10-26] MEDS: ALPRAZolam 0.5 MG TAB PO PRN ×2 (09:55→17:05)
[2021-10-26] MEDS: ALBUTEROL 2.5 MG/3 ML NEBU IH PRN (10:12)
[2021-10-26 10:53] LABS: Calcium 8.6 mg/dL (8.4-10.2)
--- NOTE | 2021-10-26 13:07 | Discharge Summary ---
Providers - Providers Date of Admission: 10/24/21 12:30 Date of discharge: 10/26/21 Attending physician: BLAKE MOHAMUD Primary care physician: FACILITY MANAGER HISTOLOGY Hospitalization Condition: Stable Disposition: 06 HOME HEALTH CARE SERVICE Final Discharge Diagnosis (Prints w/discharge instructions): -- Acute on chronic respiratory failure with hypoxia. --COPD (chronic obstructive pulmonary disease) exacerbation. --Paroxysmal atrial fibrillation. --Tobacco use disorder. --GERD (gastroesophageal reflux disease). --HTN (hypertension) Time spent for discharge: 34 minutes Core Measure Documentation - Palliative Care Palliative Care/ Comfort Measures: Not Applicable - Core Measures Any of the following diagnoses?: none Exam - Physical Exam Narrative exam: GENERAL: Elderly malnourished white female lying on bed appeared to be in moderate discomfort. HEENT: Normocephalic. Atraumatic. No conjunctival congestion or icterus. Patient has moist mucous membranes. NECK: Supple. Trachea midline. CHEST/LUNGS: Diminished breath sounds auscultated bilaterally, breathing labored. Positive for cough HEART/CARDIOVASCULAR: Regular in rate and rhythm. S1 and S2 positive. ABDOMEN: Abdomen is soft, nontender. Patient has normal bowel sounds. SKIN: There is no rash. Warm and dry. NEURO: No focal motor deficit. Follows command. MUSCULOSKELETAL: No joint effusion or tenderness. Generalized muscle wasting EXTRIMITY: No edema, no cyanosis or clubbing. PSYCH: Cooperative. - Constitutional Vitals: Temp Pulse Resp BP Pulse Ox 99.3 F 68 18 126/55 96 10/26/21 09:40 10/26/21 10:12 10/26/21 10:12 10/26/21 09:40 10/26/21 10:12 Plan Activity: advance as tolerated Weight Bearing Status: Non-Weight Bearing Diet: low fat, low salt
[2021-10-26] MEDS: ONDANSETRON 4 MG/2 ML INJ IV PRN (16:09)
[2021-10-26] MEDS: MELATONIN 5 MG TAB PO SCH (21:51)
--- NOTE | 2021-10-26 22:34 | Progress Note ---
Assessment and Plan 71 YO Female with End Stage COPD on nocturnal Bipap at home , Chronic Respiratory Failure on 3L Home Oxygen via [place], Nicotine Dependence, HTN, HAV, GERD, Paroxysmal Atrial Fib not currently on therapeutic Anticoagulation presents to ED for worsening SOB. states her home bipap has delivered but has not been set up yet for her to use and she can't sleep w/o it. admitted for further Mx. Daily clinical course: 10/25: Patient states that she has a BiPAP machine delivered at home to use at bedtime, but she does not know how to set up the machine and no one instructed her how to do that. That is the reason she has to come to the hospital because she could not sleep at night because of worsening shortness of breath and requirement of BiPAP machine at night. Continue to follow clinically, will reach out to the child support case officer to set up home health or to reach out to the company to set up her BiPAP machine at home. 10/26: clinically improved and planned for dc today. But Home bipap machine company repOnofre Oseguera phone number [phone] with [employer] bipap machine company main number [phone] said he could only come out in am to set up bipap machine for the pt, D/C on hold till in am. pt with end stage COPD needs bipap at night. cont to follow. A/P (1) Acute on chronic respiratory failure with hypoxia Current Visit: No Status: Acute Plan to address problem: cont supplemental oxygen, pulse oximetry, nebulizer therapy, nocturnal noninvasive positive pressure ventilation, pulmonary toilet, (2) COPD (chronic obstructive pulmonary disease) exacerbation Current Visit: Yes Status: Chronic Qualifiers: COPD type: unspecified COPD Qualified Code(s): J44.9 - Chronic obstructive pulmonary disease, unspecified Plan to address problem: Supplemental oxygen, pulse oximetry, nebulizer therapy, IV steroid therapy, supportive care. (3) Paroxysmal atrial fibrillation Current Visit: No Status: Acute Plan to address problem: Rate control, supportive care. not on AC (4) Tobacco use disorder Current Visit: No Status: Acute Plan to address problem: Smoke cessation counseling, supportive care, behavior change counseling, +15 minutes. (5) GERD (gastroesophageal reflux disease) Current Visit: No Status: Chronic Qualifiers: Esophagitis presence: without esophagitis Plan to address problem: PPI therapy, supportive care. (6) HTN (hypertension) Current Visit: No Status: Chronic Qualifiers: Hypertension type: primary hypertension Qualified Code(s): I10 - Essential (primary) hypertension Plan to address problem: Monitor blood pressure every shift, continue medical management. (7) DVT prophylaxis Current Visit: No Status: Acute Plan to address problem: SCDs bilateral lower extremities while in bed (8) Advance care planning Current Visit: No Status: Acute Plan to address problem: Disease education data, care plan discussed, diagnoses discussed, prognosis discussed, patient is full code. Patient acknowledges understanding and agreement with care plan, +30 minutes. (9) Preventative health care Current Visit: No Status: Acute Plan to address problem: Patient counseled regarding avoidance of respiratory triggers, balanced diet, outpatient follow-up with primary care physician regarding all age and risk factor appropriate screening test. +30 minutes. Subjective Date of service: 10/26/21 Interval history: Patient seen and examined. Medical records and medication list reviewed. No acute event overnight noted by the RN. Complains of difficulty breathing even on resting. She states that she has BiPAP at home but she does not know how to set it up and nobody instructed her how to set it up She is very short of breath and unable to even complete a sentence, slightly improved coughing patient is tolerating diet. Discussed plan of care at bedside with patient. Objective - Exam Narrative Exam: GENERAL: Elderly malnourished white female lying on bed appeared to be in moderate discomfort. HEENT: Normocephalic. Atraumatic. No conjunctival congestion or icterus. Patient has moist mucous membranes. NECK: Supple. Trachea midline. CHEST/LUNGS: Diminished breath sounds auscultated bilaterally, breathing labored. Positive for cough HEART/CARDIOVASCULAR: Regular in rate and rhythm. S1 and S2 positive. ABDOMEN: Abdomen is soft, nontender. Patient has normal bowel sounds. SKIN: There is no rash. Warm and dry. NEURO: No focal motor deficit. Follows command. MUSCULOSKELETAL: No joint effusion or tenderness. Generalized muscle wasting EXTRIMITY: No edema, no cyanosis or clubbing. PSYCH: Cooperative. - Constitutional Vitals: Vital Signs - 12hr 10/26/21 10/26/21 10/26/21 17:03 17:04 21:58 Temperature 98.8 F Pulse Rate 78 Respiratory 20 20 Rate Blood Pressure 139/61 O2 Sat by Pulse 96 Oximetry - Labs CBC & Chem 7: 10/25/21 02:50 10/26/21 09:48 Labs: Abnormal lab results 10/26/21 Range/Units 09:48 Sodium 132 L D (137-145) mmol/L Chloride 95.0 L (98-107) mmol/L BUN 49 H (7-17) mg/dL Creatinine 1.6 H (0.6-1.2) mg/dL Glucose 264 H (65-100) mg/dL
[2021-10-27] MEDS: NAPROXEN 375 MG TAB PO SCH ×2 (01:29→12:26)
[2021-10-27] MEDS: oxyCODONE /ACETAMINOPHEN 5-325MG TAB PO PRN (05:49)
[2021-10-27] MEDS: ALPRAZolam 0.5 MG TAB PO PRN ×2 (05:49→12:24)
[2021-10-27] MEDS: methylPREDNISolone Sod Succinate 40 MG/1 ML INJ IV SCH (05:49)
[2021-10-27] MEDS: AMIODARONE 200 MG TAB PO SCH (09:40)
[2021-10-27] MEDS: CITALOPRAM 20 MG TAB PO SCH (09:40)
[2021-10-27] MEDS: PANTOPRAZOLE 20 MG TAB PO SCH (09:40)
[2021-10-27] MEDS: ONDANSETRON 4 MG/2 ML INJ IV PRN (09:41)
--- NOTE | 2021-10-27 12:50 | Discharge Summary ---
Providers - Providers Date of Admission: 10/24/21 12:30 Date of discharge: 10/27/21 Attending physician: NADIA HESS Primary care physician: MARINE SERVICE OPERATOR Hospitalization Condition: Stable Hospital course: (1) Acute on chronic respiratory failure with hypoxia Current Visit: No Status: Acute Plan to address problem: cont supplemental oxygen, pulse oximetry, nebulizer therapy, nocturnal noninvasive positive pressure ventilation, pulmonary toilet, (2) COPD (chronic obstructive pulmonary disease) exacerbation Current Visit: Yes Status: Chronic Qualifiers: COPD type: unspecified COPD Qualified Code(s): J44.9 - Chronic obstructive pulmonary disease, unspecified Plan to address problem: Supplemental oxygen, pulse oximetry, nebulizer therapy, IV steroid therapy, supportive care. (3) Paroxysmal atrial fibrillation Current Visit: No Status: Acute Plan to address problem: Rate control, supportive care. not on AC (4) Tobacco use disorder Current Visit: No Status: Acute Plan to address problem: Smoke cessation counseling, supportive care, behavior change counseling, +15 minutes. (5) GERD (gastroesophageal reflux disease) Current Visit: No Status: Chronic Qualifiers: Esophagitis presence: without esophagitis Plan to address problem: PPI therapy, supportive care. (6) HTN (hypertension) Current Visit: No Status: Chronic Qualifiers: Hypertension type: primary hypertension Qualified Code(s): I10 - Essential (primary) hypertension Plan to address problem: Monitor blood pressure every shift, continue medical management. (7) DVT prophylaxis Current Visit: No Status: Acute Plan to address problem: SCDs bilateral lower extremities while in bed (8) Advance care planning Current Visit: No Status: Acute Plan to address problem: Disease education data, care plan discussed, diagnoses discussed, prognosis discussed, patient is full code. Patient acknowledges understanding and agreement with care plan, +30 minutes. (9) Preventative health care Current Visit: No Status: Acute Plan to address problem: Patient counseled regarding avoidance of respiratory triggers, balanced diet, outpatient follow-up with primary care physician regarding all age and risk factor appropriate screening test. +30 minutes. Acute on chronic respiratory failure with hypoxia Acute on chronic hypoxic respiratory failure with hypoxia Acute exacerbation of COPD Paroxysmal atrial fibrillation Tobacco abuse disorder Gastroesophageal reflux disease Hypertension DVT prophylaxis Disposition: 06 HOME HEALTH CARE SERVICE Final Discharge Diagnosis (Prints w/discharge instructions): Acute on chronic hypoxic respiratory failure with hypoxia. Acute exacerbation of COPD. Paroxysmal atrial fibrillation. Tobacco abuse disorder. Gastroesophageal reflux disease. Hypertension. DVT prophylaxis Exam - Constitutional Vitals: Temp Pulse Resp BP Pulse Ox 98.8 F 77 20 139/61 96 10/26/21 17:04 10/27/21 00:22 10/27/21 06:49 10/26/21 17:03 10/27/21 08:00 Plan Activity: advance as tolerated, fall precautions Diet: other (Cardiac diet) Additional Instructions: Continue home oxygen/home BiPAP as needed. If you have worsening symptoms contact MD or go to the nearest emergency room as needed. Advised to follow your private primary care physician, chicken boner per schedule Follow up with: PRIMARY CARE,MD [Primary Care Provider] - 7 Days Prescriptions: oxyCODONE /ACETAMINOPHEN [Percocet 5/325 mg] 1 tab PO Q6H PRN #10 tablet PRN Reason: Pain, Moderate (4-6)
[2021-10-27 13:16] VITALS: BP 150/71
[2021-10-27] MEDS ORDERED: ENOXAPARIN 40 MG/0.4 ML INJ SUB-Q SCH (22:00)
[2021-10-27] MEDS ORDERED: ENOXAPARIN 30 MG/0.3 ML INJ SUB-Q SCH (22:00)
== END 2021-10-27 13:25 | disposition home health service (06) | DRG 189 ==
LOC: ED 07:54 → 3A 12:30
PROVIDERS: ADMIT Internal Medicine; ATTEND Internal Medicine
PROC: 5A09357 Assistance with Respiratory Ventilation, Less than 24 Consecutive Hours, Continuous Positive Airway Pressure (ICD-10-PCS; principal; 2021-10-24)
PROC: 5A09357 Assistance with Respiratory Ventilation, Less than 24 Consecutive Hours, Continuous Positive Airway Pressure (ICD-10-PCS; 2021-10-27)
DX: J96.21 Acute and chronic respiratory failure with hypoxia (principal); J44.1 Chronic obstructive pulmonary disease with (acute) exacerbation; F17.200 Nicotine dependence, unspecified, uncomplicated; I50.9 Heart failure, unspecified; I48.0 Paroxysmal atrial fibrillation; I11.0 Hypertensive heart disease with heart failure; Z98.41 Cataract extraction status, right eye; Z98.42 Cataract extraction status, left eye; Z88.6 Allergy status to analgesic agent; Z88.8 Allergy status to other drugs, medicaments and biological substances; Z91.018 Allergy to other foods; Z82.49 Family history of ischemic heart disease and other diseases of the circulatory system
CPT/HCPCS: 36415; 71045; 80048; 80053; 82803; 83880; 85025; 93005; 94640; 94644; 94660; 94760; 99406; G0378; J1170; J1940; J2060; J2405; J2920

== ENCOUNTER 2021-11-02 09:05 | Emergency (ER) | payer MEDICARE ==
--- NOTE | 2021-11-02 10:36 | Emergency Department Report ---
ED Shortness of Breath HPI - General Chief Complaint: Adult Asthma Stated Complaint: JING Time Seen by Provider: 11/02/21 10:23 Source: patient Mode of arrival: Stretcher Limitations: Other - History of Present Illness Initial Comments: 71 yo F with history of Asthma and COPD currently on chronic home O2 at 4L/hr 24/ who present with sob by the EMS. According to EMS pt oxygen on their presentation was 88% and was given Solumedrol + Mg 2g + Abluterol 5 mg with some improvement. Pt denies any CP or palpitation. No fever or chills reported. No other modifying or associated factors reported. MD Complaint: shortness of breath, "asthma attack" - Related Data Home Medications Medication Instructions Recorded Confirmed Last Taken ALPRAZolam [Xanax TAB] 0.5 mg PO TID PRN 09/29/21 11/02/21 Unknown Meclizine [Antivert] 25 mg PO TID PRN 09/29/21 11/02/21 1 Day Ago ~11/01/21 25 Melatonin [Melatonin 3MG TAB] 3 mg PO QDAY 09/29/21 11/02/21 Unknown Naproxen [Naprosyn TAB] 375 mg PO Q12H 09/29/21 11/02/21 Unknown Pantoprazole [Protonix TAB] 20 mg QDAY 09/29/21 11/02/21 11/01/21 09:00 25 MG traMADoL [Ultram 50 MG tab] 50 mg PO Q12H PRN 09/29/21 11/02/21 Unknown Previous Rx's Medication Instructions Recorded Last Taken Type Budesonide/Formoterol Fumarate 2 puff IH BID 30 Days #1 pump 09/04/21 Unknown Rx [Symbicort 160-4.5 Mcg Inhaler] Tiotropium [place] [Spiriva] 1 puff IH DAILY 30 Days #1 pump 09/04/21 Unknown Rx Sodium Zirconium Cyclosilicate 10 gm PO DAILY #3 10/02/21 Unknown Rx [Lokelma] oxyCODONE /ACETAMINOPHEN [Percocet 1 tab PO Q6H PRN #10 tablet 10/27/21 11/01/21 09:00 Rx 5/325 mg] Allergies Allergy/AdvReac Type Severity Reaction Status Date / Time codeine Allergy Hives Verified 11/02/21 09:21 orange juice Allergy Hives Verified 11/02/21 09:21 prednisone Allergy Rash Verified 11/02/21 09:21 ED Review of Systems ROS: Stated complaint: JING Other details as noted in HPI Comment: All other systems reviewed and negative Respiratory: shortness of breath, wheezing Cardiovascular: denies: palpitations, syncope ED Past Medical Hx - Past Medical History Hx Hypertension: Yes Hx Congestive Heart Failure: No Hx Diabetes: No Hx Pulmonary Embolism: No Hx Liver Disease: Yes (hepatitis A) Hx Renal Disease: No Hx Arthritis: No Hx Kidney Stones: No Hx Psychiatric Treatment: Yes (Apparently has previous overdose; on Lexapro and Xanax) Hx Asthma: No Hx COPD: Yes (END STAGE) Hx Tuberculosis: No Hx HIV: No Additional medical history: a-fib. CARPAL TUNNEL. Back pain - Surgical History Hx Cholecystectomy: No Hx Appendectomy: No Hx Breast Surgery: No Additional Surgical History: BILATERAL CATARACTS REMOVED; LENS SURGERY. BALLOON IN BACK - Social History Smoking Status: Former Smoker - Medications Home Medications: Home Medications Medication Instructions Recorded Confirmed Last Taken Type Budesonide/Formoterol Fumarate 2 puff IH BID 30 Days #1 pump 09/04/21 11/02/21 Unknown Rx [Symbicort 160-4.5 Mcg Inhaler] Tiotropium [place] [Spiriva] 1 puff IH DAILY 30 Days #1 pump 09/04/21 11/02/21 Unknown Rx ALPRAZolam [Xanax TAB] 0.5 mg PO TID PRN 09/29/21 11/02/21 Unknown History Meclizine [Antivert] 25 mg PO TID PRN 09/29/21 11/02/21 1 Day Ago History ~11/01/21 25 Melatonin [Melatonin 3MG TAB] 3 mg PO QDAY 09/29/21 11/02/21 Unknown History Naproxen [Naprosyn TAB] 375 mg PO Q12H 09/29/21 11/02/21 Unknown History Pantoprazole [Protonix TAB] 20 mg QDAY 09/29/21 11/02/21 11/01/21 09:00 History 25 MG traMADoL [Ultram 50 MG tab] 50 mg PO Q12H PRN 09/29/21 11/02/21 Unknown History Sodium Zirconium Cyclosilicate 10 gm PO DAILY #3 10/02/21 11/02/21 Unknown Rx [Lokelma] oxyCODONE /ACETAMINOPHEN [Percocet 1 tab PO Q6H PRN #10 tablet 10/27/21 11/01/21 09:00 Rx 5/325 mg] ED Physical Exam - General Limitations: No Limitations, Other General appearance: alert, in no apparent distress - Head Head exam: Present: normal inspection - Eye Eye exam: Present: normal appearance Pupils: Present: normal accommodation - ENT ENT exam: Present: normal exam, normal orophraynx, mucous membranes moist - Neck Neck exam: Present: normal inspection, full ROM. Absent: tenderness - Respiratory Respiratory exam: Present: wheezes. Absent: respiratory distress, accessory muscle use - Cardiovascular Cardiovascular Exam: Present: regular rate, normal rhythm, normal heart sounds - GI/Abdominal GI/Abdominal exam: Present: soft, normal bowel sounds. Absent: distended, tenderness - Extremities Exam Extremities exam: Present: normal inspection. Absent: pedal edema - Back Exam Back exam: Present: normal inspection - Neurological Exam Neurological exam: Present: alert, oriented X3 - Psychiatric Psychiatric exam: Present: normal affect, normal mood - Skin Skin exam: Present: warm, intact ED Course Vital Signs 11/02/21 11/02/21 11/02/21 09:06 09:45 11:11 Temperature 98.4 F 98.2 F Pulse Rate 111 H 85 78 Pulse Rate [ Bilateral Throughout] Respiratory 22 25 H 15 Rate Respiratory Rate [Bilateral Throughout] Blood Pressure 127/42 Blood Pressure 148/75 127/42 146/62 [Left] O2 Sat by Pulse 98 99 97 Oximetry 11/02/21 11/02/21 11/02/21 13:08 13:14 13:59 Temperature Pulse Rate 99 H Pulse Rate [ 87 Bilateral Throughout] Respiratory 29 H Rate Respiratory 18 Rate [Bilateral Throughout] Blood Pressure Blood Pressure 108/57 [Left] O2 Sat by Pulse 99 96 Oximetry - Reevaluation(s) Reevaluation #1: 11/02/21 10:37 here with sob with h/o asthma and copd -- this likely exacerbation of either of this two-- so patient started feeling better after the initial treatment with Solumedrol and albuterol and magnessium by EMS. Reevaluation #2: 11/02/21 14:20 Pt reports feeling better with CXR that did not show any acute findings -- this support the notion that this is likely her asthma exacerbation-- so not labs will be needed at this point. Pt will be discharged home to continue her current medication and oxygen support. 11/02/21 14:21 Critical care attestation.: If time is entered above; I have spent that time in minutes in the direct care of this critically ill patient, excluding procedure time. ED Disposition Clinical Impression: COPD exacerbation Asthma exacerbation attacks Qualifiers: Asthma severity: unspecified severity Asthma persistence: unspecified Qualified Code(s): J45.901 - Unspecified asthma with (acute) exacerbation Disposition: 01 HOME / SELF CARE / HOMELESS Is pt being admited?: No Does the pt Need Aspirin: No Condition: Stable Instructions: Chronic Obstructive Pulmonary Disease (ED), Chronic Obstructive Pulmonary Disease Exacerbation, [id number], Asthma, Adult, [id number] Additional Instructions: Continue your medication as prescribed by your primary doctor to continue to help your symptoms Please call and schedule follow-up with your primary doctor in the next 3 to 5 days for progress Please do not hesitate to call or return to emergency room if your symptoms worsen Time of Disposition: 14:23
[2021-11-02] MEDS ORDERED: IPRATROPIUM/ALBUTEROL SULFATE 3 ML AMPUL.NEB IH ONE (12:21)
--- NOTE | 2021-11-02 12:56 | XRay Report ---
CHEST 1 VIEW 11/02/2021 12:34 PM INDICATION / CLINICAL INFORMATION: Asthma. COMPARISON: None available. FINDINGS: SUPPORT DEVICES: None. HEART / MEDIASTINUM: No significant abnormality. LUNGS / PLEURA: No significant pulmonary or pleural abnormality. No pneumothorax. ADDITIONAL FINDINGS: Vertebroplasty changes in the lower thoracic spine. IMPRESSION: 1. No acute findings. Signer Name: Cody Ray DO Signed: 11/02/2021 12:52 PM Workstation Name: [id number]
[2021-11-02] MEDS ORDERED: LORazepam 2 MG/ML VIAL IV ONE (15:58)
[2021-11-02] MEDS ORDERED: LORazepam 2 MG/ML VIAL ONE (16:00)
[2021-11-02 16:10] LABS: Basophils % (Auto) 0.2 % (0.0-1.8); Eosinophils % (Auto) 0.2 % (0.0-4.3); Hematocrit 37.7 % (30.3-42.9); Hemoglobin 11.8 gm/dl (10.1-14.3); Lymphocytes # (Auto) 0.7 K/mm3 (1.2-5.4); Lymphocytes % (Auto) 11.5 % (13.4-35.0); Mean Corpuscular HGB Conc 31 % (30-34); Mean Corpuscular Volume 95 fl (79-97); Monocytes # (Auto) 0.1 K/mm3 (0.0-0.8); Monocytes % (Auto) 2.1 % (0.0-7.3); Platelet Count 241 K/mm3 (140-440); Red Blood Count 3.97 M/mm3 (3.65-5.03); Red Cell Distribution Width 17.6 % (13.2-15.2)
[2021-11-02 16:31] LABS: Alanine Aminotransferase 22 units/L (7-56); Albumin 4.2 g/dL (3.9-5); BUN/Creatinine Ratio 22; Blood Urea Nitrogen 29 mg/dL (7-17); Calcium 9.2 mg/dL (8.4-10.2); Hemolysis Index 28
[2021-11-02] MEDS ORDERED: HALOPERIDOL LACTATE 5 MG/1 ML INJ IM ONE (17:39)
[2021-11-02] MEDS ORDERED: HALOPERIDOL LACTATE 5 MG/1 ML INJ ONE (17:40)
[2021-11-02 18:40] VITALS: BP 125/69
== END 2021-11-02 18:41 | disposition home or self-care (01) ==
LOC: ED 09:05
DX: J45.909 Unspecified asthma, uncomplicated (principal); I10 Essential (primary) hypertension; K76.9 Liver disease, unspecified; Z13.30 Encounter for screening examination for mental health and behavioral disorders, unspecified; Z87.891 Personal history of nicotine dependence; Z91.02 Food additives allergy status; Z91.09 Other allergy status, other than to drugs and biological substances; Z79.899 Other long term (current) drug therapy
CPT/HCPCS: 36415; 71045; 80053; 84484; 85025; 94640; 96374; 99284; J1630; J2060; 94644

== ENCOUNTER 2021-11-28 06:45 | Inpatient (IN) | payer MEDICAID, MEDICARE ==
[2021-11-28] MEDS ORDERED: IPRATROPIUM 0.02% NEBU 2.5 ML IH ONE ×2 (08:08→10:04)
[2021-11-28] MEDS ORDERED: ALBUTEROL 2.5 MG/3 ML NEBU IH ONE ×2 (08:08→10:04)
[2021-11-28] MEDS ORDERED: HYDROcodone/ACETAMINOPHEN 5-325 MG TAB PO ONE (08:08)
--- NOTE | 2021-11-28 08:11 | Emergency Department Report ---
HPI - General Chief Complaint: Dyspnea/Respdistress Time Seen by Provider: 11/28/21 07:57 - HPI HPI: Room 20 The patient is a 71-year-old female present with chief complaint of shortness of breath. Patient has a history of COPD and states she developed shortness of breath yesterday. Patient mitts to a dry cough today and denies history of fever. EMS was called and administered Solu-Medrol 125 mg, magnesium sulfate 2 g and was administered an albuterol neb prior to arrival. Patient states she feels slightly improved but still has shortness of breath. ED Past Medical Hx - Past Medical History Previous Medical History?: Yes Hx Hypertension: Yes Hx Liver Disease: Yes (hepatitis A) Hx Psychiatric Treatment: Yes (Apparently has previous overdose; on Lexapro and Xanax) Hx COPD: Yes (END STAGE) Additional medical history: a-fib. CARPAL TUNNEL. Back pain - Surgical History Past Surgical History?: Yes Additional Surgical History: BILATERAL CATARACTS REMOVED; LENS SURGERY. BALLOON IN BACK - Family History Family history: no significant - Social History Smoking Status: Current Some Day Smoker Substance Use Type: None (Denies illicit drug use) - Medications Home Medications: Home Medications Medication Instructions Recorded Confirmed Last Taken Type Budesonide/Formoterol Fumarate 2 puff IH BID 30 Days #1 pump 09/04/21 11/02/21 Unknown Rx [Symbicort 160-4.5 Mcg Inhaler] Tiotropium [place] [Spiriva] 1 puff IH DAILY 30 Days #1 pump 09/04/21 11/02/21 Unknown Rx ALPRAZolam [Xanax TAB] 0.5 mg PO TID PRN 09/29/21 11/02/21 Unknown History Meclizine [Antivert] 25 mg PO TID PRN 09/29/21 11/02/21 1 Day Ago History ~11/01/21 25 Melatonin [Melatonin 3MG TAB] 3 mg PO QDAY 09/29/21 11/02/21 Unknown History Naproxen [Naprosyn TAB] 375 mg PO Q12H 09/29/21 11/02/21 Unknown History Pantoprazole [Protonix TAB] 20 mg QDAY 09/29/21 11/02/21 11/01/21 09:00 History 25 MG traMADoL [Ultram 50 MG tab] 50 mg PO Q12H PRN 09/29/21 11/02/21 Unknown History Sodium Zirconium Cyclosilicate 10 gm PO DAILY #3 10/02/21 11/02/21 Unknown Rx [Lokelma] oxyCODONE /ACETAMINOPHEN [Percocet 1 tab PO Q6H PRN #10 tablet 10/27/21 11/01/21 09:00 Rx 5/325 mg] ED Review of Systems ROS: Stated complaint: JING Other details as noted in HPI Constitutional: denies: fever Eyes: denies: eye pain ENT: denies: throat pain Respiratory: cough, shortness of breath Cardiovascular: denies: chest pain Endocrine: no symptoms reported Gastrointestinal: denies: vomiting Genitourinary: denies: dysuria Musculoskeletal: myalgia Neurological: denies: headache Physical Exam - Physical Exam Vital Signs: Vital Signs 11/28/21 06:46 Temperature 97.1 F L Pulse Rate 110 H Respiratory 18 Rate Blood Pressure 130/70 O2 Sat by Pulse 94 Oximetry Physical Exam: GENERAL: The patient is well-developed well-nourished female lying on stretcher not appearing to be in acute distress. [] HEENT: Normocephalic. Atraumatic. Extraocular motions are intact. Patient has moist mucous membranes. NECK: Supple. Trachea midline CHEST/LUNGS: Diminished throughout HEART/CARDIOVASCULAR: Regular. There is no tachycardia. There is no gallop rub or murmur. ABDOMEN: Abdomen is soft, nontender. Patient has normal bowel sounds. There is no abdominal distention. SKIN: There is no rash. There is no edema. There is no diaphoresis. NEURO: The patient is awake, alert, and oriented. The patient is cooperative. The patient has no focal neurologic deficits. The patient has normal speech. GCS 15 MUSCULOSKELETAL: There is no evidence of acute injury. ED Course Vital Signs 11/28/21 06:46 Temperature 97.1 F L Pulse Rate 110 H Respiratory 18 Rate Blood Pressure 130/70 O2 Sat by Pulse 94 Oximetry ED Medical Decision Making - Lab Data Result diagrams: 11/28/21 08:16 11/28/21 08:16 - Radiology Data Radiology results: report reviewed (Chest x-ray), image reviewed (Chest x-ray) interpreted by me: Chest x-ray-no definite focal infiltrates, no pneumothorax [facility] [address] [place] [address] XRay Report Signed Patient: MAHESH TURNER MR#: [id number] : 1950 Acct:[id number] Age/Sex: 71 / F ADM Date: 11/28/21 Loc: ED Attending Dr: Ordering Physician: AYLA CARR MD Date of Service: 11/28/21 Procedure(s): XR chest 1V ap Accession Number(s): [id number] cc: AYLA CARR MD Fluoro Time In Minutes: CHEST 1 VIEW INDICATION / CLINICAL INFORMATION: Shortness of breath, cough. COMPARISON: 11/02/2021 FINDINGS: SUPPORT DEVICES: None. HEART / MEDIASTINUM: No significant abnormality. LUNGS / PLEURA: The lungs remain hyperinflated but otherwise grossly clear. No pneumothorax. ADDITIONAL FINDINGS: No significant additional findings. IMPRESSION: 1. No acute findings. No interval change. Signer Name: Lisha Souza MD Signed: 11/28/2021 8:33 AM Workstation Name: [id number] Transcribed By: JR Dictated By: Lisha Souza MD Electronically Authenticated By: Lisha Souza MD Signed Date/Time: 11/28/21832 DD/ 1 TD/TT: - Differential Diagnosis COPD exacerbation, pneumonia Critical care attestation.: If time is entered above; I have spent that time in minutes in the direct care of this critically ill patient, excluding procedure time. ED Disposition Clinical Impression: COPD exacerbation Disposition: ADMITTED INPATIENT Is pt being admited?: Yes Does the pt Need Aspirin: No Condition: Fair Instructions: Chronic Obstructive Pulmonary Disease (ED) Time of Disposition: 11:25 (Care transferred to hospitalist (Dr. Pritchard))
--- NOTE | 2021-11-28 08:37 | XRay Report ---
CHEST 1 VIEW INDICATION / CLINICAL INFORMATION: Shortness of breath, cough. COMPARISON: 11/02/2021 FINDINGS: SUPPORT DEVICES: None. HEART / MEDIASTINUM: No significant abnormality. LUNGS / PLEURA: The lungs remain hyperinflated but otherwise grossly clear. No pneumothorax. ADDITIONAL FINDINGS: No significant additional findings. IMPRESSION: 1. No acute findings. No interval change. Signer Name: Lisha Souza MD Signed: 11/28/2021 8:33 AM Workstation Name: [id number]
[2021-11-28 08:51] LABS: Basophils % (Auto) 0.5 % (0.0-1.8); Eosinophils # (Auto) 0.1 K/mm3 (0.0-0.4); Eosinophils % (Auto) 1.2 % (0.0-4.3); Hematocrit 34.5 % (30.3-42.9); Hemoglobin 10.5 gm/dl (10.1-14.3); Lymphocytes # (Auto) 0.6 K/mm3 (1.2-5.4); Lymphocytes % (Auto) 11.7 % (13.4-35.0); Mean Corpuscular HGB Conc 31 % (30-34); Mean Corpuscular Volume 94 fl (79-97); Monocytes # (Auto) 0.2 K/mm3 (0.0-0.8); Monocytes % (Auto) 3.6 % (0.0-7.3); Platelet Count 273 K/mm3 (140-440); Red Blood Count 3.66 M/mm3 (3.65-5.03); Red Cell Distribution Width 17.9 % (13.2-15.2)
[2021-11-28 09:05] LABS: Albumin 3.7 g/dL (3.9-5); Calcium 9.1 mg/dL (8.4-10.2)
[2021-11-28] MEDS ORDERED: ONDANSETRON 4 MG/2 ML INJ IV PRN (13:32)
[2021-11-28] MEDS ORDERED: oxyCODONE /ACETAMINOPHEN 5-325MG TAB PO PRN (13:32)
[2021-11-28] MEDS ORDERED: METOCLOPRAMIDE 10 MG/2 ML INJ IV PRN (13:32)
[2021-11-28] MEDS ORDERED: ACETAMINOPHEN 325 MG TAB PO PRN (13:32)
[2021-11-28] MEDS ORDERED: HYDROmorphone 0.5 MG/0.5 ML INJ IV PRN (13:32)
--- NOTE | 2021-11-28 13:32 | History and Physical Report ---
History of Present Illness Date of examination: 11/28/21 Date of admission: 11/28/2021 Chief complaint: Increasing shortness of breath for 1 day History of present illness: 71-year-old female with history of COPD on 3 L nasal cannula home oxygen comes in for increasing shortness of breath. Cough productive of mucoid sputum. No fever or chills. Oxygen levels around 85% on 3 L nasal cannula. EMS was called and EMS gave IV Solu-Medrol 125 mg, magnesium sulfate 2 g and albuterol nebulizer treatment prior to arrival. Patient improved slightly but still continues to be short of breath. Patient apparently has end-stage lung disease. - Past Medical History --Hypertension: Yes --Liver Disease: Yes (hepatitis A) --Psychiatric Treatment: Yes (Apparently has previous overdose; on Lexapro and Xanax) --COPD: Yes (END STAGE) --Additional medical history: a-fib. CARPAL TUNNEL. Back pain - Surgical History --BILATERAL CATARACTS REMOVED -- Kidney stone removal - Family History --Family history: no significant - Social History --Smoking Status: Current Some Day Smoker --Substance Use Type: None (Denies illicit drug use) - Medications Home Medications: Home Medications Medication Instructions Recorded Confirmed Last Taken Type Budesonide/Formoterol Fumarate 2 puff IH BID 30 Days #1 pump 09/04/21 11/02/21 Unknown Rx [Symbicort 160-4.5 Mcg Inhaler] Tiotropium [place] [Spiriva] 1 puff IH DAILY 30 Days #1 pump 09/04/21 11/02/21 Unknown Rx ALPRAZolam [Xanax TAB] 0.5 mg PO TID PRN 09/29/21 11/02/21 Unknown History Meclizine [Antivert] 25 mg PO TID PRN 09/29/21 11/02/21 1 Day Ago History ~11/01/21 25 Melatonin [Melatonin 3MG TAB] 3 mg PO QDAY 09/29/21 11/02/21 Unknown History Naproxen [Naprosyn TAB] 375 mg PO Q12H 09/29/21 11/02/21 Unknown History Pantoprazole [Protonix TAB] 20 mg QDAY 09/29/21 11/02/21 11/01/21 09:00 History 25 MG traMADoL [Ultram 50 MG tab] 50 mg PO Q12H PRN 09/29/21 11/02/21 Unknown History Sodium Zirconium Cyclosilicate 10 gm PO DAILY #3 10/02/21 11/02/21 Unknown Rx [Lokelma] oxyCODONE /ACETAMINOPHEN [Percocet 1 tab PO Q6H PRN #10 tablet 10/27/21 11/01/21 09:00 Rx 5/325 mg] Review of Systems ROS: Stated complaint: JING Other details as noted in HPI Constitutional: denies: fever Eyes: denies: eye pain ENT: denies: throat pain Respiratory: cough, shortness of breath Cardiovascular: denies: chest pain Endocrine: no symptoms reported Gastrointestinal: denies: vomiting Genitourinary: denies: dysuria Musculoskeletal: myalgia Neurological: denies: headache Medications and Allergies Allergies Allergy/AdvReac Type Severity Reaction Status Date / Time codeine Allergy Hives Verified 11/02/21 09:21 orange juice Allergy Hives Verified 11/02/21 09:21 prednisone Allergy Rash Verified 11/02/21 09:21 Home Medications Medication Instructions Recorded Confirmed Last Taken Type Budesonide/Formoterol Fumarate 2 puff IH BID 30 Days #1 pump 09/04/21 11/29/21 Unknown Rx [Symbicort 160-4.5 Mcg Inhaler] Tiotropium [place] [Spiriva] 1 puff IH DAILY 30 Days #1 pump 09/04/21 11/29/21 Unknown Rx ALPRAZolam [Xanax TAB] 0.5 mg PO TID PRN 09/29/21 11/29/21 Unknown History Meclizine [Antivert] 25 mg PO TID PRN 09/29/21 11/29/21 1 Day Ago History ~11/01/21 25 Melatonin [Melatonin 3MG TAB] 3 mg PO QDAY 09/29/21 11/29/21 Unknown History Naproxen [Naprosyn TAB] 375 mg PO Q12H 09/29/21 11/29/21 Unknown History Pantoprazole [Protonix TAB] 20 mg QDAY 09/29/21 11/29/21 11/01/21 09:00 History 25 MG traMADoL [Ultram 50 MG tab] 50 mg PO Q12H PRN 09/29/21 11/29/21 Unknown History Sodium Zirconium Cyclosilicate 10 gm PO DAILY #3 10/02/21 11/29/21 Unknown Rx [Lokelma] oxyCODONE /ACETAMINOPHEN [Percocet 1 tab PO Q6H PRN #10 tablet 10/27/21 11/29/21 11/01/21 09:00 Rx 5/325 mg] Exam - Constitutional Vitals: Temp Pulse Resp BP Pulse Ox 97.1 F L 84 18 130/70 96 11/28/21 06:46 11/28/21 08:29 11/28/21 08:29 11/28/21 06:46 11/28/21 08:29 General appearance: Present: mild distress, well-nourished - EENT Eyes: Present: PERRL ENT: hearing intact, clear oral mucosa - Neck Neck: Present: supple, normal ROM - Respiratory Respiratory effort: normal Respiratory: bilateral: diminished, rhonchi, wheezing - Cardiovascular Heart rate: 78 Rhythm: regular Heart Sounds: Present: S1 & S2. Absent: rub, click - Extremities Extremities: no ischemia, pulses intact, pulses symmetrical, No edema Peripheral Pulses: within normal limits - Abdominal General gastrointestinal: Present: soft, non-tender, non-distended, normal bowel sounds Female genitourinary: Present: normal - Integumentary Integumentary: Present: clear, warm, dry - Musculoskeletal Musculoskeletal: gait normal, strength equal bilaterally - Psychiatric Psychiatric: appropriate mood/affect, intact judgment & insight - Neurologic Neurologic: CNII-XII intact, moves all extremities HEART Score - HEART Score History: Moderately suspicious Age: > 65 Risk factors: 1-2 risk factors Troponin: < normal limit - Critical Actions Critical Actions: 0-3 pts:0.9-1.7%risk of adverse cardiac event.Candidate for discharge Results - Labs CBC & Chem 7: 11/29/21 05:41 11/29/21 05:41 Labs: Laboratory Last Values WBC 5.1 K/mm3 (4.5-11.0) 11/28/21 08:16 RBC 3.66 M/mm3 (3.65-5.03) 11/28/21 08:16 Hgb 10.5 gm/dl (10.1-14.3) 11/28/21 08:16 Hct 34.5 % (30.3-42.9) 11/28/21 08:16 MCV 94 fl (79-97) 11/28/21 08:16 MCH 29 pg (28-32) 11/28/21 08:16 MCHC 31 % (30-34) 11/28/21 08:16 RDW 17.9 % (13.2-15.2) H 11/28/21 08:16 Plt Count 273 K/mm3 (140-440) 11/28/21 08:16 Lymph % (Auto) 11.7 % (13.4-35.0) L 11/28/21 08:16 [place] % (Auto) 3.6 % (0.0-7.3) 11/28/21 08:16 Eos % (Auto) 1.2 % (0.0-4.3) 11/28/21 08:16 Baso % (Auto) 0.5 % (0.0-1.8) 11/28/21 08:16 Lymph # (Auto) 0.6 K/mm3 (1.2-5.4) L 11/28/21 08:16 [place] # (Auto) 0.2 K/mm3 (0.0-0.8) 11/28/21 08:16 Eos # (Auto) 0.1 K/mm3 (0.0-0.4) 11/28/21 08:16 Baso # (Auto) 0.0 K/mm3 (0.0-0.1) 11/28/21 08:16 Seg Neutrophils % 83.0 % (40.0-70.0) H 11/28/21 08:16 Seg Neutrophils # 4.2 K/mm3 (1.8-7.7) 11/28/21 08:16 Sodium 145 mmol/L (137-145) 11/28/21 08:16 Potassium 4.6 mmol/L (3.6-5.0) 11/28/21 08:16 Chloride 105.5 mmol/L (98-107) 11/28/21 08:16 Carbon Dioxide 26 mmol/L (22-30) 11/28/21 08:16 Anion Gap 18 mmol/L 11/28/21 08:16 BUN 14 mg/dL (7-17) 11/28/21 08:16 Creatinine 1.1 mg/dL (0.6-1.2) 11/28/21 08:16 Estimated GFR 49 ml/min 11/28/21 08:16 BUN/Creatinine Ratio 13 % 11/28/21 08:16 Glucose 114 mg/dL (65-100) H 11/28/21 08:16 Calcium 9.1 mg/dL (8.4-10.2) 11/28/21 08:16 Total Bilirubin 0.20 mg/dL (0.1-1.2) 11/28/21 08:16 AST 15 units/L (5-40) 11/28/21 08:16 ALT 7 units/L (7-56) 11/28/21 08:16 Alkaline Phosphatase 189 units/L (35-129) H 11/28/21 08:16 Total Protein 7.3 g/dL (6.3-8.2) 11/28/21 08:16 Albumin 3.7 g/dL (3.9-5) L 11/28/21 08:16 Albumin/Globulin Ratio 1.0 % 11/28/21 08:16 Short CBC 11/28/21 11/29/21 Range/Units 08:16 05:41 WBC 5.1 10.7 (4.5-11.0) K/mm3 Hgb 10.5 9.0 L (10.1-14.3) gm/dl Hct 34.5 28.9 L (30.3-42.9) % Plt Count 273 237 (140-440) K/mm3 BMP 11/28/21 11/29/21 08:16 05:41 Sodium 145 138 Potassium 4.6 4.1 Chloride 105.5 102.4 Carbon Dioxide 26 26 BUN 14 17 Creatinine 1.1 1.1 Glucose 114 H 130 H Calcium 9.1 8.8 Liver Function 11/28/21 11/29/21 Range/Units 08:16 05:41 Total Bilirubin 0.20 < 0.20 (0.1-1.2) mg/dL AST 15 14 (5-40) units/L ALT 7 7 (7-56) units/L Alkaline Phosphatase 189 H 153 H (35-129) units/L Albumin 3.7 L 3.6 L (3.9-5) g/dL Assessment and Plan Advance Directives: Yes (Full code) VTE prophylaxis?: Chemical Plan of care discussed with patient/family: Yes - Patient Problems (1) Acute respiratory failure with hypoxia Current Visit: No Status: Acute Plan to address problem: 3 L nasal cannula oxygen patient is hypoxic Titrate oxygen to bring the saturation levels above 90 respiratory assessment and treatment (2) COPD with acute exacerbation Current Visit: Yes Status: Acute Plan to address problem: IV antibiotics, IV Solu-Medrol and duo nebs [id number] and as needed Pulmonary consult requested (3) LYNDA (generalized anxiety disorder) Current Visit: Yes Status: Acute Plan to address problem: Continue Xanax 3 times daily (4) GERD (gastroesophageal reflux disease) Current Visit: Yes Status: Chronic Qualifiers: Esophagitis presence: without esophagitis Qualified Code(s): K21.9 - Gastro-esophageal reflux disease without esophagitis Plan to address problem: Continue PPIs (5) Malnutrition Current Visit: Yes Status: Acute Qualifiers: Protein-calorie malnutrition severity: mild Plan to address problem: Dietary supplements initiated (6) DVT prophylaxis Current Visit: Yes Status: Acute Plan to address problem: On heparin and GI prophylaxis (7) Advance care planning Current Visit: Yes Status: Acute Plan to address problem: This is education conducted, care plan discussed, diagnosis discussed and prognosis discussed. Patient acknowledged understanding with care plan. +30 m inutes. Patient is full code.
[2021-11-28] MEDS ORDERED: LORazepam 2 MG/ML VIAL IV PRN (13:39)
[2021-11-28] MEDS ORDERED: IPRATROPIUM/ALBUTEROL SULFATE 3 ML AMPUL.NEB IH PRN (13:42)
[2021-11-28] MEDS: MORPHINE 2 MG/1 ML INJ IV PRN (14:12)
[2021-11-28] MEDS: methylPREDNISolone Sod Succinate 125 MG/2 ML INJ IV SCH ×2 (14:13→21:29)
[2021-11-28] MEDS: cefTRIAXone/NS 2 GM/100 ML 2 GM/100 ML BAG IV SCH (14:13)
[2021-11-28] MEDS: FAMOTIDINE 20 MG/2 ML INJ IV SCH ×2 (14:13→21:30)
[2021-11-28] MEDS: AZITHROMYCIN/NS 500 MG/250 ML 500 MG/250 ML BAG IV SCH (15:26)
[2021-11-28] MEDS: IPRATROPIUM/ALBUTEROL SULFATE 3 ML AMPUL.NEB IH SCH ×2 (16:05→19:54)
[2021-11-28] MEDS: HEPARIN 5,000 UNIT/1 ML VIAL SUB-Q SCH (21:30)
[2021-11-28] MEDS ORDERED: ALPRAZolam 0.5 MG TAB PO ONE (23:29)
[2021-11-29] MEDS: ALBUTEROL 2.5 MG/3 ML NEBU IH PRN (05:34)
[2021-11-29] MEDS: methylPREDNISolone Sod Succinate 125 MG/2 ML INJ IV SCH ×3 (05:41→21:14)
[2021-11-29 06:22] LABS: Basophils % (Auto) 0.1 % (0.0-1.8); Hematocrit 28.9 % (30.3-42.9); Lymphocytes # (Auto) 0.9 K/mm3 (1.2-5.4); Lymphocytes % (Auto) 8.7 % (13.4-35.0); Mean Corpuscular HGB Conc 31 % (30-34); Mean Corpuscular Volume 94 fl (79-97); Monocytes # (Auto) 0.2 K/mm3 (0.0-0.8); Monocytes % (Auto) 1.5 % (0.0-7.3); Platelet Count 237 K/mm3 (140-440); Red Blood Count 3.09 M/mm3 (3.65-5.03); Red Cell Distribution Width 17.9 % (13.2-15.2)
[2021-11-29 06:41] LABS: Alanine Aminotransferase 7 units/L (7-56); Albumin 3.6 g/dL (3.9-5); BUN/Creatinine Ratio 15; Blood Urea Nitrogen 17 mg/dL (7-17); Calcium 8.8 mg/dL (8.4-10.2); Hemolysis Index 0
[2021-11-29] MEDS: IPRATROPIUM/ALBUTEROL SULFATE 3 ML AMPUL.NEB IH SCH ×3 (08:58→20:59)
[2021-11-29] MEDS: FAMOTIDINE 20 MG/2 ML INJ IV SCH ×2 (09:06→21:15)
[2021-11-29] MEDS: cefTRIAXone/NS 2 GM/100 ML 2 GM/100 ML BAG IV SCH (09:06)
[2021-11-29] MEDS: MORPHINE 2 MG/1 ML INJ IV PRN ×3 (09:07→22:19)
[2021-11-29] MEDS: HEPARIN 5,000 UNIT/1 ML VIAL SUB-Q SCH ×2 (09:22→21:16)
[2021-11-29] MEDS: ALPRAZolam 0.5 MG TAB PO PRN (16:23)
[2021-11-29] MEDS: AZITHROMYCIN/NS 500 MG/250 ML 500 MG/250 ML BAG IV SCH (16:23)
--- NOTE | 2021-11-29 21:39 | Progress Note ---
Hospitalist Physical - Constitutional Vitals: Temp Pulse Resp BP Pulse Ox 98.9 F 94 H 16 113/67 97 11/29/21 17:46 11/29/21 21:03 11/29/21 21:03 11/29/21 17:46 11/29/21 20:59 General appearance: Present: mild distress, well-nourished HEART Score - HEART Score Age: > 65 Risk factors: 1-2 risk factors Troponin: < normal limit - Critical Actions Critical Actions: 0-3 pts:0.9-1.7%risk of adverse cardiac event.Candidate for discharge Results - Labs CBC & Chem 7: 11/29/21 05:41 11/29/21 05:41 Labs: Laboratory Last Values WBC 10.7 K/mm3 (4.5-11.0) 11/29/21 05:41 RBC 3.09 M/mm3 (3.65-5.03) L 11/29/21 05:41 Hgb 9.0 gm/dl (10.1-14.3) L 11/29/21 05:41 Hct 28.9 % (30.3-42.9) L 11/29/21 05:41 MCV 94 fl (79-97) 11/29/21 05:41 MCH 29 pg (28-32) 11/29/21 05:41 MCHC 31 % (30-34) 11/29/21 05:41 RDW 17.9 % (13.2-15.2) H 11/29/21 05:41 Plt Count 237 K/mm3 (140-440) 11/29/21 05:41 Lymph % (Auto) 8.7 % (13.4-35.0) L 11/29/21 05:41 [place] % (Auto) 1.5 % (0.0-7.3) 11/29/21 05:41 Eos % (Auto) 0.0 % (0.0-4.3) 11/29/21 05:41 Baso % (Auto) 0.1 % (0.0-1.8) 11/29/21 05:41 Lymph # (Auto) 0.9 K/mm3 (1.2-5.4) L 11/29/21 05:41 [place] # (Auto) 0.2 K/mm3 (0.0-0.8) 11/29/21 05:41 Eos # (Auto) 0.0 K/mm3 (0.0-0.4) 11/29/21 05:41 Baso # (Auto) 0.0 K/mm3 (0.0-0.1) 11/29/21 05:41 Seg Neutrophils % 89.7 % (40.0-70.0) H 11/29/21 05:41 Seg Neutrophils # 9.6 K/mm3 (1.8-7.7) H 11/29/21 05:41 Sodium 138 mmol/L (137-145) 11/29/21 05:41 Potassium 4.1 mmol/L (3.6-5.0) 11/29/21 05:41 Chloride 102.4 mmol/L (98-107) 11/29/21 05:41 Carbon Dioxide 26 mmol/L (22-30) 11/29/21 05:41 Anion Gap 14 mmol/L 11/29/21 05:41 BUN 17 mg/dL (7-17) 11/29/21 05:41 Creatinine 1.1 mg/dL (0.6-1.2) 11/29/21 05:41 Estimated GFR 49 ml/min 11/29/21 05:41 BUN/Creatinine Ratio 15 % 11/29/21 05:41 Glucose 130 mg/dL (65-100) H 11/29/21 05:41 Calcium 8.8 mg/dL (8.4-10.2) 11/29/21 05:41 Total Bilirubin < 0.20 mg/dL (0.1-1.2) 11/29/21 05:41 AST 14 units/L (5-40) 11/29/21 05:41 ALT 7 units/L (7-56) 11/29/21 05:41 Alkaline Phosphatase 153 units/L (35-129) H 11/29/21 05:41 Total Protein 6.9 g/dL (6.3-8.2) 11/29/21 05:41 Albumin 3.6 g/dL (3.9-5) L 11/29/21 05:41 Albumin/Globulin Ratio 1.1 % 11/29/21 05:41 Richardson/IV: Voiding Method Incontinent Active Medications - Current Medications Current Medications: Generic Name Dose Route Start Last Admin Trade Name Freq PRN Reason Stop Dose Admin Acetaminophen 650 mg 11/28/21 13:32 Acetaminophen 325 Mg Tab PO Q4H PRN Pain MILD(1-3)/Fever >100.5/ARVIZU Albuterol 2.5 mg 11/29/21 03:51 11/29/21 05:34 Albuterol 2.5 Mg/3 Ml Nebu IH 2.5 mg Q4HRT PRN Administration Shortness Of Breath Albuterol/Ipratropium 1 ampul 11/29/21 08:00 11/29/21 20:59 Ipratropium/Albuterol Sulfate 3 Ml Ampul.Neb IH 1 ampul TIDRT MICHAEL Administration Alprazolam 0.5 mg 11/29/21 15:30 11/29/21 16:23 Alprazolam 0.5 Mg Tab PO 0.5 mg Q8H PRN Administration Anxiety Famotidine 20 mg 11/28/21 14:00 11/29/21 21:15 Famotidine 20 Mg/2 Ml Inj IV 20 mg BID MICHAEL Administration Heparin Sodium (Porcine) 5,000 unit 11/28/21 22:00 11/29/21 21:16 Heparin 5,000 Unit/1 Ml Vial SUB-Q 5,000 unit Q12HR MICHAEL Administration Hydromorphone HCl 0.5 mg 11/28/21 13:32 Hydromorphone 0.5 Mg/0.5 Ml Inj IV Q3H PRN Pain , Severe (7-10) Azithromycin 500 mg in 250 mls @ 250 mls/hr 11/28/21 14:00 11/29/21 16:23 Zithromax/Ns IV 250 mls/hr Q24H MICHAEL Administration Ceftriaxone Sodium 2 gm in 100 mls @ 200 mls/hr 11/28/21 14:00 11/29/21 09:06 Rocephin/Ns 2 Gm/100 Ml IV 200 mls/hr Q24HR MICHAEL Administration Protocol Lorazepam 0.5 mg 11/28/21 13:39 11/28/21 14:12 Lorazepam 2 Mg/Ml Vial IV 0.5 mg Q4H PRN Administration Anxiety Methylprednisolone Sodium Succinate 80 mg 11/28/21 14:00 11/29/21 21:14 Methylprednisolone Sod Succinate 125 Mg/2 Ml Inj IV 80 mg Q8HR MICHAEL Administration Metoclopramide HCl 10 mg 11/28/21 13:32 Metoclopramide 10 Mg/2 Ml Inj IV Q6H PRN Nausea And Vomiting Morphine Sulfate 2 mg 11/28/21 13:32 11/29/21 16:33 Morphine 2 Mg/1 Ml Inj IV 2 mg Q4H PRN Administration Pain, Moderate (4-6) Ondansetron HCl 4 mg 11/28/21 13:32 Ondansetron 4 Mg/2 Ml Inj IV Q8H PRN Nausea And Vomiting Oxycodone/Acetaminophen 1 tab 11/28/21 13:32 Oxycodone /Acetaminophen 5-325mg Tab PO Q6H PRN Pain, Moderate (4-6) Sodium Chloride 10 ml 11/28/21 22:00 11/29/21 21:16 Sodium Chloride 0.9% 10 Ml Flush Syringe IV 10 ml BID MICHAEL Administration Sodium Chloride 10 ml 11/28/21 13:32 Sodium Chloride 0.9% 10 Ml Flush Syringe IV PRN PRN LINE FLUSH
[2021-11-30] MEDS: ALPRAZolam 0.5 MG TAB PO PRN ×3 (01:31→20:40)
[2021-11-30] MEDS: ALBUTEROL 2.5 MG/3 ML NEBU IH PRN ×2 (02:45→10:18)
[2021-11-30] MEDS: methylPREDNISolone Sod Succinate 125 MG/2 ML INJ IV SCH ×2 (05:13→13:20)
[2021-11-30] MEDS: IPRATROPIUM/ALBUTEROL SULFATE 3 ML AMPUL.NEB IH SCH ×2 (08:06→14:12)
[2021-11-30] MEDS: cefTRIAXone/NS 2 GM/100 ML 2 GM/100 ML BAG IV SCH ×2 (08:47→20:27)
[2021-11-30] MEDS: FAMOTIDINE 20 MG TAB PO SCH ×2 (08:48→20:28)
[2021-11-30] MEDS: MORPHINE 2 MG/1 ML INJ IV PRN (08:48)
[2021-11-30] MEDS: HEPARIN 5,000 UNIT/1 ML VIAL SUB-Q SCH ×2 (08:48→20:28)
--- NOTE | 2021-11-30 10:50 | Discharge Summary ---
Providers - Providers Date of Admission: 11/28/21 15:30 Attending physician: RACIEL MERCADO Primary care physician: JAVON JACKSON MD Hospitalization Condition: Fair Disposition: 30 STILL A PATIENT Exam - Constitutional Vitals: Temp Pulse Resp BP Pulse Ox 98.2 F 83 24 111/51 96 11/29/21 21:48 11/30/21 10:18 11/30/21 10:18 11/30/21 10:02 11/30/21 10:03 Plan Follow up with: JAVON JACKSON MD [Primary Care Provider] - 7 Days
[2021-11-30 18:07] VITALS: BP 105/54
== END 2021-11-30 20:56 | disposition home or self-care (01) | DRG 189 ==
LOC: ED 06:45 → 3A 15:30
PROVIDERS: ADMIT Internal Medicine; ATTEND Internal Medicine
DX: J96.01 Acute respiratory failure with hypoxia (principal); J44.1 Chronic obstructive pulmonary disease with (acute) exacerbation; E44.1 Mild protein-calorie malnutrition; K21.9 Gastro-esophageal reflux disease without esophagitis; F41.1 Generalized anxiety disorder; I10 Essential (primary) hypertension; F17.200 Nicotine dependence, unspecified, uncomplicated; Z68.25 Body mass index [BMI] 25.0-25.9, adult
CPT/HCPCS: 36415; 71045; 80053; 85025; 94640; 94644; 94760; G0378; J3490; J0456; J0696; J1644; J2060; J2270; J2930